=== PATIENT | male | born 1935 | race Caucasian/White ===

== ENCOUNTER 2017-02-25 12:12 | Emergency (ER) | payer MEDICARE, OTHER ==
[2017-02-25] MEDS ORDERED: Sodium Chloride 0.9% 10 ML Syringe FLUSH PRN (12:22)
[2017-02-25] MEDS ORDERED: Aspirin 81 MG Tab.Chew PO ONE (12:22)
[2017-02-25] MEDS ORDERED: Sodium Chloride 0.9% 1,000 ML IV ONE (12:22)
--- NOTE | 2017-02-25 12:27 | EDM.PDOC ---
ED HPI GENERAL MEDICAL PROBLEM - General Chief Complaint: Cardiovascular Problem Stated Complaint: CHEST PAIN Time Seen by Provider: 02/25/17 12:20 Source of Information: Reports: Patient, Family History Limitations: Reports: No Limitations - History of Present Illness INITIAL COMMENTS - FREE TEXT/NARRATIVE: Patient comes in with complaints of chest pain/pressure that started at the dentist 1 hour ago with no relief after 3 SL nitroglycerin. He does endorse a history of NH with angioplasty but no stent history. He denies stroke, copd, cancer, diabetes. Endorses medical history of HTN, hypercholesterolemia. States his chest pain starts on the left with radiation to the right side and he does state it feels like pressure. Some radiation to the back. Rates pain a 6/10. It does not increase with breathing or movement. He is here with his . Onset: Today, Sudden Onset Date: 02/25/17 Onset Time: 11:00 Duration: Intermittent Location: Reports: Chest Quality: Reports: Ache, Pressure Severity: Moderate Improves with: Reports: None Worsens with: Reports: None Associated Symptoms: Reports: No Other Symptoms - Related Data Allergies Allergy/AdvReac Type Severity Reaction Status Date / Time No Known Drug Allergies Allergy Cannot Verified 02/25/17 12:29 Remember metal Allergy Irritabilit Uncoded 11/19/13 08:54 y Home Meds: Home Meds Aspirin [Halfprin] 81 mg PO BEDTIME 11/19/13 [History] ClonazePAM [KlonoPIN] 0.25 mg PO BEDTIME 11/19/13 [History] Cyanocobalamin (Vitamin B12) [Vitamin B12] 1,000 mcg IM .MONTHLY 11/19/13 [ History] Lisinopril [Prinivil] 5 mg PO DAILY 11/19/13 [History] Metoprolol Tartrate 25 mg PO BID 11/19/13 [History] Multivitamin [Multi-Vitamin Daily] 1 each PO PCDIN 11/19/13 [History] Pantoprazole [Pantoprazole Sodium] 20 mg PO WDIN 11/19/13 [History] Simvastatin [Zocor] 10 mg PO BEDTIME 11/19/13 [History] Tamsulosin [Flomax] 0.4 mg PO BEDTIME 11/19/13 [History] amLODIPine [Norvasc] 5 mg PO DAILY 11/19/13 [History] busPIRone [Buspar] 5 mg PO DAILY 11/19/13 [History] Meclizine [Antivert] 12.5 mg PO TID PRN #30 tablet 11/20/13 [Rx] Levothyroxine 50 mcg PO DAILY 02/25/17 [History] Omeprazole Magnesium [Prilosec Otc] 20 mg PO DAILY 02/25/17 [History] Oxybutynin Chloride [Ditropan Xl] 5 mg PO DAILY 02/25/17 [History] Triamcinolone Acetonide [Triamcinolone Acetonide 0.5%] 15 gm TOP BID 02/25/17 [ History] Past Medical History - Past Health History Medical/Surgical History: Denies Medical/Surgical History Social & Family History - Tobacco Use Smoking Status *Q: Never Smoker Years of Tobacco use: 50 Used Tobacco, but Quit: Yes Month Tobacco Last Used: 10/2000 Second Hand Smoke Exposure: No - Alcohol Use Days Per Week of Alcohol Use: 0 - Recreational Drug Use Recreational Drug Use: No ED ROS GENERAL - Review of Systems Review Of Systems: See Below Constitutional: Reports: No Symptoms HEENT: Reports: No Symptoms Respiratory: Reports: No Symptoms Cardiovascular: Reports: Chest Pain (chest pressure) Endocrine: Reports: No Symptoms GI/Abdominal: Reports: No Symptoms : Reports: No Symptoms Musculoskeletal: Reports: No Symptoms Skin: Reports: No Symptoms Neurological: Reports: No Symptoms Psychiatric: Reports: No Symptoms Hematologic/Lymphatic: Reports: No Symptoms Immunologic: Reports: No Symptoms ED EXAM, GENERAL - Physical Exam Exam: See Below Exam Limited By: No Limitations General Appearance: Alert, WD/WN, No Apparent Distress Eye Exam: Bilateral Eye: EOMI, PERRL Head: Atraumatic, Normocephalic Neck: Normal Inspection, Supple, Non-Tender Respiratory/Chest: No Respiratory Distress, Lungs Clear, No Accessory Muscle Use , Decreased Breath Sounds Cardiovascular: Normal Peripheral Pulses, Regular Rate, Rhythm Peripheral Pulses: 2+: Posterior Tibial (L), Posterior Tibial (R), Dorsalis Pedis (L), Dorsalis Pedis (R) GI/Abdominal: Normal Bowel Sounds, Soft, Non-Tender Extremities: Normal Inspection, Normal Range of Motion, Non-Tender, Pedal Edema (2+) Neurological: Alert, Oriented, CN II-XII Intact, Normal Cognition Psychiatric: Normal Affect, Normal Mood Skin Exam: Warm, Dry, Intact, Normal Color Lymphatic: No Adenopathy EKG INTERPRETATION EKG Date: 02/25/17 Time: 12:18 Rhythm: NSR Rate (beats/min): 65 [place]: normal P-wave: present QRS: normal ST-T: depressed QT: normal Comparison: no change Course - Vital Signs Last Recorded V/S: Last Vital Signs Temp 36.7 C 02/25/17 12:12 Pulse 66 02/25/17 13:23 Resp 16 02/25/17 13:23 BP 106/67 02/25/17 13:23 Pulse Ox 98 02/25/17 13:23 - Orders/Labs/Meds Orders: Active Orders 24 hr Category Date Time Status EKG Documentation Completion [RC] ROUTINE Care 02/25/17 12:22 Active Chest 1V Frontal [CR] Stat Exams 02/25/17 12:22 Taken Chest PE [Ang Chest] [CT] Stat Exams 02/25/17 13:17 Taken Sodium Chloride 0.9% [Saline Flush] Med 02/25/17 12:22 Active 10 ml FLUSH ASDIRECTED PRN Saline Lock Insert [OM.PC] Routine Oth 02/25/17 12:22 Ordered Medication Orders Sodium Chloride (Saline Flush) 10 ml FLUSH ASDIRECTED PRN PRN Reason: Keep Vein Open Labs: Laboratory Tests 02/25/17 02/25/17 02/25/17 Range/Units 12:46 12:46 12:46 WBC 5.6 (4.0-10.0) x10^3/uL RBC 4.27 L (4.5-6.0) x10^6/uL Hgb 13.4 L (14.0-18.0) g/dL Hct 39.3 L (40.0-52.0) % MCV 92.0 (78.0-93.0) fL MCH 31.4 (26.0-32.0) pg MCHC 34.1 (32.0-36.0) g/dL RDW Coeff of Phyllis 12.7 (10.0-15.0) % Plt Count 150 (130-400) x10^3/uL Neut % (Auto) 64.4 (50.0-80.0) % Lymph % (Auto) 26.6 (25.0-50.0) % Marion % (Auto) 6.3 (2.0-11.0) % Eos % (Auto) 2.2 (0.0-4.0) % Baso % (Auto) 0.5 (0.2-1.2) % PT 11.2 (10.0-12.8) SEC INR 1.0 L (2.0-3.5) D-Dimer, Quantitative 2.46 H (<=0.58) mg/LFEU Sodium 140 (136-145) mmol/L Potassium 4.2 (3.5-5.1) mmol/L Chloride 105 (98-107) mmol/L Carbon Dioxide 28 (21-32) mmol/L BUN 18 (7-18) mg/dL Creatinine 1.0 (0.70-1.30) mg/dL Est Cr Clr Drug Dosing TNP Estimated GFR (MDRD) > 60 Glucose 100 (74-106) mg/dL Calcium 8.7 (8.5-10.1) mg/dL Corrected Calcium 9.02 (8.5-10.1) mg/dL Total Bilirubin 0.4 (0.2-1.0) mg/dL AST 24 (15-37) U/L ALT 29 (16-63) U/L Alkaline Phosphatase 78 (46-116) U/L Creatine Kinase 105 (39-308) U/L Creatine Kinase Index 2.9 (0.0-4.0) % CK-MB (CK-2) 3.0 (0.0-3.6) ng/mL POC Troponin I (0.00-0.08) ng/mL B-Natriuretic Peptide 727 H (<=450) pg/mL Total Protein 6.7 (6.4-8.2) g/dL Albumin 3.6 (3.4-5.0) g/dL Globulin 3.1 Albumin/Globulin Ratio 1.16 TSH, Ultra Sensitive 2.676 (0.358-3.74) uIU/mL 02/25/17 Range/Units 12:59 WBC (4.0-10.0) x10^3/uL RBC (4.5-6.0) x10^6/uL Hgb (14.0-18.0) g/dL Hct (40.0-52.0) % MCV (78.0-93.0) fL MCH (26.0-32.0) pg MCHC (32.0-36.0) g/dL RDW Coeff of Phyllis (10.0-15.0) % Plt Count (130-400) x10^3/uL Neut % (Auto) (50.0-80.0) % Lymph % (Auto) (25.0-50.0) % Marion % (Auto) (2.0-11.0) % Eos % (Auto) (0.0-4.0) % Baso % (Auto) (0.2-1.2) % PT (10.0-12.8) SEC INR (2.0-3.5) D-Dimer, Quantitative (<=0.58) mg/LFEU Sodium (136-145) mmol/L Potassium (3.5-5.1) mmol/L Chloride (98-107) mmol/L Carbon Dioxide (21-32) mmol/L BUN (7-18) mg/dL Creatinine (0.70-1.30) mg/dL Est Cr Clr Drug Dosing Estimated GFR (MDRD) Glucose (74-106) mg/dL Calcium (8.5-10.1) mg/dL Corrected Calcium (8.5-10.1) mg/dL Total Bilirubin (0.2-1.0) mg/dL AST (15-37) U/L ALT (16-63) U/L Alkaline Phosphatase (46-116) U/L Creatine Kinase (39-308) U/L Creatine Kinase Index (0.0-4.0) % CK-MB (CK-2) (0.0-3.6) ng/mL POC Troponin I 0.01 (0.00-0.08) ng/mL B-Natriuretic Peptide (<=450) pg/mL Total Protein (6.4-8.2) g/dL Albumin (3.4-5.0) g/dL Globulin Albumin/Globulin Ratio TSH, Ultra Sensitive (0.358-3.74) uIU/mL Meds: Medications Generic Name Dose Route Start Last Admin Trade Name Freq PRN Reason Stop Dose Admin Sodium Chloride 10 ml 02/25/17 12:22 Saline Flush FLUSH ASDIRECTED PRN Keep Vein Open Discontinued Medications Generic Name Dose Route Start Last Admin Trade Name Freq PRN Reason Stop Dose Admin Aspirin 324 mg 02/25/17 12:22 02/25/17 12:15 Aspirin PO 02/25/17 12:23 324 mg ONETIME ONE Administration Sodium Chloride 1,000 mls @ 999 mls/hr 02/25/17 12:22 02/25/17 12:49 Normal Saline IV 02/25/17 13:22 999 mls/hr .BOLUS ONE Administration Sodium Chloride 100 mls @ 3 mls/sec 02/25/17 13:23 02/25/17 13:58 Normal Saline IV 02/25/17 13:24 5 mls/sec ONETIME ONE Administration Iopamidol 100 ml 02/25/17 13:23 02/25/17 13:57 Isovue-300 (61%) IVPUSH 02/25/17 13:24 100 ml ONETIME ONE Administration - Re-Assessments/Exams Free Text/Narrative Re-Assessment/Exam: 02/25/17 13:55 chest x-ray with hyperinflation and chronic COPD - no acute process on x-ray 02/25/17 15:19 Chest CTA negative for PE, single right upper lobe nodule, suggest repeat CT in 6-12 months, infrarenal 4.38 cm AAA Departure - Departure Time of Disposition: 15:26 Disposition: Home, Self-Care 01 Condition: good Clinical Impression: Anxiety disorder Instructions: Nonspecific Chest Pain, [id number], Panic Attacks, [id number] Additional Instructions: Follow up with your primary provider as symptoms warrant. Your diagnostics today were negative for any acute cardiac causes or pulmonary embolism. You need a follow up chest CT in 6-12 months to track any growth of the nodule seen in your upper right lobe You also have a infrarenal 4.38 cm abdominal aortic aneurism that should be monitored for any growth. Please call us with any questions or concerns. - Problem List & Annotations (1) Anxiety disorder SNOMED Code(s): 319171054 Code(s): F41.9 - ANXIETY DISORDER, UNSPECIFIED Status: Acute Priority: Low Current Visit: Yes - Problem List Review Problem List Initiated/Reviewed/Updated: Yes - My Orders Last 24 Hours: My Active Orders 02/25/17 12:22 EKG Documentation Completion [RC] ROUTINE Chest 1V Frontal [CR] Stat Sodium Chloride 0.9% [Saline Flush] 10 ml FLUSH ASDIRECTED PRN Saline Lock Insert [OM.PC] Routine 02/25/17 13:17 Chest PE [Ang Chest] [CT] Stat - Assessment/Plan Last 24 Hours: My Active Orders 02/25/17 12:22 EKG Documentation Completion [RC] ROUTINE Chest 1V Frontal [CR] Stat Sodium Chloride 0.9% [Saline Flush] 10 ml FLUSH ASDIRECTED PRN Saline Lock Insert [OM.PC] Routine 02/25/17 13:17 Chest PE [Ang Chest] [CT] Stat Assessment:: anxiety Plan: Follow up with your primary provider as symptoms warrant. Your diagnostics today were negative for any acute cardiac causes or pulmonary embolism. You need a follow up chest CT in 6-12 months to track any growth of the nodule seen in your upper right lobe You also have a infrarenal 4.38 cm abdominal aortic aneurism that should be monitored for any growth. Please call us with any questions or concerns.
[2017-02-25 13:21] LABS: CHLORIDE,CL 105 mmol/L (98-107); SODIUM,NA 140 mmol/L (136-145)
[2017-02-25] MEDS ORDERED: Sodium Chloride 0.9% 100 ML IV ONE (13:23)
[2017-02-25] MEDS ORDERED: Iopamidol 612 MG/ML 100 ML Bottle IVPUSH ONE (13:23)
[2017-02-25 13:32] VITALS: BP 106/67
== END 2017-02-25 15:30 | disposition home or self-care (01) ==
LOC: VM.ED 12:12
DX: F41.9 Anxiety disorder, unspecified (principal); Z79.82 Long term (current) use of aspirin; Z91.09 Other allergy status, other than to drugs and biological substances; Z79.899 Other long term (current) drug therapy
CPT/HCPCS: 71010; 71275; 80053; 82550; 82553; 83880; 84443; 84484; 85025; 85379; 85610; 93005; 96360; 99284; 99285; A9270; J7030; J7050; Q9967

== ENCOUNTER 2018-11-02 13:43 | Emergency (ER) | payer MEDICARE, OTHER ==
[2018-11-02 14:08] VITALS: BP 167/91
--- NOTE | 2018-11-02 14:18 | EDM.PDOC ---
ED HPI GENERAL MEDICAL PROBLEM - General Chief Complaint: Back Pain or Injury Stated Complaint: BACK PAIN Time Seen by Provider: 11/02/18 13:44 Source of Information: Reports: Patient, Family, RN, RN Notes Reviewed History Limitations: Reports: No Limitations - History of Present Illness INITIAL COMMENTS - FREE TEXT/NARRATIVE: Patient presents to the ED at [facility] for the evaluation of neck pain, right lower rib pain, and shoulder pain. Patient states he fell into a chair 2 days ago. He was using Aspercreme which seem to help until today when the pain was no longer controllable. Patient states it hurts to take in a deep breath. No over cardiac chest pain. Patient states the worse of his pain is along the right lateral lower ribs. He has some right sided neck pain but is unsure if the pain is related to the fall. He has right shoulder pain but states this is chronic. He denies any LOC. No head injury or trauma. patient denies any back pain. No bowel or bladder in continence. Patient states his right lateral chest wall pain is sharp, stabbing, and spasm like. Onset Date: 10/31/18 Right Back Pain Score (Numeric/FACES): 8 - Related Data Allergies Allergy/AdvReac Type Severity Reaction Status Date / Time metal Allergy Irritabilit Uncoded 11/02/18 14:11 y Home Meds: Home Meds Aspirin [Halfprin] 81 mg PO BEDTIME 11/19/13 [History] ClonazePAM [KlonoPIN] 0.25 mg PO BEDTIME 11/19/13 [History] Cyanocobalamin (Vitamin B12) [Vitamin B12] 1,000 mcg PO DAILY 11/19/13 [History] Lisinopril [Prinivil] 5 mg PO DAILY 11/19/13 [History] Metoprolol Tartrate 25 mg PO BID 11/19/13 [History] Simvastatin [Zocor] 10 mg PO BEDTIME 11/19/13 [History] Tamsulosin [Flomax] 0.4 mg PO BEDTIME 11/19/13 [History] busPIRone [Buspar] 5 mg PO BID 11/19/13 [History] Levothyroxine 50 mcg PO DAILY 02/25/17 [History] Omeprazole Magnesium [Prilosec Otc] 20 mg PO DAILY 02/25/17 [History] Oxybutynin Chloride [Ditropan Xl] 5 mg PO DAILY 02/25/17 [History] Triamcinolone Acetonide [Triamcinolone Acetonide 0.5%] 15 gm TOP BID 02/25/17 [ History] Cholecalciferol (Vitamin D3) [Vitamin D3] 2,000 unit PO DAILY 11/02/18 [History] Naproxen Sodium [Aleve] 220 mg PO BID PRN 11/02/18 [History] hydroCHLOROthiazide [Hydrochlorothiazide] 12.5 mg PO DAILY 11/02/18 [History] predniSONE [Prednisone] 5 mg PO ASDIRECTED 11/02/18 [History] traMADol [Ultram] 50 mg PO QID PRN 11/02/18 [History] Past Medical History - Past Health History Medical/Surgical History: Denies Medical/Surgical History Cardiovascular History: Reports: Heart Failure, Hypertension, [place] Gastrointestinal History: Reports: GERD Social & Family History - Tobacco Use Smoking Status *Q: Unknown Ever Smoked ED ROS GENERAL - Review of Systems Review Of Systems: See Below Constitutional: Denies: Fever, Chills Respiratory: Reports: Pleuritic Chest Pain (right lateral rib pain). Denies: Shortness of Breath, Cough Cardiovascular: Reports: Palpitations. Denies: Chest Pain GI/Abdominal: Denies: Abdominal Pain, Nausea, Vomiting Musculoskeletal: Reports: Neck Pain, Shoulder Pain Skin: Reports: No Symptoms Neurological: Reports: No Symptoms ED EXAM, UPPER BACK/NECK PAIN - Physical Exam Exam: See Below Exam Limited By: No Limitations General Appearance: Alert, No Apparent Distress Eye Exam: Bilateral Eye: EOMI, Normal Inspection, PERRL Ears Exam: Normal External Exam, Normal Canal, Normal TMs Nose Exam: Normal Inspection Throat/Mouth Exam: Normal Inspection, Normal Oropharynx, No Airway Compromise Head Exam: Atraumatic, Normocephalic Neck Exam: Stiff Neck, Tender Lateral Nexus Criteria: No: Posterior, Midline Cervical Tenderness, Altered Level of Consciousness, Focal Neurological Deficit, Painful Distraction Injuries Cardiovascular/Respiratory: Regular Rate, Rhythm, Normal Peripheral Pulses, Other (Right lateral lower chest wall tenderness to palpation; no obvious bone deformity; no evidence of trauma; skin intact). No: No Respiratory Distress GI/Abdominal: Normal Bowel Sounds, Soft, Non-Tender Back Exam: Normal Inspection, Full Range of Motion Extremities: Normal Inspection Neurologic: Alert, Oriented x 3 Skin Exam: Normal Color, Warm/Dry Course - Vital Signs Last Recorded V/S: Last Vital Signs Temp 37.3 C 11/02/18 14:00 Pulse 63 11/02/18 14:00 Resp 18 11/02/18 14:00 BP 167/91 H 11/02/18 14:00 Pulse Ox 99 11/02/18 14:00 - Orders/Labs/Meds Meds: Medications Discontinued Medications Generic Name Dose Route Start Last Admin Trade Name Coni PRN Reason Stop Dose Admin Morphine Sulfate 2 mg 11/02/18 14:50 11/02/18 14:57 Morphine IM 11/02/18 14:51 2 mg ONETIME ONE Administration Orphenadrine Citrate 60 mg 11/02/18 14:50 11/02/18 14:57 Norflex IM 11/02/18 14:51 60 mg Q12H ONE Administration Departure - Departure Time of Disposition: 16:38 Disposition: Home, Self-Care 01 Condition: Good Clinical Impression: Muscle spasm Rib fractures Qualifiers: Encounter type: initial encounter Rib fracture type: multiple ribs Fracture type: closed Laterality: right Qualified Code(s): S22.41XA - Multiple fractures of ribs, right side, initial encounter for closed fracture Fall Qualifiers: Encounter type: initial encounter Qualified Code(s): W19.XXXA - Unspecified fall, initial encounter - Discharge Information *PRESCRIPTION DRUG MONITORING PROGRAM REVIEWED*: Not Applicable *COPY OF PRESCRIPTION DRUG MONITORING REPORT IN PATIENT ALLIE: Not Applicable Instructions: Rib Fracture, Muscle Cramps and Spasms Referrals: Mirtha Madera MD [Primary Care Provider] - Forms: ED Department Discharge Additional Instructions: 1. Stay well hydrated and rest 2. Use pain medication (Tramadol) consistently until seen by Dr. Madera in clinic 3. Use muscle relaxer as prescribed 4. Cough and deep breath several times any hour 5. Use a pillow to splint the right ribs when coughing or sneezing 6. Recommend a follow up appointment with Dr. Madera this week in clinic 7. Call us with any questions or concerns - Problem List Review Problem List Initiated/Reviewed/Updated: Yes - Assessment/Plan Assessment:: Acute rib fractures Fall Muscle spasms Plan: CT scan and xray findings were discussed with the patient. I will recommend that the patient take his tramadol more consistently at home. I will also start the patient on a short course of Flexeril. We discussed cough and deep breathing exercises to prevent pneumonia. Also discussed using a pillow to splint the right ribs, especially when needing to cough or sneeze. I would like the patient to see his PCP in the clinic for a follow-up this week
[2018-11-02] MEDS ORDERED: Morphine 2 MG/ML Syringe IM ONE (14:50)
--- NOTE | 2018-11-02 16:32 | CT ---
[id number] CT/CT Chest WO IV EXAM: CT Chest WO IV CLINICAL DATA: RIGHT RIB PAIN, FALL, CHEST PAIN. COMPARISON: CT from September 04, 2017. FINDINGS: LUNGS: Trace right pleural effusion. No pneumothorax or pulmonary contusion. No pneumonia or edema. Findings are superimposed on changes of chronic obstructive pulmonary disease with scattered pleural/parenchymal scarring. HEART AND GREAT VESSELS: Coronary artery and thoracic aorta atherosclerosis. Heart is enlarged, most notably in the left ventricle and atrium. No pericardial effusion. MEDIASTINUM AND LYMPHATICS: No mediastinal or hilar lymphadenopathy. UPPER ABDOMINAL ORGANS: Small sliding-type hiatus hernia. Gallbladder has been resected. Now fusiform aneurysm of the infrarenal abdominal aorta, measuring up to 38 mm in diameter. This portion of the aorta was not included on the prior examination. BONES: Acute nondisplaced fractures of the posterior 7th and 8th ribs. 7th rib fracture is slightly displaced. Chronic mild to moderate L1 compression deformity, unchanged from August 2017. No evidence of an acute vertebral fracture. IMPRESSION: Acute fractures of the posterior right 7th and 8th ribs. 7th rib fracture is slightly displaced. Despite this there is no pneumothorax. No other acute findings in the chest. Kyle Franco MD 11/02/18 [id number] Thank you for allowing us to participate in the care of your patient.
--- NOTE | 2018-11-02 16:32 | CR ---
[id number] RAD/RAD Cervical Spine 2-3V Exam: RAD Cervical Spine 2-3V Indication:NECK PAIN, FALL. Comparison: No prior imaging for comparison. Discussion: Straightening of the normal cervical lordosis secondary to advanced spondylosis most prominent at C4-5 and C5-6. Mild to moderate changes of spondylosis elsewhere in the cervical spine. No fracture or compression deformity. Prevertebral soft tissues are normal thickness. Bone mineralization is diffusely decreased. Impression: No acute findings in the cervical spine. Kyle Franco MD 11/02/18 [id number] Thank you for allowing us to participate in the care of your patient.
[2018-11-02] MEDS ORDERED: Take Home: Cyclobenzaprine 10 MG Tab, 4 Tab Pack PO ONE (16:44)
== END 2018-11-02 17:00 | disposition home or self-care (01) ==
LOC: VM.ED 13:43
DX: S22.41XA Multiple fractures of ribs, right side, initial encounter for closed fracture (principal); M62.830 Muscle spasm of back; I11.0 Hypertensive heart disease with heart failure; I50.9 Heart failure, unspecified; W07.XXXA Fall from chair, initial encounter; Z91.048 Other nonmedicinal substance allergy status; Z79.82 Long term (current) use of aspirin; Z79.899 Other long term (current) drug therapy
CPT/HCPCS: 71250; 72040; 96372; 99284; A9270-GY; J2270; J2360

== ENCOUNTER 2018-11-03 13:54 | Inpatient (IN) | payer MEDICARE, OTHER ==
[2018-11-03] MEDS ORDERED: Acetaminophen 325 MG Tab PO PRN (14:00)
[2018-11-03] MEDS ORDERED: Morphine 2 MG/ML Syringe IVPUSH PRN (14:00)
[2018-11-03] MEDS ORDERED: traMADol 50 MG Tab PO PRN (14:30)
[2018-11-03] MEDS ORDERED: Cyclobenzaprine 10 MG Tab PO PRN (14:30)
[2018-11-03 14:54] LABS: CHLORIDE,CL 98 mmol/L (98-107); SODIUM,NA 133 mmol/L (136-145)
[2018-11-03 14:55] LABS: ANION GAP 11.7 mmol/L (10-20)
[2018-11-03] MEDS ORDERED: Sodium Chloride 0.9% 500 ML IV ONE (14:55)
[2018-11-03] MEDS: Sodium Chloride 0.9% 1,000 ML IV SCH ×2 (15:10→15:59)
[2018-11-03] MEDS ORDERED: Sodium Chloride 0.9% 1,000 ML IV ONE (15:11)
[2018-11-03] MEDS: Morphine 2 MG/ML Syringe IVPUSH SCH ×3 (15:11→22:08)
[2018-11-03] MEDS: Aspirin 81 MG Tab.EC PO SCH (19:39)
[2018-11-03] MEDS: Tamsulosin 0.4 MG Cap.ER PO SCH (19:39)
[2018-11-03] MEDS: Docusate Sodium 100 MG Cap PO SCH (19:40)
[2018-11-03] MEDS: Metoprolol Tartrate 25 MG Tab PO SCH (19:40)
[2018-11-03] MEDS: busPIRone 5 MG Tab PO SCH (19:40)
[2018-11-03] MEDS: Omeprazole 20 MG Cap.CR PO SCH (19:40)
[2018-11-03] MEDS: Simvastatin 10 MG Tab PO SCH (19:40)
[2018-11-03] MEDS: ClonazePAM 0.5 MG Tab PO SCH (19:43)
[2018-11-03] MEDS: Triamcinolone Acetonide 0.1% Crm 15 GM Tube TOP SCH (20:54)
[2018-11-04] MEDS: Sodium Chloride 0.9% 1,000 ML IV SCH ×3 (01:05→21:22)
[2018-11-04] MEDS: Morphine 2 MG/ML Syringe IVPUSH SCH ×6 (02:38→22:23)
[2018-11-04 07:09] LABS: CHLORIDE,CL 104 mmol/L (98-107); SODIUM,NA 137 mmol/L (136-145)
[2018-11-04 07:10] LABS: ANION GAP 8.9 mmol/L (10-20)
[2018-11-04] MEDS: Cholecalciferol (Vitamin D3) 1,000 Unit Tab PO SCH (08:07)
[2018-11-04] MEDS: busPIRone 5 MG Tab PO SCH ×2 (08:07→20:08)
[2018-11-04] MEDS: predniSONE 5 MG Tab PO SCH (08:07)
[2018-11-04] MEDS: Levothyroxine 50 MCG Tab PO SCH (08:08)
[2018-11-04] MEDS: Oxybutynin 5 MG Tab.ER PO SCH (08:08)
[2018-11-04] MEDS: Cyanocobalamin (Vitamin B12) 1,000 MCG Tab PO SCH (08:08)
[2018-11-04] MEDS: Docusate Sodium 100 MG Cap PO SCH ×2 (08:08→20:08)
[2018-11-04] MEDS: Hydrochlorothiazide 12.5 MG Cap PO SCH (08:08)
[2018-11-04] MEDS: Metoprolol Tartrate 25 MG Tab PO SCH ×2 (08:09→20:08)
--- NOTE | 2018-11-04 09:11 | HP ---
CHIEF COMPLAINT: Severe chest pain, intractable. HISTORY OF PRESENT ILLNESS: The patient is an 83-year-old male who was seen yesterday in the emergency room after having fallen on 10/31/2018, into a chair. He had sustained 7th and 8th right rib fractures as well as strained his neck. While in the emergency room, he had a CT scan done. He was given 2 mg of morphine as well as Norflex injection. He was sent home on tramadol and Flexeril. He lives in assisted living. Since being at home, he has been having uncontrolled pain and he needs more care than what can be provided in assisted living. The patient is brought in by family friend, Ebonie Branham RN, and she states he is just not managing well. To note, patient has not eaten well. He appears very despondent, lethargic. To note, when he had been in the clinic recently on 10/28/2018, he had just been found to be positive for rheumatoid arthritis and had been placed on tapering dose of prednisone, which had been helping him quite significantly. Also, he had been having problems with hypotension and he had his amlodipine recently stopped on 10/14/2018, and his BuSpar had been increased to 10 mg twice a day and he had been resumed on hydrochlorothiazide and to wear support stockings. Then on 10/28/2018, his hydrochlorothiazide had been reduced to half a pill a day, and he was started to taper on prednisone 15 mg a day for a week and then 10 mg a day for a week and then 5 mg a day for a week, to stay until he is seen and he was to continue on the same doses of tramadol and BuSpar and wear support stockings. The patient also is under quite a bit of stress in that his lives at the senior living and affordability of that is bothersome to patient. MEDICATIONS: He is currently on: 1. Aspirin 81 mg 1 pill daily. 2. BuSpar 10 mg he takes two 5 mg tablets twice a day. 3. Clonazepam 0.5 mg a half a tablet at bedtime. 4. Levothyroxine 50 mcg 1 pill daily. 5. Lisinopril 5 mg 1 pill daily. 6. Metoprolol 25 mg 1 pill twice a day. 7. Naprosyn 220 mg 1 pill twice a day as needed for pain. 8. Omeprazole 20 mg 1 pill at bedtime. 9. Oxybutynin 5 mg 1 pill at bedtime. 10.Simvastatin 10 mg 1 pill at bedtime. 11.Flomax 0.4 mg 1 pill at bedtime. 12.Triamcinolone cream twice a day as needed. 13.Vitamin B12, 1000 mcg p.o. daily. 14.Vitamin D 2000 units p.o. daily. 15.Aleve. 16.He has hydrochlorothiazide 25 mg a half a pill daily. 17.As stated, prednisone 15 mg daily which was started on 10/28, which will go until 11/04. Then, he should cut down to 10 mg daily for 1 week and then 5 mg daily. 18.Tramadol 50 mg 1 pill 4 times a day as needed for pain. 19.Flexeril 10 mg q.8 hours p.r.n. muscle spasms. ALLERGIES: To metal. PAST MEDICAL HISTORY: 1. The patient has had rheumatoid arthritis being positive on 10/14/2018, not under the care of Rheumatology. 2. He has had hypercholesterolemia. 3. Mild cognitive disorder. On 02/23/2015, mini-mental status was 28/30. 4. He had lung nodules which were noted on 09/04/2017 as stable, he needed 1 year followup, which has not been done yet. 5. He has had hypothyroidism. 6. Hyperglycemia. 7. Hypertension. 8. Coronary artery disease on 02/11/2002. 9. He had a stent placed to distal LAD stenosis length 2.5 mm vessel as well as bifurcation lesion at the left circumflex due to anatomy, had cutting balloon angioplasty rather than stenting of the bifurcation with good success. Had an PCI as well as angioplasty of LAD stenosis, PTCA. Cardiolite on 04/27/2002, showed mild LVH, decreased ejection fraction of 45%, fixed perfusion defects in apex. He has had chronic diastolic heart failure. 10.Echo on 12/28/2002 showed ejection fraction of 50%, 09/25/2006 ejection fraction by angiogram was 45%. had declined echo in 2013. 11.He has had chronic anxiety disorder, on clonazepam and BuSpar. 12.He has a known abdominal aortic aneurysm on 02/25/2017, it was 4.[address] On 03/14/2018, it was 4 cm by ultrasound. He was supposed to have another ultrasound in 6 months, which has also not been done. 13.The patient has had vertigo. 14.He has had vertebral artery aneurysms known for many years, seen on CT of his head, asymptomatic, declined further workup. 15.He has had restless legs syndrome. 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 17.Lumbar paraspinal muscle spasms. 18.Hiatal hernia. 19.He had an upper GI on 08/25/2018, at [facility]. 20.He has had peripheral edema. 21.Dyspepsia. 22.EGD on 03/23/2005 showed duodenitis. 23.He has had compression fracture of his 1st vertebra on 12/24/2017. 24.Cervical disk disease at C3-C5. He has had epidural injections. 25.He has had arthritis of both hands. 26.Acute shoulder bursitis. 27.Chronic back pain. 28.He has had peripheral neuropathy. 29.He is hypothyroid and vitamin B12 deficient. 30.He has had atopic dermatitis. 31.He has had hearing disorder, both ears. 32.He has had benign nodular prostatic hypertrophy. 33.Vitamin B12 deficiency. PAST SURGICAL HISTORY: He has had percutaneous transluminal coronary stent and angioplasty on 02/11/2002, cholecystectomy, hernia repair on the right. FAMILY MEDICAL HISTORY: Mother had brain hemorrhage, heart attack, and MS. Father from a stroke. One brother has had COPD. Another brother has had a stroke, knee cancer, prostate cancer. Another brother has had stroke, heart disease, diabetes, depression. Another brother has had prostate cancer, dementia. Another brother has had heart disease, prostate cancer, and MS. Another brother has had dementia. SOCIAL HISTORY: He is . He is a retired garcia. He has never smoked. He has also been a teacher. He has had a previous who had one son murdered while in the [employer]. One son at 52 of cancer. One son and one daughter are living. 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 [facility] but [facility]. REVIEW OF SYSTEMS: Much more weak, difficult to move around. No coughing. No chest pain. No shortness of breath. No nausea. Does not have swelling of his legs. Has had much less swelling of his arms. Does have pain in his neck as well as pain in his right chest. His bowels, he is not certain when they have worked. OBJECTIVE: Vital Signs: Objectively, his weight was not taken today, it was 160 pounds last week, which is 72.9 kg. Blood pressure today is 86/58, pulse 52, saturations are 96%. General: Patient is sitting listless in the chair leaning off toward the right. He is very slow to answer. Skin: Turgor is poor. Mucous membranes are dry. Heart: Regular rate. Lungs: Clear to auscultation. He is tender to palpation in his right chest wall area. Abdomen: Soft, slightly distended. Lower Extremities: He is wearing support stockings. He does have trace edema. Neuro: weak profound, listing off to the side Psych: Very anxious, mildly forgetful. IMPRESSION: 1. Intractable rib pain secondary to right rib fracture from fall on 10/31/2018. 2. Hypotension, multifactorial. 3. Rheumatoid arthritis, currently steroid-dependent. 4. Hypertension. 5. Coronary artery disease. 6. Mild cognitive dysfunction. 7. Chronic anxiety disorder. 8. Dehydration, mild. PLAN: The patient will be admitted to acute care. We will place him on scheduled parenteral pain medications. We will give him IV fluid bolus to see if that helps with hydration. We will have Physical Therapy work with the patient and hope would be to get the patient to return back to assisted living. The patient does desire to be code level 1 status, and to note, we will not place him on Lovenox because of his frequent falls due to risk with that.Will work with lung function to prevent pneumoia. GM11/03/2018 14:19:45 MODL: 11/03/2018 22:03:01 /[id number]
--- NOTE | 2018-11-04 09:22 | CR ---
[id number] RAD/RAD Chest PA or AP 1V EXAM: RAD Chest PA or AP 1V INDICATION: COUGH, RIB FRACTURE. COMPARISON: February 25, 2017. DISCUSSION: Cardiomediastinal silhouette is normal in size and contour. Again identified are minimally displaced posterior right 7th and 8th rib fractures. Right basilar subsegmental atelectasis. No pneumothorax. No pleural effusion. IMPRESSION: Minimally displaced posterior right 7th and 8th rib fractures with right basilar subsegmental atelectasis. No pneumothorax. Mino Caba DO 11/04/18 0920 Thank you for allowing us to participate in the care of your patient.
[2018-11-04] MEDS: cefTRIAXone 1 GM Vial IVPUSH SCH (10:57)
[2018-11-04] MEDS: Azithromycin 250 MG Tab PO SCH (10:57)
[2018-11-04] MEDS: traMADol 50 MG Tab PO SCH ×4 (10:58→21:10)
[2018-11-04] MEDS: Enoxaparin 30 MG/0.3 ML Syringe SUBCUT SCH ×2 (11:17→20:08)
[2018-11-04] MEDS: LORazepam 0.5 MG Tab PO PRN (11:20)
--- NOTE | 2018-11-04 14:01 | PN ---
Progress Note for VANDANA ELLIS Date: 11/04/2018 Room #: VM.215 SUBJECTIVE: The patient is having an extreme amount of chest wall pain with moving around. He is very anxious about doing any activities and is worried. He did have a little difficulty swallowing his oatmeal this morning. He also was coughing prior to having difficulty swallowing his oatmeal. To note, we did hold his one lisinopril medication on admission as he was having low blood pressure in the clinic, however, did improve as he was recumbent in the hospital. OBJECTIVE: Vital Signs: His weight is 70.3 pounds today, which is up 1.2 kg from yesterday. Pulse is 57, temperature is 36.5, blood pressure is 158/79, respiratory rate 20, and sats are 95% on room air. General: The patient appears in distress. He is quite worried. He repeats questions frequently. He seems a little bit vague about memory issues. Heart: Regular rate. Lungs: Some question of congestion noted on the right side. He is tender on the right rib cage. Abdomen: Soft. Extremities: Lower extremities, no edema. Neurologic: He appears quite anxious. LABORATORY DATA: His lab work today shows his white blood cell count is improved to 9.9 and hemoglobin has dropped to 12.3. Sodium is 137, potassium 3.9, and creatinine is 1.1. GFR is greater than 60. Glucose is 191. IMPRESSION: 1. Intractable pain. 2. Right rib fractures, acute. 3. Acute chest wall pain. 4. Anxiety disorder. 5. Hypertension. 6. Rheumatoid arthritis. PLAN: The patient is on scheduled morphine right now, which we will leave. We will place him on scheduled tramadol. We will check a chest x-ray today. He will also have a Speech evaluation, and we will do a swallowing evaluation on the patient. His dose of prednisone is actually being tapered today now to 10 mg a day for a week and then in a week it should be reduced to 5 mg a day. The patient may need antibiotics to be started. We will continue IV fluids right now until we can assess how well he is swallowing. Being that he is here with assistance, we will add Lovenox for DVT prophylaxis for the patient as he should be less of a fall risk here in the hospital. GM11/04/2018 08:28:09 MODL: 11/04/2018 13:54:14 /[id number]
[2018-11-04] MEDS: Aspirin 81 MG Tab.EC PO SCH (20:08)
[2018-11-04] MEDS: Omeprazole 20 MG Cap.CR PO SCH (20:08)
[2018-11-04] MEDS: Tamsulosin 0.4 MG Cap.ER PO SCH (20:08)
[2018-11-04] MEDS: Simvastatin 10 MG Tab PO SCH (20:09)
[2018-11-04] MEDS: ClonazePAM 0.5 MG Tab PO SCH (20:09)
[2018-11-04] MEDS: Triamcinolone Acetonide 0.1% Crm 15 GM Tube TOP SCH ×2 (20:11→20:15)
[2018-11-05] MEDS: Morphine 2 MG/ML Syringe IVPUSH SCH ×2 (02:54→05:43)
[2018-11-05] MEDS: LORazepam 0.5 MG Tab PO PRN ×2 (04:48→20:37)
[2018-11-05] MEDS: busPIRone 5 MG Tab PO SCH ×2 (07:58→19:45)
[2018-11-05] MEDS: cefTRIAXone 1 GM Vial IVPUSH SCH (07:58)
[2018-11-05] MEDS: Oxybutynin 5 MG Tab.ER PO SCH (07:58)
[2018-11-05] MEDS: Hydrochlorothiazide 12.5 MG Cap PO SCH (07:59)
[2018-11-05] MEDS: Cholecalciferol (Vitamin D3) 1,000 Unit Tab PO SCH (07:59)
[2018-11-05] MEDS: Cyanocobalamin (Vitamin B12) 1,000 MCG Tab PO SCH (07:59)
[2018-11-05] MEDS: Azithromycin 250 MG Tab PO SCH (07:59)
[2018-11-05] MEDS: Docusate Sodium 100 MG Cap PO SCH ×2 (07:59→19:45)
[2018-11-05] MEDS: predniSONE 5 MG Tab PO SCH (07:59)
[2018-11-05] MEDS: Metoprolol Tartrate 25 MG Tab PO SCH ×2 (07:59→19:40)
[2018-11-05] MEDS: traMADol 50 MG Tab PO SCH ×4 (07:59→19:43)
[2018-11-05] MEDS: Levothyroxine 50 MCG Tab PO SCH (07:59)
[2018-11-05] MEDS: Enoxaparin 30 MG/0.3 ML Syringe SUBCUT SCH ×2 (08:00→19:46)
[2018-11-05] MEDS: Triamcinolone Acetonide 0.1% Crm 15 GM Tube TOP SCH ×3 (08:37→19:46)
[2018-11-05] MEDS ORDERED: Sodium Chloride 0.9% 10 ML Syringe FLUSH PRN (08:52)
[2018-11-05] MEDS ORDERED: Morphine 2 MG/ML Syringe IVPUSH PRN (08:54)
[2018-11-05] MEDS ORDERED: Acetaminophen/HYDROcodone 325-5 MG Tab PO PRN (08:55)
[2018-11-05] MEDS: Lisinopril 5 MG Tab PO SCH (09:03)
--- NOTE | 2018-11-05 09:26 | PN ---
Progress Note for VANDANA ELLIS Date: 11/05/2018 Room #: VM.215 SUBJECTIVE: The patient is feeling a little bit better. He is still quite anxious. He was starting to loosen a little bit last night, so his morphine was held. He was also offered some p.r.n. Ativan. He is not coughing as much today, appears stronger this morning. He just needs to have some confidence. He has been eating well as well as voiding quite well. OBJECTIVE: Vital Signs: His weight is 71.3 kilos, which is up 1 kilo from yesterday. His temperature is 36.8, pulse is 71, blood pressure is up to 162/77, respiratory rate is 18, sats are 94. General: He is looking stronger. His voice is much more clear. He is alert. He knows who I am. Heart: Regular rate and rhythm. Lungs: Reveal some inspiratory crackle on right base. Abdomen: Soft. Extremities: Lower extremities no edema. Neuro: He is anxious but slightly less. LABORATORY DATA: His lab work done today shows his hemoglobin is stable at 12.3. Chest x-ray yesterday was read as just having atelectasis and not pneumonia, however, I was concerned for pneumonia. To note, a sputum sample has not been obtained yet on the patient. IMPRESSION: 1. Intractable pain, which is improving. 2. Multiple right rib fractures. 3. Pneumonitis versus atelectasis on the right. 4. Chronic anxiety disorder. 5. Mild cognitive dysfunction. PLAN: We will stop the patient's IV fluids today, just place him on saline lock. We will continue the Rocephin for 1 more day. He is on oral Zithromax. We will repeat a chest x-ray tomorrow. We will stop the scheduled morphine and we will have hydrocodone offered p.r.n. as well as he was placed on scheduled tramadol. He does have p.r.n. Ativan. He does have his clonazepam at bedtime. He will continue to receive therapies and hopefully anticipate either transition back to assisted living hopefully within the next few days once we can get a handle on his pain medications. GM11/05/2018 09:00:56 MODL: 11/05/2018 09:20:53 /[id number]
[2018-11-05] MEDS: Omeprazole 20 MG Cap.CR PO SCH (19:40)
[2018-11-05] MEDS: Simvastatin 10 MG Tab PO SCH (19:43)
[2018-11-05] MEDS: ClonazePAM 0.5 MG Tab PO SCH (19:43)
[2018-11-05] MEDS: Aspirin 81 MG Tab.EC PO SCH (19:44)
[2018-11-05] MEDS: Tamsulosin 0.4 MG Cap.ER PO SCH (19:45)
[2018-11-06] MEDS: Levothyroxine 50 MCG Tab PO SCH (06:14)
--- NOTE | 2018-11-06 08:51 | CR ---
[id number] RAD/RAD Chest PA And Lateral EXAM: RAD Chest PA And Lateral INDICATION: RIGHT PNEUMONIA/ATELECTASIS. COMPARISON: November 04, 2018. DISCUSSION: Cardiomediastinal silhouette is stable in size and contour. Multiple new posterior right-sided rib fractures. At least ribs 6 and 7 are fractured on the right. No definite pneumothorax. There is new small effusion on the right which given the history likely represents a hemothorax. Pulmonary hyperinflation. IMPRESSION: At least 2 new rib fractures on the right with small right effusion likely representing hemothorax. Mino Caba DO 11/06/18 0848 Thank you for allowing us to participate in the care of your patient.
[2018-11-06] MEDS: cefTRIAXone 1 GM Vial IVPUSH SCH (08:57)
[2018-11-06] MEDS: Oxybutynin 5 MG Tab.ER PO SCH (09:00)
[2018-11-06] MEDS: Hydrochlorothiazide 12.5 MG Cap PO SCH (09:00)
[2018-11-06] MEDS: Azithromycin 250 MG Tab PO SCH (09:00)
[2018-11-06] MEDS: predniSONE 5 MG Tab PO SCH (09:01)
[2018-11-06] MEDS: Cyanocobalamin (Vitamin B12) 1,000 MCG Tab PO SCH (09:01)
[2018-11-06] MEDS: busPIRone 5 MG Tab PO SCH ×2 (09:01→19:39)
[2018-11-06] MEDS: Docusate Sodium 100 MG Cap PO SCH ×2 (09:02→19:39)
[2018-11-06] MEDS: Cholecalciferol (Vitamin D3) 1,000 Unit Tab PO SCH (09:02)
[2018-11-06] MEDS: Lisinopril 5 MG Tab PO SCH (09:03)
[2018-11-06] MEDS: Metoprolol Tartrate 25 MG Tab PO SCH ×2 (09:03→19:38)
[2018-11-06] MEDS: traMADol 50 MG Tab PO SCH ×4 (09:04→19:38)
--- NOTE | 2018-11-06 09:04 | PN ---
Progress Note for VANDANA ELLIS Date: 11/06/2018 Room #: VM.215 SUBJECTIVE: Objectively, the patient is feeling a little bit better. He is moving around more. He has taken some p.r.n. pain pills as well as anxiety medication. He still does have a little bit of a cough. He does require much in assistance and encouragement. OBJECTIVE: Vital Signs: Objectively, his weight is 72.1, which is up 1 kg from yesterday. Temperature is 36.7, pulse is 53, blood pressure has improved and it was down to 117/63 and then now up to 153/58, respirations 18 and saturations 93%. General: Objectively, he is feeling more calm. He is alert. He is still weaker with transfers. Lungs: Reveal some inspiratory crackles on the right. Heart: Regular rate and rhythm. Abdomen: Soft. Psych: His mood is a little bit more calmer. IMAGING STUDIES: X-ray is pending. IMPRESSION: 1. Right rib fractures. 2. Atelectasis versus pneumonitis of right lung. 3. Anxiety disorder. PLAN: We will review x-rays today. We will see how the patient progresses with therapy. I do anticipate he will most likely need to be placed on swing bed tomorrow for further rehabilitation and assessment of p.r.n. medicines. Needed to note, a sputum culture has not been obtained on the patient. GM11/06/2018 08:35:37 MODL: 11/06/2018 08:54:10 /[id number]
[2018-11-06] MEDS: Enoxaparin 30 MG/0.3 ML Syringe SUBCUT SCH ×2 (09:05→19:37)
[2018-11-06] MEDS: Triamcinolone Acetonide 0.1% Crm 15 GM Tube TOP SCH ×2 (09:05→19:41)
[2018-11-06] MEDS: ClonazePAM 0.5 MG Tab PO SCH (19:37)
[2018-11-06] MEDS: Omeprazole 20 MG Cap.CR PO SCH (19:37)
[2018-11-06] MEDS: Aspirin 81 MG Tab.EC PO SCH (19:38)
[2018-11-06] MEDS: Tamsulosin 0.4 MG Cap.ER PO SCH (19:39)
[2018-11-06] MEDS: Simvastatin 10 MG Tab PO SCH (19:39)
[2018-11-06] MEDS: LORazepam 0.5 MG Tab PO PRN (22:10)
[2018-11-07] MEDS: Levothyroxine 50 MCG Tab PO SCH (06:21)
[2018-11-07] MEDS: busPIRone 5 MG Tab PO SCH (08:00)
[2018-11-07] MEDS: cefTRIAXone 1 GM Vial IVPUSH SCH (08:00)
[2018-11-07] MEDS: Enoxaparin 30 MG/0.3 ML Syringe SUBCUT SCH (08:00)
[2018-11-07] MEDS: Oxybutynin 5 MG Tab.ER PO SCH (08:01)
[2018-11-07] MEDS: Metoprolol Tartrate 25 MG Tab PO SCH (08:01)
[2018-11-07] MEDS: predniSONE 5 MG Tab PO SCH (08:01)
[2018-11-07] MEDS: traMADol 50 MG Tab PO SCH (08:01)
[2018-11-07] MEDS: Azithromycin 250 MG Tab PO SCH (08:01)
[2018-11-07] MEDS: Cyanocobalamin (Vitamin B12) 1,000 MCG Tab PO SCH (08:02)
[2018-11-07] MEDS: Triamcinolone Acetonide 0.1% Crm 15 GM Tube TOP SCH (08:03)
[2018-11-07] MEDS: Cholecalciferol (Vitamin D3) 1,000 Unit Tab PO SCH (08:03)
[2018-11-07] MEDS: Lisinopril 5 MG Tab PO SCH (08:03)
[2018-11-07] MEDS: Docusate Sodium 100 MG Cap PO SCH (08:03)
[2018-11-07] MEDS: Hydrochlorothiazide 12.5 MG Cap PO SCH (08:03)
[2018-11-07 09:17] VITALS: BP 138/72
--- NOTE | 2018-11-07 09:32 | PN ---
Progress Note for VANDANA ELLIS Date: 11/07/2018 Room #: VM.215 SUBJECTIVE: The patient is getting stronger, but still requires assist with transfers. He is not feeling quite as anxious. He has not been wearing his rib belt yet. Behavioral Health Assistant have been working there either choices would be for the patient to go on swing bed and stay on swing bed until return to [place] versus go to [facility] for rehabilitation. [facility] services have not been checked into about availability today, so therefore we will have the patient go to swing bed. OBJECTIVE: Vital Signs: Objectively, his weight is 70.8 which is down 1.6 kg from yesterday. His blood pressure is 157/87, pulse is 53, saturations are 94% on room air, and respiratory rate is 18. Heart: Objectively his heart regular rate and rhythm. Lungs: Have diminished breath sounds on the right base. Abdomen: Soft. Neuro: He does have pain with movement still. He does get somewhat off on tangents with distractions. IMAGING STUDIES: Yesterday, chest x-ray was obtained which showed some mild hemothorax on the right and/or atelectasis, but no evidence of pneumonia. LABORATORY DATA: Lab was done on the 11/05/2018, which showed his hemoglobin was 12.3, has not been checked. Urinalysis was checked on the 11/05/2018 to make certain that he was not having bladder infection and was negative. IMPRESSION: 1. Multiple right rib fractures. 2. Atelectasis on the right. 3. Anxiety disorder. PLAN: We will place the patient on swing bed today. We will stop his Lovenox as he has been up walking adequately. We can stop his antibiotics as he does not require any, and if by chance he ends up having changes, to go to [facility], we will make appropriate arrangements. GM11/07/2018 08:47:53 MODL: 11/07/2018 09:07:04 /[id number]
--- NOTE | 2018-11-07 15:04 | DISCH ---
DATE OF TRANSFER: 11/07/2018. HISTORY OF PRESENT ILLNESS: The patient is an 83-year-old male. The patient had fallen on 10/31/2018 on a chair. He had an ER visit, was given a pain shot of morphine as well as Norflex and sent back to assisted living as he has had tramadol available to him and Flexeril. However, when he came to be seen in the clinic on 11/04/2018, he was not doing well. He had not been moving. He was not able to be helped by assisted living as they did not have services to provide him with transfers and bathing, and so due to his intractable pain, he was felt to be needed on acute care. DISCHARGE DIAGNOSES: 1. Intractable pain secondary to multiple rib fractures with fall on 10/31/2018, with;. 2. Right lung atelectasis, rule out pneumonia. 3. Dehydration, mild, due to pain. 4. Hypertension. 5. Chronic anxiety disorder. 6. Rheumatoid arthritis, recent flare. 7. Coronary artery disease. 8. Mild cognitive dysfunction. SUMMARY OF HOSPITAL COURSE: The patient was placed on scheduled dose of IV morphine. He was given IV hydration. His tramadol was placed on a scheduled dose as well. To note, he was having quite a bit of anxiety, so he had p.r.n. alprazolam added to his chart. As noted, his blood pressure was slightly low at admission. At the clinic, it was 86/68, however, it did climb nicely to 120s. His lisinopril had been held for a few days and had been resumed. He was placed on Lovenox for deep vein thrombosis prophylaxis. He was seen by Physical Therapy to get stronger. It was noted that he had a difficult time swallowing 1 day, but that may have been due to inattention to swallowing and so speech swallow was ordered on the patient and he was felt to be doing fine. The patient was taken off scheduled morphine as he was felt to possibly be having some mild hallucinations from this and did not require any further IV morphine. The scheduled tramadol helped. He was placed in a rib belt, which also did help with transfers. Because of still needing therapies for transfers, it was felt that he would benefit by physical therapy. Chest x-rays were followed up, which did show questionable pneumonitis, but then on recheck, it just showed some more likely hemothorax due to rib fractures as there was some atelectasis on the right. Labs were checked on 11/05/2018, and his hemoglobin was 12.3 from 13.2 on admission on 11/04/2018. His creatinine had gone from 1.4 on admission down to 1.0. Sodium had gone from 133 to 137, potassium was 4.7 then went down to 3.9 after hydration. Urinalysis was checked also to make certain that there was no bladder infection, it was negative. MEDICATIONS: At the time of transfer will be tramadol 50 mg 1 pill 4 times a day, lorazepam 0.5 mg q.6 h. p.r.n. Prednisone will be 10 mg daily until 11/11/2018, then he will be switched to 5 mg daily. Levothyroxine 50 mcg 1 pill daily, hydrocodone, Tylenol 5/325 one pill every 6 hours as needed, lisinopril 5 mg daily, oxybutynin 5 mg 1 pill daily, hydrochlorothiazide 12.5 mg daily, vitamin B12 1000 mcg daily, vitamin D 2000 units daily, triamcinolone cream 0.1% b.i.d. p.r.n., Flomax 0.4 mg at bedtime, simvastatin 10 mg at bedtime, omeprazole 20 mg at bedtime, metoprolol 25 mg 1 p.o. b.i.d., docusate 100 mg 1 pill twice a day (this was a new medicine he was placed on to prevent constipation from the narcotic use), clonazepam 0.25 mg at bedtime, BuSpar 10 mg 1 p.o. b.i.d., aspirin 81 mg 1 pill daily, Naprosyn 220 mg twice a day as needed, Flexeril 5 mg q.8 h. p.r.n., Tylenol 650 q.4 h. p.r.n., BenGay p.r.n. DISCHARGE INSTRUCTIONS: The patient will have a rib belt to use for transfers. Diet is regular. Anticipate discharge either home, back to [place] versus if the patient needs to the [facility] for therapies to be closer to his . His code level status at the time of discharge will be full code. GM11/07/2018 09:52:01 MODL: 11/07/2018 14:21:11 /[id number]
[2018-11-11] MEDS ORDERED: predniSONE 5 MG Tab PO SCH (08:00)
== END 2018-11-07 09:19 | DRG 184 ==
LOC: VM.MS 13:56
PROVIDERS: ADMIT Family Medicine; ATTEND Family Medicine
DX: S22.41XA Multiple fractures of ribs, right side, initial encounter for closed fracture (principal); J98.11 Atelectasis; W07.XXXA Fall from chair, initial encounter; M06.9 Rheumatoid arthritis, unspecified; E78.00 Pure hypercholesterolemia, unspecified; F09 Unspecified mental disorder due to known physiological condition; E03.9 Hypothyroidism, unspecified; I10 Essential (primary) hypertension; I25.10 Atherosclerotic heart disease of native coronary artery without angina pectoris; F41.9 Anxiety disorder, unspecified; G25.81 Restless legs syndrome; G89.29 Other chronic pain; M54.5 Low back pain; G62.9 Polyneuropathy, unspecified; E53.8 Deficiency of other specified B group vitamins; I95.9 Hypotension, unspecified; E86.0 Dehydration; Y93.89 Activity, other specified; Y92.89 Other specified places as the place of occurrence of the external cause; Z79.82 Long term (current) use of aspirin; Z98.890 Other specified postprocedural states; Z90.49 Acquired absence of other specified parts of digestive tract
CPT/HCPCS: 36415; 71045; 71046; 80048; 80053; 81003; 85025; 85027; 92526-GN; 92610-GN; 93005; 97110-GO; 97116-GP; 97162-GP; 97165-GO; A9270-GY; J0696; J1650; J2270; J7030; J7040

== ENCOUNTER 2018-11-07 08:58 | Inpatient (IN) | payer MEDICARE, OTHER ==
[2018-11-07] MEDS ORDERED: Cyclobenzaprine 10 MG Tab PO PRN (09:57)
[2018-11-07] MEDS ORDERED: Menthol/Methyl Salicylate 85 GM Tube TOP PRN (09:57)
[2018-11-07] MEDS: traMADol 50 MG Tab PO SCH ×3 (12:01→20:31)
[2018-11-07] MEDS: busPIRone 5 MG Tab PO SCH (20:25)
[2018-11-07] MEDS: Omeprazole 20 MG Cap.CR PO SCH (20:25)
[2018-11-07] MEDS: Metoprolol Tartrate 25 MG Tab PO SCH (20:25)
[2018-11-07] MEDS: Simvastatin 10 MG Tab PO SCH (20:25)
[2018-11-07] MEDS: Aspirin 81 MG Tab.EC PO SCH (20:30)
[2018-11-07] MEDS: LORazepam 0.5 MG Tab PO PRN (20:31)
[2018-11-07] MEDS: ClonazePAM 0.5 MG Tab PO SCH (20:32)
[2018-11-07] MEDS: Triamcinolone Acetonide 0.1% Crm 15 GM Tube TOP SCH (20:33)
[2018-11-07] MEDS: Tamsulosin 0.4 MG Cap.ER PO SCH (20:35)
[2018-11-08] MEDS: Levothyroxine 50 MCG Tab PO SCH (07:10)
[2018-11-08] MEDS: Oxybutynin 5 MG Tab.ER PO SCH (07:27)
[2018-11-08] MEDS: traMADol 50 MG Tab PO SCH ×4 (07:27→20:37)
[2018-11-08] MEDS: Metoprolol Tartrate 25 MG Tab PO SCH ×2 (07:27→20:38)
[2018-11-08] MEDS: Cholecalciferol (Vitamin D3) 1,000 Unit Tab PO SCH (07:27)
[2018-11-08] MEDS: busPIRone 5 MG Tab PO SCH ×2 (07:27→20:39)
[2018-11-08] MEDS: Cyanocobalamin (Vitamin B12) 1,000 MCG Tab PO SCH (07:27)
[2018-11-08] MEDS: Triamcinolone Acetonide 0.1% Crm 15 GM Tube TOP SCH ×2 (07:28→20:40)
[2018-11-08] MEDS: predniSONE 5 MG Tab PO SCH (07:28)
[2018-11-08] MEDS: Lisinopril 5 MG Tab PO SCH (07:28)
[2018-11-08] MEDS: Hydrochlorothiazide 12.5 MG Cap PO SCH (07:28)
[2018-11-08] MEDS: ClonazePAM 0.5 MG Tab PO SCH (20:37)
[2018-11-08] MEDS: Omeprazole 20 MG Cap.CR PO SCH (20:38)
[2018-11-08] MEDS: LORazepam 0.5 MG Tab PO PRN (20:39)
[2018-11-08] MEDS: Simvastatin 10 MG Tab PO SCH (20:39)
[2018-11-08] MEDS: Aspirin 81 MG Tab.EC PO SCH (20:39)
[2018-11-08] MEDS: Tamsulosin 0.4 MG Cap.ER PO SCH (20:39)
[2018-11-09] MEDS: Oxybutynin 5 MG Tab.ER PO SCH (07:41)
[2018-11-09] MEDS: traMADol 50 MG Tab PO SCH ×4 (07:41→22:39)
[2018-11-09] MEDS: Cholecalciferol (Vitamin D3) 1,000 Unit Tab PO SCH (07:41)
[2018-11-09] MEDS: busPIRone 5 MG Tab PO SCH ×2 (07:41→22:40)
[2018-11-09] MEDS: Metoprolol Tartrate 25 MG Tab PO SCH ×2 (07:42→22:39)
[2018-11-09] MEDS: Hydrochlorothiazide 12.5 MG Cap PO SCH (07:42)
[2018-11-09] MEDS: Cyanocobalamin (Vitamin B12) 1,000 MCG Tab PO SCH (07:42)
[2018-11-09] MEDS: Levothyroxine 50 MCG Tab PO SCH (07:42)
[2018-11-09] MEDS: predniSONE 5 MG Tab PO SCH (07:42)
[2018-11-09] MEDS: Lisinopril 5 MG Tab PO SCH (07:42)
[2018-11-09] MEDS: Triamcinolone Acetonide 0.1% Crm 15 GM Tube TOP SCH ×2 (07:45→22:37)
[2018-11-09] MEDS: LORazepam 0.5 MG Tab PO PRN (22:38)
[2018-11-09] MEDS: ClonazePAM 0.5 MG Tab PO SCH (22:38)
[2018-11-09] MEDS: Aspirin 81 MG Tab.EC PO SCH (22:39)
[2018-11-09] MEDS: Simvastatin 10 MG Tab PO SCH (22:40)
[2018-11-09] MEDS: Omeprazole 20 MG Cap.CR PO SCH (22:40)
[2018-11-09] MEDS: Tamsulosin 0.4 MG Cap.ER PO SCH (22:40)
[2018-11-10] MEDS: busPIRone 5 MG Tab PO SCH ×2 (09:51→20:45)
[2018-11-10] MEDS: Oxybutynin 5 MG Tab.ER PO SCH (09:52)
[2018-11-10] MEDS: Lisinopril 5 MG Tab PO SCH (09:52)
[2018-11-10] MEDS: traMADol 50 MG Tab PO SCH ×4 (09:52→20:44)
[2018-11-10] MEDS: Cholecalciferol (Vitamin D3) 1,000 Unit Tab PO SCH (09:52)
[2018-11-10] MEDS: Hydrochlorothiazide 12.5 MG Cap PO SCH (09:53)
[2018-11-10] MEDS: Cyanocobalamin (Vitamin B12) 1,000 MCG Tab PO SCH (09:54)
[2018-11-10] MEDS: Metoprolol Tartrate 25 MG Tab PO SCH ×2 (09:54→20:44)
[2018-11-10] MEDS: predniSONE 5 MG Tab PO SCH (09:54)
[2018-11-10] MEDS: Triamcinolone Acetonide 0.1% Crm 15 GM Tube TOP SCH ×2 (09:55→20:43)
[2018-11-10] MEDS: Levothyroxine 50 MCG Tab PO SCH (09:56)
[2018-11-10] MEDS: Omeprazole 20 MG Cap.CR PO SCH (20:44)
[2018-11-10] MEDS: Simvastatin 10 MG Tab PO SCH (20:45)
[2018-11-10] MEDS: LORazepam 0.5 MG Tab PO PRN (20:45)
[2018-11-10] MEDS: ClonazePAM 0.5 MG Tab PO SCH (20:46)
[2018-11-10] MEDS: Tamsulosin 0.4 MG Cap.ER PO SCH (20:46)
[2018-11-10] MEDS: Aspirin 81 MG Tab.EC PO SCH (20:46)
[2018-11-11] MEDS: Levothyroxine 50 MCG Tab PO SCH (06:00)
[2018-11-11] MEDS: busPIRone 5 MG Tab PO SCH ×2 (08:14→20:26)
[2018-11-11] MEDS: Hydrochlorothiazide 12.5 MG Cap PO SCH (08:15)
[2018-11-11] MEDS: Metoprolol Tartrate 25 MG Tab PO SCH ×2 (08:15→20:25)
[2018-11-11] MEDS: Oxybutynin 5 MG Tab.ER PO SCH (08:16)
[2018-11-11] MEDS: predniSONE 5 MG Tab PO SCH (08:16)
[2018-11-11] MEDS: traMADol 50 MG Tab PO SCH ×4 (08:17→20:24)
[2018-11-11] MEDS: Lisinopril 5 MG Tab PO SCH (08:17)
[2018-11-11] MEDS: Cyanocobalamin (Vitamin B12) 1,000 MCG Tab PO SCH (08:20)
[2018-11-11] MEDS: Cholecalciferol (Vitamin D3) 1,000 Unit Tab PO SCH (08:20)
[2018-11-11] MEDS: Triamcinolone Acetonide 0.1% Crm 15 GM Tube TOP SCH ×2 (09:47→20:30)
[2018-11-11] MEDS: ClonazePAM 0.5 MG Tab PO SCH (20:23)
[2018-11-11] MEDS: Simvastatin 10 MG Tab PO SCH (20:25)
[2018-11-11] MEDS: Aspirin 81 MG Tab.EC PO SCH (20:25)
[2018-11-11] MEDS: Tamsulosin 0.4 MG Cap.ER PO SCH (20:26)
[2018-11-11] MEDS: Omeprazole 20 MG Cap.CR PO SCH (20:26)
[2018-11-11] MEDS: LORazepam 0.5 MG Tab PO PRN (20:27)
[2018-11-12] MEDS: Levothyroxine 50 MCG Tab PO SCH (06:25)
[2018-11-12] MEDS: Hydrochlorothiazide 12.5 MG Cap PO SCH (08:46)
[2018-11-12] MEDS: Cholecalciferol (Vitamin D3) 1,000 Unit Tab PO SCH (08:46)
[2018-11-12] MEDS: Lisinopril 5 MG Tab PO SCH (08:46)
[2018-11-12] MEDS: Oxybutynin 5 MG Tab.ER PO SCH (08:46)
[2018-11-12] MEDS: predniSONE 5 MG Tab PO SCH (08:46)
[2018-11-12] MEDS: Metoprolol Tartrate 25 MG Tab PO SCH ×2 (08:47→20:15)
[2018-11-12] MEDS: Cyanocobalamin (Vitamin B12) 1,000 MCG Tab PO SCH (08:47)
[2018-11-12] MEDS: traMADol 50 MG Tab PO SCH ×4 (08:47→20:15)
[2018-11-12] MEDS: Triamcinolone Acetonide 0.1% Crm 15 GM Tube TOP SCH ×2 (08:48→20:16)
[2018-11-12] MEDS: busPIRone 5 MG Tab PO SCH ×2 (09:52→20:15)
[2018-11-12] MEDS: Omeprazole 20 MG Cap.CR PO SCH (20:15)
[2018-11-12] MEDS: Simvastatin 10 MG Tab PO SCH (20:15)
[2018-11-12] MEDS: Aspirin 81 MG Tab.EC PO SCH (20:16)
[2018-11-12] MEDS: Tamsulosin 0.4 MG Cap.ER PO SCH (20:16)
[2018-11-12] MEDS: ClonazePAM 0.5 MG Tab PO SCH (20:16)
[2018-11-12] MEDS: LORazepam 0.5 MG Tab PO PRN (20:17)
[2018-11-13] MEDS: Levothyroxine 50 MCG Tab PO SCH (06:08)
[2018-11-13] MEDS: busPIRone 5 MG Tab PO SCH ×2 (08:13→19:47)
[2018-11-13] MEDS: Metoprolol Tartrate 25 MG Tab PO SCH ×2 (08:13→19:46)
[2018-11-13] MEDS: traMADol 50 MG Tab PO SCH ×4 (08:13→19:47)
[2018-11-13] MEDS: predniSONE 5 MG Tab PO SCH (08:13)
[2018-11-13] MEDS: Cholecalciferol (Vitamin D3) 1,000 Unit Tab PO SCH (08:13)
[2018-11-13] MEDS: Hydrochlorothiazide 12.5 MG Cap PO SCH (08:14)
[2018-11-13] MEDS: Oxybutynin 5 MG Tab.ER PO SCH (08:14)
[2018-11-13] MEDS: Lisinopril 5 MG Tab PO SCH (08:14)
[2018-11-13] MEDS: Cyanocobalamin (Vitamin B12) 1,000 MCG Tab PO SCH (08:14)
[2018-11-13] MEDS: Triamcinolone Acetonide 0.1% Crm 15 GM Tube TOP SCH ×2 (08:15→19:47)
[2018-11-13] MEDS: Simvastatin 10 MG Tab PO SCH (19:47)
[2018-11-13] MEDS: Omeprazole 20 MG Cap.CR PO SCH (19:47)
[2018-11-13] MEDS: ClonazePAM 0.5 MG Tab PO SCH (19:47)
[2018-11-13] MEDS: Tamsulosin 0.4 MG Cap.ER PO SCH (19:47)
[2018-11-13] MEDS: Aspirin 81 MG Tab.EC PO SCH (19:48)
[2018-11-14] MEDS: Levothyroxine 50 MCG Tab PO SCH (06:18)
[2018-11-14] MEDS: predniSONE 5 MG Tab PO SCH (09:49)
[2018-11-14] MEDS: busPIRone 5 MG Tab PO SCH ×2 (09:50→20:36)
[2018-11-14] MEDS: Cholecalciferol (Vitamin D3) 1,000 Unit Tab PO SCH (09:50)
[2018-11-14] MEDS: Lisinopril 5 MG Tab PO SCH (09:50)
[2018-11-14] MEDS: Cyanocobalamin (Vitamin B12) 1,000 MCG Tab PO SCH (09:50)
[2018-11-14] MEDS: Hydrochlorothiazide 12.5 MG Cap PO SCH (09:50)
[2018-11-14] MEDS: traMADol 50 MG Tab PO SCH ×4 (09:51→20:37)
[2018-11-14] MEDS: Oxybutynin 5 MG Tab.ER PO SCH (09:51)
[2018-11-14] MEDS: Metoprolol Tartrate 25 MG Tab PO SCH ×2 (09:52→20:38)
[2018-11-14] MEDS: Triamcinolone Acetonide 0.1% Crm 15 GM Tube TOP SCH ×2 (09:52→20:38)
[2018-11-14] MEDS ORDERED: Docusate Sodium 100 MG Cap PO PRN (13:54)
[2018-11-14] MEDS: LORazepam 0.5 MG Tab PO PRN (20:35)
[2018-11-14] MEDS: Omeprazole 20 MG Cap.CR PO SCH (20:35)
[2018-11-14] MEDS: ClonazePAM 0.5 MG Tab PO SCH (20:36)
[2018-11-14] MEDS: Simvastatin 10 MG Tab PO SCH (20:36)
[2018-11-14] MEDS: Tamsulosin 0.4 MG Cap.ER PO SCH (20:36)
[2018-11-14] MEDS: Aspirin 81 MG Tab.EC PO SCH (20:37)
[2018-11-15] MEDS: Levothyroxine 50 MCG Tab PO SCH (07:04)
[2018-11-15] MEDS: Cyanocobalamin (Vitamin B12) 1,000 MCG Tab PO SCH (08:20)
[2018-11-15] MEDS: Docusate Sodium 100 MG Cap PO SCH (08:20)
[2018-11-15] MEDS: Oxybutynin 5 MG Tab.ER PO SCH (08:21)
[2018-11-15] MEDS: Lisinopril 5 MG Tab PO SCH (08:21)
[2018-11-15] MEDS: traMADol 50 MG Tab PO SCH ×4 (08:21→20:27)
[2018-11-15] MEDS: Metoprolol Tartrate 25 MG Tab PO SCH ×2 (08:22→20:27)
[2018-11-15] MEDS: predniSONE 5 MG Tab PO SCH (08:23)
[2018-11-15] MEDS: Hydrochlorothiazide 12.5 MG Cap PO SCH (08:23)
[2018-11-15] MEDS: busPIRone 5 MG Tab PO SCH ×2 (08:23→20:26)
[2018-11-15] MEDS: Cholecalciferol (Vitamin D3) 1,000 Unit Tab PO SCH (08:23)
[2018-11-15] MEDS: Triamcinolone Acetonide 0.1% Crm 15 GM Tube TOP SCH ×2 (08:23→20:28)
[2018-11-15] MEDS: ClonazePAM 0.5 MG Tab PO SCH (20:26)
[2018-11-15] MEDS: Omeprazole 20 MG Cap.CR PO SCH (20:26)
[2018-11-15] MEDS: Tamsulosin 0.4 MG Cap.ER PO SCH (20:27)
[2018-11-15] MEDS: Simvastatin 10 MG Tab PO SCH (20:27)
[2018-11-15] MEDS: Aspirin 81 MG Tab.EC PO SCH (20:27)
[2018-11-15] MEDS: LORazepam 0.5 MG Tab PO PRN (20:28)
[2018-11-16] MEDS: Levothyroxine 50 MCG Tab PO SCH (07:29)
[2018-11-16] MEDS: Docusate Sodium 100 MG Cap PO SCH (07:30)
[2018-11-16] MEDS: Lisinopril 5 MG Tab PO SCH (07:30)
[2018-11-16] MEDS: Hydrochlorothiazide 12.5 MG Cap PO SCH (07:30)
[2018-11-16] MEDS: Metoprolol Tartrate 25 MG Tab PO SCH ×2 (07:30→20:00)
[2018-11-16] MEDS: busPIRone 5 MG Tab PO SCH ×2 (07:30→19:59)
[2018-11-16] MEDS: traMADol 50 MG Tab PO SCH ×4 (07:31→20:00)
[2018-11-16] MEDS: Cholecalciferol (Vitamin D3) 1,000 Unit Tab PO SCH (07:31)
[2018-11-16] MEDS: predniSONE 5 MG Tab PO SCH (07:31)
[2018-11-16] MEDS: Triamcinolone Acetonide 0.1% Crm 15 GM Tube TOP SCH ×2 (07:32→19:58)
[2018-11-16] MEDS: Oxybutynin 5 MG Tab.ER PO SCH (07:32)
[2018-11-16] MEDS: Cyanocobalamin (Vitamin B12) 1,000 MCG Tab PO SCH (07:32)
[2018-11-16] MEDS: ClonazePAM 0.5 MG Tab PO SCH (19:58)
[2018-11-16] MEDS: Omeprazole 20 MG Cap.CR PO SCH (19:59)
[2018-11-16] MEDS: Simvastatin 10 MG Tab PO SCH (19:59)
[2018-11-16] MEDS: Tamsulosin 0.4 MG Cap.ER PO SCH (19:59)
[2018-11-16] MEDS: Aspirin 81 MG Tab.EC PO SCH (19:59)
[2018-11-16] MEDS: LORazepam 0.5 MG Tab PO PRN (19:59)
[2018-11-17] MEDS: Levothyroxine 50 MCG Tab PO SCH (06:38)
--- NOTE | 2018-11-17 09:13 | PN ---
Progress Note for VANDANA ELLIS Date: 11/17/2018 Room #: VM.215 SUBJECTIVE: The patient is quite confused. He does not understand why he still needs to be here. He said he is not very comfortable here. He has been quite agitated. To note, the patient had been placed on acute care on 11/03/2018, after having sustained a fall, which resulted in rib fractures on 10/31/2018. The patient had also been having a rheumatoid flare that was found in early October and he has been on tapering dose of prednisone. Since then, the patient has had problems with anxiety disorder as well and has been getting a little better with that. The patient's mobility has improved greatly. He is still working with occupational therapy. His pain is getting much better. On acute care on 11/05/2018, his hemoglobin had been 12.3. His last electrolytes were checked on 11/04, which were normal with creatinine of 1.0. A urine test had been checked on 11/05, which was normal. OBJECTIVE: Vital Signs: His temperature is 36.8, pulse 62, blood pressure is 133/64. Heart: Regular rate. Lungs: Have somewhat diminished breath sounds on bases bilaterally. Abdomen: Soft. Neurologic: He is alert, cognizant to know where I am; however, he does not quite understand impacts of rib fractures and need for improved mobility. IMPRESSION: 1. Multiple rib fractures on the right. 2. Atelectasis of right lung. 3. Chronic anxiety disorder. 4. Mild cognitive dysfunction. 5. Hypertension. 6. Rheumatoid arthritis. PLAN: We will recheck a chest x-ray today on the patient. We will recheck his lab work tomorrow. Also tomorrow, we will start to be able to also reduce his prednisone and anticipate probable discharge home probable tomorrow. We will have discharge rounding people work with the patient. GM11/17/2018 08:34:30 MODL: 11/17/2018 09:06:03 /[id number]
--- NOTE | 2018-11-17 09:13 | CR ---
[id number] RAD/RAD Chest PA And Lateral EXAM: RAD Chest PA And Lateral CLINICAL DATA: RIB FRACTURES. ATELECTASIS. COMPARISON: CORRELATION IS MADE WITH THE EXAM OF NOVEMBER 06, 2018. FINDINGS: Pleural reaction and atelectasis at the right lung base are decreased. There is no pneumothorax. There is minimal residual pleural reaction in the right costophrenic sulcus. IMPRESSION: IMPROVING FINDINGS AT RIGHT LUNG BASE. Timothy Fong MD 11/17/18 0912 Thank you for allowing us to participate in the care of your patient.
[2018-11-17] MEDS: traMADol 50 MG Tab PO SCH ×4 (09:47→21:29)
[2018-11-17] MEDS: Lisinopril 5 MG Tab PO SCH (09:48)
[2018-11-17] MEDS: Hydrochlorothiazide 12.5 MG Cap PO SCH (09:48)
[2018-11-17] MEDS: Oxybutynin 5 MG Tab.ER PO SCH (09:48)
[2018-11-17] MEDS: Cholecalciferol (Vitamin D3) 1,000 Unit Tab PO SCH (09:48)
[2018-11-17] MEDS: Docusate Sodium 100 MG Cap PO SCH (09:48)
[2018-11-17] MEDS: busPIRone 5 MG Tab PO SCH ×2 (09:48→20:55)
[2018-11-17] MEDS: Metoprolol Tartrate 25 MG Tab PO SCH ×2 (09:48→20:55)
[2018-11-17] MEDS: Cyanocobalamin (Vitamin B12) 1,000 MCG Tab PO SCH (09:48)
[2018-11-17] MEDS: Triamcinolone Acetonide 0.1% Crm 15 GM Tube TOP SCH ×2 (09:49→21:32)
[2018-11-17] MEDS: predniSONE 5 MG Tab PO SCH (09:49)
[2018-11-17] MEDS: Tamsulosin 0.4 MG Cap.ER PO SCH (20:55)
[2018-11-17] MEDS: Aspirin 81 MG Tab.EC PO SCH (20:55)
[2018-11-17] MEDS: Omeprazole 20 MG Cap.CR PO SCH (20:55)
[2018-11-17] MEDS: Simvastatin 10 MG Tab PO SCH (20:55)
[2018-11-17] MEDS: ClonazePAM 0.5 MG Tab PO SCH (20:55)
[2018-11-18] MEDS: Levothyroxine 50 MCG Tab PO SCH (06:32)
[2018-11-18] MEDS: Metoprolol Tartrate 25 MG Tab PO SCH ×2 (09:23→19:31)
[2018-11-18] MEDS: busPIRone 5 MG Tab PO SCH ×2 (09:24→19:30)
[2018-11-18] MEDS: Cholecalciferol (Vitamin D3) 1,000 Unit Tab PO SCH (09:24)
[2018-11-18] MEDS: Docusate Sodium 100 MG Cap PO SCH (09:24)
[2018-11-18] MEDS: Oxybutynin 5 MG Tab.ER PO SCH (09:24)
[2018-11-18] MEDS: Hydrochlorothiazide 12.5 MG Cap PO SCH (09:25)
[2018-11-18] MEDS: Cyanocobalamin (Vitamin B12) 1,000 MCG Tab PO SCH (09:25)
[2018-11-18] MEDS: predniSONE 5 MG Tab PO SCH (09:25)
[2018-11-18] MEDS: traMADol 50 MG Tab PO SCH (09:25)
[2018-11-18] MEDS: Lisinopril 5 MG Tab PO SCH (09:25)
[2018-11-18] MEDS: Triamcinolone Acetonide 0.1% Crm 15 GM Tube TOP SCH ×2 (09:26→19:35)
[2018-11-18] MEDS ORDERED: traMADol 50 MG Tab PO PRN (09:33)
--- NOTE | 2018-11-18 10:02 | PN ---
Progress Note for VANDANA ELLIS Date: 11/18/2018 Room #: VM.215 SUBJECTIVE: He is feeling much better, moving around better. He is working with Occupational Therapy and plans are for discharge home tomorrow. His pain has been quite well controlled. He comments his bowels have been regular. He has used some p.r.n. Ativan, last used on the , but at times, the patient does get worked up if he can't get redirected, and yesterday he was noted to be somewhat irritable. OBJECTIVE: Vital Signs: Temperature is 36.1, pulse 59, blood pressure is 135/71, sats are 95% on room air, respiratory rate 20. General: He is alert, calm. Heart: Regular rate. Lungs: Clear to auscultation. Abdomen: Soft. LABORATORY DATA: Lab work yesterday showed his white blood cell count 8.4, hemoglobin 13.4, sodium 136, potassium 4.0, creatinine 1.3, GFR 53, glucose 133. IMPRESSION: 1. Multiple right rib fractures. 2. Anxiety disorder. 3. Rheumatoid arthritis. PLAN: We will change the patient's tramadol to p.r.n. I will place the patient on scheduled b.i.d. clonazepam, so that way it omits having to be on Ativan p.r.n. We will also taper down his prednisone to 2.5 mg daily and patient will be set up for discharge home tomorrow. [id number] evaluation was held with the patient today for need for home health. The patient needs a walker to get around for cares. He is not able to walk beyond 50 feet without a walker. He becomes short of breath. The patient would require rides to get to therapies as he does live in assisted living right now and the patient will be monitored by myself for progress with physical therapy and home health nursing, and do anticipate to see patient in the clinic in 2 weeks' time after discharge. GM11/18/2018 09:39:51 MODL: 11/18/2018 09:54:06 /[id number]
[2018-11-18] MEDS: ClonazePAM 0.5 MG Tab PO SCH ×2 (11:46→19:32)
[2018-11-18] MEDS: Aspirin 81 MG Tab.EC PO SCH (19:30)
[2018-11-18] MEDS: Omeprazole 20 MG Cap.CR PO SCH (19:30)
[2018-11-18] MEDS: Simvastatin 10 MG Tab PO SCH (19:30)
[2018-11-18] MEDS: Tamsulosin 0.4 MG Cap.ER PO SCH (19:31)
[2018-11-19] MEDS: Levothyroxine 50 MCG Tab PO SCH (06:01)
[2018-11-19 06:05] VITALS: BP 158/85
[2018-11-19] MEDS ORDERED: predniSONE 5 MG Tab PO SCH (08:00)
[2018-11-19] MEDS: Cholecalciferol (Vitamin D3) 1,000 Unit Tab PO SCH (08:12)
[2018-11-19] MEDS: busPIRone 5 MG Tab PO SCH (08:12)
[2018-11-19] MEDS: Lisinopril 5 MG Tab PO SCH (08:12)
[2018-11-19] MEDS: Hydrochlorothiazide 12.5 MG Cap PO SCH (08:12)
[2018-11-19] MEDS: Oxybutynin 5 MG Tab.ER PO SCH (08:13)
[2018-11-19] MEDS: Metoprolol Tartrate 25 MG Tab PO SCH (08:13)
[2018-11-19] MEDS: ClonazePAM 0.5 MG Tab PO SCH (08:13)
[2018-11-19] MEDS: Docusate Sodium 100 MG Cap PO SCH (08:13)
[2018-11-19] MEDS: Cyanocobalamin (Vitamin B12) 1,000 MCG Tab PO SCH (08:13)
[2018-11-19] MEDS: Triamcinolone Acetonide 0.1% Crm 15 GM Tube TOP SCH (08:14)
--- NOTE | 2018-11-20 06:32 | DISCH ---
PRIMARY DIAGNOSES: 1. Multiple right rib fractures. 2. Atelectasis related to rib fractures. 3. Chronic anxiety disorder. 4. Hypertension. 5. Dehydration. 6. Rheumatoid arthritis. 7. Coronary artery disease. 8. Cognitive dysfunction. SUMMARY OF ADMIT HISTORY AND PHYSICAL: The patient is an 83-year-old male who had fallen on 10/31/2018 and had sustained rib fractures. He was managed at home until not being able to manage at home. He was on acute care from 11/03/2018 to 11/07/2018. While he was in acute care his pain was controlled with scheduled tramadol, also he had some p.r.n. hydrocodone. It was noted that he did get more agitated due to his dementia and did require some p.r.n. Ativan. While on swing bed, his clonazepam was actually increased because of agitation. His tramadol was switched to p.r.n., which he seemed to manage okay. In terms of rib pain, he received physical therapy and occupational therapy. Lab work that had been done on 11/17/2018 showed his hemoglobin 13.4, white blood cell count 8.4, platelets 227. Sodium 136, potassium 4.0, creatinine 1.3, GFR 53, glucose 133. He had had a urine test done to make certain he did not have a bladder infection. The patient will need Home Health to see him as he relies on others for rides, he uses a walker for ambulation, he cannot walk longer than 50 feet without becoming winded due to his rib pain. I will be managing his recovery while on home health. He will need home PT as well as possibly home OT. The patient should return to see me in 2 weeks' time. DISCHARGE MEDICATIONS: 1. Clonazepam 0.25 mg 1 pill twice a day. 2. Aspirin 81 mg 1 pill daily. 3. Metoprolol 25 mg 1 p.o. b.i.d. 4. Lisinopril 5 mg 1 pill daily. 5. Flomax 0.4 mg at bedtime. 6. Zocor 10 mg 1 pill at bedtime. 7. BuSpar 10 mg 1 p.o. b.i.d. 8. Triamcinolone 0.5% cream b.i.d. p.r.n. 9. Oxybutynin XL 5 mg 1 pill daily. 10.Omeprazole 20 mg 1 pill at bedtime. 11.Levothyroxine 50 mcg 1 pill daily. 12.Hydrochlorothiazide 12.5 mg daily. 13.Tramadol 50 mg 1 pill 4 times a day as needed for rib pain. 14.Naprosyn 220 mg 1 pill twice a day as needed. 15.Vitamin D 2000 units daily. 16.Prednisone has been just reduced to 2.5 mg daily. 17.Flexeril 5 mg q.8 hours p.r.n. 18.BenGay p.r.n. 19.Vitamin B12 1000 mcg daily. 20.Docusate 100 mg 1 pill daily (this was a new change). DISCHARGE INSTRUCTION: The patient can wear a rib belt as needed for comfort. His code level status is full code at the time of discharge. The patient may eventually need more care such as residential cares. GM11/19/2018 08:19:04 MODL: 11/20/2018 06:26:31 /[id number]
== END 2018-11-19 13:45 | disposition home health service (06) | DRG 949 ==
LOC: VM.MS 09:20
PROVIDERS: ADMIT Family Medicine; ATTEND Family Medicine
DX: S27.1XXD Traumatic hemothorax, subsequent encounter (principal); J98.11 Atelectasis; M06.9 Rheumatoid arthritis, unspecified; F41.9 Anxiety disorder, unspecified; I10 Essential (primary) hypertension; E86.0 Dehydration; S22.41XD Multiple fractures of ribs, right side, subsequent encounter for fracture with routine healing; F03.90 Unspecified dementia, unspecified severity, without behavioral disturbance, psychotic disturbance, mood disturbance, and anxiety
CPT/HCPCS: 36415; 71046; 80048; 85025; 97110-GO; 97110-GP; 97116-GP; 97530-GP; 97535-GO; A9270-GY

== ENCOUNTER 2019-01-27 09:59 | Inpatient (IN) | payer MEDICARE, OTHER ==
[2019-01-27] MEDS ORDERED: LORazepam 2 MG/ML SDV IVPUSH ONE (10:15)
[2019-01-27 10:42] LABS: CHLORIDE,CL 103 mmol/L (98-107); SODIUM,NA 140 mmol/L (136-145)
[2019-01-27 10:43] LABS: ANION GAP 14.1 mmol/L (10-20)
[2019-01-27] MEDS ORDERED: cefTRIAXone 2 GM Vial IVPUSH ONE (10:55)
[2019-01-27] MEDS: Sodium Chloride 0.9% 10 ML Syringe FLUSH PRN ×2 (11:20→15:31)
--- NOTE | 2019-01-27 11:26 | CR ---
[id number] RAD/RAD Chest PA or AP 1V EXAM: SINGLE VIEW CHEST. INDICATION: HYPOXIA COMPARISON: CORRELATION IS MADE WITH THE EXAM OF NOVEMBER 17, 2018. FINDINGS: The lungs are clear but hyperaerated. The cardiomediastinal contour is prominent but stable. IMPRESSION: AIRWAY DISEASE. Timothy Fong MD 01/27/19 1125 Thank you for allowing us to participate in the care of your patient.
[2019-01-27] MEDS ORDERED: Iopamidol 612 MG/ML 100 ML Bottle IVPUSH ONE (11:51)
--- NOTE | 2019-01-27 12:40 | CT ---
[id number] CT/CT Head WO IV EXAM: CT Head WO IV CLINICAL DATA: CHANGE IN MENTAL STATUS COMPARISON: CORRELATION IS MADE WITH THE EXAM OF NOVEMBER 19, 2013. FINDINGS: There is no mass or mass effect. There is no hemorrhage or hydrocephalus. There are no extra-axial fluid collections. There are no sites of abnormal attenuation. IMPRESSION: NO PLAIN CT EVIDENCE OF ACUTE INTRACRANIAL PROCESS. Timothy Fong MD 01/27/19 5518 Thank you for allowing us to participate in the care of your patient.
--- NOTE | 2019-01-27 12:40 | EDM.PDOC ---
ED HPI GENERAL MEDICAL PROBLEM - General Chief Complaint: Syncope Stated Complaint: CONFUSION, [place], PALE Time Seen by Provider: 01/27/19 10:08 Source of Information: Reports: EMS, [facility] Records History Limitations: Reports: No Limitations - History of Present Illness INITIAL COMMENTS - FREE TEXT/NARRATIVE: Patient brought here via EMS with complaints of a syncopal episode while on the commode. Patient was found unresponsive and EMS activated. No falls. No recent trauma. Was hypotensive on EMS arrival with SBP of 90's. Recheck in the 110's. Very confused, unable to respond to questions, trying to strike at people starting IV's. Fidgeting. Did have an emesis at the care center. Onset: Today, Sudden Location: Reports: Generalized - Related Data Allergies Allergy/AdvReac Type Severity Reaction Status Date / Time metal Allergy Irritabilit Uncoded 01/27/19 11:45 y Home Meds: Home Meds Lisinopril [Prinivil] 5 mg PO DAILY 11/19/13 [History] Metoprolol Tartrate 25 mg PO BID 11/19/13 [History] Simvastatin [Zocor] 10 mg PO BEDTIME 11/19/13 [History] Tamsulosin [Flomax] 0.4 mg PO BEDTIME 11/19/13 [History] busPIRone [Buspar] 10 mg PO BID 11/19/13 [History] Levothyroxine 50 mcg PO DAILY 02/25/17 [History] Omeprazole Magnesium [Prilosec Otc] 20 mg PO BEDTIME 02/25/17 [History] Oxybutynin Chloride [Ditropan Xl] 5 mg PO DAILY 02/25/17 [History] Triamcinolone Acetonide [Triamcinolone Acetonide 0.5%] 1 applic TOP BID [History] Cholecalciferol (Vitamin D3) [Vitamin D3] 2,000 unit PO DAILY 11/02/18 [History] Naproxen Sodium [Aleve] 220 mg PO BID PRN 11/02/18 [History] hydroCHLOROthiazide [Hydrochlorothiazide] 12.5 mg PO DAILY 11/02/18 [History] traMADol [Ultram] 50 mg PO QID PRN 11/02/18 [History] Cyanocobalamin (Vitamin B-12) [Vitamin B-12] 1,000 mcg PO DAILY 11/03/18 [ History] Menthol [Bengay] 1 applic TOP ASDIRECTED PRN 11/03/18 [History] ClonazePAM [KlonoPIN] 0.25 mg PO BID #60 tablet 11/18/18 [Rx] Cyclobenzaprine [Flexeril] 5 mg PO Q8H PRN #30 tablet 11/18/18 [Rx] Docusate Sodium [Colace] 100 mg PO DAILY PRN 01/27/19 [History] Donepezil HCl [Aricept] 10 mg PO DAILY 01/27/19 [History] Ibuprofen 200 mg PO Q4HR PRN 01/27/19 [History] predniSONE 7.5 mg PO DAILY 01/27/19 [History] Past Medical History - Past Health History Medical/Surgical History: Denies Medical/Surgical History HEENT History: Reports: Hard of Hearing Cardiovascular History: Reports: CAD, Heart Failure, High Cholesterol, Hypertension, PA, Other (See Below) Other Cardiovascular History: 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 vertebral artery aneurysm Respiratory History: Reports: Other (See Below) Other Respiratory History: lung nodule Gastrointestinal History: Reports: GERD, Hiatal Hernia Musculoskeletal History: Reports: Osteoarthritis, RA, Other (See Below) Other Musculoskeletal History: bursitis of left shoulder, arthralgia of both hands, cervical disc disease, osteoarthritis of ankle Neurological History: Reports: Neuropathy, Peripheral, Vertigo, Other (See Below ) Other Neuro History: mild cognitive disorder, restless legs Psychiatric History: Reports: Anxiety, Other (See Below) Other Psychiatric History: mild cognitive disorder Endocrine/Metabolic History: Reports: Hypothyroidism, Other (See Below) Other Endocrine/Metabolic History: hyperglycemia Hematologic History: Reports: B12 Deficiency - Past Surgical History Cardiovascular Surgical History: Reports: Other (See Below) Other Cardiovascular Surgeries/Procedures: coronary balloon angioplasty GI Surgical History: Reports: Cholecystectomy, Hernia Repair/Other Social & Family History - Tobacco Use Smoking Status *Q: Unknown Ever Smoked ED ROS GENERAL - Review of Systems Review Of Systems: Unable To Obtain - Physical Exam Exam: See Below Exam Limited By: Altered Mental Status General Appearance: Alert, WD/WN, Mild Distress Eye Exam: Bilateral Eye: EOMI, Normal Inspection, PERRL Ears: Normal TMs Nose: Normal Inspection, Normal Mucosa, No Blood Throat/Mouth: Normal Inspection, Normal Lips, Normal Teeth, Normal Gums, Normal Oropharynx, Normal Voice, No Airway Compromise Head Exam: Atraumatic, Normocephalic Neck: Normal Inspection, Supple, Non-Tender, Full Range of Motion Respiratory/Chest: No Respiratory Distress, Lungs Clear, Normal Breath Sounds, No Accessory Muscle Use, Chest Non-Tender Cardiovascular: Normal Peripheral Pulses, Regular Rate, Rhythm, No Edema, No Gallop, No JVD, No Murmur, No Rub GI/Abdominal: Normal Bowel Sounds, Soft, Non-Tender, No Organomegaly, No Distention, No Abnormal Bruit, No Mass Neuro Exam (Abbreviated): Alert, Normal Reflexes. No: Oriented Back Exam: Normal Inspection, Full Range of Motion, NT Extremities: Normal Inspection, Normal Range of Motion, Non-Tender, No Pedal Edema, Normal Capillary Refill Psychiatric: Anxious Skin Exam: Warm, Dry, Intact, Normal Color, No Rash Course - Vital Signs Last Recorded V/S: Last Vital Signs Temp 36.1 C 01/27/19 10:00 Pulse 55 L 01/27/19 10:00 Resp 20 01/27/19 10:00 BP 99/58 L 01/27/19 10:00 Pulse Ox 89 L 01/27/19 10:00 - Orders/Labs/Meds Orders: Active Orders 24 hr Category Date Time Status EKG 12 Lead [EKG Documentation Completion] [] STAT Care 01/27/19 12:24 Ordered Oxygen Therapy Adult [Oxygen Therapy, ED] [] Care 01/27/19 12:04 Ordered ASDIRECTED Chest PE [Ang Chest] [CT] Stat Exams 01/27/19 11:47 Ordered Head wo Cont [CT] Stat Exams 01/27/19 10:35 Taken CULTURE BLOOD [BC] Stat Lab 01/27/19 10:25 Received CULTURE BLOOD [BC] Stat Lab 01/27/19 11:12 Received INFLUENZA A+B AG SCREEN [RM] Stat Lab 01/27/19 12:05 Ordered INFLUENZA A+B AG SCREEN [RM] Stat Lab 01/27/19 12:15 Ordered Lactated Ringers [Ringers, Lactated] 1,000 ml Med 01/27/19 12:30 Ordered IV ASDIRECTED Sodium Chloride 0.9% [Saline Flush] Med 01/27/19 10:09 Active 10 ml FLUSH ASDIRECTED PRN Blood Culture x2 Reflex Set [OM.PC] Stat Oth 01/27/19 10:09 Ordered Saline Lock Insert [OM.PC] Routine Oth 01/27/19 10:09 Ordered Medication Orders Lactated Ringer's (Ringers, Lactated) 1,000 mls @ 999 mls/hr IV ASDIRECTED MILAN Sodium Chloride (Saline Flush) 10 ml FLUSH ASDIRECTED PRN PRN Reason: Keep Vein Open Last Admin: 01/27/19 11:20 Dose: 10 ml Labs: Laboratory Tests 01/27/19 01/27/19 01/27/19 Range/Units 10:06 10:06 10:06 WBC 12.9 H (4.0-10.0) x10^3/uL RBC 4.45 L (4.5-6.0) x10^6/uL Hgb 13.7 L (14.0-18.0) g/dL Hct 41.2 (40.0-52.0) % MCV 92.6 (78.0-93.0) fL MCH 30.8 (26.0-32.0) pg MCHC 33.3 (32.0-36.0) g/dL RDW Coeff of Phyllis 13.4 (10.0-15.0) % Plt Count 211 (130-400) x10^3/uL Neut % (Auto) 71.2 (50.0-80.0) % Lymph % (Auto) 22.6 L (25.0-50.0) % Johnson % (Auto) 5.0 (2.0-11.0) % Eos % (Auto) 0.9 (0.0-4.0) % Baso % (Auto) 0.3 (0.2-1.2) % D-Dimer, Quantitative (<=0.58) mg/LFEU POC ABG pH (7.35-7.45) POC ABG pCO2 (35-45) mmHG POC ABG pO2 (80-105) mmHG POC ABG HCO3 (22-26) mmol/L POC ABG Total CO2 (23-27) mmol/L POC ABG O2 Sat (95-98) % POC ABG Base Excess (-2-3) mmol/L POC FiO2 Sodium 140 (136-145) mmol/L Potassium 4.1 (3.5-5.1) mmol/L Chloride 103 (98-107) mmol/L Carbon Dioxide 27 (21-32) mmol/L Anion Gap 14.1 (10-20) mmol/L BUN 25 H (7-18) mg/dL Creatinine 1.4 H (0.70-1.30) mg/dL Est Cr Clr Drug Dosing TNP Estimated GFR (MDRD) 48 Glucose 137 H (74-106) mg/dL Lactic Acid 3.6 H* (0.4-2.0) mmol/L Calcium 8.8 (8.5-10.1) mg/dL Corrected Calcium 9.44 (8.5-10.1) mg/dL Total Bilirubin 0.5 (0.2-1.0) mg/dL AST 16 (15-37) U/L ALT 26 (16-63) U/L Alkaline Phosphatase 67 (46-116) U/L Creatine Kinase 57 (39-308) U/L Troponin I 0.023 (<=0.056) ng/mL C-Reactive Protein 1.5 H (<=0.9) mg/dL NT-Pro-B Natriuret Pep (<=450) pg/mL Total Protein 6.8 (6.4-8.2) g/dL Albumin 3.2 L (3.4-5.0) g/dL Globulin 3.6 Albumin/Globulin Ratio 0.89 Urine Color (YELLOW) Urine Appearance (CLEAR) Urine pH (5.0-8.0) Ur Specific Dragoon Urine Protein (NEGATIVE) mg/dL Urine Glucose (UA) (NEGATIVE) mg/dL Urine Ketones (NEGATIVE) mg/dL Urine Occult Blood (NEGATIVE) Urine Nitrite (NEGATIVE) Urine Bilirubin (NEGATIVE) Urine Urobilinogen (0.2) EU/dL Ur Leukocyte Esterase (NEGATIVE) Urine RBC (NOT SEEN) /HPF Urine WBC (NOT SEEN) /HPF Ur Squamous Epith Cells (NEGATIVE) /HPF Ur Renal Epithelial Cell (NEGATIVE) /HPF Urine Bacteria (NEGATIVE) /HPF Epithelial Casts Hyaline Casts (NEGATIVE) /HPF Urine Mucus (NEGATIVE) /LPF 01/27/19 01/27/19 01/27/19 Range/Units 10:06 10:25 11:00 WBC (4.0-10.0) x10^3/uL RBC (4.5-6.0) x10^6/uL Hgb (14.0-18.0) g/dL Hct (40.0-52.0) % MCV (78.0-93.0) fL MCH (26.0-32.0) pg MCHC (32.0-36.0) g/dL RDW Coeff of Phyllis (10.0-15.0) % Plt Count (130-400) x10^3/uL Neut % (Auto) (50.0-80.0) % Lymph % (Auto) (25.0-50.0) % Johnson % (Auto) (2.0-11.0) % Eos % (Auto) (0.0-4.0) % Baso % (Auto) (0.2-1.2) % D-Dimer, Quantitative 4.08 H (<=0.58) mg/LFEU POC ABG pH (7.35-7.45) POC ABG pCO2 (35-45) mmHG POC ABG pO2 (80-105) mmHG POC ABG HCO3 (22-26) mmol/L POC ABG Total CO2 (23-27) mmol/L POC ABG O2 Sat (95-98) % POC ABG Base Excess (-2-3) mmol/L POC FiO2 Sodium (136-145) mmol/L Potassium (3.5-5.1) mmol/L Chloride (98-107) mmol/L Carbon Dioxide (21-32) mmol/L Anion Gap (10-20) mmol/L BUN (7-18) mg/dL Creatinine (0.70-1.30) mg/dL Est Cr Clr Drug Dosing Estimated GFR (MDRD) Glucose (74-106) mg/dL Lactic Acid (0.4-2.0) mmol/L Calcium (8.5-10.1) mg/dL Corrected Calcium (8.5-10.1) mg/dL Total Bilirubin (0.2-1.0) mg/dL AST (15-37) U/L ALT (16-63) U/L Alkaline Phosphatase (46-116) U/L Creatine Kinase (39-308) U/L Troponin I (<=0.056) ng/mL C-Reactive Protein (<=0.9) mg/dL NT-Pro-B Natriuret Pep 1358 H (<=450) pg/mL Total Protein (6.4-8.2) g/dL Albumin (3.4-5.0) g/dL Globulin Albumin/Globulin Ratio Urine Color Yellow (YELLOW) Urine Appearance Slightly cloudy H (CLEAR) Urine pH 6.0 (5.0-8.0) Ur Specific Dragoon 1.015 Urine Protein 30 H (NEGATIVE) mg/dL Urine Glucose (UA) Negative (NEGATIVE) mg/dL Urine Ketones Negative (NEGATIVE) mg/dL Urine Occult Blood Moderate H (NEGATIVE) Urine Nitrite Negative (NEGATIVE) Urine Bilirubin Negative (NEGATIVE) Urine Urobilinogen 0.2 (0.2) EU/dL Ur Leukocyte Esterase Negative (NEGATIVE) Urine RBC 10-20 H (NOT SEEN) /HPF Urine WBC 0-5 (NOT SEEN) /HPF Ur Squamous Epith Cells Few H (NEGATIVE) /HPF Ur Renal Epithelial Cell Rare H (NEGATIVE) /HPF Urine Bacteria Not seen (NEGATIVE) /HPF Epithelial Casts Rare Hyaline Casts Few H (NEGATIVE) /HPF Urine Mucus Rare H (NEGATIVE) /LPF 01/27/19 Range/Units 11:21 WBC (4.0-10.0) x10^3/uL RBC (4.5-6.0) x10^6/uL Hgb (14.0-18.0) g/dL Hct (40.0-52.0) % MCV (78.0-93.0) fL MCH (26.0-32.0) pg MCHC (32.0-36.0) g/dL RDW Coeff of Phyllis (10.0-15.0) % Plt Count (130-400) x10^3/uL Neut % (Auto) (50.0-80.0) % Lymph % (Auto) (25.0-50.0) % Johnson % (Auto) (2.0-11.0) % Eos % (Auto) (0.0-4.0) % Baso % (Auto) (0.2-1.2) % D-Dimer, Quantitative (<=0.58) mg/LFEU POC ABG pH 7.350 (7.35-7.45) POC ABG pCO2 46 H (35-45) mmHG POC ABG pO2 75 L (80-105) mmHG POC ABG HCO3 25 (22-26) mmol/L POC ABG Total CO2 27 (23-27) mmol/L POC ABG O2 Sat 94 L (95-98) % POC ABG Base Excess 0 (-2-3) mmol/L POC FiO2 0.28 Sodium (136-145) mmol/L Potassium (3.5-5.1) mmol/L Chloride (98-107) mmol/L Carbon Dioxide (21-32) mmol/L Anion Gap (10-20) mmol/L BUN (7-18) mg/dL Creatinine (0.70-1.30) mg/dL Est Cr Clr Drug Dosing Estimated GFR (MDRD) Glucose (74-106) mg/dL Lactic Acid (0.4-2.0) mmol/L Calcium (8.5-10.1) mg/dL Corrected Calcium (8.5-10.1) mg/dL Total Bilirubin (0.2-1.0) mg/dL AST (15-37) U/L ALT (16-63) U/L Alkaline Phosphatase (46-116) U/L Creatine Kinase (39-308) U/L Troponin I (<=0.056) ng/mL C-Reactive Protein (<=0.9) mg/dL NT-Pro-B Natriuret Pep (<=450) pg/mL Total Protein (6.4-8.2) g/dL Albumin (3.4-5.0) g/dL Globulin Albumin/Globulin Ratio Urine Color (YELLOW) Urine Appearance (CLEAR) Urine pH (5.0-8.0) Ur Specific Dragoon Urine Protein (NEGATIVE) mg/dL Urine Glucose (UA) (NEGATIVE) mg/dL Urine Ketones (NEGATIVE) mg/dL Urine Occult Blood (NEGATIVE) Urine Nitrite (NEGATIVE) Urine Bilirubin (NEGATIVE) Urine Urobilinogen (0.2) EU/dL Ur Leukocyte Esterase (NEGATIVE) Urine RBC (NOT SEEN) /HPF Urine WBC (NOT SEEN) /HPF Ur Squamous Epith Cells (NEGATIVE) /HPF Ur Renal Epithelial Cell (NEGATIVE) /HPF Urine Bacteria (NEGATIVE) /HPF Epithelial Casts Hyaline Casts (NEGATIVE) /HPF Urine Mucus (NEGATIVE) /LPF Meds: Medications Generic Name Dose Route Start Last Admin Trade Name Freq PRN Reason Stop Dose Admin Lactated Ringer's 1,000 mls @ 999 mls/hr 01/27/19 12:30 Ringers, Lactated IV ASDIRECTED MILAN Sodium Chloride 10 ml 01/27/19 10:09 01/27/19 11:20 Saline Flush FLUSH 10 ml ASDIRECTED PRN Administration Keep Vein Open Discontinued Medications Generic Name Dose Route Start Last Admin Trade Name Freq PRN Reason Stop Dose Admin Ceftriaxone Sodium 2 gm 01/27/19 10:55 01/27/19 11:20 Rocephin IVPUSH 01/27/19 10:56 2 gm STAT ONE Administration Iopamidol 100 ml 01/27/19 11:51 Isovue-300 (61%) IVPUSH 01/27/19 11:52 ONETIME ONE Lorazepam 1 mg 01/27/19 10:15 01/27/19 10:23 Ativan IVPUSH 01/27/19 10:16 1 mg ONETIME ONE Administration - Radiology Interpretation Free Text/Narrative:: chest x-ray shows hyperinflation but no pneumonia Normal CT of the head CTA chest shows left lower lobe pneumonia, copd, no PE Departure - Departure Time of Disposition: 13:57 Disposition: Admitted As Inpatient 65 Clinical Impression: Influenza B, Left lower lobe pneumonia - Discharge Information *PRESCRIPTION DRUG MONITORING PROGRAM REVIEWED*: Not Applicable *COPY OF PRESCRIPTION DRUG MONITORING REPORT IN PATIENT ALLIE: Not Applicable Referrals: Mirtha Madera MD [Primary Care Provider] - - My Orders Last 24 Hours: My Active Orders 01/27/19 10:09 Sodium Chloride 0.9% [Saline Flush] 10 ml FLUSH ASDIRECTED PRN Blood Culture x2 Reflex Set [OM.PC] Stat Saline Lock Insert [OM.PC] Routine 01/27/19 10:25 CULTURE BLOOD [BC] Stat 01/27/19 10:35 Head wo Cont [CT] Stat 01/27/19 11:12 CULTURE BLOOD [BC] Stat 01/27/19 11:47 Chest PE [Ang Chest] [CT] Stat 01/27/19 12:04 Oxygen Therapy Adult [Oxygen Therapy, ED] [RC] ASDIRECTED 01/27/19 12:05 INFLUENZA A+B AG SCREEN [RM] Stat 01/27/19 12:15 INFLUENZA A+B AG SCREEN [RM] Stat 01/27/19 12:24 EKG 12 Lead [EKG Documentation Completion] [RC] STAT 01/27/19 12:30 Lactated Ringers [Ringers, Lactated] 1,000 ml IV ASDIRECTED - Assessment/Plan Last 24 Hours: My Active Orders 01/27/19 10:09 Sodium Chloride 0.9% [Saline Flush] 10 ml FLUSH ASDIRECTED PRN Blood Culture x2 Reflex Set [OM.PC] Stat Saline Lock Insert [OM.PC] Routine 01/27/19 10:25 CULTURE BLOOD [BC] Stat 01/27/19 10:35 Head wo Cont [CT] Stat 01/27/19 11:12 CULTURE BLOOD [BC] Stat 01/27/19 11:47 Chest PE [Ang Chest] [CT] Stat 01/27/19 12:04 Oxygen Therapy Adult [Oxygen Therapy, ED] [RC] ASDIRECTED 01/27/19 12:05 INFLUENZA A+B AG SCREEN [RM] Stat 01/27/19 12:15 INFLUENZA A+B AG SCREEN [RM] Stat 01/27/19 12:24 EKG 12 Lead [EKG Documentation Completion] [RC] STAT 01/27/19 12:30 Lactated Ringers [Ringers, Lactated] 1,000 ml IV ASDIRECTED
[2019-01-27] MEDS: Lactated Ringers 1,000 ML IV SCH ×2 (12:47→15:32)
--- NOTE | 2019-01-27 13:26 | CT ---
[id number] CT/CTA Chest EXAM: CT ANGIOGRAM CHEST INDICATION: Hypoxia. COMPARISON: February 25, 2017. DISCUSSION: The pulmonary arteries are normal in appearance with no emboli identified. Chronic obstructive pulmonary disease with diffuse bronchial wall thickening consistent with underlying bronchitis and mild paraseptal emphysema in the lung apices. Mild patchy infiltrates in the posterior basal left lower lobe and scattered groundglass opacities in the lingula and left lower lobe are most consistent with pneumonia. Mild subsegmental atelectasis or scarring in the right lung base. The lungs are otherwise clear. No new or suspicious pulmonary nodule is identified. No adenopathy. No pleural or pericardial effusions. Coronary artery calcifications. Normal heart size. Small hiatus hernia. Cholecystectomy. The imaged upper abdomen is otherwise unremarkable. Subacute to chronic healing right sixth and seventh posterior rib fractures. Mild chronic appearing scattered vertebral compression fractures. IMPRESSION: 1. Mild pneumonia involving the lingula and left lower lobe. 2. Negative for pulmonary embolus. 3. Chronic obstructive pulmonary disease with evidence of bronchitis and paraseptal emphysema. Ajay Luna MD 01/27/19 [id number] Thank you for allowing us to participate in the care of your patient.
[2019-01-27] MEDS ORDERED: Azithromycin 500 MG in Sodium Chloride 0.9% 250 ML IV ONE (13:29)
[2019-01-27] MEDS ORDERED: Oseltamivir 75 MG Cap PO ONE (13:31)
[2019-01-27] MEDS ORDERED: Ondansetron 4 MG/2 ML SDV IV PRN (14:41)
[2019-01-27] MEDS ORDERED: Menthol/Methyl Salicylate 85 GM Tube TOP PRN (14:48)
[2019-01-27] MEDS ORDERED: Triamcinolone Acetonide 0.1% Crm 15 GM Tube TOP PRN (14:48)
[2019-01-27] MEDS ORDERED: Ibuprofen 200 MG Tab PO PRN (14:48)
[2019-01-27] MEDS ORDERED: Cyclobenzaprine 10 MG Tab PO PRN (14:48)
[2019-01-27] MEDS ORDERED: Docusate Sodium 100 MG Cap PO PRN (14:48)
--- NOTE | 2019-01-27 15:02 | PCM.HP ---
H&P History of Present Illness - General Date of Service: 01/27/19 Admit Problem/Dx: Admission Diagnosis/Problem Chief complaint syncope History present illness: Patient presented by EMS from the half-way for syncopal episode. He states he is having a large bowel movement when he began to see stars and became unresponsive. Denies any seizure activity. No chest pain. Maybe mild dyspnea. Maybe mild epigastric pain. Doesn't think he's had any fevers recently. Evaluation ER showed elevation of white count and lactic acid. Chest x-ray was unremarkable. D-dimer was elevated, CTA chest was done. Showed very mild left lung infiltrate. Flu B test turned positive. Creatinine was mildly elevated Past medical history: Vertigo, vertebral artery aneurysm, rheumatoid arthritis on chronic prednisone, peripheral neuropathy, mild cognitive disorder on Aricept , chronic intractable pain, hypothyroidism, hiatal hernia, coronary artery disease with angioplasty, congestive heart failure with EF largely preserved, BPH, B-12 deficiency, AAA 4.4 cm by last ultrasound one month ago, anxiety. Social history, nonsmoker, Family history heart attack stroke prostate cancer Review of systems: Denies fever and chills, may be mild dyspnea, denies angina, may be mild epigastric pain, no vomiting or diarrhea. no dysuria. Physical exam: Vital signs currently normal on nasal cannula. Heart regular rate and rhythm and lungs are clear to auscultation abdomen soft nontender extremity is warm well perfused without edema. Assessment and plan: #1. Syncope, sounds vasovagal, EKG is okay. No PE by a CTA. Recent ultrasound imaging of AAA was mostly unchanged. Monitor on telemetry. #2. Mild infiltrate left lower lobe by CT. Start Rocephin plus azithromycin. Rapid flu B positive which is neither sensitive nor specific, we will do empiric Tamiflu. #3. Chronic steroid therapy. We will do Solu-Medrol 40 mg twice a day. #4. Mild KALA, mild lactic acidosis. Start LR 125 mL per hour. Monitor. #5. Mild epigastric pain. Nonspecific. Monitor for now. Check amylase. Not improving consider CT abdomen and pelvis otherwise upper abdomen appeared okay when CT chest was imaged. Admission Diagnosis/Problem Influenza with pneumonia - Related Data Allergies/Adverse Reactions: Allergies Allergy/AdvReac Type Severity Reaction Status Date / Time metal Allergy Irritabilit Uncoded 01/27/19 11:45 y Home Medications: Home Meds Lisinopril [Prinivil] 5 mg PO DAILY 11/19/13 [History] Metoprolol Tartrate 25 mg PO BID 11/19/13 [History] Simvastatin [Zocor] 10 mg PO BEDTIME 11/19/13 [History] Tamsulosin [Flomax] 0.4 mg PO DAILY 11/19/13 [History] busPIRone [Buspar] 15 mg PO BID 11/19/13 [History] Levothyroxine 50 mcg PO DAILY 02/25/17 [History] Omeprazole Magnesium [Prilosec Otc] 20 mg PO DAILY 02/25/17 [History] Oxybutynin Chloride [Ditropan Xl] 5 mg PO DAILY 02/25/17 [History] Triamcinolone Acetonide [Triamcinolone Acetonide 0.5%] 1 applic TOP ASDIRECTED PRN 02/25/17 [History] Cholecalciferol (Vitamin D3) [Vitamin D3] 2,000 unit PO DAILY 11/02/18 [History] Naproxen Sodium [Aleve] 220 mg PO BID PRN 11/02/18 [History] hydroCHLOROthiazide [Hydrochlorothiazide] 12.5 mg PO DAILY 11/02/18 [History] traMADol [Ultram] 50 mg PO QID PRN 11/02/18 [History] Cyanocobalamin (Vitamin B-12) [Vitamin B-12] 1,000 mcg PO DAILY 11/03/18 [ History] Menthol [Bengay] 1 applic TOP ASDIRECTED PRN 11/03/18 [History] ClonazePAM [KlonoPIN] 0.25 mg PO BID #60 tablet 11/18/18 [Rx] Cyclobenzaprine [Flexeril] 5 mg PO Q8H PRN #30 tablet 11/18/18 [Rx] Docusate Sodium [Colace] 100 mg PO DAILY PRN 01/27/19 [History] Donepezil HCl [Aricept] 10 mg PO DAILY 01/27/19 [History] Ibuprofen 200 mg PO Q4HR PRN 01/27/19 [History] predniSONE 7.5 mg PO DAILY 01/27/19 [History] Past Medical History - Past Health History Medical/Surgical History: Denies Medical/Surgical History HEENT History: Reports: Hard of Hearing Cardiovascular History: Reports: CAD, Heart Failure, High Cholesterol, Hypertension, DC, Other (See Below) Other Cardiovascular History: 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 vertebral artery aneurysm Respiratory History: Reports: Other (See Below) Other Respiratory History: lung nodule Gastrointestinal History: Reports: GERD, Hiatal Hernia Musculoskeletal History: Reports: Osteoarthritis, RA, Other (See Below) Other Musculoskeletal History: bursitis of left shoulder, arthralgia of both hands, cervical disc disease, osteoarthritis of ankle Neurological History: Reports: Neuropathy, Peripheral, Vertigo, Other (See Below ) Other Neuro History: mild cognitive disorder, restless legs Psychiatric History: Reports: Anxiety, Other (See Below) Other Psychiatric History: mild cognitive disorder Endocrine/Metabolic History: Reports: Hypothyroidism, Other (See Below) Other Endocrine/Metabolic History: hyperglycemia Hematologic History: Reports: B12 Deficiency - Past Surgical History Cardiovascular Surgical History: Reports: Other (See Below) Other Cardiovascular Surgeries/Procedures: coronary balloon angioplasty GI Surgical History: Reports: Cholecystectomy, Hernia Repair/Other Social & Family History - Family History Family Medical History: Noncontributory - Tobacco Use Smoking Status *Q: Unknown Ever Smoked Second Hand Smoke Exposure: No - Caffeine Use Caffeine Use: Reports: Coffee - Recreational Drug Use Recreational Drug Use: No H&P Review of Systems - Review of Systems: Review Of Systems: See Below Exam - Exam Exam: See Below - Vital Signs Vital Signs: Last Vital Signs Temp 36.1 C 01/27/19 10:00 Pulse 99 01/27/19 14:41 Resp 24 H 01/27/19 14:41 BP 103/59 L 01/27/19 14:41 Pulse Ox 94 L 01/27/19 14:41 Weight: 69.995 kg - Patient Data Lab Results Last 24 hrs: Laboratory Results - last 24 hr 01/27/19 01/27/19 01/27/19 Range/Units 10:06 10:06 10:06 WBC 12.9 H (4.0-10.0) x10^3/uL RBC 4.45 L (4.5-6.0) x10^6/uL Hgb 13.7 L (14.0-18.0) g/dL Hct 41.2 (40.0-52.0) % MCV 92.6 (78.0-93.0) fL MCH 30.8 (26.0-32.0) pg MCHC 33.3 (32.0-36.0) g/dL RDW Coeff of Phyllis 13.4 (10.0-15.0) % Plt Count 211 (130-400) x10^3/uL Neut % (Auto) 71.2 (50.0-80.0) % Lymph % (Auto) 22.6 L (25.0-50.0) % [place] % (Auto) 5.0 (2.0-11.0) % Eos % (Auto) 0.9 (0.0-4.0) % Baso % (Auto) 0.3 (0.2-1.2) % PT (10.0-12.8) SEC INR (2.0-3.5) D-Dimer, Quantitative (<=0.58) mg/LFEU POC ABG pH (7.35-7.45) POC ABG pCO2 (35-45) mmHG POC ABG pO2 (80-105) mmHG POC ABG HCO3 (22-26) mmol/L POC ABG Total CO2 (23-27) mmol/L POC ABG O2 Sat (95-98) % POC ABG Base Excess (-2-3) mmol/L POC FiO2 Sodium 140 (136-145) mmol/L Potassium 4.1 (3.5-5.1) mmol/L Chloride 103 (98-107) mmol/L Carbon Dioxide 27 (21-32) mmol/L Anion Gap 14.1 (10-20) mmol/L BUN 25 H (7-18) mg/dL Creatinine 1.4 H (0.70-1.30) mg/dL Est Cr Clr Drug Dosing TNP Estimated GFR (MDRD) 48 Glucose 137 H (74-106) mg/dL Lactic Acid 3.6 H* (0.4-2.0) mmol/L Calcium 8.8 (8.5-10.1) mg/dL Corrected Calcium 9.44 (8.5-10.1) mg/dL Total Bilirubin 0.5 (0.2-1.0) mg/dL AST 16 (15-37) U/L ALT 26 (16-63) U/L Alkaline Phosphatase 67 (46-116) U/L Creatine Kinase 57 (39-308) U/L Troponin I 0.023 (<=0.056) ng/mL C-Reactive Protein 1.5 H (<=0.9) mg/dL NT-Pro-B Natriuret Pep (<=450) pg/mL Total Protein 6.8 (6.4-8.2) g/dL Albumin 3.2 L (3.4-5.0) g/dL Globulin 3.6 Albumin/Globulin Ratio 0.89 Urine Color (YELLOW) Urine Appearance (CLEAR) Urine pH (5.0-8.0) Ur Specific Lyndon Urine Protein (NEGATIVE) mg/dL Urine Glucose (UA) (NEGATIVE) mg/dL Urine Ketones (NEGATIVE) mg/dL Urine Occult Blood (NEGATIVE) Urine Nitrite (NEGATIVE) Urine Bilirubin (NEGATIVE) Urine Urobilinogen (0.2) EU/dL Ur Leukocyte Esterase (NEGATIVE) Urine RBC (NOT SEEN) /HPF Urine WBC (NOT SEEN) /HPF Ur Squamous Epith Cells (NEGATIVE) /HPF Ur Renal Epithelial Cell (NEGATIVE) /HPF Urine Bacteria (NEGATIVE) /HPF Epithelial Casts Hyaline Casts (NEGATIVE) /HPF Urine Mucus (NEGATIVE) /LPF 01/27/19 01/27/19 01/27/19 Range/Units 10:06 10:25 10:25 WBC (4.0-10.0) x10^3/uL RBC (4.5-6.0) x10^6/uL Hgb (14.0-18.0) g/dL Hct (40.0-52.0) % MCV (78.0-93.0) fL MCH (26.0-32.0) pg MCHC (32.0-36.0) g/dL RDW Coeff of Phyllis (10.0-15.0) % Plt Count (130-400) x10^3/uL Neut % (Auto) (50.0-80.0) % Lymph % (Auto) (25.0-50.0) % [place] % (Auto) (2.0-11.0) % Eos % (Auto) (0.0-4.0) % Baso % (Auto) (0.2-1.2) % PT 10.5 (10.0-12.8) SEC INR 0.9 L (2.0-3.5) D-Dimer, Quantitative 4.08 H (<=0.58) mg/LFEU POC ABG pH (7.35-7.45) POC ABG pCO2 (35-45) mmHG POC ABG pO2 (80-105) mmHG POC ABG HCO3 (22-26) mmol/L POC ABG Total CO2 (23-27) mmol/L POC ABG O2 Sat (95-98) % POC ABG Base Excess (-2-3) mmol/L POC FiO2 Sodium (136-145) mmol/L Potassium (3.5-5.1) mmol/L Chloride (98-107) mmol/L Carbon Dioxide (21-32) mmol/L Anion Gap (10-20) mmol/L BUN (7-18) mg/dL Creatinine (0.70-1.30) mg/dL Est Cr Clr Drug Dosing Estimated GFR (MDRD) Glucose (74-106) mg/dL Lactic Acid (0.4-2.0) mmol/L Calcium (8.5-10.1) mg/dL Corrected Calcium (8.5-10.1) mg/dL Total Bilirubin (0.2-1.0) mg/dL AST (15-37) U/L ALT (16-63) U/L Alkaline Phosphatase (46-116) U/L Creatine Kinase (39-308) U/L Troponin I (<=0.056) ng/mL C-Reactive Protein (<=0.9) mg/dL NT-Pro-B Natriuret Pep 1358 H (<=450) pg/mL Total Protein (6.4-8.2) g/dL Albumin (3.4-5.0) g/dL Globulin Albumin/Globulin Ratio Urine Color (YELLOW) Urine Appearance (CLEAR) Urine pH (5.0-8.0) Ur Specific [place] Urine Protein (NEGATIVE) mg/dL Urine Glucose (UA) (NEGATIVE) mg/dL Urine Ketones (NEGATIVE) mg/dL Urine Occult Blood (NEGATIVE) Urine Nitrite (NEGATIVE) Urine Bilirubin (NEGATIVE) Urine Urobilinogen (0.2) EU/dL Ur Leukocyte Esterase (NEGATIVE) Urine RBC (NOT SEEN) /HPF Urine WBC (NOT SEEN) /HPF Ur Squamous Epith Cells (NEGATIVE) /HPF Ur Renal Epithelial Cell (NEGATIVE) /HPF Urine Bacteria (NEGATIVE) /HPF Epithelial Casts Hyaline Casts (NEGATIVE) /HPF Urine Mucus (NEGATIVE) /LPF 04/23/19 04/23/19 Range/Units 11:00 11:21 WBC (4.0-10.0) x10^3/uL RBC (4.5-6.0) x10^6/uL Hgb (14.0-18.0) g/dL Hct (40.0-52.0) % MCV (78.0-93.0) fL MCH (26.0-32.0) pg MCHC (32.0-36.0) g/dL RDW Coeff of Phyllis (10.0-15.0) % Plt Count (130-400) x10^3/uL Neut % (Auto) (50.0-80.0) % Lymph % (Auto) (25.0-50.0) % [place] % (Auto) (2.0-11.0) % Eos % (Auto) (0.0-4.0) % Baso % (Auto) (0.2-1.2) % PT (10.0-12.8) SEC INR (2.0-3.5) D-Dimer, Quantitative (<=0.58) mg/LFEU POC ABG pH 7.350 (7.35-7.45) POC ABG pCO2 46 H (35-45) mmHG POC ABG pO2 75 L (80-105) mmHG POC ABG HCO3 25 (22-26) mmol/L POC ABG Total CO2 27 (23-27) mmol/L POC ABG O2 Sat 94 L (95-98) % POC ABG Base Excess 0 (-2-3) mmol/L POC FiO2 0.28 Sodium (136-145) mmol/L Potassium (3.5-5.1) mmol/L Chloride (98-107) mmol/L Carbon Dioxide (21-32) mmol/L Anion Gap (10-20) mmol/L BUN (7-18) mg/dL Creatinine (0.70-1.30) mg/dL Est Cr Clr Drug Dosing Estimated GFR (MDRD) Glucose (74-106) mg/dL Lactic Acid (0.4-2.0) mmol/L Calcium (8.5-10.1) mg/dL Corrected Calcium (8.5-10.1) mg/dL Total Bilirubin (0.2-1.0) mg/dL AST (15-37) U/L ALT (16-63) U/L Alkaline Phosphatase (46-116) U/L Creatine Kinase (39-308) U/L Troponin I (<=0.056) ng/mL C-Reactive Protein (<=0.9) mg/dL NT-Pro-B Natriuret Pep (<=450) pg/mL Total Protein (6.4-8.2) g/dL Albumin (3.4-5.0) g/dL Globulin Albumin/Globulin Ratio Urine Color Yellow (YELLOW) Urine Appearance Slightly cloudy H (CLEAR) Urine pH 6.0 (5.0-8.0) Ur Specific Lyndon 1.015 Urine Protein 30 H (NEGATIVE) mg/dL Urine Glucose (UA) Negative (NEGATIVE) mg/dL Urine Ketones Negative (NEGATIVE) mg/dL Urine Occult Blood Moderate H (NEGATIVE) Urine Nitrite Negative (NEGATIVE) Urine Bilirubin Negative (NEGATIVE) Urine Urobilinogen 0.2 (0.2) EU/dL Ur Leukocyte Esterase Negative (NEGATIVE) Urine RBC 10-20 H (NOT SEEN) /HPF Urine WBC 0-5 (NOT SEEN) /HPF Ur Squamous Epith Cells Few H (NEGATIVE) /HPF Ur Renal Epithelial Cell Rare H (NEGATIVE) /HPF Urine Bacteria Not seen (NEGATIVE) /HPF Epithelial Casts Rare Hyaline Casts Few H (NEGATIVE) /HPF Urine Mucus Rare H (NEGATIVE) /LPF Result Diagrams: 01/27/19 10:06 01/27/19 10:06 Sergio Results Last 24 hrs: Microbiology 01/27/19 12:15 Influenza Type A Antigen Screen - Final Nasopharyngeal Swab - Nare, Unspecified NEGATIVE INFLUENZA A VIRUS AG Influenza Type B Antigen Screen - Final Positive Influenza B Ag Problem List Initiated/Reviewed/Updated: Yes Orders Last 24hrs: Active Orders 24 hr Category Date Time Status Patient Status [ADT] Routine ADT 01/27/19 13:35 Active Patient Status [ADT] Routine ADT 01/27/19 14:41 Ordered Ambulate [RC] PER UNIT ROUTINE Care 01/27/19 14:43 Ordered Dietary Supplements [RC] BIDMEALS Care 01/27/19 14:45 Ordered EKG 12 Lead [EKG Documentation Completion] [RC] STAT Care 01/27/19 12:24 Active Oxygen Therapy Adult [Oxygen Therapy, ED] [RC] 08,20 Care 01/27/19 12:04 Active Oxygen Therapy [RC] PRN Care 01/27/19 14:41 Ordered Up With Assistance [RC] ASDIRECTED Care 01/27/19 14:41 Ordered Vital Signs [RC] Q4H Care 01/27/19 14:41 Ordered PT Evaluation and Treatment [CONS] Routine Cons 01/27/19 14:41 Ordered Regular Diet [DIET] Diet 01/27/19 Dinner Ordered AMYLASE [CHEM] Routine Lab 01/27/19 16:00 Ordered CBC WITH AUTO DIFF [HEME] AM Lab 01/28/19 05:11 Ordered COMPREHENSIVE METABOLIC PN,CMP [CHEM] AM Lab 01/28/19 05:11 Ordered CULTURE BLOOD [BC] Stat Lab 01/27/19 10:25 Received CULTURE BLOOD [BC] Stat Lab 01/27/19 11:12 Received CULTURE MRSA SURVEY [RM] Routine Lab 01/27/19 14:15 Ordered LACTIC ACID [CHEM] Routine Lab 01/27/19 16:00 Ordered TROPONIN I [CHEM] AM Lab 01/28/19 05:11 Ordered Acetaminophen [Tylenol] Med 01/27/19 14:41 Ordered 650 mg PO Q4H PRN Azithromycin [Zithromax] Med 01/28/19 08:00 Ordered 250 mg PO DAILY Cholecalciferol (Vitamin D3) [Vitamin D3] Med 01/28/19 08:00 Ordered 2,000 unit PO DAILY ClonazePAM [KlonoPIN] Med 01/27/19 20:00 Ordered 0.25 mg PO BID Cyanocobalamin (Vitamin B12) [Vitamin B12] Med 01/28/19 08:00 Ordered 1,000 mcg PO DAILY Cyclobenzaprine [Flexeril] Med 01/27/19 14:48 Ordered 5 mg PO Q8H PRN Docusate Sodium [Colace] Med 01/27/19 14:48 Ordered 100 mg PO DAILY PRN Donepezil [Aricept] Med 01/28/19 08:00 Ordered 10 mg PO DAILY HYDROmorphone [Dilaudid] Med 01/27/19 14:41 Ordered 0.25 mg IVPUSH Q2H PRN Ibuprofen [Motrin] Med 01/27/19 14:48 Ordered 200 mg PO Q4HR PRN Lactated Ringers [Ringers, Lactated] 1,000 ml Med 01/27/19 12:30 Active IV ASDIRECTED Levothyroxine Med 01/28/19 08:00 Ordered 50 mcg PO DAILY Lisinopril [Prinivil] Med 01/28/19 08:00 Ordered 5 mg PO DAILY Menthol [Bengay] Med 01/27/19 14:48 Ordered 1 applic TOP ASDIRECTED PRN Metoprolol Tartrate [Lopressor] Med 01/27/19 20:00 Ordered 25 mg PO BID Naproxen Sodium [Aleve] Med 01/27/19 14:48 Ordered 220 mg PO BID PRN Omeprazole Magnesium [Prilosec Otc] Med 01/28/19 08:00 Ordered 20 mg PO DAILY Ondansetron [Zofran] Med 01/27/19 14:41 Ordered 4 mg IV Q6H PRN Oseltamivir [Tamiflu] Med 01/27/19 20:00 Ordered 75 mg PO BID Oxybutynin [Oxybutynin ER] Med 01/28/19 08:00 Ordered 5 mg PO DAILY Simvastatin [Zocor] Med 01/27/19 20:00 Ordered 10 mg PO BEDTIME Sodium Chloride 0.9% [Saline Flush] Med 01/27/19 10:09 Active 10 ml FLUSH ASDIRECTED PRN Tamsulosin [Flomax] Med 01/28/19 08:00 Ordered 0.4 mg PO DAILY Triamcinolone Acetonide [Triamcinolone Acetonide 0.5%] Med 01/27/19 14:48 Ordered 1 applic TOP ASDIRECTED PRN busPIRone [Buspar] Med 01/27/19 20:00 Ordered 15 mg PO BID cefTRIAXone [Rocephin] Med 01/28/19 08:00 Ordered 1 gm IVPUSH DAILY hydroCHLOROthiazide Med 01/28/19 08:00 Ordered 12.5 mg PO DAILY methylPREDNISolone Sod Succ [Solu-MEDROL] Med 01/27/19 15:00 Ordered 40 mg IVPUSH Q12H traMADol [Ultram] Med 01/27/19 14:48 Ordered 50 mg PO QID PRN Blood Culture x2 Reflex Set [OM.PC] Stat Oth 01/27/19 10:09 Ordered Saline Lock Insert [OM.PC] Routine Oth 01/27/19 10:09 Ordered Resuscitation Status Routine Resus Stat 01/27/19 14:41 Ordered Medication Orders Acetaminophen (Tylenol) 650 mg PO Q4H PRN PRN Reason: Pain (Mild 1-3)/fever Azithromycin (Zithromax) 250 mg PO DAILY [facility] Buspirone HCl (Buspar) 15 mg PO BID [facility] Ceftriaxone Sodium (Rocephin) 1 gm IVPUSH DAILY [facility] Clonazepam (Klonopin) 0.25 mg PO BID [facility] Cyanocobalamin (Vitamin B12) 1,000 mcg PO DAILY [facility] Cyclobenzaprine HCl (Flexeril) 5 mg PO Q8H PRN PRN Reason: muscle spasms Docusate Sodium (Colace) 100 mg PO DAILY PRN PRN Reason: Hard stools Donepezil HCl (Aricept) 10 mg PO DAILY [facility] Hydrochlorothiazide (Hydrochlorothiazide) 12.5 mg PO DAILY [facility] Hydromorphone HCl (Dilaudid) 0.25 mg IVPUSH Q2H PRN PRN Reason: Pain (severe 7-10) Lactated Ringer's (Ringers, Lactated) 1,000 mls @ 125 mls/hr IV ASDIRECTED [facility] Last Admin: 01/27/19 12:47 Dose: 999 mls/hr Ibuprofen (Motrin) 200 mg PO Q4HR PRN PRN Reason: Pain Levothyroxine Sodium (Levothyroxine) 50 mcg PO DAILY [facility] Lisinopril (Prinivil) 5 mg PO DAILY [facility] Methylprednisolone Sodium Succinate (Solu-Medrol) 40 mg IVPUSH Q12H [facility] Metoprolol Tartrate (Lopressor) 25 mg PO BID [facility] Non-Formulary Medication (Cholecalciferol (Vitamin D3) [Vitamin D3]) 2,000 unit PO DAILY [facility] Non-Formulary Medication (Menthol [Bengay]) 1 applic TOP ASDIRECTED PRN PRN Reason: Pain Non-Formulary Medication (Naproxen Sodium [Aleve]) 220 mg PO BID PRN PRN Reason: Pain Non-Formulary Medication (Omeprazole Magnesium [Prilosec Otc]) 20 mg PO DAILY [facility] Non-Formulary Medication (Triamcinolone Acetonide [Triamcinolone Acetonide 0.5%] ) 1 applic TOP ASDIRECTED PRN PRN Reason: Rash Ondansetron HCl (Zofran) 4 mg IV Q6H PRN PRN Reason: Nausea/Vomiting Oseltamivir Phosphate (Tamiflu) 75 mg PO BID [facility] Oxybutynin Chloride (Oxybutynin Er) 5 mg PO DAILY [facility] Simvastatin (Zocor) 10 mg PO BEDTIME [facility] Sodium Chloride (Saline Flush) 10 ml FLUSH ASDIRECTED PRN PRN Reason: Keep Vein Open Last Admin: 01/27/19 11:20 Dose: 10 ml Tamsulosin HCl (Flomax) 0.4 mg PO DAILY [facility] Tramadol HCl (Ultram) 50 mg PO QID PRN PRN Reason: Pain
[2019-01-27] MEDS ORDERED: QUEtiapine 25 MG Tab PO ONE (15:08)
[2019-01-27] MEDS: methylPREDNISolone Sodium Succinate 40 MG/1 ML SDV IVPUSH SCH ×2 (15:31→19:40)
[2019-01-27] MEDS: HYDROmorphone 1 MG/ML Syringe IVPUSH PRN ×2 (17:21→19:42)
[2019-01-27] MEDS: Acetaminophen 325 MG Tab PO PRN (17:49)
[2019-01-27] MEDS: ClonazePAM 0.5 MG Tab PO SCH (19:42)
[2019-01-27] MEDS: Metoprolol Tartrate 25 MG Tab PO SCH (19:42)
[2019-01-27] MEDS: busPIRone 15 MG Tab PO SCH (19:42)
[2019-01-27] MEDS: QUEtiapine 25 MG Tab PO SCH (19:43)
[2019-01-27] MEDS: Oseltamivir 75 MG Cap PO SCH (19:43)
[2019-01-27] MEDS: Simvastatin 10 MG Tab PO SCH (19:43)
[2019-01-28] MEDS: Lactated Ringers 1,000 ML IV SCH ×3 (00:05→16:00)
[2019-01-28] MEDS: Levothyroxine 50 MCG Tab PO SCH (06:38)
[2019-01-28] MEDS: Omeprazole 20 MG Cap.CR PO SCH (06:38)
[2019-01-28 07:24] LABS: ANION GAP 11.3 mmol/L (10-20); CHLORIDE,CL 103 mmol/L (98-107); SODIUM,NA 138 mmol/L (136-145)
[2019-01-28] MEDS: Metoprolol Tartrate 25 MG Tab PO SCH ×2 (07:51→19:35)
[2019-01-28] MEDS: cefTRIAXone 1 GM Vial IVPUSH SCH (07:51)
[2019-01-28] MEDS: ClonazePAM 0.5 MG Tab PO SCH ×2 (07:51→19:29)
[2019-01-28] MEDS: Oxybutynin 5 MG Tab.ER PO SCH (07:51)
[2019-01-28] MEDS: Cholecalciferol (Vitamin D3) 1,000 Unit Tab PO SCH (07:51)
[2019-01-28] MEDS: Oseltamivir 75 MG Cap PO SCH ×2 (07:51→19:31)
[2019-01-28] MEDS: methylPREDNISolone Sodium Succinate 40 MG/1 ML SDV IVPUSH SCH ×2 (07:51→19:30)
[2019-01-28] MEDS: busPIRone 15 MG Tab PO SCH ×2 (07:52→19:31)
[2019-01-28] MEDS: Hydrochlorothiazide 12.5 MG Cap PO SCH (07:52)
[2019-01-28] MEDS: Cyanocobalamin (Vitamin B12) 1,000 MCG Tab PO SCH (07:52)
[2019-01-28] MEDS: traMADol 50 MG Tab PO PRN (07:52)
[2019-01-28] MEDS: Lisinopril 5 MG Tab PO SCH (07:52)
[2019-01-28] MEDS: Acetaminophen 325 MG Tab PO PRN (07:52)
[2019-01-28] MEDS: Donepezil 10 MG Tab PO SCH (07:52)
[2019-01-28] MEDS: Azithromycin 250 MG Tab PO SCH (07:52)
[2019-01-28] MEDS: Tamsulosin 0.4 MG Cap.ER PO SCH (07:53)
[2019-01-28] MEDS: Sodium Chloride 0.9% 10 ML Syringe FLUSH PRN (07:53)
--- NOTE | 2019-01-28 17:00 | PCM.PN ---
- General Info Date of Service: 01/28/19 Subjective Update: Subjective: Patient has no complaints. Reading seems improved. Tolerating full diet. No abdominal pain. Afebrile. Objective: Vital signs are stable. Alert no distress heart and lungs good station abdomen soft nontender extremity is warm well perfused. Lactic acidosis largely resolved. A/P: Syncopal episode sounds vasovagal. Mild pneumonia, continue antibiotics plus Tamiflu. Recheck labs in a.m., AK I lactic acidosis. We improving. On stress dose steroid. Abdominal pain resolved. Possible discharge in a.m. - Patient Data Vitals - Most Recent: Last Vital Signs Temp 36.6 C 01/28/19 14:00 Pulse 63 01/28/19 14:00 Resp 20 01/28/19 14:00 BP 112/62 01/28/19 14:00 Pulse Ox 94 L 01/28/19 14:41 Weight - Most Recent: 69.995 kg I&O - Last 24 Hours: Intake & Output 01/28/19 01/28/19 01/28/19 06:59 14:59 22:59 Intake Total 1614 840 Output Total 1600 625 Balance 14 215 Lab Results Last 24 Hours: Laboratory Results - last 24 hr 01/28/19 01/28/19 Range/Units 06:34 06:34 WBC 10.7 H (4.0-10.0) x10^3/uL RBC 4.00 L (4.5-6.0) x10^6/uL Hgb 12.2 L D (14.0-18.0) g/dL Hct 36.0 L (40.0-52.0) % MCV 90.0 (78.0-93.0) fL MCH 30.5 (26.0-32.0) pg MCHC 33.9 (32.0-36.0) g/dL RDW Coeff of Phyllis 12.9 (10.0-15.0) % Plt Count 181 (130-400) x10^3/uL Neut % (Auto) 80.2 H (50.0-80.0) % Lymph % (Auto) 13.4 L (25.0-50.0) % [place] % (Auto) 6.1 (2.0-11.0) % Eos % (Auto) 0.0 (0.0-4.0) % Baso % (Auto) 0.3 (0.2-1.2) % Sodium 138 (136-145) mmol/L Potassium 4.3 (3.5-5.1) mmol/L Chloride 103 (98-107) mmol/L Carbon Dioxide 28 (21-32) mmol/L Anion Gap 11.3 (10-20) mmol/L BUN 18 (7-18) mg/dL Creatinine 0.9 (0.70-1.30) mg/dL Est Cr Clr Drug Dosing 60.49 mL/min Estimated GFR (MDRD) > 60 Glucose 113 H (74-106) mg/dL Calcium 8.3 L (8.5-10.1) mg/dL Corrected Calcium 9.50 (8.5-10.1) mg/dL Total Bilirubin 0.6 (0.2-1.0) mg/dL AST 25 (15-37) U/L ALT 24 (16-63) U/L Alkaline Phosphatase 50 (46-116) U/L Troponin I < 0.017 (<=0.056) ng/mL Total Protein 5.6 L (6.4-8.2) g/dL Albumin 2.5 L (3.4-5.0) g/dL Globulin 3.1 Albumin/Globulin Ratio 0.81 Sergio Results Last 24 Hours: Microbiology 01/27/19 11:12 Aerobic Blood Culture - Preliminary Blood - Venous - Lab Draw NO GROWTH AFTER 1 DAY Anaerobic Blood Culture - Preliminary NO GROWTH AFTER 1 DAY 01/27/19 10:25 Aerobic Blood Culture - Preliminary Blood - Venous NO GROWTH AFTER 1 DAY Anaerobic Blood Culture - Preliminary NO GROWTH AFTER 1 DAY 01/27/19 14:15 MRSA Surveillance Culture - Final Nares, Unspecified NO MRSA ISOLATED 01/27/19 12:15 Influenza Type A Antigen Screen - Final Nasopharyngeal Swab - Nare, Unspecified NEGATIVE INFLUENZA A VIRUS AG Influenza Type B Antigen Screen - Final Positive Influenza B Ag Med Orders - Current: Current Medications Acetaminophen (Tylenol) 650 mg PO Q4H PRN PRN Reason: Pain (Mild 1-3)/fever Last Admin: 01/28/19 07:52 Dose: 650 mg Azithromycin (Zithromax) 250 mg PO DAILY [facility] Last Admin: 01/28/19 07:52 Dose: 250 mg Buspirone HCl (Buspar) 15 mg PO BID [facility] Last Admin: 01/28/19 07:52 Dose: 15 mg Ceftriaxone Sodium (Rocephin) 1 gm IVPUSH DAILY [facility] Last Admin: 01/28/19 07:51 Dose: 1 gm Cholecalciferol (Vitamin D3) 2,000 units PO DAILY [facility] Last Admin: 01/28/19 07:51 Dose: 2,000 units Clonazepam (Klonopin) 0.25 mg PO BID [facility] Last Admin: 01/28/19 07:51 Dose: 0.25 mg Cyanocobalamin (Vitamin B12) 1,000 mcg PO DAILY [facility] Last Admin: 01/28/19 07:52 Dose: 1,000 mcg Cyclobenzaprine HCl (Flexeril) 5 mg PO Q8H PRN PRN Reason: muscle spasms Last Admin: 01/27/19 17:21 Dose: 5 mg Docusate Sodium (Colace) 100 mg PO DAILY PRN PRN Reason: Hard stools Donepezil HCl (Aricept) 10 mg PO DAILY [facility] Last Admin: 01/28/19 07:52 Dose: 10 mg Hydrochlorothiazide (Hydrochlorothiazide) 12.5 mg PO DAILY [facility] Last Admin: 01/28/19 07:52 Dose: 12.5 mg Hydromorphone HCl (Dilaudid) 0.25 mg IVPUSH Q2H PRN PRN Reason: Pain (severe 7-10) Last Admin: 01/27/19 19:42 Dose: 0.25 mg Lactated Ringer's (Ringers, Lactated) 1,000 mls @ 125 mls/hr IV ASDIRECTED [facility] Last Admin: 01/28/19 16:00 Dose: 125 mls/hr Ibuprofen (Motrin) 200 mg PO Q4HR PRN PRN Reason: Pain Levothyroxine Sodium (Synthroid) 50 mcg PO DAILY@0700 [facility] Last Admin: 01/28/19 06:38 Dose: 50 mcg Lisinopril (Prinivil) 5 mg PO DAILY [facility] Last Admin: 01/28/19 07:52 Dose: 5 mg Methyl Salicylate (Icy Hot Cream) 1 gm TOP ASDIRECTED PRN PRN Reason: Pain Methylprednisolone Sodium Succinate (Solu-Medrol) 40 mg IVPUSH BID [facility] Last Admin: 01/28/19 07:51 Dose: 40 mg Metoprolol Tartrate (Lopressor) 25 mg PO BID [facility] Last Admin: 01/28/19 07:51 Dose: 25 mg Naproxen (Naproxen Sodium) 220 mg PO BID PRN PRN Reason: Pain Omeprazole (Omeprazole) 20 mg PO DAILY@0700 [facility] Last Admin: 01/28/19 06:38 Dose: 20 mg Ondansetron HCl (Zofran) 4 mg IV Q6H PRN PRN Reason: Nausea/Vomiting Oseltamivir Phosphate (Tamiflu) 75 mg PO BID [facility] Last Admin: 01/28/19 07:51 Dose: 75 mg Oxybutynin Chloride (Oxybutynin Er) 5 mg PO DAILY [facility] Last Admin: 01/28/19 07:51 Dose: 5 mg Quetiapine Fumarate (Seroquel) 25 mg PO BEDTIME [facility] Last Admin: 01/27/19 19:43 Dose: 25 mg Simvastatin (Zocor) 10 mg PO BEDTIME [facility] Last Admin: 01/27/19 19:43 Dose: 10 mg Sodium Chloride (Saline Flush) 10 ml FLUSH ASDIRECTED PRN PRN Reason: Keep Vein Open Last Admin: 01/28/19 07:53 Dose: 10 ml Tamsulosin HCl (Flomax) 0.4 mg PO DAILY [facility] Last Admin: 01/28/19 07:53 Dose: 0.4 mg Tramadol HCl (Ultram) 50 mg PO QID PRN PRN Reason: Pain Last Admin: 01/28/19 07:52 Dose: 50 mg Triamcinolone Acetonide (Triamcinolone Acetonide 0.1% Crm) 0 gm TOP ASDIRECTED PRN PRN Reason: Rash Discontinued Medications Ceftriaxone Sodium (Rocephin) 2 gm IVPUSH STAT ONE Stop: 01/27/19 10:56 Last Admin: 01/27/19 11:20 Dose: 2 gm Azithromycin 500 mg/ Sodium (Chloride) 250 mls @ 250 mls/hr IV STAT ONE Stop: 01/27/19 14:28 Last Admin: 01/27/19 14:00 Dose: 250 mls/hr Iopamidol (Isovue-300 (61%)) 100 ml IVPUSH ONETIME ONE Stop: 01/27/19 11:52 Last Admin: 01/27/19 15:37 Dose: 100 ml Lorazepam (Ativan) 1 mg IVPUSH ONETIME ONE Stop: 01/27/19 10:16 Last Admin: 01/27/19 10:23 Dose: 1 mg Oseltamivir Phosphate (Tamiflu) 75 mg PO ONETIME ONE Stop: 01/27/19 13:32 Last Admin: 01/27/19 13:44 Dose: 75 mg Quetiapine Fumarate (Seroquel) 25 mg PO ONETIME ONE Stop: 01/27/19 15:09 Last Admin: 01/27/19 15:31 Dose: 25 mg - Problem List Review Problem List Initiated/Reviewed/Updated: Yes - My Orders Last 24 Hours: My Active Orders 01/27/19 16:40 Dyer Catheter Insertion [Insert Urinary Catheter] [OM.PC] Q24H 01/27/19 17:00 Urinary Catheter Assessment [RC] 01/27/19 20:00 ClonazePAM [KlonoPIN] 0.25 mg PO BID Metoprolol Tartrate [Lopressor] 25 mg PO BID Oseltamivir [Tamiflu] 75 mg PO BID [facility]tiapine [SEROquel] 25 mg PO BEDTIME Simvastatin [Zocor] 10 mg PO BEDTIME busPIRone [Buspar] 15 mg PO BID 01/27/19 Dinner Regular Diet [DIET] 01/28/19 07:00 Levothyroxine [Synthroid] 50 mcg PO DAILY@0700 Omeprazole 20 mg PO DAILY@0700 01/28/19 08:00 Azithromycin [Zithromax] 250 mg PO DAILY Cholecalciferol (Vitamin D3) [Vitamin D3] 2,000 units PO DAILY Cyanocobalamin (Vitamin B12) [Vitamin B12] 1,000 mcg PO DAILY Donepezil [Aricept] 10 mg PO DAILY Lisinopril [Prinivil] 5 mg PO DAILY Oxybutynin [Oxybutynin ER] 5 mg PO DAILY Tamsulosin [Flomax] 0.4 mg PO DAILY cefTRIAXone [Rocephin] 1 gm IVPUSH DAILY hydroCHLOROthiazide 12.5 mg PO DAILY
[2019-01-28] MEDS: Simvastatin 10 MG Tab PO SCH (19:31)
[2019-01-28] MEDS: QUEtiapine 25 MG Tab PO SCH (19:31)
[2019-01-29] MEDS: Lactated Ringers 1,000 ML IV SCH ×3 (00:05→15:54)
[2019-01-29] MEDS: Levothyroxine 50 MCG Tab PO SCH (06:28)
[2019-01-29] MEDS: Omeprazole 20 MG Cap.CR PO SCH (06:28)
[2019-01-29 07:12] LABS: ANION GAP 10.1 mmol/L (10-20); CHLORIDE,CL 103 mmol/L (98-107); SODIUM,NA 139 mmol/L (136-145)
[2019-01-29] MEDS: cefTRIAXone 1 GM Vial IVPUSH SCH (07:57)
[2019-01-29] MEDS: methylPREDNISolone Sodium Succinate 40 MG/1 ML SDV IVPUSH SCH ×2 (07:58→20:18)
[2019-01-29] MEDS: Hydrochlorothiazide 12.5 MG Cap PO SCH (07:58)
[2019-01-29] MEDS: Tamsulosin 0.4 MG Cap.ER PO SCH (07:58)
[2019-01-29] MEDS: Lisinopril 5 MG Tab PO SCH (07:58)
[2019-01-29] MEDS: Acetaminophen 325 MG Tab PO PRN (07:58)
[2019-01-29] MEDS: Donepezil 10 MG Tab PO SCH (07:58)
[2019-01-29] MEDS: Azithromycin 250 MG Tab PO SCH (07:58)
[2019-01-29] MEDS: busPIRone 15 MG Tab PO SCH ×2 (07:58→20:22)
[2019-01-29] MEDS: Oseltamivir 75 MG Cap PO SCH ×2 (07:58→20:20)
[2019-01-29] MEDS: ClonazePAM 0.5 MG Tab PO SCH ×2 (07:59→20:19)
[2019-01-29] MEDS: Cyanocobalamin (Vitamin B12) 1,000 MCG Tab PO SCH (07:59)
[2019-01-29] MEDS: Cholecalciferol (Vitamin D3) 1,000 Unit Tab PO SCH (07:59)
[2019-01-29] MEDS: Metoprolol Tartrate 25 MG Tab PO SCH ×2 (07:59→20:22)
[2019-01-29] MEDS: traMADol 50 MG Tab PO PRN (07:59)
[2019-01-29] MEDS: Oxybutynin 5 MG Tab.ER PO SCH (07:59)
--- NOTE | 2019-01-29 15:47 | PCM.PN ---
- General Info Date of Service: 01/29/19 Admission Dx/Problem (Free Text): Subjective: Continues to improve. No complaints. Still coughing some. No dyspnea. No abdominal pain. No fever. Tolerating full diet. Objective: Vital signs are stable, he still on 1 L of oxygen. Heart and lungs are clear. Abdomen soft nontender ext warm well perfused. White count is almost down to normal, lactate and creatinine are normal. Assessment plan: Pneumonitis improving. Continue antibiotics plus Tamiflu. Wean oxygen. Probable DC in the morning if we can get him off of this. Syncopal episode otherwise seems vasovagal. No other red flags. No recurrence here. - Patient Data Vitals - Most Recent: Last Vital Signs Temp 37.0 C 01/29/19 14:00 Pulse 61 01/29/19 14:00 Resp 18 01/29/19 06:00 BP 149/70 H 01/29/19 14:00 Pulse Ox 97 01/29/19 14:00 Weight - Most Recent: 69.995 kg I&O - Last 24 Hours: Intake & Output 01/29/19 01/29/19 01/29/19 06:59 14:59 22:59 Intake Total 1748 720 Output Total 1700 Balance 48 720 Lab Results Last 24 Hours: Laboratory Results - last 24 hr 01/29/19 01/29/19 01/29/19 Range/Units 06:49 06:49 06:49 WBC 10.1 H (4.0-10.0) x10^3/uL RBC 3.96 L (4.5-6.0) x10^6/uL Hgb 12.2 L (14.0-18.0) g/dL Hct 36.4 L (40.0-52.0) % MCV 91.9 (78.0-93.0) fL MCH 30.8 (26.0-32.0) pg MCHC 33.5 (32.0-36.0) g/dL RDW Coeff of Phyllis 13.4 (10.0-15.0) % Plt Count 170 (130-400) x10^3/uL Neut % (Auto) 83.7 H (50.0-80.0) % Lymph % (Auto) 11.0 L (25.0-50.0) % [place] % (Auto) 5.0 (2.0-11.0) % Eos % (Auto) 0.0 (0.0-4.0) % Baso % (Auto) 0.3 (0.2-1.2) % Sodium 139 (136-145) mmol/L Potassium 4.1 (3.5-5.1) mmol/L Chloride 103 (98-107) mmol/L Carbon Dioxide 30 (21-32) mmol/L Anion Gap 10.1 (10-20) mmol/L BUN 20 H (7-18) mg/dL Creatinine 1.0 (0.70-1.30) mg/dL Est Cr Clr Drug Dosing 54.44 mL/min Estimated GFR (MDRD) > 60 Glucose 127 H (74-106) mg/dL Lactic Acid 1.5 (0.4-2.0) mmol/L Calcium 8.4 L (8.5-10.1) mg/dL Sergio Results Last 24 Hours: Microbiology 01/27/19 11:12 Aerobic Blood Culture - Preliminary Blood - Venous - Lab Draw NO GROWTH AFTER 2 DAYS Anaerobic Blood Culture - Preliminary NO GROWTH AFTER 2 DAYS 01/27/19 10:25 Aerobic Blood Culture - Preliminary Blood - Venous NO GROWTH AFTER 2 DAYS Anaerobic Blood Culture - Preliminary NO GROWTH AFTER 2 DAYS Med Orders - Current: Current Medications Acetaminophen (Tylenol) 650 mg PO Q4H PRN PRN Reason: Pain (Mild 1-3)/fever Last Admin: 01/29/19 07:58 Dose: 650 mg Azithromycin (Zithromax) 250 mg PO DAILY [facility] Last Admin: 01/29/19 07:58 Dose: 250 mg Buspirone HCl (Buspar) 15 mg PO BID [facility] Last Admin: 01/29/19 07:58 Dose: 15 mg Ceftriaxone Sodium (Rocephin) 1 gm IVPUSH DAILY [facility] Last Admin: 01/29/19 07:57 Dose: 1 gm Cholecalciferol (Vitamin D3) 2,000 units PO DAILY [facility] Last Admin: 01/29/19 07:59 Dose: 2,000 units Clonazepam (Klonopin) 0.25 mg PO BID [facility] Last Admin: 01/29/19 07:59 Dose: 0.25 mg Cyanocobalamin (Vitamin B12) 1,000 mcg PO DAILY [facility] Last Admin: 01/29/19 07:59 Dose: 1,000 mcg Cyclobenzaprine HCl (Flexeril) 5 mg PO Q8H PRN PRN Reason: muscle spasms Last Admin: 01/27/19 17:21 Dose: 5 mg Docusate Sodium (Colace) 100 mg PO DAILY PRN PRN Reason: Hard stools Donepezil HCl (Aricept) 10 mg PO DAILY [facility] Last Admin: 01/29/19 07:58 Dose: 10 mg Hydrochlorothiazide (Hydrochlorothiazide) 12.5 mg PO DAILY [facility] Last Admin: 01/29/19 07:58 Dose: 12.5 mg Hydromorphone HCl (Dilaudid) 0.25 mg IVPUSH Q2H PRN PRN Reason: Pain (severe 7-10) Last Admin: 01/27/19 19:42 Dose: 0.25 mg Lactated Ringer's (Ringers, Lactated) 1,000 mls @ 125 mls/hr IV ASDIRECTED [facility] Last Admin: 01/29/19 07:57 Dose: 125 mls/hr Ibuprofen (Motrin) 200 mg PO Q4HR PRN PRN Reason: Pain Levothyroxine Sodium (Synthroid) 50 mcg PO DAILY@0700 [facility] Last Admin: 01/29/19 06:28 Dose: 50 mcg Lisinopril (Prinivil) 5 mg PO DAILY [facility] Last Admin: 01/29/19 07:58 Dose: 5 mg Methyl Salicylate (Icy Hot Cream) 1 gm TOP ASDIRECTED PRN PRN Reason: Pain Methylprednisolone Sodium Succinate (Solu-Medrol) 40 mg IVPUSH BID [facility] Last Admin: 01/29/19 07:58 Dose: 40 mg Metoprolol Tartrate (Lopressor) 25 mg PO BID [facility] Last Admin: 01/29/19 07:59 Dose: 25 mg Naproxen (Naproxen Sodium) 220 mg PO BID PRN PRN Reason: Pain Omeprazole (Omeprazole) 20 mg PO DAILY@0700 [facility] Last Admin: 01/29/19 06:28 Dose: 20 mg Ondansetron HCl (Zofran) 4 mg IV Q6H PRN PRN Reason: Nausea/Vomiting Oseltamivir Phosphate (Tamiflu) 75 mg PO BID [facility] Last Admin: 01/29/19 07:58 Dose: 75 mg Oxybutynin Chloride (Oxybutynin Er) 5 mg PO DAILY [facility] Last Admin: 01/29/19 07:59 Dose: 5 mg Quetiapine Fumarate (Seroquel) 25 mg PO BEDTIME [facility] Last Admin: 01/28/19 19:31 Dose: 25 mg Simvastatin (Zocor) 10 mg PO BEDTIME [facility] Last Admin: 01/28/19 19:31 Dose: 10 mg Sodium Chloride (Saline Flush) 10 ml FLUSH ASDIRECTED PRN PRN Reason: Keep Vein Open Last Admin: 01/28/19 07:53 Dose: 10 ml Tamsulosin HCl (Flomax) 0.4 mg PO DAILY [facility] Last Admin: 01/29/19 07:58 Dose: 0.4 mg Tramadol HCl (Ultram) 50 mg PO QID PRN PRN Reason: Pain Last Admin: 01/29/19 07:59 Dose: 50 mg Triamcinolone Acetonide (Triamcinolone Acetonide 0.1% Crm) 0 gm TOP ASDIRECTED PRN PRN Reason: Rash Discontinued Medications Ceftriaxone Sodium (Rocephin) 2 gm IVPUSH STAT ONE Stop: 01/27/19 10:56 Last Admin: 01/27/19 11:20 Dose: 2 gm Azithromycin 500 mg/ Sodium (Chloride) 250 mls @ 250 mls/hr IV STAT ONE Stop: 01/27/19 14:28 Last Admin: 01/27/19 14:00 Dose: 250 mls/hr Iopamidol (Isovue-300 (61%)) 100 ml IVPUSH ONETIME ONE Stop: 01/27/19 11:52 Last Admin: 01/27/19 15:37 Dose: 100 ml Lorazepam (Ativan) 1 mg IVPUSH ONETIME ONE Stop: 01/27/19 10:16 Last Admin: 01/27/19 10:23 Dose: 1 mg Oseltamivir Phosphate (Tamiflu) 75 mg PO ONETIME ONE Stop: 01/27/19 13:32 Last Admin: 01/27/19 13:44 Dose: 75 mg Quetiapine Fumarate (Seroquel) 25 mg PO ONETIME ONE Stop: 01/27/19 15:09 Last Admin: 01/27/19 15:31 Dose: 25 mg - Problem List Review Problem List Initiated/Reviewed/Updated: Yes
[2019-01-29] MEDS: Sodium Chloride 0.9% 10 ML Syringe FLUSH PRN (20:19)
[2019-01-29] MEDS: Simvastatin 10 MG Tab PO SCH (20:20)
[2019-01-29] MEDS: QUEtiapine 25 MG Tab PO SCH (20:20)
[2019-01-30] MEDS: traMADol 50 MG Tab PO PRN ×2 (00:11→07:59)
[2019-01-30] MEDS: Acetaminophen 325 MG Tab PO PRN ×2 (02:12→07:59)
[2019-01-30] MEDS: Omeprazole 20 MG Cap.CR PO SCH (06:14)
[2019-01-30] MEDS: Levothyroxine 50 MCG Tab PO SCH (06:14)
[2019-01-30] MEDS: Azithromycin 250 MG Tab PO SCH (07:58)
[2019-01-30] MEDS: busPIRone 15 MG Tab PO SCH (07:58)
[2019-01-30] MEDS: cefTRIAXone 1 GM Vial IVPUSH SCH (07:58)
[2019-01-30] MEDS: methylPREDNISolone Sodium Succinate 40 MG/1 ML SDV IVPUSH SCH (07:58)
[2019-01-30] MEDS: Metoprolol Tartrate 25 MG Tab PO SCH (07:59)
[2019-01-30] MEDS: ClonazePAM 0.5 MG Tab PO SCH (07:59)
[2019-01-30] MEDS: Cholecalciferol (Vitamin D3) 1,000 Unit Tab PO SCH (07:59)
[2019-01-30] MEDS: Donepezil 10 MG Tab PO SCH (07:59)
[2019-01-30] MEDS: Hydrochlorothiazide 12.5 MG Cap PO SCH (07:59)
[2019-01-30] MEDS: Oxybutynin 5 MG Tab.ER PO SCH (08:00)
[2019-01-30] MEDS: Cyanocobalamin (Vitamin B12) 1,000 MCG Tab PO SCH (08:00)
[2019-01-30] MEDS: Lisinopril 5 MG Tab PO SCH (08:00)
[2019-01-30] MEDS: Oseltamivir 75 MG Cap PO SCH (08:00)
[2019-01-30] MEDS: Tamsulosin 0.4 MG Cap.ER PO SCH (08:00)
[2019-01-30] MEDS: Sodium Chloride 0.9% 10 ML Syringe FLUSH PRN (08:00)
[2019-01-30 09:42] VITALS: BP 136/70
--- NOTE | 2019-01-30 09:57 | PCM.DCSUM1 ---
Discharge Summary - Hospital Course Diagnosis: Stroke: No Modified [place] Scale: Mod.Disablility Requiring Some Help,Able to Walk Without Assistance Modified [place] Scale Score: 3 - Discharge Data Discharge Date: 01/30/19 Discharge Disposition: DC/Tfer to SNF 03 Condition: Good - Patient Summary/Data Consults: Consultations 01/27/19 14:41 PT Evaluation and Treatment [CONS] Routine - Discharge Plan *PRESCRIPTION DRUG MONITORING PROGRAM REVIEWED*: Not Applicable *COPY OF PRESCRIPTION DRUG MONITORING REPORT IN PATIENT ALLIE: Not Applicable Home Medications: Home Meds Lisinopril [Prinivil] 5 mg PO DAILY 11/19/13 [History] Metoprolol Tartrate 25 mg PO BID 11/19/13 [History] Simvastatin [Zocor] 10 mg PO BEDTIME 11/19/13 [History] Tamsulosin [Flomax] 0.4 mg PO DAILY 11/19/13 [History] Omeprazole Magnesium [Prilosec Otc] 20 mg PO DAILY 02/25/17 [History] Oxybutynin Chloride [Ditropan Xl] 5 mg PO DAILY 02/25/17 [History] Triamcinolone Acetonide [Triamcinolone Acetonide 0.5%] 1 applic TOP ASDIRECTED PRN 02/25/17 [History] Cholecalciferol (Vitamin D3) [Vitamin D3] 2,000 unit PO DAILY 11/02/18 [History] Naproxen Sodium [Aleve] 220 mg PO BID PRN 11/02/18 [History] hydroCHLOROthiazide [Hydrochlorothiazide] 12.5 mg PO DAILY 11/02/18 [History] traMADol [Ultram] 50 mg PO QID PRN 11/02/18 [History] Cyanocobalamin (Vitamin B-12) [Vitamin B-12] 1,000 mcg PO DAILY 11/03/18 [ History] Menthol [Bengay] 1 applic TOP ASDIRECTED PRN 11/03/18 [History] ClonazePAM [KlonoPIN] 0.25 mg PO BID #60 tablet 11/18/18 [Rx] Cyclobenzaprine [Flexeril] 5 mg PO Q8H PRN #30 tablet 11/18/18 [Rx] Docusate Sodium [Colace] 100 mg PO DAILY PRN 01/27/19 [History] Donepezil HCl [Aricept] 10 mg PO DAILY 01/27/19 [History] Ibuprofen 200 mg PO Q4HR PRN 01/27/19 [History] predniSONE 7.5 mg PO DAILY 01/27/19 [History] Levothyroxine Sodium [Levoxyl] 50 mcg PO DAILY 01/28/19 [History] busPIRone [Buspar] 15 mg PO BID 01/28/19 [History] Acetaminophen [Tylenol] 650 mg PO Q4H PRN tablet 01/30/19 [Rx] Levothyroxine [Synthroid] 50 mcg PO DAILY@0700 tablet 01/30/19 [Rx] busPIRone [Buspar] 15 mg PO BID tablet 01/30/19 [Rx] Patient Handouts: Influenza, Adult, [id number], Azithromycin tablets, Community-Acquired Pneumonia, Adult, [id number] Forms: ED Department Discharge Referrals: Mirtha Madera MD [Primary Care Provider] - - Discharge Summary/Plan Comment DC Time >30 min.: No Discharge Summary/Plan Comment: Patient was admitted three days ago after syncopal spell. Lactate and white count were mildly elevated. No pneumonitis by x-ray but did have mild left lower lobe findings by CT. Workup otherwise negative for acute sources. EKG was okay. Influenza B was positive he was started on Tamiflu plus empiric Rocephin plus azithromycin. He was given some stress dose Solu-Medrol. He remained afebrile. Nasal cannula oxygen was weaned. Basically completely asymptomatic at day of discharge, no pain no dyspnea. His biggest concern currently is he does not like [facility] the [facility], basically went because his is there he would prefer to have a shared room which they did not have for him currently. He will resume his previous home meds. I don't see a need to continue anti-infectives currently for what looks like more of a viral illness. He can watch for any recurrence of syncopal spells there but sounds more vasal vagal, he had a large bowel movement prior. - Patient Data Vitals - Most Recent: Last Vital Signs Temp 36.2 C 01/30/19 09:41 Pulse 47 L 01/30/19 09:41 Resp 20 01/30/19 06:00 BP 136/70 01/30/19 09:41 Pulse Ox 91 L 01/30/19 09:41 Weight - Most Recent: 69.995 kg I&O - Last 24 hours: Intake & Output 01/29/19 01/30/19 01/30/19 22:59 06:59 14:59 Intake Total 1514 240 Output Total 1400 900 Balance 114 -660 BROWN Results - Last 24 hrs: Microbiology 01/27/19 11:12 Aerobic Blood Culture - Preliminary Blood - Venous - Lab Draw NO GROWTH AFTER 2 DAYS Anaerobic Blood Culture - Preliminary NO GROWTH AFTER 2 DAYS 01/27/19 10:25 Aerobic Blood Culture - Preliminary Blood - Venous NO GROWTH AFTER 2 DAYS Anaerobic Blood Culture - Preliminary NO GROWTH AFTER 2 DAYS Med Orders - Current: Current Medications Acetaminophen (Tylenol) 650 mg PO Q4H PRN PRN Reason: Pain (Mild 1-3)/fever Last Admin: 01/30/19 07:59 Dose: 650 mg Azithromycin (Zithromax) 250 mg PO DAILY [facility] Last Admin: 01/30/19 07:58 Dose: 250 mg Buspirone HCl (Buspar) 15 mg PO BID [facility] Last Admin: 01/30/19 07:58 Dose: 15 mg Ceftriaxone Sodium (Rocephin) 1 gm IVPUSH DAILY [facility] Last Admin: 01/30/19 07:58 Dose: 1 gm Cholecalciferol (Vitamin D3) 2,000 units PO DAILY [facility] Last Admin: 01/30/19 07:59 Dose: 2,000 units Clonazepam (Klonopin) 0.25 mg PO BID [facility] Last Admin: 01/30/19 07:59 Dose: 0.25 mg Cyanocobalamin (Vitamin B12) 1,000 mcg PO DAILY [facility] Last Admin: 01/30/19 08:00 Dose: 1,000 mcg Cyclobenzaprine HCl (Flexeril) 5 mg PO Q8H PRN PRN Reason: muscle spasms Last Admin: 01/27/19 17:21 Dose: 5 mg Docusate Sodium (Colace) 100 mg PO DAILY PRN PRN Reason: Hard stools Donepezil HCl (Aricept) 10 mg PO DAILY [facility] Last Admin: 01/30/19 07:59 Dose: 10 mg Hydrochlorothiazide (Hydrochlorothiazide) 12.5 mg PO DAILY [facility] Last Admin: 01/30/19 07:59 Dose: 12.5 mg Hydromorphone HCl (Dilaudid) 0.25 mg IVPUSH Q2H PRN PRN Reason: Pain (severe 7-10) Last Admin: 01/27/19 19:42 Dose: 0.25 mg Ibuprofen (Motrin) 200 mg PO Q4HR PRN PRN Reason: Pain Levothyroxine Sodium (Synthroid) 50 mcg PO DAILY@0700 [facility] Last Admin: 01/30/19 06:14 Dose: 50 mcg Lisinopril (Prinivil) 5 mg PO DAILY [facility] Last Admin: 01/30/19 08:00 Dose: 5 mg Methyl Salicylate (Icy Hot Cream) 1 gm TOP ASDIRECTED PRN PRN Reason: Pain Methylprednisolone Sodium Succinate (Solu-Medrol) 40 mg IVPUSH BID [facility] Last Admin: 01/30/19 07:58 Dose: 40 mg Metoprolol Tartrate (Lopressor) 25 mg PO BID [facility] Last Admin: 01/30/19 07:59 Dose: 25 mg Naproxen (Naproxen Sodium) 220 mg PO BID PRN PRN Reason: Pain Omeprazole (Omeprazole) 20 mg PO DAILY@0700 [facility] Last Admin: 01/30/19 06:14 Dose: 20 mg Ondansetron HCl (Zofran) 4 mg IV Q6H PRN PRN Reason: Nausea/Vomiting Oseltamivir Phosphate (Tamiflu) 75 mg PO BID [facility] Last Admin: 01/30/19 08:00 Dose: 75 mg Oxybutynin Chloride (Oxybutynin Er) 5 mg PO DAILY [facility] Last Admin: 01/30/19 08:00 Dose: 5 mg Quetiapine Fumarate (Seroquel) 25 mg PO BEDTIME [facility] Last Admin: 01/29/19 20:20 Dose: 25 mg Simvastatin (Zocor) 10 mg PO BEDTIME [facility] Last Admin: 01/29/19 20:20 Dose: 10 mg Sodium Chloride (Saline Flush) 10 ml FLUSH ASDIRECTED PRN PRN Reason: Keep Vein Open Last Admin: 01/30/19 08:00 Dose: 10 ml Tamsulosin HCl (Flomax) 0.4 mg PO DAILY [facility] Last Admin: 01/30/19 08:00 Dose: 0.4 mg Tramadol HCl (Ultram) 50 mg PO QID PRN PRN Reason: Pain Last Admin: 01/30/19 07:59 Dose: 50 mg Triamcinolone Acetonide (Triamcinolone Acetonide 0.1% Crm) 0 gm TOP ASDIRECTED PRN PRN Reason: Rash Discontinued Medications Ceftriaxone Sodium (Rocephin) 2 gm IVPUSH STAT ONE Stop: 01/27/19 10:56 Last Admin: 01/27/19 11:20 Dose: 2 gm Lactated Ringer's (Ringers, Lactated) 1,000 mls @ 125 mls/hr IV ASDIRECTED [facility] Last Admin: 01/29/19 15:54 Dose: 125 mls/hr Azithromycin 500 mg/ Sodium (Chloride) 250 mls @ 250 mls/hr IV STAT ONE Stop: 01/27/19 14:28 Last Admin: 01/27/19 14:00 Dose: 250 mls/hr Iopamidol (Isovue-300 (61%)) 100 ml IVPUSH ONETIME ONE Stop: 01/27/19 11:52 Last Admin: 01/27/19 15:37 Dose: 100 ml Lorazepam (Ativan) 1 mg IVPUSH ONETIME ONE Stop: 01/27/19 10:16 Last Admin: 01/27/19 10:23 Dose: 1 mg Oseltamivir Phosphate (Tamiflu) 75 mg PO ONETIME ONE Stop: 01/27/19 13:32 Last Admin: 01/27/19 13:44 Dose: 75 mg Quetiapine Fumarate (Seroquel) 25 mg PO ONETIME ONE Stop: 01/27/19 15:09 Last Admin: 01/27/19 15:31 Dose: 25 mg
== END 2019-01-30 10:10 | DRG 194 ==
LOC: VM.ED 09:59 → VM.MS 13:35
PROVIDERS: ADMIT Family Medicine; ATTEND Family Medicine
DX: J10.00 Influenza due to other identified influenza virus with unspecified type of pneumonia (principal); N17.9 Acute kidney failure, unspecified; F41.9 Anxiety disorder, unspecified; G62.9 Polyneuropathy, unspecified; E03.9 Hypothyroidism, unspecified; I25.10 Atherosclerotic heart disease of native coronary artery without angina pectoris; M06.9 Rheumatoid arthritis, unspecified; I50.9 Heart failure, unspecified; H91.90 Unspecified hearing loss, unspecified ear; E78.00 Pure hypercholesterolemia, unspecified; I11.0 Hypertensive heart disease with heart failure; K21.9 Gastro-esophageal reflux disease without esophagitis; E53.8 Deficiency of other specified B group vitamins; G25.81 Restless legs syndrome; Z79.899 Other long term (current) drug therapy; I25.2 Old myocardial infarction; Z79.52 Long term (current) use of systemic steroids; Z95.5 Presence of coronary angioplasty implant and graft
CPT/HCPCS: 36415; 36600; 51702; 70450; 71045; 71275; 80048; 80053; 81001; 82150; 82550; 82803; 83605; 83880; 84484; 85025; 85379; 85610; 86140; 87040; 87804; 87804-59; 93005; 96361; 96374; 96375; 97162-GP; 99284-GF; 99285-25; A9270-GY; J0456; J0696; J1170; J2060; J2920; J7050; J7120; Q9967

== ENCOUNTER 2019-04-25 11:22 | Inpatient (IN) | payer MEDICARE, OTHER ==
[2019-04-25] MEDS ORDERED: Sodium Chloride 0.9% 1,000 ML IV ONE (11:35)
[2019-04-25] MEDS ORDERED: cefTRIAXone 1 GM Vial IVPUSH ONE (11:35)
[2019-04-25] MEDS ORDERED: Albuterol/Ipratropium 3.0-0.5 MG/3 ML Neb Soln NEB ONE (11:40)
--- NOTE | 2019-04-25 12:05 | CR ---
[id number] RAD/RAD Chest PA or AP 1V EXAM: FRONTAL CHEST INDICATION: Shortness of breath. COMPARISON: January 27, 2019. DISCUSSION: The heart is at upper limits of normal for size with borderline central vascular congestion. Hyperaeration consistent with chronic obstructive pulmonary disease. Mild tortuosity of the thoracic aorta. IMPRESSION: 1. Mild cardiomegaly with borderline central vascular congestion. 2. Chronic obstructive pulmonary disease. Ajay Luna MD 04/25/19 [id number] Thank you for allowing us to participate in the care of your patient.
--- NOTE | 2019-04-25 12:08 | EDM.PDOC ---
ED HPI GENERAL MEDICAL PROBLEM - General Chief Complaint: Respiratory Problem Stated Complaint: SOB Time Seen by Provider: 04/25/19 11:25 Source of Information: Reports: Patient, EMS, EMS Notes Reviewed, RN History Limitations: Reports: No Limitations - History of Present Illness INITIAL COMMENTS - FREE TEXT/NARRATIVE: Patient comes into the emergency department via EMS with complaints of shortness of breath. Patient states he was in the shower room this morning with staff at the halfway when he became short of breath and was unable to catch his breath. He recently had pneumonia but thought it had resolved with the medication that was given. He started coughing about 2-3 days ago with brown production. He denies any fever, nausea, or fatigue. He states he's had normal diet and normal activity. Patient denies any chest pain, peripheral edema , nausea vomiting, or dizziness lightheadedness. Patient states that shortness of breath a sudden onset and was in the shower. But he has noticed over the course of last 2-3 days he is more short of breath with activity. Onset: Sudden, Gradual Location: Reports: Chest Quality: Reports: Other Severity: Mild Improves with: Reports: None Worsens with: Reports: None Associated Symptoms: Reports: Cough, cough w sputum, Loss of Appetite, Shortness of Breath, Weakness - Related Data Allergies Allergy/AdvReac Type Severity Reaction Status Date / Time metal Allergy Irritabilit Uncoded 04/25/19 16:40 y Home Meds: Home Meds Lisinopril [Prinivil] 5 mg PO DAILY 11/19/13 [History] Metoprolol Tartrate 25 mg PO BID 11/19/13 [History] Simvastatin [Zocor] 10 mg PO BEDTIME 11/19/13 [History] Tamsulosin [Flomax] 0.4 mg PO DAILY 11/19/13 [History] Omeprazole Magnesium [Prilosec Otc] 20 mg PO DAILY 02/25/17 [History] Oxybutynin Chloride [Ditropan Xl] 5 mg PO DAILY 02/25/17 [History] Triamcinolone Acetonide [Triamcinolone Acetonide 0.5%] 1 applic TOP ASDIRECTED PRN 02/25/17 [History] Cholecalciferol (Vitamin D3) [Vitamin D3] 2,000 unit PO DAILY 11/02/18 [History] Naproxen Sodium [Aleve] 220 mg PO BID PRN 11/02/18 [History] hydroCHLOROthiazide [Hydrochlorothiazide] 12.5 mg PO DAILY 11/02/18 [History] traMADol [Ultram] 50 mg PO QID PRN 11/02/18 [History] Cyanocobalamin (Vitamin B-12) [Vitamin B-12] 1,000 mcg PO DAILY 11/03/18 [ History] Menthol [Bengay] 1 applic TOP ASDIRECTED PRN 11/03/18 [History] ClonazePAM [KlonoPIN] 0.25 mg PO BID #60 tablet 11/18/18 [Rx] Cyclobenzaprine [Flexeril] 5 mg PO Q8H PRN #30 tablet 11/18/18 [Rx] Docusate Sodium [Colace] 100 mg PO DAILY PRN 01/27/19 [History] Donepezil HCl [Aricept] 10 mg PO DAILY 01/27/19 [History] Ibuprofen 200 mg PO Q4HR PRN 01/27/19 [History] predniSONE 7.5 mg PO DAILY 01/27/19 [History] Levothyroxine Sodium [Levoxyl] 50 mcg PO DAILY 01/28/19 [History] busPIRone [Buspar] 15 mg PO BID 01/28/19 [History] Acetaminophen [Tylenol] 650 mg PO Q4H PRN tablet 01/30/19 [Rx] Levothyroxine [Synthroid] 50 mcg PO DAILY@0700 tablet 01/30/19 [Rx] busPIRone [Buspar] 15 mg PO BID tablet 01/30/19 [Rx] Past Medical History - Past Health History Medical/Surgical History: Denies Medical/Surgical History HEENT History: Reports: Hard of Hearing Cardiovascular History: Reports: CAD, Heart Failure, High Cholesterol, Hypertension, LA, Other (See Below) Other Cardiovascular History: 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 vertebral artery aneurysm Respiratory History: Reports: Other (See Below) Other Respiratory History: lung nodule Gastrointestinal History: Reports: GERD, Hiatal Hernia Musculoskeletal History: Reports: Osteoarthritis, RA, Other (See Below) Other Musculoskeletal History: bursitis of left shoulder, arthralgia of both hands, cervical disc disease, osteoarthritis of ankle Neurological History: Reports: Neuropathy, Peripheral, Vertigo, Other (See Below ) Other Neuro History: mild cognitive disorder, restless legs Psychiatric History: Reports: Anxiety, Other (See Below) Other Psychiatric History: mild cognitive disorder Endocrine/Metabolic History: Reports: Hypothyroidism, Other (See Below) Other Endocrine/Metabolic History: hyperglycemia Hematologic History: Reports: B12 Deficiency - Past Surgical History Cardiovascular Surgical History: Reports: Other (See Below) Other Cardiovascular Surgeries/Procedures: coronary balloon angioplasty GI Surgical History: Reports: Cholecystectomy, Hernia Repair/Other Social & Family History - Family History Family Medical History: Noncontributory - Caffeine Use Caffeine Use: Reports: Coffee ED ROS GENERAL - Review of Systems Review Of Systems: ROS reveals no pertinent complaints other than HPI. Constitutional: Reports: Fatigue, Decreased Appetite Respiratory: Reports: Shortness of Breath, Cough, Sputum Cardiovascular: Reports: No Symptoms Endocrine: Reports: No Symptoms Musculoskeletal: Reports: No Symptoms Skin: Reports: No Symptoms Neurological: Reports: No Symptoms Psychiatric: Reports: No Symptoms Hematologic/Lymphatic: Reports: No Symptoms ED EXAM, GENERAL - Physical Exam Exam: See Below Exam Limited By: No Limitations General Appearance: Alert, WD/WN, Moderate Distress Respiratory/Chest: Respiratory Distress, Decreased Breath Sounds, Crackles Cardiovascular: Normal Peripheral Pulses GI/Abdominal: Normal Bowel Sounds, Soft, Non-Tender Back Exam: Normal Inspection, Full Range of Motion Extremities: Normal Inspection, Normal Range of Motion, Non-Tender Neurological: Alert, Oriented Psychiatric: Normal Affect, Normal Mood Skin Exam: Warm, Dry, Intact, Normal Color Course - Vital Signs Last Recorded V/S: Last Vital Signs Temp 36.6 C 04/25/19 16:58 Pulse 72 04/25/19 16:58 Resp 18 04/25/19 16:58 BP 138/62 04/25/19 16:58 Pulse Ox 96 04/25/19 16:58 - Orders/Labs/Meds Orders: Active Orders 24 hr Category Date Time Status EKG Documentation Completion [RC] STAT Care 04/25/19 11:35 Active RT Aerosol Therapy [RC] ASDIRECTED Care 04/25/19 11:40 Active CULTURE BLOOD [BC] Stat Lab 04/25/19 11:40 Received CULTURE BLOOD [BC] Stat Lab 04/25/19 12:04 Received Sodium Chloride 0.9% [Saline Flush] Med 04/25/19 11:35 Active 10 ml FLUSH ASDIRECTED PRN Blood Culture x2 Reflex Set [OM.PC] Stat Oth 04/25/19 11:35 Ordered Peripheral IV Insertion Adult [OM.PC] Stat Ot 04/25/19 11:35 Ordered Medication Orders Acetaminophen (Tylenol Arthritis Pain) 650 mg PO Q8H PRN PRN Reason: Pain Aspirin (Aspirin) 81 mg PO [facility] Last Admin: 04/25/19 19:20 Dose: Not Given Buspirone HCl (Buspar) 15 mg PO BID [facility] Clonazepam (Klonopin) 0.25 mg PO BID [facility] Cyanocobalamin (Vitamin B12) 1,000 mcg PO DAILY [facility] Donepezil HCl (Aricept) 10 mg PO BEDTIME [facility] Furosemide (Lasix) 20 mg IVPUSH TID [facility] Levothyroxine Sodium (Synthroid) 50 mcg PO ACBREAKFAST [facility] Lisinopril (Prinivil) 5 mg PO DAILY [facility] Metoprolol Tartrate (Lopressor) 25 mg PO BID [facility] Omeprazole (Omeprazole) 20 mg PO DAILY [facility] Oxybutynin Chloride (Oxybutynin) 5 mg PO DAILY [facility] Oxybutynin Chloride (Oxybutynin Er) 5 mg PO DAILY [facility] Prednisone (Prednisone) 5 mg PO [facility]FAST [facility] Prednisone (Prednisone) 7.5 mg PO DAILY [facility] Simvastatin (Zocor) 10 mg PO BEDTIME [facility] Sodium Chloride (Saline Flush) 10 ml FLUSH ASDIRECTED PRN PRN Reason: Keep Vein Open Tamsulosin HCl (Flomax) 0.4 mg PO DAILY [facility] Labs: Laboratory Tests 04/25/19 04/25/19 04/25/19 Range/Units 11:40 11:40 11:40 WBC 9.9 (4.0-10.0) x10^3/uL RBC 4.20 L (4.5-6.0) x10^6/uL Hgb 13.0 L (14.0-18.0) g/dL Hct 38.6 L (40.0-52.0) % MCV 91.9 (78.0-93.0) fL MCH 31.0 (26.0-32.0) pg MCHC 33.7 (32.0-36.0) g/dL RDW Coeff of Phyllis 12.4 (10.0-15.0) % Plt Count 207 (130-400) x10^3/uL Neut % (Auto) 83.5 H (50.0-80.0) % Lymph % (Auto) 10.6 L (25.0-50.0) % [place] % (Auto) 5.2 (2.0-11.0) % Eos % (Auto) 0.4 (0.0-4.0) % Baso % (Auto) 0.3 (0.2-1.2) % Sodium 141 (136-145) mmol/L Potassium 4.1 (3.5-5.1) mmol/L Chloride 103 (98-107) mmol/L Carbon Dioxide 29 (21-32) mmol/L Anion Gap 13.1 (10-20) mmol/L BUN 22 H (7-18) mg/dL Creatinine 1.2 (0.70-1.30) mg/dL Est Cr Clr Drug Dosing TNP Estimated GFR (MDRD) 58 Glucose 102 (74-106) mg/dL Lactic Acid 1.4 (0.4-2.0) mmol/L Calcium 8.6 (8.5-10.1) mg/dL Corrected Calcium 9.32 (8.5-10.1) mg/dL Total Bilirubin 0.7 (0.2-1.0) mg/dL AST 14 L (15-37) U/L ALT 18 (16-63) U/L Alkaline Phosphatase 66 (46-116) U/L Troponin I < 0.017 (<=0.056) ng/mL NT-Pro-B Natriuret Pep 1308 H (<=450) pg/mL Total Protein 6.7 (6.4-8.2) g/dL Albumin 3.1 L (3.4-5.0) g/dL Globulin 3.6 Albumin/Globulin Ratio 0.86 Urine Color (YELLOW) Urine Appearance (CLEAR) Urine pH (5.0-8.0) Ur Specific [place] Urine Protein (NEGATIVE) mg/dL Urine Glucose (UA) (NEGATIVE) mg/dL Urine Ketones (NEGATIVE) mg/dL Urine Occult Blood (NEGATIVE) Urine Nitrite (NEGATIVE) Urine Bilirubin (NEGATIVE) Urine Urobilinogen (0.2) EU/dL Ur Leukocyte Esterase (NEGATIVE) Urine RBC (NOT SEEN) /HPF Urine WBC (NOT SEEN) /HPF Ur Squamous Epith Cells (NEGATIVE) /HPF Urine Bacteria (NEGATIVE) /HPF Urine Mucus (NEGATIVE) /LPF 04/25/19 Range/Units 12:45 WBC (4.0-10.0) x10^3/uL RBC (4.5-6.0) x10^6/uL Hgb (14.0-18.0) g/dL Hct (40.0-52.0) % MCV (78.0-93.0) fL MCH (26.0-32.0) pg MCHC (32.0-36.0) g/dL RDW Coeff of Phyllis (10.0-15.0) % Plt Count (130-400) x10^3/uL Neut % (Auto) (50.0-80.0) % Lymph % (Auto) (25.0-50.0) % [place] % (Auto) (2.0-11.0) % Eos % (Auto) (0.0-4.0) % Baso % (Auto) (0.2-1.2) % Sodium (136-145) mmol/L Potassium (3.5-5.1) mmol/L Chloride (98-107) mmol/L Carbon Dioxide (21-32) mmol/L Anion Gap (10-20) mmol/L BUN (7-18) mg/dL Creatinine (0.70-1.30) mg/dL Est Cr Clr Drug Dosing Estimated GFR (MDRD) Glucose (74-106) mg/dL Lactic Acid (0.4-2.0) mmol/L Calcium (8.5-10.1) mg/dL Corrected Calcium (8.5-10.1) mg/dL Total Bilirubin (0.2-1.0) mg/dL AST (15-37) U/L ALT (16-63) U/L Alkaline Phosphatase (46-116) U/L Troponin I (<=0.056) ng/mL NT-Pro-B Natriuret Pep (<=450) pg/mL Total Protein (6.4-8.2) g/dL Albumin (3.4-5.0) g/dL Globulin Albumin/Globulin Ratio Urine Color Yellow (YELLOW) Urine Appearance Clear (CLEAR) Urine pH 7.0 (5.0-8.0) Ur Specific [place] 1.015 Urine Protein Negative (NEGATIVE) mg/dL Urine Glucose (UA) Negative (NEGATIVE) mg/dL Urine Ketones Negative (NEGATIVE) mg/dL Urine Occult Blood Trace-intact H (NEGATIVE) Urine Nitrite Negative (NEGATIVE) Urine Bilirubin Negative (NEGATIVE) Urine Urobilinogen 0.2 (0.2) EU/dL Ur Leukocyte Esterase Negative (NEGATIVE) Urine RBC 0-5 (NOT SEEN) /HPF Urine WBC Not seen (NOT SEEN) /HPF Ur Squamous Epith Cells Not seen (NEGATIVE) /HPF Urine Bacteria Not seen (NEGATIVE) /HPF Urine Mucus Not seen (NEGATIVE) /LPF Meds: Medications Generic Name Dose Route Start Last Admin Trade Name Freq PRN Reason Stop Dose Admin Acetaminophen 650 mg 04/25/19 15:14 Tylenol Arthritis Pain PO Q8H PRN Pain Aspirin 81 mg 04/25/19 15:45 04/25/19 19:20 Aspirin PO Not Given [facility] Buspirone HCl 15 mg 04/25/19 20:00 Buspar PO BID [facility] Clonazepam 0.25 mg 04/25/19 20:00 Klonopin PO BID [facility] Cyanocobalamin 1,000 mcg 04/26/19 08:00 Vitamin B12 PO DAILY [facility] Donepezil HCl 10 mg 04/25/19 20:00 Aricept PO BEDTIME [facility] Furosemide 20 mg 04/25/19 20:00 Lasix IVPUSH TID [facility] Levothyroxine Sodium 50 mcg 04/26/19 07:00 Synthroid PO ACBREAKFAST [facility] Lisinopril 5 mg 04/26/19 08:00 Prinivil PO DAILY [facility] Metoprolol Tartrate 25 mg 04/25/19 20:00 Lopressor PO BID [facility] Omeprazole 20 mg 04/26/19 08:00 Omeprazole PO DAILY [facility] Oxybutynin Chloride 5 mg 04/26/19 08:00 Oxybutynin PO DAILY [facility] Oxybutynin Chloride 5 mg 04/26/19 08:00 Oxybutynin Er PO DAILY [facility] Prednisone 5 mg 04/26/19 08:00 Prednisone PO [facility]AKFAST [facility] Prednisone 7.5 mg 04/26/19 08:00 Prednisone PO DAILY [facility] Simvastatin 10 mg 04/25/19 20:00 Zocor PO BEDTIME [facility] Sodium Chloride 10 ml 04/25/19 11:35 Saline Flush FLUSH ASDIRECTED PRN Keep Vein Open Tamsulosin HCl 0.4 mg 04/26/19 08:00 Flomax PO DAILY [facility] Discontinued Medications Generic Name Dose Route Start Last Admin Trade Name Coni PRN Reason Stop Dose Admin Acetaminophen 650 mg 04/25/19 15:28 Tylenol PO Q4H PRN Pain (Mild 1-3)/fever Albuterol/Ipratropium 3 ml 04/25/19 11:40 04/25/19 11:51 Duoneb 3.0-0.5 Mg/3 Ml NEB 04/25/19 11:41 3 ml ONETIME ONE Administration Buspirone HCl 15 mg 04/25/19 20:00 Buspar PO BID [facility] Buspirone HCl 15 mg 04/25/19 20:00 Buspar PO BID [facility] Ceftriaxone Sodium 1 gm 04/25/19 11:35 04/25/19 12:06 Rocephin IVPUSH 04/25/19 11:36 1 gm ONETIME ONE Administration Clonazepam 0.5 mg 04/25/19 20:00 Klonopin PO BEDTIME [facility] Cyanocobalamin 1,000 mcg 04/26/19 08:00 Vitamin B12 PO DAILY [facility] Donepezil HCl 10 mg 04/26/19 08:00 Aricept PO DAILY [facility] Furosemide 40 mg 04/25/19 13:06 04/25/19 13:16 Lasix IV 04/25/19 13:07 40 mg ONETIME ONE Administration Sodium Chloride 1,000 mls @ 1,000 mls/hr 04/25/19 11:35 04/25/19 11:51 Normal Saline IV 04/25/19 12:34 1,000 mls/hr ONETIME ONE Administration Levothyroxine Sodium 50 mcg 04/26/19 07:00 Synthroid PO DAILY@0700 [facility] Levothyroxine Sodium 50 mcg 04/26/19 08:00 Synthroid PO DAILY [facility] Lisinopril 5 mg 04/26/19 08:00 Prinivil PO DAILY [facility] Metoprolol Tartrate 25 mg 04/25/19 20:00 Lopressor PO BID [facility] Non-Formulary Medication 20 mg 04/26/19 08:00 Omeprazole Magnesium [Prilosec Otc] PO DAILY [facility] Simvastatin 10 mg 04/25/19 20:00 Zocor PO BEDTIME [facility] Tamsulosin HCl 0.4 mg 04/25/19 15:30 Flomax PO DAILY [facility] Departure - Departure Time of Disposition: 12:30 Disposition: Admitted As Inpatient 65 Clinical Impression: Respiratory distress, Congenital heart disease in adult, SOB (shortness of breath) - Discharge Information *PRESCRIPTION DRUG MONITORING PROGRAM REVIEWED*: Not Applicable *COPY OF PRESCRIPTION DRUG MONITORING REPORT IN PATIENT ALLIE: Not Applicable - Problem List Review Problem List Initiated/Reviewed/Updated: Yes - My Orders Last 24 Hours: My Active Orders 04/25/19 11:35 EKG Documentation Completion [RC] STAT Sodium Chloride 0.9% [Saline Flush] 10 ml FLUSH ASDIRECTED PRN Blood Culture x2 Reflex Set [OM.PC] Stat Peripheral IV Insertion Adult [OM.PC] Stat 04/25/19 11:40 RT Aerosol Therapy [RC] ASDIRECTED CULTURE BLOOD [BC] Stat 04/25/19 12:04 CULTURE BLOOD [BC] Stat - Assessment/Plan Last 24 Hours: My Active Orders 04/25/19 11:35 EKG Documentation Completion [RC] STAT Sodium Chloride 0.9% [Saline Flush] 10 ml FLUSH ASDIRECTED PRN Blood Culture x2 Reflex Set [OM.PC] Stat Peripheral IV Insertion Adult [OM.PC] Stat 04/25/19 11:40 RT Aerosol Therapy [RC] ASDIRECTED CULTURE BLOOD [BC] Stat 04/25/19 12:04 CULTURE BLOOD [BC] Stat Assessment:: 1. Shortness of breath 2. Respiratory distress 3. CHF exacerbation Plan: 1. Labs completed in ER. Results reviewed with the patient 2. EKG ordered 3. Sepsis protocol followed 4. Chest X-ray completed. Results reviewed with the patient 5. Rocephin IV given in ER 6. Duoneb given in ER. 7. Lasix given in ER. 8. UA completed. 9. Patient will be admitted under acute care for Dr. Buchanan. 10. Patient and family updated regarding plan 11. All questions and concerns addressed prior to discharge.
[2019-04-25 12:43] LABS: CHLORIDE,CL 103 mmol/L (98-107); SODIUM,NA 141 mmol/L (136-145)
[2019-04-25 12:44] LABS: ANION GAP 13.1 mmol/L (10-20)
[2019-04-25] MEDS ORDERED: Furosemide 40 MG/4 ML VIAL IV ONE (13:06)
[2019-04-25] MEDS ORDERED: Acetaminophen 325 MG Tab PO PRN (15:28)
[2019-04-25] MEDS ORDERED: Tamsulosin 0.4 MG Cap.ER PO SCH (15:30)
[2019-04-25] MEDS: Aspirin 81 MG Tab.Chew PO SCH (19:20)
[2019-04-25] MEDS ORDERED: Metoprolol Tartrate 25 MG Tab PO SCH (20:00)
[2019-04-25] MEDS ORDERED: ClonazePAM 0.5 MG Tab PO SCH (20:00)
[2019-04-25] MEDS ORDERED: busPIRone 15 MG Tab PO SCH ×2 (20:00)
[2019-04-25] MEDS ORDERED: Simvastatin 10 MG Tab PO SCH (20:00)
[2019-04-25] MEDS: Simvastatin 10 MG Tab PO SCH (22:47)
[2019-04-25] MEDS: Donepezil 10 MG Tab PO SCH (22:47)
[2019-04-25] MEDS: Furosemide 20 MG/2 ML VIAL IVPUSH SCH (22:47)
[2019-04-25] MEDS: busPIRone 15 MG Tab PO SCH (22:48)
[2019-04-25] MEDS: ClonazePAM 0.5 MG Tab PO SCH (22:48)
[2019-04-25] MEDS: Oxybutynin 5 MG Tab.ER PO SCH (22:48)
[2019-04-25] MEDS: Metoprolol Tartrate 25 MG Tab PO SCH (22:51)
[2019-04-25] MEDS: Sodium Chloride 0.9% 10 ML Syringe FLUSH PRN (22:52)
[2019-04-25] MEDS: Acetaminophen 650 MG Tab.ER PO PRN (22:57)
[2019-04-26] MEDS: Levothyroxine 50 MCG Tab PO SCH (06:41)
[2019-04-26] MEDS ORDERED: Levothyroxine 50 MCG Tab PO SCH ×2 (07:00→08:00)
--- NOTE | 2019-04-26 07:33 | PCM.HP ---
H&P History of Present Illness - General Date of Service: 04/25/19 Admit Problem/Dx: Admission Diagnosis/Problem Admission Diagnosis/Problem CHF, Congestive heart failure Chief complaint: Shortness of breath Patient is an 82-year-old resident of the [facility] has mild memory deficit. He states that he became acutely short of breath this morning while in his back and this was accompanied by dizziness. The night before he had had several hours of chest pain which went away with Tylenol. This was accompanied by diaphoresis and tachycardia. Patient says he's had this on and off for years. According to the ER note patient complained of cough in the transfer sheet fascitis and indicated temperature of 99, blood pressure 106/70, pulse 73 O2 sat 88-92%. He was short of breath with ambulation and coughing with crackles in the lower lobes. Patient denied any cough, fever or chills to me Past medical history according to the transfer forms includes abdominal aortic aneurysm atherosclerotic heart disease Alzheimer's disease hypertension general anxiety disorder muscle weakness hypercholesterolemia rheumatoid polyneuropathy B12 deficiency chronic diastolic heart failure functional dyspepsia hypothyroidism osteoarthritis restless leg syndrome vertigo Family history: Noncontributory Social history: [facility] with his . He has 4 stepchildren to whom are in their to in the area Habits: Does not drink or smoke Allergies to medications none. Is because of acid Medication list according to the most recent transfer from the prison include acetaminophen 650 every 6 when necessary pain Aricept 10 mg daily BenGay cream when necessary BuSpar 15 twice a day Clonazepam 0.25 daily Colace 100 when necessary for Cyclobenzaprine 5 mg every 8 when necessary back spasm Flomax 0.4 mg every day hydrochlorothiazide 12.5 daily w ibuprofen 200 mg every 4 when necessary mild pain L-thyroxine 50 g once a day melatonin 3 mg daily at bedtime metoprolol 25 twice a day Naprosyn 220 twice a day when necessary omeprazole 20 mg daily oxybutynin 5 mg daily Prednisone 5 mg daily Prinivil 5 mg daily Tramadol 50 mg qid when necessary pain Triamcinolone 0.5% when necessary rash Tums 750 twice a day when necessary gas Vitamin B12 1000 daily Vitamin D3 2000 units daily Zocor 10 mg daily Back Pain Score (Numeric/FACES): 0 - Related Data Allergies/Adverse Reactions: Allergies Allergy/AdvReac Type Severity Reaction Status Date / Time metal Allergy Irritabilit Uncoded 04/25/19 16:40 y Home Medications: Home Meds Lisinopril [Prinivil] 5 mg PO DAILY 11/19/13 [History] Metoprolol Tartrate 25 mg PO BID 11/19/13 [History] Simvastatin [Zocor] 10 mg PO BEDTIME 11/19/13 [History] Omeprazole Magnesium [Prilosec Otc] 20 mg PO DAILY 02/25/17 [History] Oxybutynin Chloride [Ditropan Xl] 5 mg PO DAILY 02/25/17 [History] Triamcinolone Acetonide [Triamcinolone Acetonide 0.5%] 1 applic TOP BID PRN [History] Cholecalciferol (Vitamin D3) [Vitamin D3] 2,000 unit PO DAILY 11/02/18 [History] Naproxen Sodium [Aleve] 220 mg PO BID PRN 11/02/18 [History] hydroCHLOROthiazide [Hydrochlorothiazide] 12.5 mg PO DAILY 11/02/18 [History] traMADol [Ultram] 50 mg PO QID PRN 11/02/18 [History] Cyanocobalamin (Vitamin B-12) [Vitamin B-12] 1,000 mcg PO DAILY 11/03/18 [ History] Menthol [Bengay] 1 applic TOP ASDIRECTED PRN 11/03/18 [History] ClonazePAM [KlonoPIN] 0.25 mg PO BID #60 tablet 11/18/18 [Rx] Cyclobenzaprine [Flexeril] 5 mg PO Q8H PRN #30 tablet 11/18/18 [Rx] Docusate Sodium [Colace] 100 mg PO DAILY PRN 01/27/19 [History] Donepezil HCl [Aricept] 10 mg PO DAILY 01/27/19 [History] Ibuprofen 200 mg PO Q4HR PRN 01/27/19 [History] predniSONE 5 mg PO DAILY 01/27/19 [History] Acetaminophen [Tylenol] 650 mg PO Q4H PRN tablet 01/30/19 [Rx] Levothyroxine [Synthroid] 50 mcg PO DAILY@0700 tablet 01/30/19 [Rx] busPIRone [Buspar] 15 mg PO BID tablet 01/30/19 [Rx] Calcium Carbonate [Tums Extra Strength] 750 mg PO BID PRN 04/25/19 [History] Melatonin 3 mg PO BEDTIME 04/25/19 [History] Tamsulosin HCl [Flomax] 0.4 mg PO DAILY 04/25/19 [History] Past Medical History - Past Health History Medical/Surgical History: Denies Medical/Surgical History HEENT History: Reports: Hard of Hearing Cardiovascular History: Reports: CAD, Heart Failure, High Cholesterol, Hypertension, IA, Other (See Below) Other Cardiovascular History: 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 vertebral artery aneurysm Respiratory History: Reports: Other (See Below) Other Respiratory History: lung nodule Gastrointestinal History: Reports: GERD, Hiatal Hernia Musculoskeletal History: Reports: Osteoarthritis, RA, Other (See Below) Other Musculoskeletal History: bursitis of left shoulder, arthralgia of both hands, cervical disc disease, osteoarthritis of ankle Neurological History: Reports: Neuropathy, Peripheral, Vertigo, Other (See Below ) Other Neuro History: mild cognitive disorder, restless legs Psychiatric History: Reports: Anxiety, Other (See Below) Other Psychiatric History: mild cognitive disorder Endocrine/Metabolic History: Reports: Hypothyroidism, Other (See Below) Other Endocrine/Metabolic History: hyperglycemia Hematologic History: Reports: B12 Deficiency - Past Surgical History Cardiovascular Surgical History: Reports: Other (See Below) Other Cardiovascular Surgeries/Procedures: coronary balloon angioplasty GI Surgical History: Reports: Cholecystectomy, Hernia Repair/Other Social & Family History - Family History Family Medical History: Noncontributory - Tobacco Use Smoking Status *Q: Unknown Ever Smoked Used Tobacco, but Quit: Yes Month/Year Tobacco Last Used: 1998 - Caffeine Use Caffeine Use: Reports: Coffee - Recreational Drug Use Recreational Drug Use: No H&P Review of Systems - Review of Systems: Review Of Systems: ROS reveals no pertinent complaints other than HPI. General: Reports: No Symptoms Exam - Exam Exam: See Below - Vital Signs Vital Signs: Last Vital Signs Temp 97.5 F 04/26/19 05:58 Pulse 58 L 04/26/19 05:58 Resp 18 04/26/19 05:58 BP 142/74 H 04/26/19 05:58 Pulse Ox 93 L 04/26/19 05:58 Weight: 159 lb 9.6 oz - Exam General: Alert HEENT: Conjunctiva Clear Neck: Supple Lungs: Rales, Rhonchi (rales at bases,scateered wheezing) Cardiovascular: Regular Rate, Normal S1, Normal S2 GI/Abdominal Exam: Normal Bowel Sounds, Soft, Non-Tender Back Exam: Normal Inspection Extremities: Normal Inspection Skin: Warm, Dry Neurological: Cranial Nerves Intact, Strength Equal Bilateral, Normal Gait, Normal Speech Neuro Extensive - Mental Status: Alert, Normal Mood/Affect, Normal Cognition Psychiatric: Alert, Normal Affect, Normal Mood - Patient Data Lab Results Last 24 hrs: Laboratory Results - last 24 hr 04/25/19 04/25/19 04/25/19 Range/Units 11:40 11:40 11:40 WBC 9.9 (4.0-10.0) x10^3/uL RBC 4.20 L (4.5-6.0) x10^6/uL Hgb 13.0 L (14.0-18.0) g/dL Hct 38.6 L (40.0-52.0) % MCV 91.9 (78.0-93.0) fL MCH 31.0 (26.0-32.0) pg MCHC 33.7 (32.0-36.0) g/dL RDW Coeff of Phyllis 12.4 (10.0-15.0) % Plt Count 207 (130-400) x10^3/uL Neut % (Auto) 83.5 H (50.0-80.0) % Lymph % (Auto) 10.6 L (25.0-50.0) % Pi[place] % (Auto) 5.2 (2.0-11.0) % Eos % (Auto) 0.4 (0.0-4.0) % Baso % (Auto) 0.3 (0.2-1.2) % Sodium 141 (136-145) mmol/L Potassium 4.1 (3.5-5.1) mmol/L Chloride 103 (98-107) mmol/L Carbon Dioxide 29 (21-32) mmol/L Anion Gap 13.1 (10-20) mmol/L BUN 22 H (7-18) mg/dL Creatinine 1.2 (0.70-1.30) mg/dL Est Cr Clr Drug Dosing TNP Estimated GFR (MDRD) 58 Glucose 102 (74-106) mg/dL Lactic Acid 1.4 (0.4-2.0) mmol/L Calcium 8.6 (8.5-10.1) mg/dL Corrected Calcium 9.32 (8.5-10.1) mg/dL Total Bilirubin 0.7 (0.2-1.0) mg/dL AST 14 L (15-37) U/L ALT 18 (16-63) U/L Alkaline Phosphatase 66 (46-116) U/L Troponin I < 0.017 (<=0.056) ng/mL NT-Pro-B Natriuret Pep 1308 H (<=450) pg/mL Total Protein 6.7 (6.4-8.2) g/dL Albumin 3.1 L (3.4-5.0) g/dL Globulin 3.6 Albumin/Globulin Ratio 0.86 Urine Color (YELLOW) Urine Appearance (CLEAR) Urine pH (5.0-8.0) Ur Specific D Hanis Urine Protein (NEGATIVE) mg/dL Urine Glucose (UA) (NEGATIVE) mg/dL Urine Ketones (NEGATIVE) mg/dL Urine Occult Blood (NEGATIVE) Urine Nitrite (NEGATIVE) Urine Bilirubin (NEGATIVE) Urine Urobilinogen (0.2) EU/dL Ur Leukocyte Esterase (NEGATIVE) Urine RBC (NOT SEEN) /HPF Urine WBC (NOT SEEN) /HPF Ur Squamous Epith Cells (NEGATIVE) /HPF Urine Bacteria (NEGATIVE) /HPF Urine Mucus (NEGATIVE) /LPF 04/25/19 Range/Units 12:45 WBC (4.0-10.0) x10^3/uL RBC (4.5-6.0) x10^6/uL Hgb (14.0-18.0) g/dL Hct (40.0-52.0) % MCV (78.0-93.0) fL MCH (26.0-32.0) pg MCHC (32.0-36.0) g/dL RDW Coeff of Phyllis (10.0-15.0) % Plt Count (130-400) x10^3/uL Neut % (Auto) (50.0-80.0) % Lymph % (Auto) (25.0-50.0) % Piute % (Auto) (2.0-11.0) % Eos % (Auto) (0.0-4.0) % Baso % (Auto) (0.2-1.2) % Sodium (136-145) mmol/L Potassium (3.5-5.1) mmol/L Chloride (98-107) mmol/L Carbon Dioxide (21-32) mmol/L Anion Gap (10-20) mmol/L BUN (7-18) mg/dL Creatinine (0.70-1.30) mg/dL Est Cr Clr Drug Dosing Estimated GFR (MDRD) Glucose (74-106) mg/dL Lactic Acid (0.4-2.0) mmol/L Calcium (8.5-10.1) mg/dL Corrected Calcium (8.5-10.1) mg/dL Total Bilirubin (0.2-1.0) mg/dL AST (15-37) U/L ALT (16-63) U/L Alkaline Phosphatase (46-116) U/L Troponin I (<=0.056) ng/mL NT-Pro-B Natriuret Pep (<=450) pg/mL Total Protein (6.4-8.2) g/dL Albumin (3.4-5.0) g/dL Globulin Albumin/Globulin Ratio Urine Color Yellow (YELLOW) Urine Appearance Clear (CLEAR) Urine pH 7.0 (5.0-8.0) Ur Specific D Hanis 1.015 Urine Protein Negative (NEGATIVE) mg/dL Urine Glucose (UA) Negative (NEGATIVE) mg/dL Urine Ketones Negative (NEGATIVE) mg/dL Urine Occult Blood Trace-intact H (NEGATIVE) Urine Nitrite Negative (NEGATIVE) Urine Bilirubin Negative (NEGATIVE) Urine Urobilinogen 0.2 (0.2) EU/dL Ur Leukocyte Esterase Negative (NEGATIVE) Urine RBC 0-5 (NOT SEEN) /HPF Urine WBC Not seen (NOT SEEN) /HPF Ur Squamous Epith Cells Not seen (NEGATIVE) /HPF Urine Bacteria Not seen (NEGATIVE) /HPF Urine Mucus Not seen (NEGATIVE) /LPF Result Diagrams: 04/25/19 11:40 04/25/19 11:40 EKG INTERPRETATION Rhythm: NSR [place]: Normal P-Wave: Present EKG Interpretation Comments: q in v1v2, possible ant wall IA of unknown age Problem List Initiated/Reviewed/Updated: Yes Orders Last 24hrs: Active Orders 24 hr Category Date Time Status Admission Status [Patient Status] [ADT] Routine ADT 04/25/19 13:14 Active Patient Status [ADT] Routine ADT 04/25/19 15:05 Active Communication Order [RC] 08,20 Care 04/25/19 15:35 Active Oxygen Therapy [RC] .PRN Care 04/25/19 15:05 Active RT Aerosol Therapy [RC] ASDIRECTED Care 04/25/19 11:40 Active Telemetry Monitoring [Cardiac Monitoring] [RC] 02,06,10 Care 04/25/19 15:27 Active ,14,18,22 VTE/DVT Education [RC] .PRN Care 04/25/19 15:05 Active Vital Signs [RC] 02,06,10,14,18,22 Care 04/25/19 15:05 Active Heart Healthy Diet [DIET] Diet 04/26/19 Breakfast Active BASIC METABOLIC PANEL,BMP [CHEM] Routine Lab 04/26/19 07:15 Ordered CULTURE BLOOD [BC] Stat Lab 04/25/19 11:40 Received CULTURE BLOOD [BC] Stat Lab 04/25/19 12:04 Received CULTURE MRSA SURVEY [RM] Routine Lab 04/25/19 15:45 Ordered Acetaminophen [Tylenol Arthritis Pain] Med 04/25/19 15:14 Active 650 mg PO Q8H PRN Aspirin Med 04/25/19 15:45 Active 81 mg PO WITHBREAKFAST ClonazePAM [KlonoPIN] Med 04/25/19 20:00 Active 0.25 mg PO BID Cyanocobalamin (Vitamin B12) [Vitamin B12] Med 04/26/19 08:00 Active 1,000 mcg PO DAILY Donepezil [Aricept] Med 04/25/19 20:00 Active 10 mg PO BEDTIME Furosemide [Lasix] Med 04/25/19 20:00 Active 20 mg IVPUSH TID Levothyroxine [Synthroid] Med 04/26/19 07:00 Active 50 mcg PO ACBREAKFAST Lisinopril [Prinivil] Med 04/26/19 08:00 Active 5 mg PO DAILY Metoprolol Tartrate [Lopressor] Med 04/25/19 20:00 Active 25 mg PO BID Omeprazole Med 04/26/19 08:00 Active 20 mg PO DAILY Oxybutynin [Oxybutynin ER] Med 04/25/19 22:00 Active 5 mg PO BEDTIME Simvastatin [Zocor] Med 04/25/19 20:00 Active 10 mg PO BEDTIME Sodium Chloride 0.9% [Saline Flush] Med 04/25/19 11:35 Active 10 ml FLUSH ASDIRECTED PRN Tamsulosin [Flomax] Med 04/26/19 08:00 Active 0.4 mg PO DAILY busPIRone [Buspar] Med 04/25/19 20:00 Active 15 mg PO BID predniSONE Med 04/26/19 08:00 Active 5 mg PO WITHBREAKFAST Blood Culture x2 Reflex Set [OM.PC] Stat Ot 04/25/19 11:35 Ordered Peripheral IV Insertion Adult [OM.PC] Stat Ot 04/25/19 11:35 Ordered Resuscitation Status Routine Resus Stat 04/25/19 15:04 Ordered Medication Orders Acetaminophen (Tylenol Arthritis Pain) 650 mg PO Q8H PRN PRN Reason: Pain Last Admin: 04/25/19 22:57 Dose: 650 mg Aspirin (Aspirin) 81 mg PO WITHBREAKFAST [facility] Last Admin: 04/25/19 19:20 Dose: Not Given Buspirone HCl (Buspar) 15 mg PO BID [facility] Last Admin: 04/25/19 22:48 Dose: 15 mg Clonazepam (Klonopin) 0.25 mg PO BID [facility] Last Admin: 04/25/19 22:48 Dose: 0.25 mg Cyanocobalamin (Vitamin B12) 1,000 mcg PO DAILY [facility] Donepezil HCl (Aricept) 10 mg PO BEDTIME [facility] Last Admin: 04/25/19 22:47 Dose: 10 mg Furosemide (Lasix) 20 mg IVPUSH TID [facility] Last Admin: 04/25/19 22:47 Dose: 20 mg Levothyroxine Sodium (Synthroid) 50 mcg PO ACBREAKFAST [facility] Last Admin: 04/26/19 06:41 Dose: 50 mcg Lisinopril (Prinivil) 5 mg PO DAILY [facility] Metoprolol Tartrate (Lopressor) 25 mg PO BID [facility] Last Admin: 04/25/19 22:51 Dose: 25 mg Omeprazole (Omeprazole) 20 mg PO DAILY [facility] Oxybutynin Chloride (Oxybutynin Er) 5 mg PO BEDTIME [facility] Last Admin: 04/25/19 22:48 Dose: 5 mg Prednisone (Prednisone) 5 mg PO WITHBREAKFAST [place] Simvastatin (Zocor) 10 mg PO BEDTIME [facility] Last Admin: 04/25/19 22:47 Dose: 10 mg Sodium Chloride (Saline Flush) 10 ml FLUSH ASDIRECTED PRN PRN Reason: Keep Vein Open Last Admin: 04/25/19 22:52 Dose: 10 ml Tamsulosin HCl (Flomax) 0.4 mg PO DAILY [facility] Assessment/Plan Comment:: Impression 1. Shortness of breath: Sounds like this was acute and are not getting any history of cough fever or chills from the patient but his memory is not the best that it appears. He has a normal white count and his chest x-ray which was read as showing mild cardiomegaly with borderline central vascular congestion is not suggestive of an infection. More perhaps of acute heart failure. With a history of chest pain and tachycardia will repeat the troponin this evening and put him on telemetry. This is to assess for possible arrhythmia that might cause acute heart failure. Will hold off antibiotics unless he develops fever or productive cough, patient will receive IV Lasix. When he is stable benefit from an echocardiogram and a CT scan to check for coronary disease. Add baby aspirin 2. Dyspepsia: Hold off on NSAIDs 3. Multiple medications for back spasm etc. we'll hold off those for now case this is causing some of his memory problems
[2019-04-26] MEDS: Acetaminophen 650 MG Tab.ER PO PRN (07:40)
[2019-04-26] MEDS ORDERED: Cyanocobalamin (Vitamin B12) 1,000 MCG Tab PO SCH (08:00)
[2019-04-26] MEDS ORDERED: Donepezil 10 MG Tab PO SCH (08:00)
[2019-04-26] MEDS ORDERED: Lisinopril 5 MG Tab PO SCH ×2 (08:00)
[2019-04-26] MEDS ORDERED: Oxybutynin 5 MG Tab PO SCH (08:00)
[2019-04-26] MEDS ORDERED: Non-Formulary Medication 1 Each (Omeprazole Magnesium [Prilosec Otc] 20 MG) PO SCH (08:00)
[2019-04-26] MEDS ORDERED: predniSONE 5 MG Tab PO SCH (08:00)
[2019-04-26] MEDS: Furosemide 20 MG/2 ML VIAL IVPUSH SCH ×3 (08:07→20:21)
[2019-04-26] MEDS: Omeprazole 20 MG Cap.CR PO SCH (08:08)
[2019-04-26] MEDS: predniSONE 5 MG Tab PO SCH (08:08)
[2019-04-26] MEDS: ClonazePAM 0.5 MG Tab PO SCH ×2 (08:08→20:22)
[2019-04-26] MEDS: Aspirin 81 MG Tab.Chew PO SCH (08:08)
[2019-04-26] MEDS: Tamsulosin 0.4 MG Cap.ER PO SCH (08:08)
[2019-04-26] MEDS: Metoprolol Tartrate 25 MG Tab PO SCH ×2 (08:09→20:21)
[2019-04-26] MEDS: busPIRone 15 MG Tab PO SCH ×2 (08:10→20:21)
[2019-04-26] MEDS: Cyanocobalamin (Vitamin B12) 1,000 MCG Tab PO SCH (08:10)
[2019-04-26] MEDS: Sodium Chloride 0.9% 10 ML Syringe FLUSH PRN ×2 (08:19→20:21)
[2019-04-26 08:36] LABS: ANION GAP 14.8 mmol/L (10-20)
--- NOTE | 2019-04-26 10:11 | PCM.PN ---
- General Info Date of Service: 04/26/19 Admission Dx/Problem (Free Text): Patient states that his breathing is pretty good today. he is having some coughing which is nonproductive. He denies any chest pain or fast heartbeat - Patient Data Vitals - Most Recent: Last Vital Signs Temp 97.5 F 04/26/19 05:58 Pulse 70 04/26/19 08:09 Resp 18 04/26/19 05:58 BP 151/57 H 04/26/19 08:10 Pulse Ox 93 L 04/26/19 05:58 Weight - Most Recent: 159 lb 9.6 oz I&O - Last 24 Hours: Intake & Output 04/25/19 04/26/19 04/26/19 22:59 06:59 14:59 Intake Total 200 400 Output Total 700 600 Balance -700 -400 400 Lab Results Last 24 Hours: Laboratory Results - last 24 hr 04/25/19 04/25/19 04/25/19 Range/Units 11:40 11:40 11:40 WBC 9.9 (4.0-10.0) x10^3/uL RBC 4.20 L (4.5-6.0) x10^6/uL Hgb 13.0 L (14.0-18.0) g/dL Hct 38.6 L (40.0-52.0) % MCV 91.9 (78.0-93.0) fL MCH 31.0 (26.0-32.0) pg MCHC 33.7 (32.0-36.0) g/dL RDW Coeff of Phyllis 12.4 (10.0-15.0) % Plt Count 207 (130-400) x10^3/uL Neut % (Auto) 83.5 H (50.0-80.0) % Lymph % (Auto) 10.6 L (25.0-50.0) % Nash % (Auto) 5.2 (2.0-11.0) % Eos % (Auto) 0.4 (0.0-4.0) % Baso % (Auto) 0.3 (0.2-1.2) % Sodium 141 (136-145) mmol/L Potassium 4.1 (3.5-5.1) mmol/L Chloride 103 (98-107) mmol/L Carbon Dioxide 29 (21-32) mmol/L Anion Gap 13.1 (10-20) mmol/L BUN 22 H (7-18) mg/dL Creatinine 1.2 (0.70-1.30) mg/dL Est Cr Clr Drug Dosing TNP Estimated GFR (MDRD) 58 Glucose 102 (74-106) mg/dL Lactic Acid 1.4 (0.4-2.0) mmol/L Calcium 8.6 (8.5-10.1) mg/dL Corrected Calcium 9.32 (8.5-10.1) mg/dL Total Bilirubin 0.7 (0.2-1.0) mg/dL AST 14 L (15-37) U/L ALT 18 (16-63) U/L Alkaline Phosphatase 66 (46-116) U/L Troponin I < 0.017 (<=0.056) ng/mL NT-Pro-B Natriuret Pep 1308 H (<=450) pg/mL Total Protein 6.7 (6.4-8.2) g/dL Albumin 3.1 L (3.4-5.0) g/dL Globulin 3.6 Albumin/Globulin Ratio 0.86 Urine Color (YELLOW) Urine Appearance (CLEAR) Urine pH (5.0-8.0) Ur Specific [place] Urine Protein (NEGATIVE) mg/dL Urine Glucose (UA) (NEGATIVE) mg/dL Urine Ketones (NEGATIVE) mg/dL Urine Occult Blood (NEGATIVE) Urine Nitrite (NEGATIVE) Urine Bilirubin (NEGATIVE) Urine Urobilinogen (0.2) EU/dL Ur Leukocyte Esterase (NEGATIVE) Urine RBC (NOT SEEN) /HPF Urine WBC (NOT SEEN) /HPF Ur Squamous Epith Cells (NEGATIVE) /HPF Urine Bacteria (NEGATIVE) /HPF Urine Mucus (NEGATIVE) /LPF 04/25/19 04/26/19 04/26/19 Range/Units 12:45 08:00 08:00 WBC (4.0-10.0) x10^3/uL RBC (4.5-6.0) x10^6/uL Hgb (14.0-18.0) g/dL Hct (40.0-52.0) % MCV (78.0-93.0) fL MCH (26.0-32.0) pg MCHC (32.0-36.0) g/dL RDW Coeff of Phyllis (10.0-15.0) % Plt Count (130-400) x10^3/uL Neut % (Auto) (50.0-80.0) % Lymph % (Auto) (25.0-50.0) % Nash % (Auto) (2.0-11.0) % Eos % (Auto) (0.0-4.0) % Baso % (Auto) (0.2-1.2) % Sodium 141 (136-145) mmol/L Potassium 3.8 (3.5-5.1) mmol/L Chloride 101 (98-107) mmol/L Carbon Dioxide 29 (21-32) mmol/L Anion Gap 14.8 (10-20) mmol/L BUN 19 H (7-18) mg/dL Creatinine 1.2 (0.70-1.30) mg/dL Est Cr Clr Drug Dosing 34.37 Estimated GFR (MDRD) 58 Glucose 110 H (74-106) mg/dL Lactic Acid (0.4-2.0) mmol/L Calcium 9.0 (8.5-10.1) mg/dL Corrected Calcium (8.5-10.1) mg/dL Total Bilirubin (0.2-1.0) mg/dL AST (15-37) U/L ALT (16-63) U/L Alkaline Phosphatase (46-116) U/L Troponin I < 0.017 (<=0.056) ng/mL NT-Pro-B Natriuret Pep (<=450) pg/mL Total Protein (6.4-8.2) g/dL Albumin (3.4-5.0) g/dL Globulin Albumin/Globulin Ratio Urine Color Yellow (YELLOW) Urine Appearance Clear (CLEAR) Urine pH 7.0 (5.0-8.0) Ur Specific [place] 1.015 Urine Protein Negative (NEGATIVE) mg/dL Urine Glucose (UA) Negative (NEGATIVE) mg/dL Urine Ketones Negative (NEGATIVE) mg/dL Urine Occult Blood Trace-intact H (NEGATIVE) Urine Nitrite Negative (NEGATIVE) Urine Bilirubin Negative (NEGATIVE) Urine Urobilinogen 0.2 (0.2) EU/dL Ur Leukocyte Esterase Negative (NEGATIVE) Urine RBC 0-5 (NOT SEEN) /HPF Urine WBC Not seen (NOT SEEN) /HPF Ur Squamous Epith Cells Not seen (NEGATIVE) /HPF Urine Bacteria Not seen (NEGATIVE) /HPF Urine Mucus Not seen (NEGATIVE) /LPF Sergio Results Last 24 Hours: Microbiology 04/25/19 15:45 MRSA Surveillance Culture - Final Nasal, Unspecified NO MRSA ISOLATED Med Orders - Current: Current Medications Acetaminophen (Tylenol Arthritis Pain) 650 mg PO Q8H PRN PRN Reason: Pain Last Admin: 04/26/19 07:40 Dose: 650 mg Aspirin (Aspirin) 81 mg PO WITHBREAKFAST [facility] Last Admin: 04/26/19 08:08 Dose: 81 mg Buspirone HCl (Buspar) 15 mg PO BID [facility] Last Admin: 04/26/19 08:10 Dose: 15 mg Clonazepam (Klonopin) 0.25 mg PO BID [facility] Last Admin: 04/26/19 08:08 Dose: 0.25 mg Cyanocobalamin (Vitamin B12) 1,000 mcg PO DAILY [facility] Last Admin: 04/26/19 08:10 Dose: 1,000 mcg Donepezil HCl (Aricept) 10 mg PO BEDTIME [facility] Last Admin: 04/25/19 22:47 Dose: 10 mg Furosemide (Lasix) 20 mg IVPUSH TID [facility] Last Admin: 04/26/19 08:07 Dose: 20 mg Levothyroxine Sodium (Synthroid) 50 mcg PO ACBREAKFAST [facility] Last Admin: 04/26/19 06:41 Dose: 50 mcg Lisinopril (Prinivil) 10 mg PO DAILY [facility] Metoprolol Tartrate (Lopressor) 25 mg PO BID [facility] Last Admin: 04/26/19 08:09 Dose: 25 mg Omeprazole (Omeprazole) 20 mg PO DAILY [facility] Last Admin: 04/26/19 08:08 Dose: 20 mg Oxybutynin Chloride (Oxybutynin Er) 5 mg PO BEDTIME [facility] Last Admin: 04/25/19 22:48 Dose: 5 mg Prednisone (Prednisone) 5 mg PO WITHBREAKFAST [facility] Last Admin: 04/26/19 08:08 Dose: 5 mg Simvastatin (Zocor) 10 mg PO BEDTIME [facility] Last Admin: 04/25/19 22:47 Dose: 10 mg Sodium Chloride (Saline Flush) 10 ml FLUSH ASDIRECTED PRN PRN Reason: Keep Vein Open Last Admin: 04/26/19 08:19 Dose: 10 ml Tamsulosin HCl (Flomax) 0.4 mg PO DAILY [facility] Last Admin: 04/26/19 08:08 Dose: 0.4 mg Discontinued Medications Acetaminophen (Tylenol) 650 mg PO Q4H PRN PRN Reason: Pain (Mild 1-3)/fever Albuterol/Ipratropium (Duoneb 3.0-0.5 Mg/3 Ml) 3 ml NEB ONETIME ONE Stop: 04/25/19 11:41 Last Admin: 04/25/19 11:51 Dose: 3 ml Buspirone HCl (Buspar) 15 mg PO BID [place] Buspirone HCl (Buspar) 15 mg PO BID [facility] Ceftriaxone Sodium (Rocephin) 1 gm IVPUSH ONETIME ONE Stop: 04/25/19 11:36 Last Admin: 04/25/19 12:06 Dose: 1 gm Clonazepam (Klonopin) 0.5 mg PO BEDTIME [facility] Cyanocobalamin (Vitamin B12) 1,000 mcg PO DAILY [facility] Donepezil HCl (Aricept) 10 mg PO DAILY [facility] Furosemide (Lasix) 40 mg IV ONETIME ONE Stop: 04/25/19 13:07 Last Admin: 04/25/19 13:16 Dose: 40 mg Sodium Chloride (Normal Saline) 1,000 mls @ 1,000 mls/hr IV ONETIME ONE Stop: 04/25/19 12:34 Last Admin: 04/25/19 11:51 Dose: 1,000 mls/hr Levothyroxine Sodium (Synthroid) 50 mcg PO DAILY@0700 [facility] Levothyroxine Sodium (Synthroid) 50 mcg PO DAILY [facility] Lisinopril (Prinivil) 5 mg PO DAILY [facility] Lisinopril (Prinivil) 5 mg PO DAILY [facility] Last Admin: 04/26/19 08:10 Dose: 5 mg Metoprolol Tartrate (Lopressor) 25 mg PO BID [facility] Non-Formulary Medication (Omeprazole Magnesium [Prilosec Otc]) 20 mg PO DAILY [facility] Simvastatin (Zocor) 10 mg PO BEDTIME [facility] Tamsulosin HCl (Flomax) 0.4 mg PO DAILY [facility] Last Admin: 04/25/19 23:52 Dose: Not Given - Exam General: Alert Lungs: Rales (At bases, no wheezing) Cardiovascular: Regular Rate (Cardiac telemetry shows some periods of mild bradycardia, occasional PVC but otherwise no significant arrhythmias) Extremities: Normal Inspection, No Pedal Edema - Problem List Review Problem List Initiated/Reviewed/Updated: Yes - My Orders Last 24 Hours: My Active Orders 04/25/19 15:04 Resuscitation Status Routine 04/25/19 15:05 Patient Status [ADT] Routine Oxygen Therapy [RC] .PRN VTE/DVT Education [RC] .PRN Vital Signs [RC] ,,,,,04/25/19 15:14 Acetaminophen [Tylenol Arthritis Pain] 650 mg PO Q8H PRN 04/25/19 15:27 Telemetry Monitoring [Cardiac Monitoring] [RC] 02,,,,,04/25/19 15:35 Communication Order [RC] 04/25/19 15:45 Aspirin 81 mg PO WITHBREAKFAST 04/25/19 20:00 ClonazePAM [KlonoPIN] 0.25 mg PO BID Donepezil [Aricept] 10 mg PO BEDTIME Furosemide [Lasix] 20 mg IVPUSH TID Metoprolol Tartrate [Lopressor] 25 mg PO BID Simvastatin [Zocor] 10 mg PO BEDTIME busPIRone [Buspar] 15 mg PO BID 04/25/19 22:00 Oxybutynin [Oxybutynin ER] 5 mg PO BEDTIME 04/26/19 07:00 Levothyroxine [Synthroid] 50 mcg PO ACBREAKFAST 04/26/19 08:00 Cyanocobalamin (Vitamin B12) [Vitamin B12] 1,000 mcg PO DAILY Omeprazole 20 mg PO DAILY Tamsulosin [Flomax] 0.4 mg PO DAILY predniSONE 5 mg PO WITHBREAKFAST 04/27/19 07:00 VITAMIN B12 [REF] Routine 04/27/19 08:00 Lisinopril [Prinivil] 10 mg PO DAILY 04/27/19 10:02 BASIC METABOLIC PANEL,BMP [CHEM] Routine TSH ULTRASENSITIVE [CHEM] Routine - Plan Plan:: Shortness of breath: This is improved but he still has rales in his lungs. He has negative troponin again this morning his BNP is stable blood pressures mildly elevated. BMP is stable Plan: Continue the IV Lasix for another 24 hours to complete his diuresis, increase lisinopril to 10 mg daily Arrangements can be made for further cardiac evaluation in the morning *
[2019-04-26] MEDS: Oxybutynin 5 MG Tab.ER PO SCH (20:21)
[2019-04-26] MEDS: Donepezil 10 MG Tab PO SCH (20:21)
[2019-04-26] MEDS: Simvastatin 10 MG Tab PO SCH (20:21)
[2019-04-26] MEDS: Melatonin 3 MG Tab PO SCH (22:51)
[2019-04-27] MEDS: Acetaminophen 650 MG Tab.ER PO PRN ×3 (00:20→23:33)
[2019-04-27] MEDS: Levothyroxine 50 MCG Tab PO SCH (06:47)
[2019-04-27 07:20] LABS: ANION GAP 12.4 mmol/L (10-20)
[2019-04-27] MEDS: Lisinopril 10 MG Tab PO SCH (08:23)
[2019-04-27] MEDS: Furosemide 20 MG/2 ML VIAL IVPUSH SCH (08:23)
[2019-04-27] MEDS: Omeprazole 20 MG Cap.CR PO SCH (08:24)
[2019-04-27] MEDS: ClonazePAM 0.5 MG Tab PO SCH ×2 (08:24→20:06)
[2019-04-27] MEDS: Aspirin 81 MG Tab.Chew PO SCH (08:25)
[2019-04-27] MEDS: predniSONE 5 MG Tab PO SCH (08:26)
[2019-04-27] MEDS: Cyanocobalamin (Vitamin B12) 1,000 MCG Tab PO SCH (08:26)
[2019-04-27] MEDS: Metoprolol Tartrate 25 MG Tab PO SCH (08:26)
[2019-04-27] MEDS: Tamsulosin 0.4 MG Cap.ER PO SCH (08:27)
[2019-04-27] MEDS: busPIRone 15 MG Tab PO SCH ×2 (08:27→20:08)
[2019-04-27] MEDS: Isosorbide Mononitrate 30 MG Tab.ER PO SCH (08:49)
--- NOTE | 2019-04-27 09:46 | CR ---
[id number] RAD/RAD Chest PA And Lateral EXAM: FRONTAL AND LATERAL CHEST INDICATION: Cough. COMPARISON: April 25, 2018. DISCUSSION: Hyperinflation is consistent with chronic obstructive pulmonary disease. No acute infiltrates are identified. Normal heart size. Chronic right posterior rib fractures. IMPRESSION: 1. Chronic obstructive pulmonary disease. No acute findings. Ajay Luna MD 04/27/19 0945 Thank you for allowing us to participate in the care of your patient.
[2019-04-27] MEDS: Magnesium Chloride 64 MG Tab.ER PO SCH (10:30)
[2019-04-27] MEDS: Enoxaparin 40 MG/0.4 ML Syringe SUBCUT SCH (10:30)
[2019-04-27] MEDS: Potassium Chloride 10 MEQ Tab.ER PO SCH ×2 (10:30→17:09)
--- NOTE | 2019-04-27 10:59 | PN ---
Progress Note for VANDANA ELLIS Date: 04/27/2019 Room #: VM.214 SUBJECTIVE: Hospital day #3 on an 83-year-old admitted with shortness of breath. The patient tells me he thinks he fell. Initially, he was reporting some back pain, but he is denying any back pain currently. He tells me he has had chest discomfort off and on for many years, like a tightness, but he denies any now. He has also been short of breath and having quite a cough. He has a remote history of smoking, but no charted history of COPD. He did have influenza and an admit for pneumonia back in January. Otherwise, he is feeling better since he has been admitted. He has been diuresed with IV Lasix. He was not even on Lasix at the [facility]. He also has been increased on his lisinopril. His metoprolol has stayed the same at 25 b.i.d., but he has had heart rates down to 48. He has lost about 5 pounds since he has been here. Overall, he is feeling better. His legs are less puffy. He has not had any fever or chills. He did get one dose of Rocephin in the ER, but antibiotics were not continued. OBJECTIVE: Vital Signs: Today's weight is 71.4 kg, pulse 56, temperature 97.3, blood pressure 135/85, respiratory rate 18, O2 of 94% on room air. General: He is in no acute distress. His heart is regular rate and rhythm. S1 and S2 without murmur Lungs: Sounds were decreased in both bases, but no crackles, wheezes, or rales. Abdomen: Nondistended and nontender. Extremities: Warm and dry. No edema. Mental Status: He is alert. He is orientated x3. He is aware he is at the hospital. He recognizes me as his 's doctor. LABORATORY DATA: Otherwise, lab work reviewed. White count normal at 7.1, hemoglobin 13.2, platelets 218. Sodium 143, potassium 3.4, chloride 105, bicarb 29, BUN 25, creatinine 1.2, glucose 107, calcium 8.8, magnesium 1.8. Troponin was negative yesterday and on admission, TSH is 1.753. ASSESSMENT: 1. Acute on chronic diastolic heart failure exacerbation. The patient does have a remote history. His ejection fraction back in 2002 was 50% by echo. He had an admit in 2013 for congestive heart failure, but they refused an echo after that. He also had an ejection fraction of 45% by angiogram in 2005. We will switch the patient over to oral Lasix 20 mg twice daily today and repeat his chest x-ray. Could consider doing an outpatient echo. The patient does not seem all that interested in any aggressive cardiac workup at this point, however, he is a code 1. I can update also his daughter. 2. Known coronary artery disease with stable angina. At this point, I am going to initiate the patient on some Imdur. He does have a history of stenting back in 2001. We will continue to focus on medical management. He is already on a statin. I do not feel stress testing emergently indicated. 3. Bradycardia. We will decrease his metoprolol to 12.5 BID In fact, I will place him on just Toprol-XL 25 daily from tomorrow. Could also consider Coreg for better medical optimization, especially if he were found to have a decreased ejection fraction. 4. Hypokalemia. I will replace orally. Recheck tomorrow. 5. Hypothyroidism, treated. TSH ok. 6. Mild cognitive disorder. He is at the [facility]. He is answering questions appropriately. 7. Rheumatoid arthritis. He is on prednisone 5 mg daily. 8. Cough. Could be some element of congestive heart failure. I have repeated his chest x-ray today, which did not show any pneumonia. He very well could have some underlying chronic bronchitis or emphysema, especially given the appearance of flattening of the diaphragms on the x-ray. I will start him on some p.r.n. nebulizers. He has a remote hx of smoking. 9. Mild anemia probably due to chronic disease with his RA his hgb are stable no sign of GI bleeding 10. Anxiety PLAN: At this point, the patient will continue acute cares. He did get his dose of IV Lasix this morning. We will make adjustments to his medications as stated above. I will start him on Lovenox for DVT prophylaxis. Anticipate that he will return home to the [facility] tomorrow. I have also adjusted his Klonopin to reflect what he is taking at the [facility] to just once daily, which he does take for anxiety, and he is followed by Psychiatry there. GARY: 04/27/2019 09:38:38 MODL: 04/27/2019 10:55:59 /[id number] MTDD
[2019-04-27] MEDS: Albuterol/Ipratropium 3.0-0.5 MG/3 ML Neb Soln NEB PRN ×2 (11:11→23:33)
[2019-04-27] MEDS: Furosemide 20 MG Tab PO SCH ×2 (11:19→17:09)
[2019-04-27] MEDS ORDERED: Metoprolol Tartrate 25 MG Tab PO SCH (20:00)
[2019-04-27] MEDS: Sodium Chloride 0.9% 10 ML Syringe FLUSH PRN (20:04)
[2019-04-27] MEDS: Simvastatin 10 MG Tab PO SCH (20:08)
[2019-04-27] MEDS: Melatonin 3 MG Tab PO SCH (20:08)
[2019-04-27] MEDS: Donepezil 10 MG Tab PO SCH (20:08)
[2019-04-27] MEDS: Oxybutynin 5 MG Tab.ER PO SCH (20:10)
[2019-04-28] MEDS: Levothyroxine 50 MCG Tab PO SCH (06:38)
[2019-04-28 07:18] LABS: ANION GAP 10.9 mmol/L (10-20)
[2019-04-28] MEDS: Acetaminophen 650 MG Tab.ER PO PRN (07:30)
[2019-04-28] MEDS: ClonazePAM 0.5 MG Tab PO SCH (07:33)
[2019-04-28] MEDS: Lisinopril 10 MG Tab PO SCH (07:34)
[2019-04-28] MEDS: Magnesium Chloride 64 MG Tab.ER PO SCH (07:34)
[2019-04-28] MEDS: Cyanocobalamin (Vitamin B12) 1,000 MCG Tab PO SCH (07:36)
[2019-04-28] MEDS: predniSONE 5 MG Tab PO SCH (07:37)
[2019-04-28] MEDS: Potassium Chloride 10 MEQ Tab.ER PO SCH (07:38)
[2019-04-28] MEDS: Furosemide 20 MG Tab PO SCH (07:38)
[2019-04-28] MEDS: Isosorbide Mononitrate 30 MG Tab.ER PO SCH (07:38)
[2019-04-28] MEDS: busPIRone 15 MG Tab PO SCH (07:39)
[2019-04-28] MEDS: Aspirin 81 MG Tab.Chew PO SCH (07:39)
[2019-04-28] MEDS: Omeprazole 20 MG Cap.CR PO SCH (07:39)
[2019-04-28] MEDS: Tamsulosin 0.4 MG Cap.ER PO SCH (07:39)
[2019-04-28] MEDS ORDERED: Metoprolol Succinate 25 MG Tab.ER PO SCH (08:00)
[2019-04-28] MEDS ORDERED: ClonazePAM 0.5 MG Tab PO SCH (08:00)
[2019-04-28] MEDS: Enoxaparin 40 MG/0.4 ML Syringe SUBCUT SCH (09:50)
[2019-04-28 10:15] VITALS: BP 90/45; PULSE 77
--- NOTE | 2019-04-28 14:19 | DISCH ---
PRIMARY DISCHARGE DIAGNOSES: 1. Acute on chronic diastolic heart failure exacerbation. EF 45 % in 2005 2. Chest discomfort pleuritic moving from right to left with mildly elevated sedimentation rate. 3. Probably chronic bronchitis with cough due to history of smoking. 4. Acute renal insufficiency, likely due to increasing lisinopril and diuresis. 5. Known coronary artery disease with stable angina, improved with Imdur. 6. Bradycardia, but tachycardia with reduced metoprolol. 7. Hypokalemia. 8. Hypothyroidism. 9. Mild cognitive disorder. 10.Chronic anxiety. 11.Mild anemia. The patient's hemoglobin was 13.2 on discharge, which was stable. 12.Underlying rheumatoid arthritis, on chronic prednisone 5 mg daily. REASON FOR ADMISSION: On the date of admission, this 83-year-old male was admitted with shortness of breath. He was diuresed with IV Lasix 20 mg 3 times a day. He was previously only on hydrochlorothiazide. His weight actually went down 5 pounds, but then did come back up from 71.4 kg to 73.4 today despite the fact he got his dose of IV Lasix yesterday AM and was placed on orals. He required no tramadol for pain while he was here. He did not receive any NSAIDs, but did get Tylenol for pain. His creatinine which was 1.2 when he came in did go up to 1.6 today. He had an increase from 5-10 mg of lisinopril. Blood pressures were all excellent. He was initiated on Imdur yesterday, is tolerating that without any headaches. Otherwise, the patient was not requiring any oxygen. He was coughing quite a bit and was placed on nebulizers and did feel that this helped. He had no wheezing on exam, but did have some chest pain yesterday on the right side, today on the left worse with deep breaths. Chest x-ray was repeated which did not show any pneumonia. His white count was never elevated. There was some initial concern for pneumonia, so he did receive 1 g of Rocephin in the ER, but no further antibiotics were ordered. Troponins were negative x2. ProBNP was mildly elevated at 1300. His B12 and thyroid were tested while he was here and were negative. His urine was negative for infection. His bladder scan was negative. His ESR rate was up to 31 on discharge; therefore, he was increased to 10 mg of prednisone for 5 days before resuming his normal dose of 5 mg daily. He was placed also on magnesium and potassium supplements, and they should continue at [facility] until he has a recheck of a BMP and a mag in 1 week. His echo was ordered for followup on discharge as well as a followup with Dr. Madera on [facility] rounds. He will be on oxygen 2 L at night. Again, the prednisone 10 mg daily for 5 days for cough and lungs, and then back to 5 mg daily. Imdur 30 mg daily for his heart. His Lopressor will be stopped and he will be on Toprol-XL 25 mg daily. Hydrochlorothiazide stopped. He will be on Lasix 20 mg daily, potassium 10 mEq daily, magnesium 64 daily, aspirin 81 mg daily unless he develops stomach irritation. He may use a heating pad and Tylenol for the rib pain otherwise. Dr. Madera can decide about doing PFTs down the road and adding other inhalers if needed. I did not d/c tramadol on d/c as he will be off all NSAIDs PHYSICAL EXAMINATION: Vital Signs: Discharge vitals included temperature 97.2, pulse 77, blood pressure 90/45, respiratory rate 16, and O2 of 90% on room air. The patient also denied any stomach pain at the time of discharge, felt it was in his lower ribs. Heart: Regular rate and rhythm. S1, S2 without murmur. Lungs: Lung sounds were clear to auscultation bilaterally without crackles or wheezes. Abdomen: Nondistended, soft, nontender. Musculoskeletal: He did have some tenderness to palpation over the left lower ribs. No rash was appreciated. Extremities: Warm and dry. No edema. Mental Status: He is alert and orientated x3. LABORATORY DATA: Lab work on discharge again, hemoglobin 13.2. Of note, his BUN was up to 34 and creatinine up to 1.6. I was able to reach his daughter and updated her on the plan she was agreeable to medical management so we will hold off on any cardiac stress testing for now. Greater than 30 minutes spent on the discharge process. MKA: 04/28/2019 11:31:43 MODL: 04/28/2019 14:06:36 /[id number] AARON
[2019-04-29] MEDS ORDERED: Lisinopril 5 MG Tab PO SCH (08:00)
== END 2019-04-28 10:20 | DRG 293 ==
LOC: VM.ED 11:22 → VM.MS 13:14
PROVIDERS: ADMIT Internal Medicine; ATTEND Family Medicine
DX: I11.0 Hypertensive heart disease with heart failure (principal); I50.33 Acute on chronic diastolic (congestive) heart failure; G30.9 Alzheimer's disease, unspecified; I25.118 Atherosclerotic heart disease of native coronary artery with other forms of angina pectoris; I25.10 Atherosclerotic heart disease of native coronary artery without angina pectoris; N28.9 Disorder of kidney and ureter, unspecified; M19.91 Primary osteoarthritis, unspecified site; Z98.61 Coronary angioplasty status; F41.1 Generalized anxiety disorder; E78.00 Pure hypercholesterolemia, unspecified; I50.9 Heart failure, unspecified; I25.2 Old myocardial infarction; H91.90 Unspecified hearing loss, unspecified ear; I71.4 Abdominal aortic aneurysm, without rupture; I72.6 Aneurysm of vertebral artery; E87.6 Hypokalemia; R91.1 Solitary pulmonary nodule; D64.9 Anemia, unspecified; J42 Unspecified chronic bronchitis; R00.1 Bradycardia, unspecified; K21.9 Gastro-esophageal reflux disease without esophagitis; K44.9 Diaphragmatic hernia without obstruction or gangrene; Z95.5 Presence of coronary angioplasty implant and graft; Z90.49 Acquired absence of other specified parts of digestive tract; M06.9 Rheumatoid arthritis, unspecified; M19.90 Unspecified osteoarthritis, unspecified site; G62.9 Polyneuropathy, unspecified; E03.9 Hypothyroidism, unspecified; F41.9 Anxiety disorder, unspecified; G25.81 Restless legs syndrome; E53.8 Deficiency of other specified B group vitamins; F09 Unspecified mental disorder due to known physiological condition; Z87.01 Personal history of pneumonia (recurrent); Z79.890 Hormone replacement therapy; Z79.52 Long term (current) use of systemic steroids; Z79.899 Other long term (current) drug therapy; Z91.048 Other nonmedicinal substance allergy status
CPT/HCPCS: 36415; 71045; 80053; 81001; 83605; 83880; 84484; 85025; 87040 ×2; 93005; 94640; 96365; 96375; 99284; 99285; J0696; J7030; 51798; 71046; 80048; 82607; 83735; 84443; 85652; 94760; A9270-GY; J1650; J1940; J7620-GY

== ENCOUNTER 2019-06-18 13:35 | Emergency (ER) | payer MEDICARE, OTHER ==
[2019-06-18] MEDS ORDERED: Sodium Chloride 0.9% 10 ML Syringe FLUSH PRN (13:52)
[2019-06-18 14:19] VITALS: BP 111/78; PULSE 65
--- NOTE | 2019-06-18 14:27 | EDM.PDOC ---
ED HPI GENERAL MEDICAL PROBLEM - General Chief Complaint: Chest Pain Stated Complaint: CHEST PAIN FEVER Time Seen by Provider: 06/18/19 13:44 Source of Information: Reports: Patient - History of Present Illness INITIAL COMMENTS - FREE TEXT/NARRATIVE: PT presents c/o on and off reproducible chest pain that started around 1200 today but lasted for 20-30 minutes. PT is pain free at this time. Pain is reproducible at this time. Onset: Today Location: Reports: Chest Quality: Reports: Ache Severity: Mild Improves with: Reports: None Worsens with: Reports: None Associated Symptoms: Reports: No Other Symptoms - Related Data Allergies Allergy/AdvReac Type Severity Reaction Status Date / Time metal Allergy Irritabilit Uncoded 06/18/19 14:08 y Home Meds: Home Meds Lisinopril [Prinivil] 5 mg PO DAILY 11/19/13 [History] Metoprolol Tartrate 25 mg PO BID 11/19/13 [History] Simvastatin [Zocor] 10 mg PO BEDTIME 11/19/13 [History] Omeprazole Magnesium [Prilosec Otc] 20 mg PO DAILY 02/25/17 [History] Oxybutynin Chloride [Ditropan Xl] 5 mg PO DAILY 02/25/17 [History] Triamcinolone Acetonide [Triamcinolone Acetonide 0.5%] 1 applic TOP BID PRN [History] Cholecalciferol (Vitamin D3) [Vitamin D3] 2,000 unit PO DAILY 11/02/18 [History] traMADol [Ultram] 50 mg PO QID PRN 11/02/18 [History] Cyanocobalamin (Vitamin B-12) [Vitamin B-12] 1,000 mcg PO DAILY 11/03/18 [ History] Menthol [Bengay] 1 applic TOP ASDIRECTED PRN 11/03/18 [History] Cyclobenzaprine [Flexeril] 5 mg PO Q8H PRN #30 tablet 11/18/18 [Rx] Docusate Sodium [Colace] 100 mg PO DAILY PRN 01/27/19 [History] Donepezil HCl [Aricept] 10 mg PO DAILY 01/27/19 [History] predniSONE 5 mg PO DAILY 01/27/19 [History] Acetaminophen [Tylenol] 650 mg PO Q4H PRN tablet 01/30/19 [Rx] Levothyroxine [Synthroid] 50 mcg PO DAILY@0700 tablet 01/30/19 [Rx] busPIRone [Buspar] 15 mg PO BID tablet 01/30/19 [Rx] Calcium Carbonate [Tums Extra Strength] 750 mg PO BID PRN 04/25/19 [History] Melatonin 3 mg PO BEDTIME 04/25/19 [History] Tamsulosin HCl [Flomax] 0.4 mg PO DAILY 04/25/19 [History] clonazePAM [Clonazepam] 0.25 mg PO DAILY 04/27/19 [History] Albuterol/Ipratropium [DuoNeb 3.0-0.5 MG/3 ML] 3 ml NEB TID PRN #60 neb [Rx] Aspirin 81 mg PO WITHBREAKFAST #30 tab.chew 04/28/19 [Rx] Furosemide [Lasix] 20 mg PO DAILY #30 tablet 04/28/19 [Rx] Isosorbide Mononitrate [Imdur] 30 mg PO DAILY #30 tab.er 04/28/19 [Rx] Magnesium Chloride [Mag-64] 64 mg PO DAILY #30 tab.er 04/28/19 [Rx] Metoprolol Succinate [Toprol XL] 25 mg PO DAILY #30 tab.er 04/28/19 [Rx] Potassium Chloride [Klor-Con 10] 10 meq PO DAILY #30 tab.er 04/28/19 [Rx] predniSONE 10 mg PO WITHBREAKFAST #10 tablet 04/28/19 [Rx] Past Medical History - Past Health History Medical/Surgical History: Denies Medical/Surgical History HEENT History: Reports: Hard of Hearing Cardiovascular History: Reports: CAD, Heart Failure, High Cholesterol, Hypertension, [place], Other (See Below) Other Cardiovascular History: 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 vertebral artery aneurysm Respiratory History: Reports: Other (See Below) Other Respiratory History: lung nodule Gastrointestinal History: Reports: GERD, Hiatal Hernia Musculoskeletal History: Reports: Osteoarthritis, RA, Other (See Below) Other Musculoskeletal History: bursitis of left shoulder, arthralgia of both hands, cervical disc disease, osteoarthritis of ankle Neurological History: Reports: Neuropathy, Peripheral, Vertigo, Other (See Below ) Other Neuro History: mild cognitive disorder, restless legs Psychiatric History: Reports: Anxiety, Other (See Below) Other Psychiatric History: mild cognitive disorder Endocrine/Metabolic History: Reports: Hypothyroidism, Other (See Below) Other Endocrine/Metabolic History: hyperglycemia Hematologic History: Reports: B12 Deficiency - Past Surgical History Cardiovascular Surgical History: Reports: Other (See Below) Other Cardiovascular Surgeries/Procedures: coronary balloon angioplasty GI Surgical History: Reports: Cholecystectomy, Hernia Repair/Other Social & Family History - Family History Family Medical History: Noncontributory - Caffeine Use Caffeine Use: Reports: Coffee ED ROS GENERAL - Review of Systems Review Of Systems: See Below Constitutional: Reports: No Symptoms HEENT: Reports: No Symptoms Respiratory: Reports: No Symptoms Cardiovascular: Reports: Chest Pain Endocrine: Reports: No Symptoms GI/Abdominal: Reports: No Symptoms : Reports: No Symptoms Musculoskeletal: Reports: No Symptoms Skin: Reports: No Symptoms ED EXAM, GENERAL - Physical Exam Exam: See Below General Appearance: Alert, WD/WN, No Apparent Distress Eye Exam: Bilateral Eye: PERRL Ears: Normal External Exam Nose: Normal Inspection, Normal Mucosa Throat/Mouth: Normal Inspection Head: Atraumatic, Normocephalic Neck: Normal Inspection Respiratory/Chest: No Respiratory Distress, Lungs Clear, Normal Breath Sounds, No Accessory Muscle Use, Chest Non-Tender Cardiovascular: Normal Peripheral Pulses, Regular Rate, Rhythm, No Edema, No Gallop, No JVD, No Murmur, No Rub, Other (chest wall pain ) GI/Abdominal: Normal Bowel Sounds, Soft, Non-Tender, No Distention, No Abnormal Bruit Back Exam: Normal Inspection, Full Range of Motion Extremities: Normal Inspection, Normal Range of Motion Neurological: Alert, Oriented Psychiatric: Normal Affect, Normal Mood Skin Exam: Warm, Dry, Intact Course - Vital Signs Last Recorded V/S: Last Vital Signs Temp 37.2 C 06/18/19 13:35 Pulse 65 06/18/19 13:35 Resp 20 06/18/19 13:35 BP 111/78 06/18/19 13:35 Pulse Ox 98 06/18/19 13:35 - Orders/Labs/Meds Orders: Active Orders 24 hr Category Date Time Status EKG 12 Lead [EKG Documentation Completion] [RC] STAT Care 06/18/19 13:52 Active Sodium Chloride 0.9% [Saline Flush] Med 06/18/19 13:52 Active 10 ml FLUSH ASDIRECTED PRN Peripheral IV Insertion Adult [OM.PC] Routine Oth 06/18/19 13:52 Ordered Medication Orders Sodium Chloride (Saline Flush) 10 ml FLUSH ASDIRECTED PRN PRN Reason: Keep Vein Open Labs: Laboratory Tests 06/18/19 06/18/19 06/18/19 Range/Units 13:58 13:58 13:58 WBC 7.7 (4.0-10.0) x10^3/uL RBC 4.30 L (4.5-6.0) x10^6/uL Hgb 13.1 L (14.0-18.0) g/dL Hct 39.1 L (40.0-52.0) % MCV 90.9 (78.0-93.0) fL MCH 30.5 (26.0-32.0) pg MCHC 33.5 (32.0-36.0) g/dL RDW Coeff of Phyllis 12.8 (10.0-15.0) % Plt Count 192 (130-400) x10^3/uL Neut % (Auto) 83.1 H (50.0-80.0) % Lymph % (Auto) 12.1 L (25.0-50.0) % [place] % (Auto) 3.8 (2.0-11.0) % Eos % (Auto) 0.5 (0.0-4.0) % Baso % (Auto) 0.5 (0.2-1.2) % PT 10.6 (10.0-12.8) SEC INR 0.9 L (2.0-3.5) Sodium 138 (136-145) mmol/L Potassium 4.6 (3.5-5.1) mmol/L Chloride 103 (98-107) mmol/L Carbon Dioxide 28 (21-32) mmol/L Anion Gap 11.6 (10-20) mmol/L BUN 19 H (7-18) mg/dL Creatinine 1.2 (0.70-1.30) mg/dL Est Cr Clr Drug Dosing 47.43 mL/min Estimated GFR (MDRD) 58 Glucose 123 H (74-106) mg/dL Calcium 8.5 (8.5-10.1) mg/dL Corrected Calcium 9.22 (8.5-10.1) mg/dL Total Bilirubin 0.3 (0.2-1.0) mg/dL AST 18 (15-37) U/L ALT 29 (16-63) U/L Alkaline Phosphatase 78 (46-116) U/L Troponin I < 0.017 (<=0.056) ng/mL Total Protein 6.6 (6.4-8.2) g/dL Albumin 3.1 L (3.4-5.0) g/dL Globulin 3.5 Albumin/Globulin Ratio 0.89 Urine Color (YELLOW) Urine Appearance (CLEAR) Urine pH (5.0-8.0) Ur Specific [place] Urine Protein (NEGATIVE) mg/dL Urine Glucose (UA) (NEGATIVE) mg/dL Urine Ketones (NEGATIVE) mg/dL Urine Occult Blood (NEGATIVE) Urine Nitrite (NEGATIVE) Urine Bilirubin (NEGATIVE) Urine Urobilinogen (0.2) EU/dL Ur Leukocyte Esterase (NEGATIVE) 06/18/19 06/18/19 Range/Units 14:24 17:24 WBC (4.0-10.0) x10^3/uL RBC (4.5-6.0) x10^6/uL Hgb (14.0-18.0) g/dL Hct (40.0-52.0) % MCV (78.0-93.0) fL MCH (26.0-32.0) pg MCHC (32.0-36.0) g/dL RDW Coeff of Phyllis (10.0-15.0) % Plt Count (130-400) x10^3/uL Neut % (Auto) (50.0-80.0) % Lymph % (Auto) (25.0-50.0) % [place] % (Auto) (2.0-11.0) % Eos % (Auto) (0.0-4.0) % Baso % (Auto) (0.2-1.2) % PT (10.0-12.8) SEC INR (2.0-3.5) Sodium (136-145) mmol/L Potassium (3.5-5.1) mmol/L Chloride (98-107) mmol/L Carbon Dioxide (21-32) mmol/L Anion Gap (10-20) mmol/L BUN (7-18) mg/dL Creatinine (0.70-1.30) mg/dL Est Cr Clr Drug Dosing mL/min Estimated GFR (MDRD) Glucose (74-106) mg/dL Calcium (8.5-10.1) mg/dL Corrected Calcium (8.5-10.1) mg/dL Total Bilirubin (0.2-1.0) mg/dL AST (15-37) U/L ALT (16-63) U/L Alkaline Phosphatase (46-116) U/L Troponin I < 0.017 (<=0.056) ng/mL Total Protein (6.4-8.2) g/dL Albumin (3.4-5.0) g/dL Globulin Albumin/Globulin Ratio Urine Color Yellow (YELLOW) Urine Appearance Clear (CLEAR) Urine pH 5.5 (5.0-8.0) Ur Specific [place] 1.010 Urine Protein Negative (NEGATIVE) mg/dL Urine Glucose (UA) Negative (NEGATIVE) mg/dL Urine Ketones Negative (NEGATIVE) mg/dL Urine Occult Blood Negative (NEGATIVE) Urine Nitrite Negative (NEGATIVE) Urine Bilirubin Negative (NEGATIVE) Urine Urobilinogen 0.2 (0.2) EU/dL Ur Leukocyte Esterase Negative (NEGATIVE) Meds: Medications Generic Name Dose Route Start Last Admin Trade Name Freq PRN Reason Stop Dose Admin Sodium Chloride 10 ml 06/18/19 13:52 Saline Flush FLUSH ASDIRECTED PRN Keep Vein Open Departure - Departure Time of Disposition: 18:11 Disposition: Home, Self-Care 01 Clinical Impression: Non-cardiac chest pain Instructions: Chest Wall Pain, [id number] Referrals: Mirtha Madera MD [Primary Care Provider] - Forms: ED Department Discharge - My Orders Last 24 Hours: My Active Orders 06/18/19 13:52 EKG 12 Lead [EKG Documentation Completion] [RC] STAT Sodium Chloride 0.9% [Saline Flush] 10 ml FLUSH ASDIRECTED PRN Peripheral IV Insertion Adult [OM.PC] Routine - Assessment/Plan Last 24 Hours: My Active Orders 06/18/19 13:52 EKG 12 Lead [EKG Documentation Completion] [RC] STAT Sodium Chloride 0.9% [Saline Flush] 10 ml FLUSH ASDIRECTED PRN Peripheral IV Insertion Adult [OM.PC] Routine
[2019-06-18 14:32] LABS: ANION GAP 11.6 mmol/L (10-20); CHLORIDE,CL 103 mmol/L (98-107); SODIUM,NA 138 mmol/L (136-145)
--- NOTE | 2019-06-18 14:55 | CR ---
[id number] RAD/RAD Chest PA And Lateral EXAM: RAD Chest PA And Lateral INDICATION: CHEST PAIN. COMPARISON: April 27, 2019. DISCUSSION: Cardiomediastinal silhouette is unchanged in size and contour. COPD. No infiltrate, effusion, pneumothorax, or edema. IMPRESSION: No acute findings in the chest or significant change from the prior examination. Kyle Franco MD 06/18/19 [id number] Thank you for allowing us to participate in the care of your patient.
== END 2019-06-18 18:25 | disposition home or self-care (01) ==
LOC: VM.ED 13:35
DX: R07.89 Other chest pain (principal); I25.2 Old myocardial infarction; I11.0 Hypertensive heart disease with heart failure; I50.9 Heart failure, unspecified; E78.00 Pure hypercholesterolemia, unspecified; K21.9 Gastro-esophageal reflux disease without esophagitis; F41.9 Anxiety disorder, unspecified; E03.9 Hypothyroidism, unspecified; Z91.048 Other nonmedicinal substance allergy status; Z79.899 Other long term (current) drug therapy; Z79.82 Long term (current) use of aspirin
CPT/HCPCS: 36415; 71046; 80053; 81003; 84484; 85025; 85610; 93005; 99285-25

== ENCOUNTER 2019-08-28 08:40 | Emergency (ER) | payer MEDICARE, OTHER ==
[2019-08-28] MEDS ORDERED: Sodium Chloride 0.9% 10 ML Syringe FLUSH PRN (08:56)
--- NOTE | 2019-08-28 09:18 | EDM.PDOC ---
ED HPI GENERAL MEDICAL PROBLEM - General Chief Complaint: Chest Pain Stated Complaint: chest pain Time Seen by Provider: 08/28/19 09:00 Source of Information: Reports: Patient, EMS History Limitations: Reports: No Limitations - History of Present Illness INITIAL COMMENTS - FREE TEXT/NARRATIVE: Patient comes into the emergency department by ambulance with complaints of chest discomfort. Patient states that he got up around 2 AM this morning with chest discomfort. He states it is reproducible and located on the lower left aspect of his chest. He also states that it does hurt to take a deep breath and palpate over that region. Patient denies any shortness of breath at rest or chest discomfort at rest. He states that he does workout every day at least for 40-45 minutes. He states yesterday's routine was legs, arms, and chest. After the workout he was able to continue with his activities of daily living. He has been slowly increasing his weight exercises but has not done a significant amount. Patient denies any injuries or falls recently. Denies any coughs, fever , GI upset, or urinary discomfort. Onset: Sudden Severity: Mild Improves with: Reports: Rest Worsens with: Reports: Movement Associated Symptoms: Reports: No Other Symptoms Left Lower Chest Pain Score (Numeric/FACES): 5 - Related Data Allergies Allergy/AdvReac Type Severity Reaction Status Date / Time metal Allergy Irritabilit Uncoded 06/18/19 14:08 y Home Meds: Home Meds Lisinopril [Prinivil] 5 mg PO DAILY 11/19/13 [History] Metoprolol Tartrate 25 mg PO BID 11/19/13 [History] Simvastatin [Zocor] 10 mg PO BEDTIME 11/19/13 [History] Omeprazole Magnesium [Prilosec Otc] 20 mg PO DAILY 02/25/17 [History] Oxybutynin Chloride [Ditropan Xl] 5 mg PO DAILY 02/25/17 [History] Triamcinolone Acetonide [Triamcinolone Acetonide 0.5%] 1 applic TOP BID PRN [History] Cholecalciferol (Vitamin D3) [Vitamin D3] 2,000 unit PO DAILY 11/02/18 [History] traMADol [Ultram] 50 mg PO QID PRN 11/02/18 [History] Cyanocobalamin (Vitamin B-12) [Vitamin B-12] 1,000 mcg PO DAILY 11/03/18 [ History] Menthol [Bengay] 1 applic TOP ASDIRECTED PRN 11/03/18 [History] Cyclobenzaprine [Flexeril] 5 mg PO Q8H PRN #30 tablet 11/18/18 [Rx] Docusate Sodium [Colace] 100 mg PO DAILY PRN 01/27/19 [History] Donepezil HCl [Aricept] 10 mg PO DAILY 01/27/19 [History] predniSONE 5 mg PO DAILY 01/27/19 [History] Acetaminophen [Tylenol] 650 mg PO Q4H PRN tablet 01/30/19 [Rx] Levothyroxine [Synthroid] 50 mcg PO DAILY@0700 tablet 01/30/19 [Rx] busPIRone [Buspar] 15 mg PO BID tablet 01/30/19 [Rx] Calcium Carbonate [Tums Extra Strength] 750 mg PO BID PRN 04/25/19 [History] Melatonin 3 mg PO BEDTIME 04/25/19 [History] Tamsulosin HCl [Flomax] 0.4 mg PO DAILY 04/25/19 [History] clonazePAM [Clonazepam] 0.25 mg PO DAILY 04/27/19 [History] Albuterol/Ipratropium [DuoNeb 3.0-0.5 MG/3 ML] 3 ml NEB TID PRN #60 neb [Rx] Aspirin 81 mg PO WITHBREAKFAST #30 tab.chew 04/28/19 [Rx] Furosemide [Lasix] 20 mg PO DAILY #30 tablet 04/28/19 [Rx] Isosorbide Mononitrate [Imdur] 30 mg PO DAILY #30 tab.er 04/28/19 [Rx] Magnesium Chloride [Mag-64] 64 mg PO DAILY #30 tab.er 04/28/19 [Rx] Metoprolol Succinate [Toprol XL] 25 mg PO DAILY #30 tab.er 04/28/19 [Rx] Potassium Chloride [Klor-Con 10] 10 meq PO DAILY #30 tab.er 04/28/19 [Rx] predniSONE 10 mg PO WITHBREAKFAST #10 tablet 04/28/19 [Rx] Furosemide [Lasix] 20 mg PO DAILY #2 tab 08/28/19 [Rx] Past Medical History - Past Health History Medical/Surgical History: Denies Medical/Surgical History HEENT History: Reports: Hard of Hearing Cardiovascular History: Reports: CAD, Heart Failure, High Cholesterol, Hypertension, [place], Other (See Below) Other Cardiovascular History: 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 vertebral artery aneurysm Respiratory History: Reports: Other (See Below) Other Respiratory History: lung nodule Gastrointestinal History: Reports: GERD, Hiatal Hernia Musculoskeletal History: Reports: Osteoarthritis, RA, Other (See Below) Other Musculoskeletal History: bursitis of left shoulder, arthralgia of both hands, cervical disc disease, osteoarthritis of ankle Neurological History: Reports: Neuropathy, Peripheral, Vertigo, Other (See Below ) Other Neuro History: mild cognitive disorder, restless legs Psychiatric History: Reports: Anxiety, Other (See Below) Other Psychiatric History: mild cognitive disorder Endocrine/Metabolic History: Reports: Hypothyroidism, Other (See Below) Other Endocrine/Metabolic History: hyperglycemia Hematologic History: Reports: B12 Deficiency - Past Surgical History Cardiovascular Surgical History: Reports: Other (See Below) Other Cardiovascular Surgeries/Procedures: coronary balloon angioplasty GI Surgical History: Reports: Cholecystectomy, Hernia Repair/Other Social & Family History - Family History Family Medical History: Noncontributory - Caffeine Use Caffeine Use: Reports: Coffee ED ROS GENERAL - Review of Systems Review Of Systems: Comprehensive ROS is negative, except as noted in HPI. Constitutional: Reports: No Symptoms HEENT: Reports: No Symptoms Respiratory: Reports: No Symptoms GI/Abdominal: Reports: No Symptoms : Reports: No Symptoms Musculoskeletal: Reports: No Symptoms ED EXAM, GENERAL - Physical Exam Exam: See Below Exam Limited By: No Limitations General Appearance: Alert, WD/WN, No Apparent Distress Eye Exam: Bilateral Eye: EOMI, PERRL Head: Atraumatic, Normocephalic Neck: Normal Inspection, Supple, Non-Tender Respiratory/Chest: No Respiratory Distress, Lungs Clear, Normal Breath Sounds, No Accessory Muscle Use Cardiovascular: Normal Peripheral Pulses, Regular Rate, Rhythm, No Edema, Other (Muscle tenderness upon palpation left lower thoracic region. ) Back Exam: Normal Inspection, Full Range of Motion Extremities: Normal Inspection, Normal Range of Motion, Non-Tender, No Pedal Edema, Normal Capillary Refill Neurological: Alert, Oriented, Normal Cognition Psychiatric: Normal Affect, Normal Mood Skin Exam: Warm, Dry, Intact, Normal Color Course - Vital Signs Last Recorded V/S: Last Vital Signs Temp 37.1 C 11/22/19 08:40 Pulse 65 08/28/19 09:30 Resp 32 H 08/28/19 09:30 BP 183/88 H 08/28/19 09:30 Pulse Ox 94 L 08/28/19 08:40 - Orders/Labs/Meds Orders: Active Orders 24 hr Category Date Time Status EKG Documentation Completion [RC] STAT Care 08/28/19 08:57 Active Sodium Chloride 0.9% [Saline Flush] Med 08/28/19 08:56 Active 10 ml FLUSH ASDIRECTED PRN Peripheral IV Insertion Adult [OM.PC] Routine Oth 08/28/19 08:57 Ordered Medication Orders Sodium Chloride (Saline Flush) 10 ml FLUSH ASDIRECTED PRN PRN Reason: Keep Vein Open Labs: Laboratory Tests 08/28/19 08/28/19 08/28/19 Range/Units 09:13 09:13 09:13 WBC (4.0-10.0) x10^3/uL RBC (4.5-6.0) x10^6/uL Hgb (14.0-18.0) g/dL Hct (40.0-52.0) % MCV (78.0-93.0) fL MCH (26.0-32.0) pg MCHC (32.0-36.0) g/dL RDW Coeff of Phyllis (10.0-15.0) % Plt Count (130-400) x10^3/uL Neut % (Auto) (50.0-80.0) % Lymph % (Auto) (25.0-50.0) % [place] % (Auto) (2.0-11.0) % Eos % (Auto) (0.0-4.0) % Baso % (Auto) (0.2-1.2) % PT 10.7 (10.0-12.8) SEC INR 0.9 L (2.0-3.5) D-Dimer, Quantitative 4.16 H (<=0.58) mg/LFEU Sodium 143 (136-145) mmol/L Potassium 4.3 (3.5-5.1) mmol/L Chloride 106 (98-107) mmol/L Carbon Dioxide 28 (21-32) mmol/L Anion Gap 13.3 (10-20) mmol/L BUN 20 H (7-18) mg/dL Creatinine 1.1 (0.70-1.30) mg/dL Est Cr Clr Drug Dosing TNP Estimated GFR (MDRD) > 60 Glucose 89 (74-106) mg/dL Calcium 8.8 (8.5-10.1) mg/dL Corrected Calcium 9.44 (8.5-10.1) mg/dL Magnesium 2.1 (1.8-2.4) mg/dL Total Bilirubin 0.5 (0.2-1.0) mg/dL AST 16 (15-37) U/L ALT 18 (16-63) U/L Alkaline Phosphatase 73 (46-116) U/L POC Troponin I (0.00-0.08) ng/mL C-Reactive Protein 0.9 (<=0.9) mg/dL NT-Pro-B Natriuret Pep 1053 H (<=450) pg/mL Total Protein 7.0 (6.4-8.2) g/dL Albumin 3.2 L (3.4-5.0) g/dL Globulin 3.8 Albumin/Globulin Ratio 0.84 TSH, Ultra Sensitive 1.747 (0.358-3.74) uIU/mL 08/28/19 08/28/19 Range/Units 09:17 09:21 WBC 6.5 (4.0-10.0) x10^3/uL RBC 4.40 L (4.5-6.0) x10^6/uL Hgb 13.0 L (14.0-18.0) g/dL Hct 39.0 L (40.0-52.0) % MCV 88.6 (78.0-93.0) fL MCH 29.5 (26.0-32.0) pg MCHC 33.3 (32.0-36.0) g/dL RDW Coeff of Phyllis 13.1 (10.0-15.0) % Plt Count 189 (130-400) x10^3/uL Neut % (Auto) 59.6 (50.0-80.0) % Lymph % (Auto) 26.6 (25.0-50.0) % [place] % (Auto) 9.7 (2.0-11.0) % Eos % (Auto) 3.5 (0.0-4.0) % Baso % (Auto) 0.6 (0.2-1.2) % PT (10.0-12.8) SEC INR (2.0-3.5) D-Dimer, Quantitative (<=0.58) mg/LFEU Sodium (136-145) mmol/L Potassium (3.5-5.1) mmol/L Chloride (98-107) mmol/L Carbon Dioxide (21-32) mmol/L Anion Gap (10-20) mmol/L BUN (7-18) mg/dL Creatinine (0.70-1.30) mg/dL Est Cr Clr Drug Dosing Estimated GFR (MDRD) Glucose (74-106) mg/dL Calcium (8.5-10.1) mg/dL Corrected Calcium (8.5-10.1) mg/dL Magnesium (1.8-2.4) mg/dL Total Bilirubin (0.2-1.0) mg/dL AST (15-37) U/L ALT (16-63) U/L Alkaline Phosphatase (46-116) U/L POC Troponin I 0.00 (0.00-0.08) ng/mL C-Reactive Protein (<=0.9) mg/dL NT-Pro-B Natriuret Pep (<=450) pg/mL Total Protein (6.4-8.2) g/dL Albumin (3.4-5.0) g/dL Globulin Albumin/Globulin Ratio TSH, Ultra Sensitive (0.358-3.74) uIU/mL Meds: Medications Generic Name Dose Route Start Last Admin Trade Name Freq PRN Reason Stop Dose Admin Sodium Chloride 10 ml 08/28/19 08:56 Saline Flush FLUSH ASDIRECTED PRN Keep Vein Open Discontinued Medications Generic Name Dose Route Start Last Admin Trade Name Freq PRN Reason Stop Dose Admin Furosemide 20 mg 08/28/19 11:20 Lasix IV 08/28/19 11:21 ONETIME ONE Iopamidol 100 ml 08/28/19 10:43 08/28/19 10:57 Isovue-300 (61%) IVPUSH 08/28/19 10:44 100 ml ONETIME ONE Administration - Radiology Interpretation CT Results Date: 08/28/19 (No large or central embolus is identified, mild COPD , evidence of mild distal esophagitis, incomplete abdominal aortic aneurysm noted) - Re-Assessments/Exams Free Text/Narrative Re-Assessment/Exam: Patient does have a clinical diagnosis of abdominal aortic aneurysm that has been followed up with his PCP. It is without rupture. We will send images to primary PCP continued ongoing monitoring 08/28/19 11:45 Departure - Departure Time of Disposition: 11:50 Disposition: DC/Tfer to SNF 03 Condition: Fair Clinical Impression: Acute chest wall pain Congestive heart failure Qualifiers: Heart failure type: unspecified Heart failure chronicity: acute on chronic Qualified Code(s): I50.9 - Heart failure, unspecified - Discharge Information *PRESCRIPTION DRUG MONITORING PROGRAM REVIEWED*: Not Applicable *COPY OF PRESCRIPTION DRUG MONITORING REPORT IN PATIENT ALLIE: Not Applicable Instructions: Heart Failure Exacerbation, Chest Wall Pain, Furosemide tablets Referrals: Mirtha Madera MD [Primary Care Provider] - Forms: ED Department Discharge Additional Instructions: 1. He was given IV Lasix in the emergency department. He will also be given a 2 day supply of Lasix for the long-term to help with the increased fluid 2. Activity and diet as tolerated 3. Follow up in the clinic on Saturday for reevaluation and ongoing monitoring 4. Call with any questions or concerns - Assessment/Plan Assessment:: 1. Chest wall pain 2. Exacerbation of congestive heart failure Plan: 1. EKG completed in the emergency department. Results reviewed with the patient 2. Labs completed in ER. Results reviewed with the patient 3. Chest x-ray completed in the emergency department. Results reviewed with patient 4. CTA completed in the ER due to positive D.dimer, chest wall pain, and elevated BNP. Results reviewed with the patient. (-) findings. CTA did show AAA Which the patients has been diagnosed with and is being monitored 5. Well's criteria- 1.5 resulting in low risk of possibility of PE. 6. Did talk to the patient's primary care provider who states that the patient does have issues with fluid retention and can have episodes of intermittent shortness of breath at rest. Patients Primary care provider feels that the patient would be appropriate to go back to the long-term with a 2 day prescription of oral lasix and a follow-up appointment in the clinic on Saturday 7. Lasix 20mg given in ER 8. Patient has remained stable in ER. Has had increase in urine output since receiving lasix dose. Denies any pain or concerns. States he still has discomfort when taking a deep breath or with palpation. 9. PCP updated 10. All questions and concerns addressed prior to patient's discharge
[2019-08-28 09:50] LABS: ANION GAP 13.3 mmol/L (10-20); CHLORIDE,CL 106 mmol/L (98-107); SODIUM,NA 143 mmol/L (136-145)
--- NOTE | 2019-08-28 09:52 | CR ---
[id number] RAD/RAD Chest PA or AP 1V EXAM: FRONTAL CHEST INDICATION: CHEST PAIN. COMPARISON: June 18, 2019. DISCUSSION: Motion artifact mildly limits this assessment. The heart is mildly enlarged with borderline central vascular congestion. IMPRESSION: 1. Mild cardiomegaly with borderline central vascular congestion. Ajay Luna MD 08/28/19 [id number] Thank you for allowing us to participate in the care of your patient.
[2019-08-28 10:29] VITALS: BP 183/88; PULSE 65
[2019-08-28] MEDS ORDERED: Iopamidol 612 MG/ML 100 ML Bottle IVPUSH ONE (10:43)
[2019-08-28] MEDS ORDERED: Furosemide 20 MG/2 ML VIAL IV ONE (11:20)
--- NOTE | 2019-08-28 11:43 | CT ---
[id number] CT/CTA Chest EXAM: CT ANGIOGRAM CHEST INDICATION: POSITIVE D DIMER. COMPARISON: January 27, 2019. DISCUSSION: No pulmonary embolus is identified, but the degree of contrast opacification of the pulmonary arteries limits assessment. Patient name chronic obstructive pulmonary disease with mild bilateral apical predominant emphysema and diffuse bronchitis. No acute infiltrates. No pleural or pericardial effusion. Atherosclerotic plaque is seen scattered throughout the aorta and its major branches including the coronary arteries. Partially imaged abdominal aortic aneurysm measuring at least clearly 42 mm in diameter. Consider dedicated pelvic imaging. A delicate a mild thick-walled appearance of the distal esophagus suggests underlying esophagitis. Chronic right rib fractures and mild L1 compression. Cholecystectomy. Small hepatic cyst. IMPRESSION: 1. No large or central embolus is identified, but contrast timing limits sensitivity. 2. Mild chronic obstructive pulmonary disease. 3. Evidence of mild distal esophagitis. 4. Incompletely imaged abdominal aortic aneurysm. Consider dedicated aortic imaging. Ajay Luna MD 08/28/19 1141 Thank you for allowing us to participate in the care of your patient.
== END 2019-08-28 12:15 ==
LOC: VM.ED 08:40
DX: R07.89 Other chest pain (principal); I11.0 Hypertensive heart disease with heart failure; I50.9 Heart failure, unspecified; E78.00 Pure hypercholesterolemia, unspecified; I25.2 Old myocardial infarction; K21.9 Gastro-esophageal reflux disease without esophagitis; F41.9 Anxiety disorder, unspecified; E03.9 Hypothyroidism, unspecified; Z91.048 Other nonmedicinal substance allergy status; Z79.899 Other long term (current) drug therapy; Z79.82 Long term (current) use of aspirin
CPT/HCPCS: 36415; 71045; 71275; 80053; 83735; 83880; 84443; 84484; 85025; 85379; 85610; 86140; 93005; 96374; 99284-GF; 99285-25; J1940; Q9967

== ENCOUNTER 2019-08-29 10:38 | Inpatient (IN) | payer MEDICARE, OTHER ==
[2019-08-29] MEDS ORDERED: Sodium Chloride 0.9% 10 ML Syringe FLUSH PRN (10:53)
[2019-08-29] MEDS ORDERED: cefTRIAXone 1 GM Vial IVPUSH ONE (11:31)
[2019-08-29 11:45] LABS: CHLORIDE,CL 106 mmol/L (98-107); SODIUM,NA 143 mmol/L (136-145)
[2019-08-29 11:47] LABS: ANION GAP 16.1 mmol/L (10-20)
--- NOTE | 2019-08-29 12:39 | CR ---
[id number] RAD/RAD Chest PA or AP 1V EXAM: RAD Chest PA or AP 1V INDICATION: ASPIRATION CONCERNS/COUGH. COMPARISON: Yesterday. DISCUSSION: Cardiomediastinal silhouette is normal in size and contour. No infiltrate, effusion, pneumothorax, or edema. IMPRESSION: No acute findings. Kyle Franco MD 08/29/19 0605 Thank you for allowing us to participate in the care of your patient.
--- NOTE | 2019-08-29 12:40 | EDM.PDOC ---
ED HPI GENERAL MEDICAL PROBLEM - General Chief Complaint: General Stated Complaint: LOOSE STOOL,UNRESPONSIVE,MD EMESIS Time Seen by Provider: 08/29/19 10:38 Source of Information: Reports: Patient History Limitations: Reports: No Limitations - History of Present Illness INITIAL COMMENTS - FREE TEXT/NARRATIVE: Patient comes in the emergency department by EMS with complaint of a syncopal episode resulting in excessive vomiting and aspiration potentially. Patient is a patient at the [facility] and was using the bathroom this morning EMS report that staff state that he was trying to have a bowel movement and became unresponsive as he began to wake he started vomiting for a short period of time. They contacted the detention corrosion technician provider who requested that he be sent to the emergency trauma for further evaluation. EMS state that he is more awake on arrival to the ER. On his oxygenation was low and they ended up putting him on non-rebreather and transported him to the hospital. On arrival patient continues to remain on a nonrebreather and is coughing excessively. He denies any chest pain, nausea, headache, blurred vision or peripheral edema. Onset: Sudden - Related Data Allergies Allergy/AdvReac Type Severity Reaction Status Date / Time metal Allergy Irritabilit Uncoded 06/18/19 14:08 y Home Meds: Home Meds Lisinopril [Prinivil] 2.5 mg PO DAILY 11/19/13 [History] Omeprazole Magnesium [Prilosec Otc] 20 mg PO DAILY 02/25/17 [History] Oxybutynin Chloride [Ditropan Xl] 5 mg PO DAILY 02/25/17 [History] Triamcinolone Acetonide [Triamcinolone Acetonide 0.5%] 1 applic TOP BID PRN [History] Cholecalciferol (Vitamin D3) [Vitamin D3] 2,000 unit PO DAILY 11/02/18 [History] Cyanocobalamin (Vitamin B-12) [Vitamin B-12] 1,000 mcg PO DAILY 11/03/18 [ History] Docusate Sodium [Colace] 100 mg PO DAILY PRN 01/27/19 [History] Donepezil HCl [Aricept] 10 mg PO DAILY 01/27/19 [History] predniSONE 5 mg PO DAILY 01/27/19 [History] Acetaminophen [Tylenol] 650 mg PO Q4H PRN tablet 01/30/19 [Rx] Levothyroxine [Synthroid] 50 mcg PO DAILY@0700 tablet 01/30/19 [Rx] busPIRone [Buspar] 15 mg PO BID tablet 01/30/19 [Rx] Melatonin 3 mg PO BEDTIME 04/25/19 [History] Tamsulosin HCl [Flomax] 0.4 mg PO DAILY 04/25/19 [History] clonazePAM [Clonazepam] 0.25 mg PO DAILY 04/27/19 [History] Albuterol/Ipratropium [DuoNeb 3.0-0.5 MG/3 ML] 3 ml NEB TID PRN #60 neb [Rx] Aspirin 81 mg PO WITHBREAKFAST #30 tab.chew 04/28/19 [Rx] Isosorbide Mononitrate [Imdur] 30 mg PO DAILY #30 tab.er 04/28/19 [Rx] Magnesium Chloride [Mag-64] 64 mg PO DAILY #30 tab.er 04/28/19 [Rx] Metoprolol Succinate [Toprol XL] 25 mg PO DAILY #30 tab.er 04/28/19 [Rx] Potassium Chloride [Klor-Con 10] 10 meq PO DAILY #30 tab.er 04/28/19 [Rx] Furosemide [Lasix] 20 mg PO DAILY #2 tab 08/28/19 [Rx] Cholecalciferol (Vitamin D3) [Vitamin D3] 1,000 tab PO DAILY 08/29/19 [History] Hydroxychloroquine Sulfate [Plaquenil] 100 mg PO DAILY 08/29/19 [History] Past Medical History - Past Health History Medical/Surgical History: Denies Medical/Surgical History HEENT History: Reports: Hard of Hearing Cardiovascular History: Reports: CAD, Heart Failure, High Cholesterol, Hypertension, RI, Other (See Below) Other Cardiovascular History: 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 vertebral artery aneurysm Respiratory History: Reports: Other (See Below) Other Respiratory History: lung nodule Gastrointestinal History: Reports: GERD, Hiatal Hernia Musculoskeletal History: Reports: Osteoarthritis, RA, Other (See Below) Other Musculoskeletal History: bursitis of left shoulder, arthralgia of both hands, cervical disc disease, osteoarthritis of ankle Neurological History: Reports: Neuropathy, Peripheral, Vertigo, Other (See Below ) Other Neuro History: mild cognitive disorder, restless legs Psychiatric History: Reports: Anxiety, Other (See Below) Other Psychiatric History: mild cognitive disorder Endocrine/Metabolic History: Reports: Hypothyroidism, Other (See Below) Other Endocrine/Metabolic History: hyperglycemia Hematologic History: Reports: B12 Deficiency - Past Surgical History Cardiovascular Surgical History: Reports: Other (See Below) Other Cardiovascular Surgeries/Procedures: coronary balloon angioplasty GI Surgical History: Reports: Cholecystectomy, Hernia Repair/Other Social & Family History - Family History Family Medical History: Noncontributory - Caffeine Use Caffeine Use: Reports: Coffee ED ROS GENERAL - Review of Systems Review Of Systems: See Below Constitutional: Reports: No Symptoms HEENT: Reports: No Symptoms Respiratory: Reports: Shortness of Breath, Cough, Sputum Endocrine: Reports: No Symptoms GI/Abdominal: Reports: No Symptoms : Reports: No Symptoms Musculoskeletal: Reports: No Symptoms Skin: Reports: No Symptoms Neurological: Reports: Confusion (dementia history ) Psychiatric: Reports: No Symptoms Hematologic/Lymphatic: Reports: No Symptoms Immunologic: Reports: No Symptoms ED EXAM, GENERAL - Physical Exam Exam: See Below Exam Limited By: No Limitations General Appearance: Moderate Distress Head: Atraumatic, Normocephalic Neck: Normal Inspection, Supple, Non-Tender, Full Range of Motion Respiratory/Chest: Decreased Breath Sounds, Crackles, Accessory Muscle Use, Other (coughing profusely at times- trying to clear his throat ) Cardiovascular: Normal Peripheral Pulses, Tachycardia GI/Abdominal: Normal Bowel Sounds, Soft, Non-Tender, No Organomegaly, No Distention, No Abnormal Bruit, No Mass Back Exam: Normal Inspection, Full Range of Motion, NT Extremities: Normal Inspection, Normal Range of Motion, Non-Tender, Normal Capillary Refill, No Pedal Edema Neurological: Alert, Memory Loss Recent Events Psychiatric: Normal Affect, Normal Mood Skin Exam: Warm, Dry, Intact, Normal Color Course - Vital Signs Last Recorded V/S: Last Vital Signs Temp 36.9 C 08/29/19 13:23 Pulse 78 08/29/19 13:46 Resp 28 H 08/29/19 13:46 BP 130/73 08/29/19 13:23 Pulse Ox 98 08/29/19 13:46 - Orders/Labs/Meds Orders: Active Orders 24 hr Category Date Time Status Oxygen Therapy [RC] ASDIRECTED Care 08/29/19 13:06 Active Head wo Cont [CT] Stat Exams 08/29/19 12:26 Taken Sodium Chloride 0.9% [Saline Flush] Med 08/29/19 10:53 Active 10 ml FLUSH ASDIRECTED PRN Peripheral IV Insertion Adult [OM.PC] Stat Oth 08/29/19 10:53 Ordered Medication Orders Sodium Chloride (Saline Flush) 10 ml FLUSH ASDIRECTED PRN PRN Reason: Keep Vein Open Labs: Laboratory Tests 08/29/19 08/29/19 Range/Units 11:03 11:03 WBC 9.5 (4.0-10.0) x10^3/uL RBC 4.54 (4.5-6.0) x10^6/uL Hgb 13.4 L (14.0-18.0) g/dL Hct 41.0 (40.0-52.0) % MCV 90.3 (78.0-93.0) fL MCH 29.5 (26.0-32.0) pg MCHC 32.7 (32.0-36.0) g/dL RDW Coeff of Phyllis 13.5 (10.0-15.0) % Plt Count 182 (130-400) x10^3/uL Neut % (Auto) 74.1 (50.0-80.0) % Lymph % (Auto) 20.0 L (25.0-50.0) % Hooker % (Auto) 4.4 (2.0-11.0) % Eos % (Auto) 1.1 (0.0-4.0) % Baso % (Auto) 0.4 (0.2-1.2) % Sodium 143 (136-145) mmol/L Potassium 4.1 (3.5-5.1) mmol/L Chloride 106 (98-107) mmol/L Carbon Dioxide 25 (21-32) mmol/L Anion Gap 16.1 (10-20) mmol/L BUN 21 H (7-18) mg/dL Creatinine 1.2 (0.70-1.30) mg/dL Est Cr Clr Drug Dosing TNP Estimated GFR (MDRD) 58 Glucose 152 H (74-106) mg/dL Calcium 8.2 L (8.5-10.1) mg/dL Corrected Calcium 9.00 (8.5-10.1) mg/dL Total Bilirubin 0.5 (0.2-1.0) mg/dL AST 18 (15-37) U/L ALT 17 (16-63) U/L Alkaline Phosphatase 68 (46-116) U/L Troponin I < 0.017 (<=0.056) ng/mL NT-Pro-B Natriuret Pep 1675 H (<=450) pg/mL Total Protein 6.7 (6.4-8.2) g/dL Albumin 3.0 L (3.4-5.0) g/dL Globulin 3.7 Albumin/Globulin Ratio 0.81 Meds: Medications Generic Name Dose Route Start Last Admin Trade Name Freq PRN Reason Stop Dose Admin Sodium Chloride 10 ml 08/29/19 10:53 Saline Flush FLUSH ASDIRECTED PRN Keep Vein Open Discontinued Medications Generic Name Dose Route Start Last Admin Trade Name Freq PRN Reason Stop Dose Admin Ceftriaxone Sodium 1 gm 08/29/19 11:31 08/29/19 11:56 Rocephin IVPUSH 08/29/19 11:32 1 gm ONETIME ONE Administration Ondansetron HCl 4 mg 08/29/19 13:06 08/29/19 13:50 Zofran IVPUSH 08/29/19 13:07 Not Given ONETIME ONE Departure - Departure Time of Disposition: 13:30 Disposition: Admitted As Inpatient 65 Condition: Fair Clinical Impression: SOB (shortness of breath), Hypoxia Aspiration into airway Qualifiers: Encounter type: initial encounter Qualified Code(s): T17.908A - Unspecified foreign body in respiratory tract, part unspecified causing other injury, initial encounter Respiratory failure Qualifiers: Chronicity: acute Respiratory failure complication: hypoxia and hypercapnia Qualified Code(s): J96.01 - Acute respiratory failure with hypoxia; J96.02 - Acute respiratory failure with hypercapnia Syncopal episodes Qualifiers: Syncope type: vasovagal syncope Qualified Code(s): R55 - Syncope and collapse - Discharge Information *PRESCRIPTION DRUG MONITORING PROGRAM REVIEWED*: Not Applicable *COPY OF PRESCRIPTION DRUG MONITORING REPORT IN PATIENT ALLIE: Not Applicable Referrals: Mirtha Madera MD [Primary Care Provider] - Forms: ED Department Discharge - Problem List & Annotations (1) Congestive heart failure SNOMED Code(s): 78762496 Code(s): I50.9 - HEART FAILURE, UNSPECIFIED Status: Acute Current Visit: No Qualifiers: Heart failure type: unspecified Heart failure chronicity: acute on chronic Qualified Code(s): I50.9 - Heart failure, unspecified - My Orders Last 24 Hours: My Active Orders 08/29/19 10:53 Sodium Chloride 0.9% [Saline Flush] 10 ml FLUSH ASDIRECTED PRN Peripheral IV Insertion Adult [OM.PC] Stat 08/29/19 12:26 Head wo Cont [CT] Stat 08/29/19 13:06 Oxygen Therapy [RC] ASDIRECTED - Assessment/Plan Last 24 Hours: My Active Orders 08/29/19 10:53 Sodium Chloride 0.9% [Saline Flush] 10 ml FLUSH ASDIRECTED PRN Peripheral IV Insertion Adult [OM.PC] Stat 08/29/19 12:26 Head wo Cont [CT] Stat 08/29/19 13:06 Oxygen Therapy [RC] ASDIRECTED Assessment:: 1. Respiratory distress/failure 2. Syncopal episode 3. Vasovagal response 4. Aspiration 5. Hypoxia Plan: 1. Labs completed in the ER. Results reviewed with patient and family 2. EKG completed by EMS 3. Chest x-ray completed in the ER 4. Oxygen therapy provided to keep oxygen saturations greater than 92% 5. After talking with the on-call detention provider in discussing with family events leading up to the incident are inconsistent. The patient is also repeating himself which is not a normal finding. A CT scan of the head without contrast was ordered. The patient was over in the CT scanner he ended up vomiting. CT results were delayed and not received until 6. Zofran IV ordered in the emergency department for nausea and vomiting 7. Contact was made with the on-call hospitalist DR. Yeager who agrees to admit the patient as acute care admission 8. Patient will be admitted to medical floor. Patient family updated 9. All questions and concerns addressed prior to patient's admission
[2019-08-29] MEDS ORDERED: Ondansetron 4 MG/2 ML SDV IVPUSH ONE (13:06)
--- NOTE | 2019-08-29 14:18 | CT ---
[id number] CT/CT Head WO IV EXAM: CT Head WO IV CLINICAL DATA: FALL. COMPARISON STUDY: January 2019. FINDINGS: No intracranial hemorrhage, extra-axial fluid collection, mass, or acute ischemia. Moderate changes of chronic small vessel disease. Paranasal sinuses and mastoid air cells are clear. IMPRESSION: No acute intracranial findings. Kyle Franco MD 08/29/19 0456 Thank you for allowing us to participate in the care of your patient.
--- NOTE | 2019-08-29 15:23 | PCM.HP.2 ---
H&P History of Present Illness - General Date of Service: 08/29/19 Admit Problem/Dx: Admission Diagnosis/Problem Admission Diagnosis/Problem Respiratory distress Source of Information: Patient, EMS, Family, Detention Records, Provider History Limitations: Reports: Altered Mental Status (patient has dementia) - History of Present Illness Initial Comments - Free Text/Narative: Mr. Spain is an 84 yo male who presented to the ER for evaluation due to an [facility]. The patient does not recall the events and there are conflicting reports received from the [facility]. I was called by staff at 9:30 this morning that they had found the patient unresponsive and "garcia." They were requesting the ok for transfer to the ER, which was given. Per additional report given to EMS and to ER staff, the patient was being assisted to the restroom by an aid when he suddenly had a syncopal event. He has a history of having syncopal events with bowel movements so this is not unusual. He was helped to the floor. After he became unconscious , he vomited and subsequently inhaled his emesis. Thus, even when he awoke, he was hypoxic and short of breath. Upon initial ER presentation, he was requiring non-breather to maintain oxygenation but he has since been weaned to nasal cannula. He is not on oxygen at baseline. The patient is not able to give any additional history to what is noted above. He does currently complain of chest pressure, rating this at 5/10. Nursing staff note that this is common for him. He has also been coughing and has been short of breath. It is unclear whether this preceded the aspiration event or not. He has not recently had any fever, chills, or URI symptoms. Up until today , he has been eating and drinking fine as well as acting like his normal self. He has intermittent diarrhea at baseline, which has continued. He has mild abdominal pain at baseline, which is also present. Notably, he was seen in the ER yesterday for evaluation of chest pain. His work- up was unremarkable apart from a presumed CHF exacerbation. His lasix dose was increased and he was discharged back to the [facility] as he was not requiring any supplemental oxygen at that time. - Related Data Allergies/Adverse Reactions: Allergies Allergy/AdvReac Type Severity Reaction Status Date / Time metal Allergy Irritabilit Uncoded 06/18/19 14:08 y Home Medications: Home Meds Lisinopril [Prinivil] 2.5 mg PO DAILY 11/19/13 [History] Omeprazole Magnesium [Prilosec Otc] 20 mg PO DAILY 02/25/17 [History] Triamcinolone Acetonide [Triamcinolone Acetonide 0.5%] 1 applic TOP BID PRN [History] Cholecalciferol (Vitamin D3) [Vitamin D3] 2,000 unit PO DAILY 11/02/18 [History] Cyanocobalamin (Vitamin B-12) [Vitamin B-12] 1,000 mcg PO DAILY 11/03/18 [ History] Docusate Sodium [Colace] 100 mg PO DAILY PRN 01/27/19 [History] Donepezil HCl [Aricept] 10 mg PO DAILY 01/27/19 [History] predniSONE 5 mg PO DAILY 01/27/19 [History] Acetaminophen [Tylenol] 650 mg PO Q4H PRN tablet 01/30/19 [Rx] Melatonin 3 mg PO BEDTIME 04/25/19 [History] Tamsulosin HCl [Flomax] 0.4 mg PO DAILY 04/25/19 [History] clonazePAM [Clonazepam] 0.25 mg PO DAILY 04/27/19 [History] Albuterol/Ipratropium [DuoNeb 3.0-0.5 MG/3 ML] 3 ml NEB TID PRN #60 neb [Rx] Isosorbide Mononitrate [Imdur] 30 mg PO DAILY #30 tab.er 04/28/19 [Rx] Magnesium Chloride [Mag-64] 64 mg PO DAILY #30 tab.er 04/28/19 [Rx] Metoprolol Succinate [Toprol XL] 25 mg PO DAILY #30 tab.er 04/28/19 [Rx] Potassium Chloride [Klor-Con 10] 10 meq PO DAILY #30 tab.er 04/28/19 [Rx] Furosemide [Lasix] 20 mg PO DAILY #2 tab 08/28/19 [Rx] Aspirin 81 mg PO DAILY 08/29/19 [History] Calcium Carbonate [Tums Extra Strength] 750 mg PO BID PRN 08/29/19 [History] Docusate Sodium 100 mg PO DAILY 08/29/19 [History] Furosemide [Lasix] 20 mg PO DAILY 08/29/19 [History] Hydroxychloroquine Sulfate [Plaquenil] 200 mg PO DAILY 08/29/19 [History] Levothyroxine [Synthroid] 50 mcg PO ACBREAKFAST 08/29/19 [History] Methyl Salicylate/Menthol [Bengay Greaseless Cream] 1 applic TP Q4HR PRN [History] Oxybutynin 5 mg PO DAILY 08/29/19 [History] Simvastatin 10 mg PO DAILY 08/29/19 [History] busPIRone [Buspar] 10 mg PO BID 08/29/19 [History] guaiFENesin/Dextromethorphan [Guaifenesin-Dm 100-10 mg/5 ml] 10 ml PO Q4HR PRN 08/29/19 [History] Past Medical History HEENT History: Reports: Hard of Hearing Cardiovascular History: Reports: CAD, Heart Failure, High Cholesterol, Hypertension, SD, Other (See Below) Other Cardiovascular History: 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 vertebral artery aneurysm Respiratory History: Reports: Other (See Below) Other Respiratory History: lung nodule Gastrointestinal History: Reports: GERD, Hiatal Hernia Genitourinary History: Reports: None Musculoskeletal History: Reports: Osteoarthritis, RA, Other (See Below) Other Musculoskeletal History: bursitis of left shoulder, arthralgia of both hands, cervical disc disease, osteoarthritis of ankle Neurological History: Reports: Neuropathy, Peripheral, Vertigo, Other (See Below ) Other Neuro History: restless legs. cognitive impairment Psychiatric History: Reports: Anxiety Endocrine/Metabolic History: Reports: Hypothyroidism, Other (See Below) Other Endocrine/Metabolic History: hyperglycemia Hematologic History: Reports: B12 Deficiency - Past Surgical History Cardiovascular Surgical History: Reports: Other (See Below) Other Cardiovascular Surgeries/Procedures: coronary balloon angioplasty GI Surgical History: Reports: Cholecystectomy, Hernia Repair/Other Social & Family History - Family History Family Medical History: Unobtainable - Tobacco Use Smoking Status *Q: Former Smoker Years of Tobacco use: 20 Used Tobacco, but Quit: Yes Month/Year Tobacco Last Used: 1959 Second Hand Smoke Exposure: No - Caffeine Use Caffeine Use: Reports: Coffee - Alcohol Use Alcohol Use History: No Alcohol Use in Last Twelve Months: No - Recreational Drug Use Recreational Drug Use: No - Living Situation & Occupation Living situation: Reports: , Extended Care Facility Occupation: Retired H&P Review of Systems - Review of Systems: Review Of Systems: Unable To Obtain Reason Not Obtained: cognitive impairment at baseline-patient not a reliable historian Exam - Exam Exam: See Below - Vital Signs Vital Signs: Last Vital Signs Temp 36.6 C 08/29/19 14:57 Pulse 88 08/29/19 14:57 Resp 17 08/29/19 14:57 BP 138/67 08/29/19 14:57 Pulse Ox 88 L 08/29/19 14:57 Weight: 73.936 kg - Exam General: Alert, Cooperative HEENT: Conjunctiva Clear, Mucosa Moist & [place], Posterior Pharynx Clear, Pupils Equal, Pupils Reactive Neck: Supple, Trachea Midline. No: Lymphadenopathy, Thyromegaly Lungs: Clear to Auscultation, Normal Respiratory Effort Cardiovascular: Regular Rate, Regular Rhythm, Normal S1, Normal S2 GI/Abdominal Exam: Normal Bowel Sounds, Soft, Non-Tender, No Organomegaly, No Distention, No Mass Extremities: Non-Tender, No Pedal Edema, Normal Capillary Refill Peripheral Pulses: 2+: Radial (L), Radial (R) Skin: Warm, Dry, Intact Neurological: Cranial Nerves Intact, Strength Equal Bilateral, Normal Speech, Sensation Intact - Patient Data Lab Results Last 24 hrs: Laboratory Results - last 24 hr 08/29/19 08/29/19 Range/Units 11:03 11:03 WBC 9.5 (4.0-10.0) x10^3/uL RBC 4.54 (4.5-6.0) x10^6/uL Hgb 13.4 L (14.0-18.0) g/dL Hct 41.0 (40.0-52.0) % MCV 90.3 (78.0-93.0) fL MCH 29.5 (26.0-32.0) pg MCHC 32.7 (32.0-36.0) g/dL RDW Coeff of Phyllis 13.5 (10.0-15.0) % Plt Count 182 (130-400) x10^3/uL Neut % (Auto) 74.1 (50.0-80.0) % Lymph % (Auto) 20.0 L (25.0-50.0) % [place] % (Auto) 4.4 (2.0-11.0) % Eos % (Auto) 1.1 (0.0-4.0) % Baso % (Auto) 0.4 (0.2-1.2) % Sodium 143 (136-145) mmol/L Potassium 4.1 (3.5-5.1) mmol/L Chloride 106 (98-107) mmol/L Carbon Dioxide 25 (21-32) mmol/L Anion Gap 16.1 (10-20) mmol/L BUN 21 H (7-18) mg/dL Creatinine 1.2 (0.70-1.30) mg/dL Est Cr Clr Drug Dosing TNP Estimated GFR (MDRD) 58 Glucose 152 H (74-106) mg/dL Calcium 8.2 L (8.5-10.1) mg/dL Corrected Calcium 9.00 (8.5-10.1) mg/dL Total Bilirubin 0.5 (0.2-1.0) mg/dL AST 18 (15-37) U/L ALT 17 (16-63) U/L Alkaline Phosphatase 68 (46-116) U/L Troponin I < 0.017 (<=0.056) ng/mL NT-Pro-B Natriuret Pep 1675 H (<=450) pg/mL Total Protein 6.7 (6.4-8.2) g/dL Albumin 3.0 L (3.4-5.0) g/dL Globulin 3.7 Albumin/Globulin Ratio 0.81 Result Diagrams: 08/29/19 11:03 08/29/19 11:03 - Problem List (1) Respiratory failure SNOMED Code(s): 659599459 ICD Code: J96.90 - RESPIRATORY FAILURE, UNSP, UNSP W HYPOXIA OR HYPERCAPNIA Status: Acute Current Visit: Yes Qualifiers: Chronicity: acute Respiratory failure complication: hypoxia Qualified Code(s): J96.01 - Acute respiratory failure with hypoxia (2) Aspiration into airway SNOMED Code(s): 422004594 ICD Code: T17.908A - UNSP FB IN RESP TRACT, PART UNSP CAUSING OTH INJURY, INIT Status: Acute Current Visit: Yes Qualifiers: Encounter type: initial encounter Qualified Code(s): T17.908A - Unspecified foreign body in respiratory tract, part unspecified causing other injury, initial encounter (3) Syncopal episodes SNOMED Code(s): 903620972 ICD Code: R55 - SYNCOPE AND COLLAPSE Status: Chronic Current Visit: Yes Qualifiers: Syncope type: vasovagal syncope Qualified Code(s): R55 - Syncope and collapse (4) Congestive heart failure SNOMED Code(s): 97401506 ICD Code: I50.9 - HEART FAILURE, UNSPECIFIED Status: Acute Current Visit : No Qualifiers: Heart failure type: diastolic Heart failure chronicity: acute on chronic Qualified Code(s): I50.33 - Acute on chronic diastolic (congestive) heart failure (5) Coronary arteriosclerosis, CAD SNOMED Code(s): 55014548 ICD Code: I25.10 - ATHSCL HEART DISEASE OF [place] CORONARY ARTERY W/O ANG PCTRS Status: Chronic Priority: High Current Visit: No (6) Non-cardiac chest pain SNOMED Code(s): 132852450 ICD Code: R07.89 - OTHER CHEST PAIN Status: Acute Current Visit: No (7) Hyperlipidemia SNOMED Code(s): 04157083 ICD Code: E78.5 - HYPERLIPIDEMIA, UNSPECIFIED Status: Chronic Current Visit: Yes Qualifiers: Hyperlipidemia type: unspecified Qualified Code(s): E78.5 - Hyperlipidemia , unspecified (8) B12 deficiency SNOMED Code(s): 559855822 ICD Code: E53.8 - DEFICIENCY OF OTHER SPECIFIED B GROUP VITAMINS Status: Chronic Current Visit: Yes (9) Mild cognitive disorder SNOMED Code(s): 874810983 ICD Code: F09 - UNSP MENTAL DISORDER DUE TO KNOWN PHYSIOLOGICAL CONDITION Status: Chronic Current Visit: Yes (10) BPH (benign prostatic hyperplasia) SNOMED Code(s): 646133981 ICD Code: N40.0 - BENIGN PROSTATIC HYPERPLASIA WITHOUT LOWER URINRY TRACT SYMP Status: Chronic Current Visit: Yes Qualifiers: Lower urinary tract symptom presence: symptoms present Lower urinary tract symptom detail: unspecified Qualified Code(s): N40.1 - Benign prostatic hyperplasia with lower urinary tract symptoms (11) Anxiety disorder SNOMED Code(s): 569971375 ICD Code: F41.9 - ANXIETY DISORDER, UNSPECIFIED Status: Chronic Priority : Low Current Visit: No (12) HTN, Benign essential hypertension SNOMED Code(s): 0421414 ICD Code: I10 - ESSENTIAL (PRIMARY) HYPERTENSION Status: Chronic Priority : Medium Current Visit: No (13) Hypothyroidism SNOMED Code(s): 37311313 ICD Code: E03.9 - HYPOTHYROIDISM, UNSPECIFIED Status: Chronic Priority: Medium Current Visit: No (14) Restless legs SNOMED Code(s): 62171080 ICD Code: G25.81 - RESTLESS LEGS SYNDROME Status: Chronic Priority: Low Current Visit: No (15) Rheumatoid arthritis SNOMED Code(s): 38739411 ICD Code: M06.9 - RHEUMATOID ARTHRITIS, UNSPECIFIED Status: Chronic Current Visit: No Problem Details: Just diagnosed 10/15/18 Problem List Initiated/Reviewed/Updated: Yes Orders Last 24hrs: Active Orders 24 hr Category Date Time Status Admission Status [Patient Status] [ADT] Routine ADT 08/29/19 14:21 Active Notify Provider Vital Signs [RC] ASDIRECTED Care 08/29/19 15:22 Ordered Oxygen Therapy [RC] 08,20 Care 08/29/19 13:06 Active Oxygen Therapy [RC] PRN Care 08/29/19 15:22 Ordered Up With Assistance [RC] ASDIRECTED Care 08/29/19 15:21 Ordered VTE/DVT Education [RC] PER UNIT ROUTINE Care 08/29/19 15:22 Ordered Vital Signs [RC] Q4H Care 08/29/19 15:22 Ordered Regular Diet [DIET] Diet 08/29/19 Dinner Ordered CULTURE MRSA SURVEY [RM] Routine Lab 08/29/19 14:40 Ordered TROPONIN I [CHEM] Stat Lab 08/29/19 15:21 Ordered Enoxaparin [Lovenox] Med 08/30/19 08:00 Ordered 40 mg SUBCUT DAILY Sodium Chloride 0.9% [Saline Flush] Med 08/29/19 10:53 Active 10 ml FLUSH ASDIRECTED PRN Peripheral IV Insertion Adult [OM.PC] Stat Oth 08/29/19 10:53 Ordered Resuscitation Status Routine Resus Stat 08/29/19 15:21 Ordered Medication Orders Sodium Chloride (Saline Flush) 10 ml FLUSH ASDIRECTED PRN PRN Reason: Keep Vein Open Assessment/Plan Comment:: 84 yo male admitted with hypoxic respiratory failure secondary to an aspiration event following a syncopal episode. #1 Acute hypoxic respiratory failure, secondary to #2 #2 Aspiration pneumonitis - Acute aspiration occurred reportedly in witness of the SNF staff. - No indication for antibiotics given this would not be infectious at this point and CXR is normal. Will monitor WBC and CRP daily; if increasing, will consider indication for antibiotics. - Supportive cares to include respiratory support PRN. Will wean oxygen as able. #3 Syncope - Recurrent h/o the same and felt to be vasovagal as recurrently related to bowel movements. - Ruling out ACS as below. - Will have him on telemetry for 24-48 hours to monitor for any arrhythmia. #4 CHF - BNP is up today from yesterday but he has no leg swelling. - Will continue lasix BID for now. - Recheck labs in the am. #5 CAD #6 Non-cardiac chest pain - Current chest pain more likely to be from the pneumonitis and/or anxiety rather than ACS. No pneumonia seen on CXR. - EKG done upon arrival to the floor without acute findings. - Troponin repeated and also still negative. - Will monitor for now. - Continue home medications. #7 Hyperlipidemia #8 B12 deficiency #9 Mild cognitive impairment #10 BPH #11 Anxiety #12 HTN #13 Hypothyroidism #14 RLS #15 RA - Continue home medications apart from his vitamins. Patient will be admitted to acute care as it is anticipated he will stay >2 nights with the above problems. See details under problems above. Will recheck labs in the am. Code status is full - discussed with the patient on admission. Friends at bedside note his daughter is POA but mainly defers to patient for decision making. Lovenox for VTE prophylaxis.
[2019-08-29] MEDS ORDERED: Albuterol/Ipratropium 3.0-0.5 MG/3 ML Neb Soln NEB PRN (15:24)
[2019-08-29] MEDS ORDERED: Acetaminophen 325 MG Tab PO PRN (15:24)
[2019-08-29] MEDS ORDERED: Docusate Sodium 100 MG Cap PO PRN (15:24)
[2019-08-29] MEDS ORDERED: Calcium Carbonate 750 MG Tab.Chew PO PRN (15:24)
[2019-08-29] MEDS ORDERED: Lidocaine 4% 1 each Patch TOP PRN (15:24)
[2019-08-29] MEDS: Furosemide 20 MG Tab PO SCH (17:47)
[2019-08-29] MEDS: Melatonin 3 MG Tab PO SCH (19:39)
[2019-08-29] MEDS: busPIRone 15 MG Tab PO SCH (19:40)
[2019-08-30] MEDS: Levothyroxine 50 MCG Tab PO SCH (06:31)
[2019-08-30] MEDS: Magnesium Chloride 64 MG Tab.ER PO SCH (07:55)
[2019-08-30] MEDS: ClonazePAM 0.5 MG Tab PO SCH (07:55)
[2019-08-30] MEDS: Enoxaparin 40 MG/0.4 ML Syringe SUBCUT SCH (07:55)
[2019-08-30] MEDS ORDERED: Oxybutynin 5 MG Tab.ER PO SCH (08:00)
[2019-08-30] MEDS: Simvastatin 10 MG Tab PO SCH (08:03)
[2019-08-30] MEDS: Isosorbide Mononitrate 30 MG Tab.ER PO SCH (08:04)
[2019-08-30] MEDS: Omeprazole 20 MG Cap.CR PO SCH (08:04)
[2019-08-30] MEDS: Lisinopril 5 MG Tab PO SCH (08:04)
[2019-08-30] MEDS: Docusate Sodium 100 MG Cap PO SCH (08:04)
[2019-08-30] MEDS: Aspirin 81 MG Tab.Chew PO SCH (08:05)
[2019-08-30] MEDS: Potassium Chloride 10 MEQ Tab.ER PO SCH (08:05)
[2019-08-30] MEDS: busPIRone 15 MG Tab PO SCH ×2 (08:05→19:48)
[2019-08-30] MEDS: predniSONE 5 MG Tab PO SCH (08:06)
[2019-08-30] MEDS: Donepezil 10 MG Tab PO SCH (08:06)
[2019-08-30] MEDS: Furosemide 20 MG Tab PO SCH ×2 (08:06→15:32)
[2019-08-30] MEDS: Oxybutynin 5 MG Tab PO SCH (08:06)
[2019-08-30] MEDS: Metoprolol Succinate 25 MG Tab.ER PO SCH (08:07)
[2019-08-30] MEDS: Hydroxychloroquine 200 MG Tab PO SCH (08:07)
[2019-08-30] MEDS: Tamsulosin 0.4 MG Cap.ER PO SCH (08:08)
[2019-08-30 08:12] LABS: CHLORIDE,CL 107 mmol/L (98-107); SODIUM,NA 144 mmol/L (136-145)
[2019-08-30 08:14] LABS: ANION GAP 13.9 mmol/L (10-20)
--- NOTE | 2019-08-30 08:28 | PCM.PN ---
- General Info Date of Service: 08/30/19 Subjective Update: 84 yo male hospital day #2 admitted with respiratory failure secondary to aspiration pneumonitis. He states he feels the same today as yesterday. He has chest pain but only if he presses on his chest. He is still having shortness of breath and cough that he feels are about the same as yesterday. No fever or chills. Very anxious overnight. - Review of Systems General: Reports: No Symptoms HEENT: Reports: No Symptoms Pulmonary: Reports: Shortness of Breath, Cough Cardiovascular: Reports: Chest Pain Gastrointestinal: Reports: No Symptoms Genitourinary: Reports: No Symptoms Musculoskeletal: Reports: No Symptoms - Patient Data Vitals - Most Recent: Last Vital Signs Temp 36.4 C 08/30/19 03:20 Pulse 71 08/30/19 08:07 Resp 18 08/30/19 03:20 BP 146/74 H 08/30/19 08:07 Pulse Ox 90 L 08/30/19 03:20 Weight - Most Recent: 73.936 kg I&O - Last 24 Hours: Intake & Output 08/29/19 08/30/19 08/30/19 22:59 06:59 14:59 Output Total 400 600 Balance -400 -600 Lab Results Last 24 Hours: Laboratory Results - last 24 hr 08/29/19 08/29/19 08/29/19 Range/Units 11:03 11:03 15:35 WBC 9.5 (4.0-10.0) x10^3/uL RBC 4.54 (4.5-6.0) x10^6/uL Hgb 13.4 L (14.0-18.0) g/dL Hct 41.0 (40.0-52.0) % MCV 90.3 (78.0-93.0) fL MCH 29.5 (26.0-32.0) pg MCHC 32.7 (32.0-36.0) g/dL RDW Coeff of Phyllis 13.5 (10.0-15.0) % Plt Count 182 (130-400) x10^3/uL Neut % (Auto) 74.1 (50.0-80.0) % Lymph % (Auto) 20.0 L (25.0-50.0) % [place] % (Auto) 4.4 (2.0-11.0) % Eos % (Auto) 1.1 (0.0-4.0) % Baso % (Auto) 0.4 (0.2-1.2) % Sodium 143 (136-145) mmol/L Potassium 4.1 (3.5-5.1) mmol/L Chloride 106 (98-107) mmol/L Carbon Dioxide 25 (21-32) mmol/L Anion Gap 16.1 (10-20) mmol/L BUN 21 H (7-18) mg/dL Creatinine 1.2 (0.70-1.30) mg/dL Est Cr Clr Drug Dosing TNP Estimated GFR (MDRD) 58 Glucose 152 H (74-106) mg/dL Calcium 8.2 L (8.5-10.1) mg/dL Corrected Calcium 9.00 (8.5-10.1) mg/dL Total Bilirubin 0.5 (0.2-1.0) mg/dL AST 18 (15-37) U/L ALT 17 (16-63) U/L Alkaline Phosphatase 68 (46-116) U/L Troponin I < 0.017 < 0.017 (<=0.056) ng/mL C-Reactive Protein (<=0.9) mg/dL NT-Pro-B Natriuret Pep 1675 H (<=450) pg/mL Total Protein 6.7 (6.4-8.2) g/dL Albumin 3.0 L (3.4-5.0) g/dL Globulin 3.7 Albumin/Globulin Ratio 0.81 08/30/19 08/30/19 Range/Units 07:20 07:20 WBC 8.5 (4.0-10.0) x10^3/uL RBC 4.21 L (4.5-6.0) x10^6/uL Hgb 12.6 L (14.0-18.0) g/dL Hct 37.9 L (40.0-52.0) % MCV 90.0 (78.0-93.0) fL MCH 29.9 (26.0-32.0) pg MCHC 33.2 (32.0-36.0) g/dL RDW Coeff of Phyllis 13.6 (10.0-15.0) % Plt Count 161 (130-400) x10^3/uL Neut % (Auto) 79.0 (50.0-80.0) % Lymph % (Auto) 13.1 L (25.0-50.0) % [place] % (Auto) 6.9 (2.0-11.0) % Eos % (Auto) 0.6 (0.0-4.0) % Baso % (Auto) 0.4 (0.2-1.2) % Sodium 144 (136-145) mmol/L Potassium 3.9 (3.5-5.1) mmol/L Chloride 107 (98-107) mmol/L Carbon Dioxide 27 (21-32) mmol/L Anion Gap 13.9 (10-20) mmol/L BUN 20 H (7-18) mg/dL Creatinine 1.0 (0.70-1.30) mg/dL Est Cr Clr Drug Dosing 56.48 Estimated GFR (MDRD) > 60 Glucose 103 (74-106) mg/dL Calcium 8.2 L (8.5-10.1) mg/dL Corrected Calcium (8.5-10.1) mg/dL Total Bilirubin (0.2-1.0) mg/dL AST (15-37) U/L ALT (16-63) U/L Alkaline Phosphatase (46-116) U/L Troponin I (<=0.056) ng/mL C-Reactive Protein 11.6 H (<=0.9) mg/dL NT-Pro-B Natriuret Pep (<=450) pg/mL Total Protein (6.4-8.2) g/dL Albumin (3.4-5.0) g/dL Globulin Albumin/Globulin Ratio Med Orders - Current: Current Medications Acetaminophen (Tylenol) 650 mg PO Q4H PRN PRN Reason: Pain (Mild 1-3)/fever Albuterol/Ipratropium (Duoneb 3.0-0.5 Mg/3 Ml) 3 ml NEB TID PRN PRN Reason: Cough Aspirin (Aspirin) 81 mg PO DAILY [facility] Last Admin: 08/30/19 08:05 Dose: 81 mg Buspirone HCl (Buspar) 10 mg PO BID [facility] Last Admin: 08/30/19 08:05 Dose: 10 mg Calcium Carbonate/Glycine (Tums Extra Strength) 750 mg PO BID PRN PRN Reason: GI distress Clonazepam (Klonopin) 0.25 mg PO DAILY [facility] Last Admin: 08/30/19 07:55 Dose: 0.25 mg Docusate Sodium (Colace) 100 mg PO DAILY PRN PRN Reason: Constipation Docusate Sodium (Colace) 100 mg PO DAILY [facility] Last Admin: 08/30/19 08:04 Dose: 100 mg Donepezil HCl (Aricept) 10 mg PO DAILY [facility] Last Admin: 08/30/19 08:06 Dose: 10 mg Enoxaparin Sodium (Lovenox) 40 mg SUBCUT DAILY [facility] Last Admin: 08/30/19 07:55 Dose: 40 mg Furosemide (Lasix) 20 mg PO BIDDIURETIC [facility] Last Admin: 08/30/19 08:06 Dose: 20 mg Hydroxychloroquine Sulfate (Plaquenil) 200 mg PO DAILY [facility] Last Admin: 08/30/19 08:07 Dose: 200 mg Isosorbide Mononitrate (Imdur) 30 mg PO DAILY [facility] Last Admin: 08/30/19 08:04 Dose: 30 mg Levothyroxine Sodium (Synthroid) 50 mcg PO ACBREAKFAST [facility] Last Admin: 08/30/19 06:31 Dose: 50 mcg Lidocaine (Aspercreme 4%) 1 each TOP Q12H PRN PRN Reason: Pain Lisinopril (Prinivil) 2.5 mg PO DAILY [facility] Last Admin: 08/30/19 08:04 Dose: 2.5 mg Magnesium Chloride (Mag-64) 64 mg PO DAILY [facility] Last Admin: 08/30/19 07:55 Dose: 64 mg Melatonin (Melatonin) 3 mg PO BEDTIME [facility] Last Admin: 08/29/19 19:39 Dose: 3 mg Metoprolol Succinate (Toprol Xl) 25 mg PO DAILY [facility] Last Admin: 08/30/19 08:07 Dose: 25 mg Omeprazole (Omeprazole) 20 mg PO DAILY [facility] Last Admin: 08/30/19 08:04 Dose: 20 mg Oxybutynin Chloride (Oxybutynin) 5 mg PO DAILY [facility] Last Admin: 08/30/19 08:06 Dose: 5 mg Potassium Chloride (Klor-Con 10) 10 meq PO DAILY [facility] Last Admin: 08/30/19 08:05 Dose: 10 meq Prednisone (Prednisone) 5 mg PO DAILY [facility] Last Admin: 08/30/19 08:06 Dose: 5 mg Simvastatin (Zocor) 10 mg PO DAILY [facility] Last Admin: 08/30/19 08:03 Dose: 10 mg Sodium Chloride (Saline Flush) 10 ml FLUSH ASDIRECTED PRN PRN Reason: Keep Vein Open Tamsulosin HCl (Flomax) 0.4 mg PO DAILY [facility] Last Admin: 08/30/19 08:08 Dose: 0.4 mg Discontinued Medications Ceftriaxone Sodium (Rocephin) 1 gm IVPUSH ONETIME ONE Stop: 08/29/19 11:32 Last Admin: 08/29/19 11:56 Dose: 1 gm Ondansetron HCl (Zofran) 4 mg IVPUSH ONETIME ONE Stop: 08/29/19 13:07 Last Admin: 08/29/19 13:50 Dose: Not Given - Exam General: Alert, Cooperative, No Acute Distress HEENT: Pupils Equal, Pupils Reactive, Mucous Membr. Moist/[place] Neck: Supple, Trachea Midline, No Thyromegaly. No: Lymphadenopathy Lungs: Clear to Auscultation, Normal Respiratory Effort Cardiovascular: Regular Rate, Regular Rhythm, No Murmurs GI/Abdominal Exam: Normal Bowel Sounds, Soft, Non-Tender, No Organomegaly, No Distention, No Mass Extremities: Non-Tender, No Pedal Edema, Normal Capillary Refill Peripheral Pulses: 2+: Radial (L), Radial (R) Skin: Warm, Dry, Intact - Problem List & Annotations (1) Respiratory failure SNOMED Code(s): 004984754 Code(s): J96.90 - RESPIRATORY FAILURE, UNSP, UNSP W HYPOXIA OR HYPERCAPNIA Status: Acute Current Visit: Yes Qualifiers: Chronicity: acute Respiratory failure complication: hypoxia Qualified Code(s): J96.01 - Acute respiratory failure with hypoxia (2) Aspiration into airway SNOMED Code(s): 035430564 Code(s): T17.908A - UNSP FB IN RESP TRACT, PART UNSP CAUSING OTH INJURY, INIT Status: Acute Current Visit: Yes Qualifiers: Encounter type: initial encounter Qualified Code(s): T17.908A - Unspecified foreign body in respiratory tract, part unspecified causing other injury, initial encounter (3) Syncopal episodes SNOMED Code(s): 198214332 Code(s): R55 - SYNCOPE AND COLLAPSE Status: Chronic Current Visit: Yes Qualifiers: Syncope type: vasovagal syncope Qualified Code(s): R55 - Syncope and collapse (4) Congestive heart failure SNOMED Code(s): 60470335 Code(s): I50.9 - HEART FAILURE, UNSPECIFIED Status: Acute Current Visit: No Qualifiers: Heart failure type: diastolic Heart failure chronicity: acute on chronic Qualified Code(s): I50.33 - Acute on chronic diastolic (congestive) heart failure (5) Coronary arteriosclerosis, CAD SNOMED Code(s): 45331146 Code(s): I25.10 - ATHSCL HEART DISEASE OF [place] CORONARY ARTERY W/O ANG PCTRS Status: Chronic Priority: High Current Visit: No (6) Non-cardiac chest pain SNOMED Code(s): 013313844 Code(s): R07.89 - OTHER CHEST PAIN Status: Acute Current Visit: No (7) Hyperlipidemia SNOMED Code(s): 48078954 Code(s): E78.5 - HYPERLIPIDEMIA, UNSPECIFIED Status: Chronic Current Visit: Yes Qualifiers: Hyperlipidemia type: unspecified Qualified Code(s): E78.5 - Hyperlipidemia , unspecified (8) B12 deficiency SNOMED Code(s): 715115546 Code(s): E53.8 - DEFICIENCY OF OTHER SPECIFIED B GROUP VITAMINS Status: Chronic Current Visit: Yes (9) Mild cognitive disorder SNOMED Code(s): 350669679 Code(s): F09 - UNSP MENTAL DISORDER DUE TO KNOWN PHYSIOLOGICAL CONDITION Status: Chronic Current Visit: Yes (10) BPH (benign prostatic hyperplasia) SNOMED Code(s): 682931932 Code(s): N40.0 - BENIGN PROSTATIC HYPERPLASIA WITHOUT LOWER URINRY TRACT SYMP Status: Chronic Current Visit: Yes Qualifiers: Lower urinary tract symptom presence: symptoms present Lower urinary tract symptom detail: unspecified Qualified Code(s): N40.1 - Benign prostatic hyperplasia with lower urinary tract symptoms (11) Anxiety disorder SNOMED Code(s): 093874849 Code(s): F41.9 - ANXIETY DISORDER, UNSPECIFIED Status: Chronic Priority: Low Current Visit: No (12) HTN, Benign essential hypertension SNOMED Code(s): 8643748 Code(s): I10 - ESSENTIAL (PRIMARY) HYPERTENSION Status: Chronic Priority : Medium Current Visit: No (13) Hypothyroidism SNOMED Code(s): 51570966 Code(s): E03.9 - HYPOTHYROIDISM, UNSPECIFIED Status: Chronic Priority: Medium Current Visit: No (14) Restless legs SNOMED Code(s): 55616590 Code(s): G25.81 - RESTLESS LEGS SYNDROME Status: Chronic Priority: Low Current Visit: No (15) Rheumatoid arthritis SNOMED Code(s): 68043286 Code(s): M06.9 - RHEUMATOID ARTHRITIS, UNSPECIFIED Status: Chronic Current Visit: No Annotation/Comment:: Just diagnosed 10/15/18 - Problem List Review Problem List Initiated/Reviewed/Updated: Yes - My Orders Last 24 Hours: My Active Orders 08/29/19 14:40 CULTURE MRSA SURVEY [RM] Routine 08/29/19 15:21 Up With Assistance [RC] 08,20 Resuscitation Status Routine 08/29/19 15:22 Notify Provider Vital Signs [RC] 06,10,14,18,22,02 Oxygen Therapy [RC] PRN Vital Signs [RC] 06,10,14,18,22,02 08/29/19 15:24 Acetaminophen [Tylenol] 650 mg PO Q4H PRN Albuterol/Ipratropium [DuoNeb 3.0-0.5 MG/3 ML] 3 ml NEB TID PRN Calcium Carbonate [Tums Extra Strength] 750 mg PO BID PRN Docusate Sodium [Colace] 100 mg PO DAILY PRN Lidocaine 4% [Aspercreme 4%] 1 each TOP Q12H PRN 08/29/19 16:00 Furosemide [Lasix] 20 mg PO BIDDIURETIC 08/29/19 18:13 Telemetry Monitoring [Cardiac Monitoring] [RC] 02,06,10,14,18,22 08/29/19 20:00 Melatonin 3 mg PO BEDTIME busPIRone [Buspar] 10 mg PO BID 08/29/19 Dinner Regular Diet [DIET] 08/30/19 07:00 Levothyroxine [Synthroid] 50 mcg PO ACBREAKFAST 08/30/19 08:00 Aspirin 81 mg PO DAILY ClonazePAM [KlonoPIN] 0.25 mg PO DAILY Docusate Sodium [Colace] 100 mg PO DAILY Donepezil [Aricept] 10 mg PO DAILY Enoxaparin [Lovenox] 40 mg SUBCUT DAILY Hydroxychloroquine [Plaquenil] 200 mg PO DAILY Isosorbide Mononitrate [Imdur] 30 mg PO DAILY Lisinopril [Prinivil] 2.5 mg PO DAILY Magnesium Chloride [Mag-64] 64 mg PO DAILY Metoprolol Succinate [Toprol XL] 25 mg PO DAILY Omeprazole 20 mg PO DAILY Oxybutynin 5 mg PO DAILY Potassium Chloride [Klor-Con 10] 10 meq PO DAILY Simvastatin [Zocor] 10 mg PO DAILY Tamsulosin [Flomax] 0.4 mg PO DAILY predniSONE 5 mg PO DAILY - Assessment Assessment:: 84 yo male admitted with respiratory failure secondary to aspiration pneumonitis. Labs are stable. He feels about the same today as yesterday but has had no respiratory decompensation. - Plan Plan:: #1 Acute hypoxic respiratory failure, secondary to #2 #2 Aspiration pneumonitis - WBC remains normal and CRP is only mildly elevated. - Therefore, will continue to hold off on antibiotics at this time. - Will wean oxygen as able today. #3 Syncope - Recurrent h/o the same and felt to be vasovagal as recurrently related to bowel movements. - No other cause suspected based on history and evaluation to this point. - Will continue telemetry until tomorrow. #4 CHF - BNP not rechecked today. No clinical evidence of significant heart failure. - Will continue lasix BID for now. - Recheck labs including BNP in the am. - Then further decisions can be made regarding his lasix. #5 CAD #6 Non-cardiac chest pain - ACS ruled out on admission. - Chest pain now only with palpation, which is consistent with his known chronic chest wall pain. - Will monitor for now. - Continue home medications. #7 Hyperlipidemia #8 B12 deficiency #9 Mild cognitive impairment #10 BPH #11 Anxiety #12 HTN #13 Hypothyroidism #14 RLS #15 RA - Continue home medications apart from his vitamins. Patient will remain on acute care today - anticipate d/c back to the care center early this week. See details under problems above. Will recheck labs in the am. Code status is full - discussed with the patient on admission. Lovenox for VTE prophylaxis.
[2019-08-30] MEDS: Melatonin 3 MG Tab PO SCH (19:48)
[2019-08-31] MEDS: Levothyroxine 50 MCG Tab PO SCH (06:24)
[2019-08-31 07:37] LABS: CHLORIDE,CL 106 mmol/L (98-107); SODIUM,NA 143 mmol/L (136-145)
[2019-08-31] MEDS: Donepezil 10 MG Tab PO SCH (08:05)
[2019-08-31] MEDS: Magnesium Chloride 64 MG Tab.ER PO SCH (08:05)
[2019-08-31] MEDS: Potassium Chloride 10 MEQ Tab.ER PO SCH (08:05)
[2019-08-31] MEDS: Hydroxychloroquine 200 MG Tab PO SCH (08:05)
[2019-08-31] MEDS: Isosorbide Mononitrate 30 MG Tab.ER PO SCH (08:05)
[2019-08-31] MEDS: ClonazePAM 0.5 MG Tab PO SCH (08:06)
[2019-08-31] MEDS: Furosemide 20 MG Tab PO SCH ×2 (08:06→15:13)
[2019-08-31] MEDS: Simvastatin 10 MG Tab PO SCH (08:06)
[2019-08-31] MEDS: Lisinopril 5 MG Tab PO SCH (08:06)
[2019-08-31] MEDS: Docusate Sodium 100 MG Cap PO SCH (08:06)
[2019-08-31] MEDS: Oxybutynin 5 MG Tab PO SCH (08:06)
[2019-08-31] MEDS: Omeprazole 20 MG Cap.CR PO SCH (08:06)
[2019-08-31] MEDS: predniSONE 5 MG Tab PO SCH (08:06)
[2019-08-31] MEDS: Tamsulosin 0.4 MG Cap.ER PO SCH (08:06)
[2019-08-31] MEDS: Metoprolol Succinate 25 MG Tab.ER PO SCH (08:06)
[2019-08-31] MEDS: busPIRone 15 MG Tab PO SCH (08:07)
[2019-08-31] MEDS: Aspirin 81 MG Tab.Chew PO SCH (08:07)
[2019-08-31] MEDS: Enoxaparin 40 MG/0.4 ML Syringe SUBCUT SCH (08:07)
--- NOTE | 2019-08-31 09:19 | PN ---
Progress Note for VANDANA ELLIS Date: 08/31/2019 Room #: VM.218 SUBJECTIVE: The patient is in his third hospital day after being admitted for exacerbation of CHF with aspiration pneumonia. The patient had a vasovagal episode while on the toilet and then ended up vomiting and aspirating. He has been having a little bit of a cough since then but no fever. The patient's proBNP had been elevated at 1675 on admit. White blood cell count had been 9.5, troponin had been normal at less than 0.017. The patient did receive a 1 time dose of Rocephin as well as some Zofran. The patient still is appearing somewhat short of breath this morning with some upper respiratory rattling noted. The patient has had a lot of chest wall discomfort, but he does have a known CHF as well as coronary artery disease. OBJECTIVE: Vital Signs: Weight has not been done since admission. His temperature is 37.2, pulse is 76, blood pressure is 166/98, respiratory rate 20, and saturations are 93% on 3 L. Heart: Regular rate and rhythm. Lungs: Reveal inspiratory crackles at bases. Abdomen: Soft. Skin: Diaphoretic. Extremities: No edema. Psychiatric: He does appear slightly anxious. LABORATORY DATA: Shows white blood cell count of 7.1, hemoglobin 12.5, 76 segs, and 12 bands. Sodium 143, potassium 4.0, creatinine 1.0, and GFR is greater than 60. CRP has gone up to 16 from 11.6 yesterday. His proBNP has gone up to 2058 from 1675. IMPRESSION: 1. Syncopal spell due to vasovagal reaction. 2. Aspiration pneumonia. 3. Congestive heart failure with slight exacerbation. 4. Chronic anxiety disorder. 5. Coronary artery disease. PLAN: We will work on respiratory functions for patient today, to work on incentive spirometry. We will recheck a chest x-ray. We will check his weights and have Physical Therapy work with patient. Hopefully, he will be able to be discharged back to [facility] tomorrow. However, due to his frequent ER visits, I want to make certain that he is stable before we send him back. To note, the patient had recently been increased on his oral diuretics from an ER visit, and we will continue him on that same diuretic dosage. GM08/31/2019 08:36:02 MODL: 08/31/2019 09:10:20 /[id number]
[2019-08-31] MEDS ORDERED: Isosorbide Mononitrate 30 MG Tab.ER PO ONE (09:27)
[2019-08-31] MEDS: Albuterol/Ipratropium 3.0-0.5 MG/3 ML Neb Soln NEB SCH ×4 (09:45→19:51)
--- NOTE | 2019-08-31 10:06 | CR ---
[id number] RAD/RAD Chest PA And Lateral EXAM: RAD Chest PA And Lateral INDICATION: ASPIRATION PNEUMONIA. COMPARISON: August 29, 2019. DISCUSSION: Cardiomegaly and central vascular congestion. Advanced changes of COPD. No evidence of pneumonia, effusion, edema, or pneumothorax. IMPRESSION: Negative for pneumonia or sequela of aspiration. Chronic findings are described above. Kyle Franco MD 08/31/19 1005 Thank you for allowing us to participate in the care of your patient.
[2019-08-31] MEDS: Amoxicillin/Clavulanate K 875-125 MG Tab PO SCH ×2 (10:55→19:50)
[2019-08-31] MEDS: Melatonin 3 MG Tab PO SCH (19:51)
[2019-08-31] MEDS: busPIRone 5 MG Tab PO SCH (19:51)
[2019-09-01] MEDS: Levothyroxine 50 MCG Tab PO SCH (06:29)
[2019-09-01] MEDS: Albuterol/Ipratropium 3.0-0.5 MG/3 ML Neb Soln NEB SCH (06:29)
[2019-09-01 07:32] LABS: ANION GAP 11.9 mmol/L (10-20); CHLORIDE,CL 106 mmol/L (98-107); SODIUM,NA 141 mmol/L (136-145)
[2019-09-01] MEDS ORDERED: Lisinopril 2.5 MG Tab PO SCH (08:00)
[2019-09-01] MEDS ORDERED: Isosorbide Mononitrate 60 MG Tab.ER PO SCH (08:00)
[2019-09-01] MEDS: Potassium Chloride 10 MEQ Tab.ER PO SCH (09:12)
[2019-09-01] MEDS: Donepezil 10 MG Tab PO SCH (09:12)
[2019-09-01] MEDS: Hydroxychloroquine 200 MG Tab PO SCH (09:12)
[2019-09-01] MEDS: Omeprazole 20 MG Cap.CR PO SCH (09:12)
[2019-09-01] MEDS: Metoprolol Succinate 25 MG Tab.ER PO SCH (09:12)
[2019-09-01] MEDS: Furosemide 20 MG Tab PO SCH (09:12)
[2019-09-01] MEDS: ClonazePAM 0.5 MG Tab PO SCH (09:13)
[2019-09-01] MEDS: Tamsulosin 0.4 MG Cap.ER PO SCH (09:13)
[2019-09-01] MEDS: predniSONE 5 MG Tab PO SCH (09:13)
[2019-09-01] MEDS: Amoxicillin/Clavulanate K 875-125 MG Tab PO SCH (09:13)
[2019-09-01] MEDS: Aspirin 81 MG Tab.Chew PO SCH (09:13)
[2019-09-01] MEDS: Oxybutynin 5 MG Tab PO SCH (09:13)
[2019-09-01] MEDS: busPIRone 5 MG Tab PO SCH (09:13)
[2019-09-01] MEDS: Simvastatin 10 MG Tab PO SCH (09:14)
[2019-09-01] MEDS: Magnesium Chloride 64 MG Tab.ER PO SCH (09:14)
[2019-09-01] MEDS: Enoxaparin 40 MG/0.4 ML Syringe SUBCUT SCH (09:14)
[2019-09-01] MEDS: Docusate Sodium 100 MG Cap PO SCH (09:14)
--- NOTE | 2019-09-01 09:30 | PN ---
Progress Note for VANDANA ELLIS Date: 09/01/2019 Room #: VM.218 SUBJECTIVE: The patient is feeling much better. He is eager for discharge home. His cough is greatly improved. We did start him on Augmentin because of concerns with aspiration pneumonia noted by chest x-ray even though chest x-ray was felt to say it was just chronic lung findings. OBJECTIVE: Vital Signs: Objectively, his weight has gone up to 74 kg, up half a kilogram from yesterday. Temperature is 36.7, pulse 75. Blood pressure is 161/86, however, it was 126/60 during the night. Respiratory rate 16, saturations are 93%. General: He is more alert, calm. Skin: [place], warm, and dry. Heart: Regular rate. Lungs: Rare crackles on bases. LABORATORY DATA: His labs this morning shows his white blood cell count is stable at 7.1, hemoglobin 11.8. His sodium is 141, potassium 3.9, creatinine 1.0. GFR greater than 60, glucose 114. His LFTs are normal. CRP is 17.7, which has gone up slightly. ProBNP is improved to 921 from 1999 yesterday. Albumin is 2.5. IMPRESSION: 1. Syncopal spell due to vasovagal reaction. 2. Aspiration pneumonia. 3. Congestive heart failure. 4. Coronary artery disease. 5. Chronic anxiety disease. 6. Cognitive dysfunction. PLAN: We will transfer the patient [facility] to the [facility]. The patient was placed on a higher dose of Imdur, which we will continue him on. Also, continue him on a higher dose of Lasix at 20 mg b.i.d., and the patient is on Augmentin, which he will complete of another 6 days worth of medications. To note, the patient's code level status is full code. GM09/01/2019 08:45:22 MODL: 09/01/2019 09:21:36 /[id number]
[2019-09-01 09:42] VITALS: BP 112/61; PULSE 77
--- NOTE | 2019-09-01 17:13 | DISCH ---
PRIMARY DIAGNOSES: 1. Syncopal episode. 2. Vasovagal reaction. 3. Aspiration pneumonia. 4. Exacerbation of congestive heart failure. 5. Coronary artery disease. 6. Chronic diastolic congestive heart failure. 7. Chronic anxiety disorder. 8. Mild cognitive dysfunction. 9. Steroid-dependent rheumatoid arthritis. 10.Hypercholesterolemia. 11.Vitamin B12 deficiency. 12.Mild cognitive disorder. 13.Benign prostatic hyperplasia. 14.Hypothyroidism. 15.Restless legs. SUMMARY OF ADMIT HISTORY AND PHYSICAL: The patient is an 84-year-old male who has been struggling with some CHF issues, been into the emergency room and his dose of Lasix had just been increased the day before. The patient when he was up to the toilet in the bathroom became unresponsive and then did arouse, but then had emesis and did aspirate witnessed at that time. Since then, he was brought over to the emergency room. He was noted to have some right chest wall pain which was chronic for him. The patient though was noted to have more difficulty with breathing, and so he had been given oxygen which did help. LABORATORY DATA: His lab on admission showed his white blood cell count 9.5, hemoglobin 13.4, platelets 182 with 74 segs, 20 lymphocytes. Sodium 143, potassium 4.1, creatinine 1.2, GFR 58, glucose 152. LFTs are normal. Troponin less than 0.017. ProBNP 1675. His chest x-ray taken on admission showed no acute infiltrates. SUMMARY OF HOSPITAL COURSE: The patient was admitted on Acute Care. He was given supportive oxygen. He had serial troponins monitored to make sure he was not having acute [place]. The patient's dose of Lasix was continued at a higher dose. It was noted by the morning of 08/31/2019, he had a fair amount of crackles at bases. Concern for aspiration pneumonia was present as the patient seemed to be working a little bit harder, so he was started on Augmentin. He had been given 1 dose of Rocephin in the emergency room. The patient was placed on a higher dose of Imdur to help with chest wall pain as well as possible coronary artery disease. He received physical therapy. Laboratory data showed that his white blood cell count stayed normal throughout hospitalization. His hemoglobin did drop down to 11.8 which may have been due to Lovenox. Platelets were 151, had 73 segs, 16 lymphocytes. His sodium had stayed at 141, potassium stayed at 3.9 creatinine was 1.0, GFR was 50, glucose had improved to 114. To note, his liver function tests stayed normal. Alkaline phosphatase 62. His troponin stayed normal. CRP was noted to be elevated at 11.6 on 08/30/2019, went up to 16 at 08/31/2019 which was also another reason for use of antibiotics. By 09/01/2019, his CRP was 17.7. ProBNP had gone up to 2058 by 08/31/2019, but by 09/01/2019, it was down to 921. The patient was seen by Physical Therapy, felt to be in need of some strengthening. MEDICATIONS: His medications at the time of discharge will be lisinopril 2.5 mg daily, triamcinolone cream 0.5% applied b.i.d. p.r.n., Prilosec 20 mg 1 pill daily, vitamin D 2000 units daily, vitamin B12 1000 units daily, Aricept 10 mg daily, Colace 100 mg daily p.r.n., prednisone 5 mg daily, Tylenol 325 two pills q.4 hours p.r.n., melatonin 3 mg at bedtime, Flomax 0.4 mg 1 pill daily, clonazepam 0.25 mg daily, DuoNeb t.i.d. p.r.n., magnesium 64 mEq 1 pill daily, metoprolol-XL 25 mg 1 pill daily, potassium chloride 10 mEq 1 pill daily, furosemide 20 mg 1 p.o. b.i.d., Plaquenil 200 mg 1 pill daily, simvastatin 10 mg at bedtime, guaifenesin DM 10 mL q.4 hours p.r.n., docusate 100 mg 1 pill daily, [place]-James q.4 hours p.r.n., calcium 750 b.i.d. p.r.n., oxybutynin 5 mg daily, levothyroxine 50 mcg 1 pill daily, BuSpar 10 mg 1 p.o. b.i.d., aspirin 81 mg b.i.d., Augmentin 875 one pill twice a day for 6 more days, isosorbide will be 60 mg daily. PLAN: The patient most likely should have repeat blood work done in a weeks' time of CBC for aspiration pneumonia, comprehensive metabolic profile for CHF, proBNP for CHF, magnesium level for hypomagnesemia, and a CRP for aspiration pneumonia. To note, the patient's code level status is full code. However, I do anticipate his heart failure to continue to worsen as well as his coronary artery disease as he ages. GM09/01/2019 08:57:08 MODL: 09/01/2019 17:03:03 /[id number]
== END 2019-09-01 10:20 | DRG 177 ==
LOC: VM.ED 10:38 → VM.MS 14:21
PROVIDERS: ADMIT Family Medicine; ATTEND Family Medicine
DX: J69.0 Pneumonitis due to inhalation of food and vomit (principal); J96.02 Acute respiratory failure with hypercapnia; I50.33 Acute on chronic diastolic (congestive) heart failure; I50.9 Heart failure, unspecified; T17.918A Gastric contents in respiratory tract, part unspecified causing other injury, initial encounter; X58.XXXA Exposure to other specified factors, initial encounter; R55 Syncope and collapse; J96.01 Acute respiratory failure with hypoxia; I25.10 Atherosclerotic heart disease of native coronary artery without angina pectoris; I71.4 Abdominal aortic aneurysm, without rupture; F41.9 Anxiety disorder, unspecified; F09 Unspecified mental disorder due to known physiological condition; M06.9 Rheumatoid arthritis, unspecified; M15.9 Polyosteoarthritis, unspecified; G62.9 Polyneuropathy, unspecified; E78.00 Pure hypercholesterolemia, unspecified; E53.8 Deficiency of other specified B group vitamins; E03.9 Hypothyroidism, unspecified; H54.7 Unspecified visual loss; G25.81 Restless legs syndrome; N40.0 Benign prostatic hyperplasia without lower urinary tract symptoms; Z91.048 Other nonmedicinal substance allergy status; T17.908A Unspecified foreign body in respiratory tract, part unspecified causing other injury, initial encounter; I11.0 Hypertensive heart disease with heart failure; K21.9 Gastro-esophageal reflux disease without esophagitis; M19.90 Unspecified osteoarthritis, unspecified site; Z79.890 Hormone replacement therapy; M75.52 Bursitis of left shoulder; G31.84 Mild cognitive impairment of uncertain or unknown etiology; E83.42 Hypomagnesemia; Z79.899 Other long term (current) drug therapy; Z79.82 Long term (current) use of aspirin; I25.2 Old myocardial infarction; Z91.09 Other allergy status, other than to drugs and biological substances; Z79.52 Long term (current) use of systemic steroids; Z90.49 Acquired absence of other specified parts of digestive tract; Z98.890 Other specified postprocedural states; Z87.891 Personal history of nicotine dependence; Z99.81 Dependence on supplemental oxygen
CPT/HCPCS: 36415; 70450; 71045; 71046; 80048; 80053; 83880; 84484; 85025; 86140; 94640; 94760; 96374; 99284-GF; 99285-25; A9270-GY; J0696; J1650; J7620-GY

== ENCOUNTER 2019-11-10 13:13 | Emergency (ER) | payer MEDICARE, OTHER ==
[2019-11-10] MEDS ORDERED: Sodium Chloride 0.9% 10 ML Syringe FLUSH PRN (13:31)
--- NOTE | 2019-11-10 13:58 | EDM.PDOC ---
ED HPI GENERAL MEDICAL PROBLEM - General Chief Complaint: Fever Stated Complaint: FEVER Time Seen by Provider: 11/10/19 13:30 Source of Information: Reports: Patient, EMS, [facility] Records History Limitations: Reports: No Limitations - History of Present Illness INITIAL COMMENTS - FREE TEXT/NARRATIVE: Patient states today about 10 AM he had a large bowel movement and then about 30 minutes later he had an episode of diarrhea then about 12:00 he states while eating dinner he vomited all over the table and himself. He went back to his room and then EMS was called for him to be transported here to the ER Patient states he has no other complaints at this time states he feels fine. Onset: Sudden Duration: Hour(s): Quality: Reports: Other (No pain anywhere) - Related Data Allergies Allergy/AdvReac Type Severity Reaction Status Date / Time metal Allergy Irritabilit Uncoded 11/10/19 14:10 y Home Meds: Home Meds lisinopriL [Prinivil] 2.5 mg PO DAILY 11/19/13 [History] Omeprazole Magnesium [Prilosec Otc] 20 mg PO DAILY 02/25/17 [History] Triamcinolone Acetonide [Triamcinolone Acetonide 0.5%] 1 applic TOP BID PRN [History] Cholecalciferol (Vitamin D3) [Vitamin D3] 2,000 unit PO DAILY 11/02/18 [History] Cyanocobalamin (Vitamin B-12) [Vitamin B-12] 1,000 mcg PO DAILY 11/03/18 [ History] Docusate Sodium [Colace] 100 mg PO DAILY PRN 01/27/19 [History] Donepezil HCl [Aricept] 10 mg PO DAILY 01/27/19 [History] predniSONE 4 mg PO DAILY 01/27/19 [History] Acetaminophen [Tylenol] 650 mg PO Q4H PRN tablet 01/30/19 [Rx] Melatonin 3 mg PO BEDTIME 04/25/19 [History] Tamsulosin HCl [Flomax] 0.4 mg PO DAILY 04/25/19 [History] clonazePAM [Clonazepam] 0.25 mg PO BID 04/27/19 [History] Albuterol/Ipratropium [DuoNeb 3.0-0.5 MG/3 ML] 3 ml NEB TID PRN #60 neb [Rx] Magnesium Chloride [Mag-64] 64 mg PO DAILY #30 tab.er 04/28/19 [Rx] Metoprolol Succinate [Toprol XL] 25 mg PO DAILY #30 tab.er 04/28/19 [Rx] Potassium Chloride [Klor-Con 10] 10 meq PO DAILY #30 tab.er 04/28/19 [Rx] Aspirin 81 mg PO DAILY 08/29/19 [History] Calcium Carbonate [Tums Extra Strength] 750 mg PO BID PRN 08/29/19 [History] Docusate Sodium 100 mg PO DAILY 08/29/19 [History] Hydroxychloroquine Sulfate [Plaquenil] 200 mg PO BID 08/29/19 [History] Levothyroxine [Synthroid] 50 mcg PO ACBREAKFAST 08/29/19 [History] Methyl Salicylate/Menthol [Bengay Greaseless Cream] 1 applic TP Q4HR PRN [History] Oxybutynin 5 mg PO DAILY 08/29/19 [History] Simvastatin 10 mg PO DAILY 08/29/19 [History] busPIRone [Buspar] 10 mg PO BID 08/29/19 [History] guaiFENesin/Dextromethorphan [Guaifenesin-Dm 100-10 mg/5 ml] 10 ml PO Q4HR PRN 08/29/19 [History] Furosemide [Lasix] 20 mg PO BIDDIURETIC #60 tablet 09/01/19 [Rx] Isosorbide Mononitrate [Imdur] 60 mg PO DAILY #30 tab.er 09/01/19 [Rx] Escitalopram Oxalate [Lexapro] 5 mg PO DAILY 11/10/19 [History] Loperamide HCl [Imodium A-D] 2 mg PO ASDIRECTED PRN 11/10/19 [History] Past Medical History - Past Health History Medical/Surgical History: Denies Medical/Surgical History HEENT History: Reports: Hard of Hearing Cardiovascular History: Reports: CAD, Heart Failure, High Cholesterol, Hypertension, [place], Other (See Below) Other Cardiovascular History: 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 vertebral artery aneurysm Respiratory History: Reports: Other (See Below) Other Respiratory History: lung nodule Gastrointestinal History: Reports: GERD, Hiatal Hernia Genitourinary History: Reports: None Musculoskeletal History: Reports: Osteoarthritis, RA, Other (See Below) Other Musculoskeletal History: bursitis of left shoulder, arthralgia of both hands, cervical disc disease, osteoarthritis of ankle Neurological History: Reports: Neuropathy, Peripheral, Vertigo, Other (See Below ) Other Neuro History: restless legs. cognitive impairment Psychiatric History: Reports: Anxiety Other Psychiatric History: mild cognitive disorder Endocrine/Metabolic History: Reports: Hypothyroidism, Other (See Below) Other Endocrine/Metabolic History: hyperglycemia Hematologic History: Reports: B12 Deficiency - Past Surgical History Cardiovascular Surgical History: Reports: Other (See Below) Other Cardiovascular Surgeries/Procedures: coronary balloon angioplasty GI Surgical History: Reports: Cholecystectomy, Hernia Repair/Other Social & Family History - Family History Family Medical History: Unobtainable - Caffeine Use Caffeine Use: Reports: Coffee - Living Situation & Occupation Living situation: Reports: , Extended Care Facility Occupation: Retired ED ROS GENERAL - Review of Systems Review Of Systems: See Below Constitutional: Reports: No Symptoms. Denies: Fever, Chills, Malaise, Weakness , Fatigue, Diaphoresis, Decreased Appetite HEENT: Reports: No Symptoms Respiratory: Reports: No Symptoms, Cough, Other (Per senior care staff patient had a cough after vomiting with questionable O2 sat). Denies: Shortness of Breath, Wheezing, Pleuritic Chest Pain Cardiovascular: Denies: No Symptoms Endocrine: Reports: No Symptoms GI/Abdominal: Reports: Diarrhea, Vomiting. Denies: Abdominal Pain, Anorexia, Black Stool, Bloody Stool, Constipation, Decreased Appetite, Difficulty Swallowing, Flatus, Hematemesis, Hematochezia, Melena, Nausea : Reports: No Symptoms Musculoskeletal: Reports: No Symptoms Skin: Reports: No Symptoms Neurological: Reports: No Symptoms Psychiatric: Reports: No Symptoms Hematologic/Lymphatic: Reports: No Symptoms Immunologic: Reports: No Symptoms ED EXAM, GENERAL - Physical Exam Exam: See Below Exam Limited By: No Limitations General Appearance: Alert, WD/WN, No Apparent Distress, Other (Patient is alert and oriented x4 with normal conversation logical thought process follows all commands answers all questions appropriately) Eye Exam: Bilateral Eye: EOMI, PERRL Ears: Normal External Exam, Normal Canal, Hearing Grossly Normal, Normal TMs Nose: Normal Inspection, Normal Mucosa, No Blood Throat/Mouth: Normal Inspection, Normal Lips, Normal Teeth, Normal Gums, Normal Oropharynx, Normal Voice, No Airway Compromise, Other (Moist mucous membranes) Head: Atraumatic, Normocephalic Neck: Normal Inspection, Supple, Non-Tender, Full Range of Motion Respiratory/Chest: No Respiratory Distress, Lungs Clear, Normal Breath Sounds, No Accessory Muscle Use, Chest Non-Tender Cardiovascular: Normal Peripheral Pulses, Regular Rate, Rhythm, No Edema, No Gallop, No JVD, No Murmur GI/Abdominal: Normal Bowel Sounds, Soft, Non-Tender, No Organomegaly, No Distention, Other (No tenderness to palpation can be elicited over the entire abdomen positive bowel sounds). No: Guarding, Rigid, Rebound, Tender Extremities: Normal Inspection, Normal Range of Motion, Non-Tender (Patient has equal ad writer and 5 out of 5 upper extremity with 4 out of 5 lower extremity bilateral), No Pedal Edema Neurological: Alert, Oriented, CN II-XII Intact, Normal Cognition, No Motor/ Sensory Deficits Psychiatric: Normal Affect, Normal Mood Lymphatic: No Adenopathy Course - Vital Signs Text/Narrative:: CBC BMP chest x-ray urine flu swab secondary to fever Spoke with primary care provider Steph Beltran start prophylactic Augmentin 875 twice a day for 5 days and discharged back to senior care Last Recorded V/S: Last Vital Signs Temp 37.9 C 11/10/19 13:15 Pulse 79 11/10/19 13:15 Resp 24 H 11/10/19 13:15 BP 139/67 11/10/19 13:15 Pulse Ox 90 L 11/10/19 13:15 - Orders/Labs/Meds Orders: Active Orders 24 hr Category Date Time Status Sodium Chloride 0.9% [Saline Flush] Med 11/10/19 13:31 Active 10 ml FLUSH ASDIRECTED PRN Saline Lock Insert [OM.PC] Routine Oth 11/10/19 13:31 Ordered Medication Orders Sodium Chloride (Saline Flush) 10 ml FLUSH ASDIRECTED PRN PRN Reason: Keep Vein Open Labs: Laboratory Tests 11/10/19 11/10/19 11/10/19 Range/Units 13:23 13:43 13:43 WBC 11.5 H (4.0-10.0) x10^3/uL RBC 4.37 L (4.5-6.0) x10^6/uL Hgb 13.0 L (14.0-18.0) g/dL Hct 38.6 L (40.0-52.0) % MCV 88.3 (78.0-93.0) fL MCH 29.7 (26.0-32.0) pg MCHC 33.7 (32.0-36.0) g/dL RDW Coeff of Phyllis 13.3 (10.0-15.0) % Plt Count 179 (130-400) x10^3/uL Neut % (Auto) 90.1 H (50.0-80.0) % Lymph % (Auto) 4.8 L (25.0-50.0) % [place] % (Auto) 4.7 (2.0-11.0) % Eos % (Auto) 0.1 (0.0-4.0) % Baso % (Auto) 0.3 (0.2-1.2) % Sodium 139 (136-145) mmol/L Potassium 4.4 (3.5-5.1) mmol/L Chloride 101 (98-107) mmol/L Carbon Dioxide 26 (21-32) mmol/L Anion Gap 16.4 (10-20) mmol/L BUN 17 (7-18) mg/dL Creatinine 1.2 (0.70-1.30) mg/dL Est Cr Clr Drug Dosing TNP Estimated GFR (MDRD) 58 Glucose 129 H (74-106) mg/dL Lactic Acid (0.4-2.0) mmol/L Calcium 8.2 L (8.5-10.1) mg/dL Urine Color Yellow (YELLOW) Urine Appearance Slightly cloudy H (CLEAR) Urine pH 7.0 (5.0-8.0) Ur Specific [place] >=1.030 Urine Protein Negative (NEGATIVE) mg/dL Urine Glucose (UA) Negative (NEGATIVE) mg/dL Urine Ketones Negative (NEGATIVE) mg/dL Urine Occult Blood Trace-intact H (NEGATIVE) Urine Nitrite Negative (NEGATIVE) Urine Bilirubin Negative (NEGATIVE) Urine Urobilinogen 0.2 (0.2) EU/dL Ur Leukocyte Esterase Negative (NEGATIVE) Urine RBC 5-10 H (NOT SEEN) /HPF Urine WBC 0-5 (NOT SEEN) /HPF Ur Squamous Epith Cells Not seen (NEGATIVE) /HPF Urine Bacteria Rare (NEGATIVE) /HPF Urine Mucus Few H (NEGATIVE) /LPF 11/10/19 Range/Units 13:43 WBC (4.0-10.0) x10^3/uL RBC (4.5-6.0) x10^6/uL Hgb (14.0-18.0) g/dL Hct (40.0-52.0) % MCV (78.0-93.0) fL MCH (26.0-32.0) pg MCHC (32.0-36.0) g/dL RDW Coeff of Phyllis (10.0-15.0) % Plt Count (130-400) x10^3/uL Neut % (Auto) (50.0-80.0) % Lymph % (Auto) (25.0-50.0) % [place] % (Auto) (2.0-11.0) % Eos % (Auto) (0.0-4.0) % Baso % (Auto) (0.2-1.2) % Sodium (136-145) mmol/L Potassium (3.5-5.1) mmol/L Chloride (98-107) mmol/L Carbon Dioxide (21-32) mmol/L Anion Gap (10-20) mmol/L BUN (7-18) mg/dL Creatinine (0.70-1.30) mg/dL Est Cr Clr Drug Dosing Estimated GFR (MDRD) Glucose (74-106) mg/dL Lactic Acid 2.1 H* (0.4-2.0) mmol/L Calcium (8.5-10.1) mg/dL Urine Color (YELLOW) Urine Appearance (CLEAR) Urine pH (5.0-8.0) Ur Specific [place] Urine Protein (NEGATIVE) mg/dL Urine Glucose (UA) (NEGATIVE) mg/dL Urine Ketones (NEGATIVE) mg/dL Urine Occult Blood (NEGATIVE) Urine Nitrite (NEGATIVE) Urine Bilirubin (NEGATIVE) Urine Urobilinogen (0.2) EU/dL Ur Leukocyte Esterase (NEGATIVE) Urine RBC (NOT SEEN) /HPF Urine WBC (NOT SEEN) /HPF Ur Squamous Epith Cells (NEGATIVE) /HPF Urine Bacteria (NEGATIVE) /HPF Urine Mucus (NEGATIVE) /LPF Meds: Medications Generic Name Dose Route Start Last Admin Trade Name Freq PRN Reason Stop Dose Admin Sodium Chloride 10 ml 11/10/19 13:31 Saline Flush FLUSH ASDIRECTED PRN Keep Vein Open Departure - Departure Time of Disposition: 14:35 Disposition: DC/Tfer to SNF 03 Condition: Good Clinical Impression: Acute vomiting, Cough - Discharge Information *PRESCRIPTION DRUG MONITORING PROGRAM REVIEWED*: No *COPY OF PRESCRIPTION DRUG MONITORING REPORT IN PATIENT ALLIE: No Referrals: Mirtha Madera MD [Primary Care Provider] - Forms: ED Department Discharge Additional Instructions: Return to the senior care start Augmentin 875 1 p.o. every 12 hours x5 days per primary care provider Dr. Steph Beltran Follow-up with primary care provider in the next 24 to 48 hours Return to the emergency room if anything changes or gets worse Sepsis Event Note - Focused Exam Vital Signs: Vital Signs Temp Pulse Resp BP Pulse Ox 11/10/19 13:15 37.9 C 79 24 H 139/67 90 L Date Exam was Performed: 11/10/19 Time Exam was Performed: 14:59 - Problem List & Annotations (1) Acute vomiting SNOMED Code(s): 50243941 Code(s): R11.10 - VOMITING, UNSPECIFIED Status: Acute Current Visit: Yes (2) Cough SNOMED Code(s): 24189696 Code(s): R05 - COUGH Status: Acute Current Visit: Yes - My Orders Last 24 Hours: My Active Orders 11/10/19 13:31 Sodium Chloride 0.9% [Saline Flush] 10 ml FLUSH ASDIRECTED PRN Saline Lock Insert [OM.PC] Routine - Assessment/Plan Last 24 Hours: My Active Orders 11/10/19 13:31 Sodium Chloride 0.9% [Saline Flush] 10 ml FLUSH ASDIRECTED PRN Saline Lock Insert [OM.PC] Routine
[2019-11-10 14:04] LABS: ANION GAP 16.4 mmol/L (10-20); CHLORIDE,CL 101 mmol/L (98-107); SODIUM,NA 139 mmol/L (136-145)
--- NOTE | 2019-11-10 14:19 | CR ---
[id number] RAD/RAD Chest PA or AP 1V EXAM: SINGLE VIEW CHEST. INDICATION: DYSPNEA COUGH COMPARISON: CORRELATION IS MADE WITH THE EXAM OF AUGUST 31, 2019 FINDINGS: The lungs are clear but hyperaerated The cardiomediastinal contour is stable IMPRESSION: AIRWAY DISEASE Timothy Fong MD 11/10/19 1555 Thank you for allowing us to participate in the care of your patient.
[2019-11-10 14:30] VITALS: BP 139/67; PULSE 79
== END 2019-11-10 15:25 ==
LOC: VM.ED 13:13
DX: R11.10 Vomiting, unspecified (principal); R05 Cough; I25.2 Old myocardial infarction; I11.0 Hypertensive heart disease with heart failure; I50.9 Heart failure, unspecified; I25.10 Atherosclerotic heart disease of native coronary artery without angina pectoris; K21.9 Gastro-esophageal reflux disease without esophagitis; F41.9 Anxiety disorder, unspecified; E03.9 Hypothyroidism, unspecified; Z79.82 Long term (current) use of aspirin; Z79.899 Other long term (current) drug therapy; Z91.048 Other nonmedicinal substance allergy status
CPT/HCPCS: 71045; 80048; 81001; 83605; 85025; 87804; 87804-59; 99283-GF; 99285-25

== ENCOUNTER 2020-01-20 17:20 | Emergency (ER) | payer MEDICARE, OTHER ==
[2020-01-20 17:28] VITALS: BP 129/71; PULSE 58
--- NOTE | 2020-01-20 17:43 | EDM.PDOC ---
ED HPI GENERAL MEDICAL PROBLEM - General Chief Complaint: General Stated Complaint: not sure why I am here, ? rib fracture. Time Seen by Provider: 01/20/20 17:25 Source of Information: Reports: Patient, EMS, Old Records, RN - History of Present Illness INITIAL COMMENTS - FREE TEXT/NARRATIVE: Patient comes to the emergency department today from the group home by ambulance with concerns of a rib fracture. This is really a complicated history to obtain as the patient really does not know why he is here. With speaking with the nursing at the group home the patient has complained of left rib pain for the past 2 months. Yesterday on a phone consultation with a sand cutting machine operator he complained of chest wall pain. This morning he was brought to the hospital and had a chest x-ray that showed that he had a left posterior rib fracture. Patient denies any difficulty breathing shortness of breath cough congestion fever or chills. The group home nurse that is taking care of him confirms that he has not complained of any difficulty breathing shortness of breath cough congestion fever or chills. The patient himself reports that he had fallen and broken a rib about a year or so ago. He is here in the emergency department without any complaints at this time. Back Pain Score (Numeric/FACES): 1 - Related Data Allergies Allergy/AdvReac Type Severity Reaction Status Date / Time metal Allergy Irritabilit Uncoded 11/10/19 14:10 y Home Meds: Home Meds lisinopriL [Prinivil] 2.5 mg PO DAILY 11/19/13 [History] Omeprazole Magnesium [Prilosec Otc] 20 mg PO DAILY 02/25/17 [History] Triamcinolone Acetonide [Triamcinolone Acetonide 0.5%] 1 applic TOP BID PRN [History] Cholecalciferol (Vitamin D3) [Vitamin D3] 2,000 unit PO DAILY 11/02/18 [History] Cyanocobalamin (Vitamin B-12) [Vitamin B-12] 1,000 mcg PO DAILY 11/03/18 [ History] Docusate Sodium [Colace] 100 mg PO DAILY PRN 01/27/19 [History] Donepezil HCl [Aricept] 10 mg PO DAILY 01/27/19 [History] predniSONE 4 mg PO DAILY 01/27/19 [History] Acetaminophen [Tylenol] 650 mg PO Q4H PRN tablet 01/30/19 [Rx] Melatonin 3 mg PO BEDTIME 04/25/19 [History] Tamsulosin HCl [Flomax] 0.4 mg PO DAILY 04/25/19 [History] clonazePAM [Clonazepam] 0.25 mg PO BID 04/27/19 [History] Albuterol/Ipratropium [DuoNeb 3.0-0.5 MG/3 ML] 3 ml NEB TID PRN #60 neb [Rx] Magnesium Chloride [Mag-64] 64 mg PO DAILY #30 tab.er 04/28/19 [Rx] Metoprolol Succinate [Toprol XL] 25 mg PO DAILY #30 tab.er 04/28/19 [Rx] Potassium Chloride [Klor-Con 10] 10 meq PO DAILY #30 tab.er 04/28/19 [Rx] Aspirin 81 mg PO DAILY 08/29/19 [History] Calcium Carbonate [Tums Extra Strength] 750 mg PO BID PRN 08/29/19 [History] Docusate Sodium 100 mg PO DAILY 08/29/19 [History] Hydroxychloroquine Sulfate [Plaquenil] 200 mg PO BID 08/29/19 [History] Levothyroxine [Synthroid] 50 mcg PO ACBREAKFAST 08/29/19 [History] Methyl Salicylate/Menthol [Bengay Greaseless Cream] 1 applic TP Q4HR PRN [History] Oxybutynin 5 mg PO DAILY 08/29/19 [History] Simvastatin 10 mg PO DAILY 08/29/19 [History] busPIRone [Buspar] 10 mg PO BID 08/29/19 [History] guaiFENesin/Dextromethorphan [Guaifenesin-Dm 100-10 mg/5 ml] 10 ml PO Q4HR PRN 08/29/19 [History] Furosemide [Lasix] 20 mg PO BIDDIURETIC #60 tablet 09/01/19 [Rx] Isosorbide Mononitrate [Imdur] 60 mg PO DAILY #30 tab.er 09/01/19 [Rx] Escitalopram Oxalate [Lexapro] 5 mg PO DAILY 11/10/19 [History] Loperamide HCl [Imodium A-D] 2 mg PO ASDIRECTED PRN 11/10/19 [History] Past Medical History - Past Health History Medical/Surgical History: Denies Medical/Surgical History HEENT History: Reports: Hard of Hearing Cardiovascular History: Reports: CAD, Heart Failure, High Cholesterol, Hypertension, [place], Other (See Below) Other Cardiovascular History: 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 vertebral artery aneurysm Respiratory History: Reports: Other (See Below) Other Respiratory History: lung nodule Gastrointestinal History: Reports: GERD, Hiatal Hernia Genitourinary History: Reports: None Musculoskeletal History: Reports: Osteoarthritis, RA, Other (See Below) Other Musculoskeletal History: bursitis of left shoulder, arthralgia of both hands, cervical disc disease, osteoarthritis of ankle Neurological History: Reports: Neuropathy, Peripheral, Vertigo, Other (See Below ) Other Neuro History: restless legs. cognitive impairment Psychiatric History: Reports: Anxiety Other Psychiatric History: mild cognitive disorder Endocrine/Metabolic History: Reports: Hypothyroidism, Other (See Below) Other Endocrine/Metabolic History: hyperglycemia Hematologic History: Reports: B12 Deficiency - Past Surgical History Cardiovascular Surgical History: Reports: Other (See Below) Other Cardiovascular Surgeries/Procedures: coronary balloon angioplasty GI Surgical History: Reports: Cholecystectomy, Hernia Repair/Other Social & Family History - Family History Family Medical History: Unobtainable - Caffeine Use Caffeine Use: Reports: Coffee - Living Situation & Occupation Living situation: Reports: , Extended Care Facility Occupation: Retired ED ROS GENERAL - Review of Systems Review Of Systems: Comprehensive ROS is negative, except as noted in HPI. ED EXAM, GENERAL - Physical Exam Exam: See Below Free Text/Narrative:: The vital signs initially are documented as a respiratory rate of 28 but he does have quite a bit of history of anxiety and ever since he has had the mask put on to prevent any transmission of disease due to the pandemic he has had increased respiratory rate. Even with talking with him he becomes more tachypneic but with calm and his respiratory rate is down into the mid 18. Exam Limited By: No Limitations General Appearance: Alert, WD/WN, No Apparent Distress, Anxious (Quite anxious) Eye Exam: Bilateral Eye: EOMI Ears: Normal External Exam, Normal TMs Nose: Normal Inspection Throat/Mouth: Normal Inspection, Normal Lips, Normal Teeth, Normal Oropharynx, Normal Voice Head: Atraumatic, Normocephalic Neck: Normal Inspection, Supple, Non-Tender Respiratory/Chest: No Respiratory Distress, Lungs Clear, Normal Breath Sounds, No Accessory Muscle Use, Chest Non-Tender (Examination of the anterior and posterior chest does not elicit any tenderness. There is no bony deformity. There is no bruising swelling ecchymosis bony deformity or other signs of trauma to the thorax anteriorly or posteriorly.). No: Decreased Breath Sounds, Crackles, Rales, Rhonchi, Wheezing Cardiovascular: Normal Peripheral Pulses, Regular Rate, Rhythm Peripheral Pulses: 2+: Radial (L), Radial (R), Posterior Tibial (L), Posterior Tibial (R), Dorsalis Pedis (L), Dorsalis Pedis (R) GI/Abdominal: Normal Bowel Sounds, Soft, Non-Tender, No Organomegaly (Male) Exam: Deferred Rectal (Males) Exam: Deferred Back Exam: Normal Inspection, Full Range of Motion, CVA Tenderness (L), Other ( Palpation on the posterior midline spine does not elicit any tenderness bony deformity step-offs. Examination of the entire to the back there is no bruising swelling ecchymosis bony deformities or other signs of trauma it is not tender. There is no subcutaneous emphysema.). No: CVA Tenderness (R), Paraspinal Tenderness, Vertebral Tenderness Extremities: Normal Inspection, Normal Range of Motion Neurological: Alert, Oriented (To person and time and place), No Motor/Sensory Deficits Psychiatric: Anxious Skin Exam: Warm, Dry, Intact, Normal Color, No Rash Course - Vital Signs Last Recorded V/S: Last Vital Signs Temp 36.6 C 01/20/20 17:20 Pulse 58 L 01/20/20 17:20 Resp 28 H 01/20/20 17:20 BP 129/71 01/20/20 17:20 Pulse Ox 99 01/20/20 17:20 - Radiology Interpretation Free Text/Narrative:: Chest x-ray per radiology shows new mild left base infiltrates and/or atelectasis. Age-indeterminate left posterior 10th rib fracture. - Re-Assessments/Exams Free Text/Narrative Re-Assessment/Exam: 01/20/20 17:43 Review the patient's chest x-ray that was completed earlier today shows a new mild left base infiltrate and/or atelectasis. Age-indeterminate left posterior rib fracture. The patient has no symptoms of increased shortness of breath difficulty breathing fever chills or cough. The patient himself reports to me that he had fallen in the group home and broken this left rib in the past. He really does not know why he is here. He is really unsure of why they did the chest x-ray at all. I spoke with the group home nurse who states that he has been complaining of this rib pain for the past 2 months. They are not sure why he was sent to the emergency department but was ordered by the Monotype Mechanic. Reviewed the note from the sand cutting machine operator who ordered the chest x-ray today. And they had concerns as the patient's hemoglobin had decreased for hemothorax. His hemoglobin 4 months ago was 13.7. His hemoglobin today is 13.1. His exam is unremarkable. He is in no respiratory distress and he has no complaints or pain of rib pain or musculoskeletal or chest pain at this time. I also recommend in the current time of the COVID pandemic that we are only using the ED for acute emergency situations and exposing this patient to the external aspect of the group home twice today without any patient complaints is putting this elderly person at risk. I did review the note from the sand cutting machine operator that was completed yesterday without a physical exam and only done by phone was documented that he had chest wall tenderness over the left inferior lateral chest wall they did a chest x-ray to assess for rib fracture. Reviewing the note from yesterday he had no current shortness of breath or exertional chest pain. Further document not to have any productive cough does complain of left lateral chest pain that is nonexertional not related to food intake and does not have temporal pattern. With the complaints that the patient doesn't have and nothing really reported and the patient relates this has been going on for months and a stable hgb I do not feel any intervention is needed at this time. The case was not discussed with his PCP prior to sending to the ED. We will discharge him back to the group home at this time I did attempt to contact his PCP DR. Madera to update her with the findings although I was unable to get a hold of her. WE will discharge back to the group home at this time and follow up with PCP if anything concerning develops. 01/20/20 17:52 Departure - Departure Time of Disposition: 17:40 Disposition: DC/Tfer to SNF 03 Clinical Impression: Rib fracture Qualifiers: Encounter type: initial encounter Rib fracture type: multiple ribs Fracture type: closed Laterality: left Qualified Code(s): S22.42XA - Multiple fractures of ribs, left side, initial encounter for closed fracture - Discharge Information Referrals: Mirtha Madera MD [Primary Care Provider] - Additional Instructions: Continue with previous therapies. Follow up with PCP if any development of Shortness of breath that is not anxiety related. Fever chills or new or emergency complaints. Sepsis Event Note - Evaluation Sepsis Screening Result: No Definite Risk - Focused Exam Vital Signs: Vital Signs Temp Pulse Resp BP Pulse Ox 01/20/20 17:20 36.6 C 58 L 28 H 129/71 99 Date Exam was Performed: 01/20/20 Time Exam was Performed: 17:36 - Assessment/Plan Assessment:: Left 10th rigb fracture age indeterminate. Plan: Continue with previous therapies. Follow up with PCP if any development of Shortness of breath that is not anxiety related. Fever chills or new or emergency complaints.
== END 2020-01-20 18:24 ==
LOC: VM.ED 17:20
DX: S22.42XA Multiple fractures of ribs, left side, initial encounter for closed fracture (principal); I25.10 Atherosclerotic heart disease of native coronary artery without angina pectoris; I11.0 Hypertensive heart disease with heart failure; I50.9 Heart failure, unspecified; I25.2 Old myocardial infarction; E78.00 Pure hypercholesterolemia, unspecified; K21.9 Gastro-esophageal reflux disease without esophagitis; M06.9 Rheumatoid arthritis, unspecified; E03.9 Hypothyroidism, unspecified; F41.9 Anxiety disorder, unspecified; G62.9 Polyneuropathy, unspecified; Z79.82 Long term (current) use of aspirin; X58.XXXA Exposure to other specified factors, initial encounter
CPT/HCPCS: 99283-GF; 99284

== ENCOUNTER 2020-02-16 09:44 | Emergency (ER) | payer MEDICARE, OTHER ==
[2020-02-16] MEDS ORDERED: Sodium Chloride 0.9% 10 ML Syringe FLUSH PRN (09:50)
--- NOTE | 2020-02-16 10:24 | EDM.PDOC ---
ED HPI GENERAL MEDICAL PROBLEM - General Chief Complaint: General Stated Complaint: ER Time Seen by Provider: 02/16/20 09:50 Source of Information: Reports: Patient History Limitations: Reports: No Limitations - History of Present Illness INITIAL COMMENTS - FREE TEXT/NARRATIVE: Pt. presents to ER this AM with syncope and fall. Pt. initially was placed in his wheelchair and was found lying in the floor, complaining of R hip pain. Pt. became responsive and complained that he needed to use the toilet. He was assisted to the toilet and had a large, malodorous stool, and subsequently became unresponsive a second time. Pt. was placed supine and he again regained consciousness. Vitals were checked and the patient was found to be hypotensive (BP in the 70 systolic range). EMS was summoned. They established IV access and gave the patient a 500ml bolus of NS. On arrival to ER, pt. BP was 100/62. Pt. is quite confused. His only complaint on arrival to ER was that of R hip pain. Pt. states that he has been experiencing diarrhea and loose stools for a " couple weeks". Pt. did have a video swallow study done yesterday. Denies any chest pain, shortness of breath, headache, nausea, or vomiting. Onset: Today Location: Reports: Lower Extremity, Right, Generalized - Related Data Allergies Allergy/AdvReac Type Severity Reaction Status Date / Time metal Allergy Irritabilit Uncoded 02/16/20 10:34 y Home Meds: Home Meds lisinopriL [Prinivil] 2.5 mg PO DAILY 11/19/13 [History] Omeprazole Magnesium [Prilosec Otc] 20 mg PO DAILY 02/25/17 [History] Triamcinolone Acetonide [Triamcinolone Acetonide 0.5%] 1 applic TOP BID PRN [History] Cholecalciferol (Vitamin D3) [Vitamin D3] 2,000 unit PO DAILY 11/02/18 [History] Cyanocobalamin (Vitamin B-12) [Vitamin B-12] 1,000 mcg PO DAILY 11/03/18 [ History] Donepezil HCl [Aricept] 10 mg PO DAILY 01/27/19 [History] predniSONE 4 mg PO DAILY 01/27/19 [History] Acetaminophen [Tylenol] 650 mg PO Q4H PRN tablet 01/30/19 [Rx] Melatonin 3 mg PO BEDTIME 04/25/19 [History] Tamsulosin HCl [Flomax] 0.4 mg PO DAILY 04/25/19 [History] clonazePAM [Clonazepam] 0.25 mg PO BID 04/27/19 [History] Albuterol/Ipratropium [DuoNeb 3.0-0.5 MG/3 ML] 3 ml NEB TID PRN #60 neb [Rx] Magnesium Chloride [Mag-64] 64 mg PO DAILY #30 tab.er 04/28/19 [Rx] Metoprolol Succinate [Toprol XL] 25 mg PO DAILY #30 tab.er 04/28/19 [Rx] Potassium Chloride [Klor-Con 10] 10 meq PO DAILY #30 tab.er 04/28/19 [Rx] Aspirin 81 mg PO DAILY 08/29/19 [History] Calcium Carbonate [Tums Extra Strength] 750 mg PO BID PRN 08/29/19 [History] Hydroxychloroquine Sulfate [Plaquenil] 200 mg PO BID 08/29/19 [History] Levothyroxine [Synthroid] 50 mcg PO ACBREAKFAST 08/29/19 [History] Methyl Salicylate/Menthol [Bengay Greaseless Cream] 1 applic TP Q4HR PRN [History] Oxybutynin 5 mg PO DAILY 08/29/19 [History] Simvastatin 10 mg PO DAILY 08/29/19 [History] busPIRone [Buspar] 10 mg PO BID 08/29/19 [History] Furosemide [Lasix] 20 mg PO BIDDIURETIC #60 tablet 09/01/19 [Rx] Isosorbide Mononitrate [Imdur] 60 mg PO DAILY #30 tab.er 09/01/19 [Rx] Escitalopram Oxalate [Lexapro] 5 mg PO DAILY 11/10/19 [History] Past Medical History - Past Health History Medical/Surgical History: Denies Medical/Surgical History HEENT History: Reports: Hard of Hearing Cardiovascular History: Reports: CAD, Heart Failure, High Cholesterol, Hypertension, [place], Other (See Below) Other Cardiovascular History: 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 vertebral artery aneurysm Respiratory History: Reports: Other (See Below) Other Respiratory History: lung nodule Gastrointestinal History: Reports: GERD, Hiatal Hernia Genitourinary History: Reports: None Musculoskeletal History: Reports: Osteoarthritis, RA, Other (See Below) Other Musculoskeletal History: bursitis of left shoulder, arthralgia of both hands, cervical disc disease, osteoarthritis of ankle Neurological History: Reports: Neuropathy, Peripheral, Vertigo, Other (See Below ) Other Neuro History: restless legs. cognitive impairment Psychiatric History: Reports: Anxiety Other Psychiatric History: mild cognitive disorder Endocrine/Metabolic History: Reports: Hypothyroidism, Other (See Below) Other Endocrine/Metabolic History: hyperglycemia Hematologic History: Reports: B12 Deficiency - Past Surgical History Cardiovascular Surgical History: Reports: Other (See Below) Other Cardiovascular Surgeries/Procedures: coronary balloon angioplasty GI Surgical History: Reports: Cholecystectomy, Hernia Repair/Other Social & Family History - Family History Family Medical History: Unobtainable - Caffeine Use Caffeine Use: Reports: Coffee - Living Situation & Occupation Living situation: Reports: , Extended Care Facility Occupation: Retired ED ROS GENERAL - Review of Systems Review Of Systems: See Below Constitutional: Reports: No Symptoms, Malaise, Weakness. Denies: Fever, Chills HEENT: Reports: No Symptoms Respiratory: Reports: No Symptoms Cardiovascular: Reports: No Symptoms Endocrine: Reports: No Symptoms GI/Abdominal: Reports: Diarrhea, Distension : Reports: No Symptoms Musculoskeletal: Reports: Joint Pain (R hip) Skin: Reports: Erythema, Other (area of erythema noted by staff to dorsum of L hand) Neurological: Reports: Confusion, Syncope Psychiatric: Reports: No Symptoms Hematologic/Lymphatic: Reports: No Symptoms Immunologic: Reports: No Symptoms ED EXAM, GENERAL - Physical Exam Exam: See Below Exam Limited By: No Limitations General Appearance: Alert, Cachetic Eye Exam: Bilateral Eye: EOMI, PERRL Nose: No Blood Throat/Mouth: Normal Inspection, Normal Lips, Normal Teeth, No Airway Compromise Head: Atraumatic, Normocephalic Neck: Normal Inspection, Supple, Non-Tender, Full Range of Motion Respiratory/Chest: No Respiratory Distress, Lungs Clear, Normal Breath Sounds, No Accessory Muscle Use, Chest Non-Tender Cardiovascular: Normal Peripheral Pulses, Regular Rate, Rhythm, No Murmur Peripheral Pulses: 4+: Radial (R) GI/Abdominal: Soft, No Mass, Distended, Other (bowel sounds hyperactive) (Male) Exam: Normal Inspection, Circumcised Rectal (Males) Exam: Deferred Back Exam: Other (abrasion/skin tear to R side of mid back, approx. 20 cm in length.) Extremities: Other (R lower extremity appears to be shortened. Area of erythema noted to L posterior hand. Small skin tear noted to L elbow.) Neurological: Alert, CN II-XII Intact, No Motor/Sensory Deficits, Confused Psychiatric: Normal Affect, Anxious Skin Exam: Warm, Dry, Pallor Lymphatic: No Adenopathy EKG INTERPRETATION Rhythm: NSR [place]: Normal P-Wave: Present QRS: Normal ST-T: Normal QT: Normal Course - Vital Signs Last Recorded V/S: Last Vital Signs Temp 36.3 C 02/16/20 09:46 Pulse 66 02/16/20 11:00 Resp 18 02/16/20 11:00 BP 116/65 02/16/20 11:00 Pulse Ox 96 02/16/20 11:00 - Orders/Labs/Meds Orders: Active Orders 24 hr Category Date Time Status EKG Documentation Completion [RC] STAT Care 02/16/20 09:51 Active COMPREHENSIVE METABOLIC PN,CMP [CHEM] Stat Lab 02/16/20 09:51 Ordered CRP [C-REACTIVE PROTEIN] [CHEM] Stat Lab 02/16/20 09:52 Ordered CULTURE BLOOD [BC] Stat Lab 02/16/20 09:52 Ordered CULTURE BLOOD [BC] Stat Lab 02/16/20 09:52 Ordered MAGNESIUM [CHEM] Stat Lab 02/16/20 09:51 Ordered TROPONIN I [CHEM] Stat Lab 02/16/20 09:51 Ordered Sodium Chloride 0.9% @ 125 MLS/HR (1000ml) Med 02/16/20 10:45 Ordered Sodium Chloride 0.9% [Normal Saline] 1,000 ml IV ASDIRECTED Sodium Chloride 0.9% [Saline Flush] Med 02/16/20 09:50 Active 10 ml FLUSH ASDIRECTED PRN Blood Culture x2 Reflex Set [OM.PC] Stat Oth 02/16/20 09:52 Ordered Peripheral IV Insertion Adult [OM.PC] Routine Oth 02/16/20 09:52 Ordered Medication Orders Sodium Chloride (Normal Saline) 1,000 mls @ 125 mls/hr IV ASDIRECTED MILAN Sodium Chloride (Saline Flush) 10 ml FLUSH ASDIRECTED PRN PRN Reason: Keep Vein Open Labs: Laboratory Tests 05/09/2502/16/20 02/16/20 Range/Units 10:28 10:28 10:28 WBC 10.8 H (4.0-10.0) x10^3/uL RBC 4.01 L (4.5-6.0) x10^6/uL Hgb 12.3 L (14.0-18.0) g/dL Hct 36.6 L (40.0-52.0) % MCV 91.3 D (78.0-93.0) fL MCH 30.7 (26.0-32.0) pg MCHC 33.6 (32.0-36.0) g/dL RDW Coeff of Phyllis 13.3 (10.0-15.0) % Plt Count 195 (130-400) x10^3/uL Neut % (Auto) 84.1 H (50.0-80.0) % Lymph % (Auto) 10.8 L (25.0-50.0) % Crawford % (Auto) 3.9 (2.0-11.0) % Eos % (Auto) 0.9 (0.0-4.0) % Baso % (Auto) 0.3 (0.2-1.2) % PT 11.0 (9.5-12.3) SEC INR 1.0 L (2.0-3.5) Sodium 142 (136-145) mmol/L Potassium 4.2 (3.5-5.1) mmol/L Chloride 105 (98-107) mmol/L Carbon Dioxide 29 (21-32) mmol/L Anion Gap 12.2 (10-20) mmol/L BUN 19 H (7-18) mg/dL Creatinine 1.0 (0.70-1.30) mg/dL Est Cr Clr Drug Dosing TNP Estimated GFR (MDRD) > 60 Glucose 105 (74-106) mg/dL Lactic Acid (0.4-2.0) mmol/L Calcium 8.4 L (8.5-10.1) mg/dL Corrected Calcium 9.60 (8.5-10.1) mg/dL Magnesium 1.7 L (1.8-2.4) mg/dL Total Bilirubin 0.5 (0.2-1.0) mg/dL AST 21 (15-37) U/L ALT 23 (16-63) U/L Alkaline Phosphatase 81 (46-116) U/L C-Reactive Protein 2.0 H (<=0.9) mg/dL Total Protein 6.2 L (6.4-8.2) g/dL Albumin 2.5 L (3.4-5.0) g/dL Globulin 3.7 Albumin/Globulin Ratio 0.68 Urine Color (YELLOW) Urine Appearance (CLEAR) Urine pH (5.0-8.0) Ur Specific [place] Urine Protein (NEGATIVE) mg/dL Urine Glucose (UA) (NEGATIVE) mg/dL Urine Ketones (NEGATIVE) mg/dL Urine Occult Blood (NEGATIVE) Urine Nitrite (NEGATIVE) Urine Bilirubin (NEGATIVE) Urine Urobilinogen (0.2) EU/dL Ur Leukocyte Esterase (NEGATIVE) Urine RBC (NOT SEEN) /HPF Urine WBC (NOT SEEN) /HPF Ur Squamous Epith Cells (NEGATIVE) /HPF Urine Bacteria (NEGATIVE) /HPF Urine Mucus (NEGATIVE) /LPF 02/16/20 02/16/20 Range/Units 10:28 10:55 WBC (4.0-10.0) x10^3/uL RBC (4.5-6.0) x10^6/uL Hgb (14.0-18.0) g/dL Hct (40.0-52.0) % MCV (78.0-93.0) fL MCH (26.0-32.0) pg MCHC (32.0-36.0) g/dL RDW Coeff of Phyllis (10.0-15.0) % Plt Count (130-400) x10^3/uL Neut % (Auto) (50.0-80.0) % Lymph % (Auto) (25.0-50.0) % Crawford % (Auto) (2.0-11.0) % Eos % (Auto) (0.0-4.0) % Baso % (Auto) (0.2-1.2) % PT (9.5-12.3) SEC INR (2.0-3.5) Sodium (136-145) mmol/L Potassium (3.5-5.1) mmol/L Chloride (98-107) mmol/L Carbon Dioxide (21-32) mmol/L Anion Gap (10-20) mmol/L BUN (7-18) mg/dL Creatinine (0.70-1.30) mg/dL Est Cr Clr Drug Dosing Estimated GFR (MDRD) Glucose (74-106) mg/dL Lactic Acid 1.6 (0.4-2.0) mmol/L Calcium (8.5-10.1) mg/dL Corrected Calcium (8.5-10.1) mg/dL Magnesium (1.8-2.4) mg/dL Total Bilirubin (0.2-1.0) mg/dL AST (15-37) U/L ALT (16-63) U/L Alkaline Phosphatase (46-116) U/L C-Reactive Protein (<=0.9) mg/dL Total Protein (6.4-8.2) g/dL Albumin (3.4-5.0) g/dL Globulin Albumin/Globulin Ratio Urine Color Dark yellow H (YELLOW) Urine Appearance Slightly cloudy H (CLEAR) Urine pH 5.5 (5.0-8.0) Ur Specific [place] >=1.030 Urine Protein Negative (NEGATIVE) mg/dL Urine Glucose (UA) Negative (NEGATIVE) mg/dL Urine Ketones Negative (NEGATIVE) mg/dL Urine Occult Blood Trace-intact H (NEGATIVE) Urine Nitrite Negative (NEGATIVE) Urine Bilirubin Negative (NEGATIVE) Urine Urobilinogen 0.2 (0.2) EU/dL Ur Leukocyte Esterase Negative (NEGATIVE) Urine RBC 0-5 (NOT SEEN) /HPF Urine WBC 0-5 (NOT SEEN) /HPF Ur Squamous Epith Cells Rare (NEGATIVE) /HPF Urine Bacteria Not seen (NEGATIVE) /HPF Urine Mucus Occasional H (NEGATIVE) /LPF Meds: Medications Generic Name Dose Route Start Last Admin Trade Name Freq PRN Reason Stop Dose Admin Sodium Chloride 1,000 mls @ 125 mls/hr 02/16/20 10:45 Normal Saline IV ASDIRECTED MILAN Sodium Chloride 10 ml 02/16/20 09:50 Saline Flush FLUSH ASDIRECTED PRN Keep Vein Open - Radiology Interpretation Free Text/Narrative:: R femoral neck fx noted on x-ray. CT brain negative for acute pathology. Chest x -ray negative for acute pathology. Departure - Departure Time of Disposition: 11:27 Disposition: DC/Tfer to Acute Hospital 02 Clinical Impression: Hip fracture, right - Discharge Information Referrals: Mirtha Madera MD [Primary Care Provider] - Forms: ED Department Discharge, Interfacility Transfer [facility] Sepsis Event Note - Evaluation Sepsis Screening Result: No Definite Risk - Focused Exam Vital Signs: Vital Signs Temp Pulse Resp BP Pulse Ox 02/16/20 11:00 66 18 116/65 96 02/16/20 09:46 36.3 C 67 24 H 100/62 93 L Date Exam was Performed: 02/16/20 Time Exam was Performed: 11:25 - Problem List Review Problem List Initiated/Reviewed/Updated: Yes - My Orders Last 24 Hours: My Active Orders 02/16/20 09:50 Sodium Chloride 0.9% [Saline Flush] 10 ml FLUSH ASDIRECTED PRN 02/16/20 09:51 EKG Documentation Completion [RC] STAT COMPREHENSIVE METABOLIC PN,CMP [CHEM] Stat MAGNESIUM [CHEM] Stat TROPONIN I [CHEM] Stat 02/16/20 09:52 CRP [C-REACTIVE PROTEIN] [CHEM] Stat CULTURE BLOOD [BC] Stat CULTURE BLOOD [BC] Stat Blood Culture x2 Reflex Set [OM.PC] Stat Peripheral IV Insertion Adult [OM.PC] Routine 02/16/20 10:45 Sodium Chloride 0.9% @ 125 MLS/HR (1000ml) Sodium Chloride 0.9% [Normal Saline] 1,000 ml IV ASDIRECTED - Assessment/Plan Last 24 Hours: My Active Orders 02/16/20 09:50 Sodium Chloride 0.9% [Saline Flush] 10 ml FLUSH ASDIRECTED PRN 02/16/20 09:51 EKG Documentation Completion [RC] STAT COMPREHENSIVE METABOLIC PN,CMP [CHEM] Stat MAGNESIUM [CHEM] Stat TROPONIN I [CHEM] Stat 02/16/20 09:52 CRP [C-REACTIVE PROTEIN] [CHEM] Stat CULTURE BLOOD [BC] Stat CULTURE BLOOD [BC] Stat Blood Culture x2 Reflex Set [OM.PC] Stat Peripheral IV Insertion Adult [OM.PC] Routine 02/16/20 10:45 Sodium Chloride 0.9% @ 125 MLS/HR (1000ml) Sodium Chloride 0.9% [Normal Saline] 1,000 ml IV ASDIRECTED Plan: Pt. will be transferred to [facility]. He is a code 1. I spoke with Dr. Burnett who accepts the patient in transfer. He will be transported via [facility] ground ambulance. Pt. blood pressure did improve to approx. 118/60 with approx. 600ml if IV fluid so far. He is on IV NS at 125ml/hr. Dyer catheter was placed for transport. Denies any pain when he is not moving, but pain will be treated with IV morphine as needed. All questions were answered.
[2020-02-16] MEDS ORDERED: Sodium Chloride 0.9% 1,000 ML IV SCH (10:45)
[2020-02-16 11:05] LABS: ANION GAP 12.2 mmol/L (10-20); CHLORIDE,CL 105 mmol/L (98-107); SODIUM,NA 142 mmol/L (136-145)
--- NOTE | 2020-02-16 11:05 | CT ---
[id number] CT/CT Head WO IV EXAM: NONCONTRAST HEAD CT INDICATION: CONFUSION. COMPARISON: August 29, 2019. DISCUSSION: Stable mild to moderate generalized atrophy. Moderate to advanced chronic small vessel ischemic changes, bilateral basal ganglia, bilateral thalamic and a left pontine lacunar infarcts have not appreciably changed. No acute territorial infarct, hemorrhage, extra-axial collection, hydrocephalus or midline shift. There are few opacified mastoid air cells bilaterally which are similar to the comparison study. IMPRESSION: 1. No acute findings. 2. Stable mild to moderate generalized atrophy and moderate to advanced chronic small vessel ischemic changes. Ajay Luna MD 02/16/20 1104 Thank you for allowing us to participate in the care of your patient.
--- NOTE | 2020-02-16 11:07 | CR ---
[id number] RAD/RAD Chest PA or AP 1V EXAM: FRONTAL CHEST INDICATION: SYNCOPE. COMPARISON: February 15, 2020. DISCUSSION: Hyperinflation is compatible with chronic obstructive pulmonary disease. The heart is at upper limits of normal for size with development of borderline central vascular congestion. No focal infiltrates are identified. IMPRESSION: 1. Borderline central vascular congestion. 2. Chronic obstructive pulmonary disease. Ajay Luna MD 02/16/20 [id number] Thank you for allowing us to participate in the care of your patient.
--- NOTE | 2020-02-16 11:08 | CR ---
[id number] RAD/RAD Pelvis 1V W 2V Right Hip Exam: RAD Pelvis 1V W 2V Right Hip Indication:FALL, RIGHT HIP PAIN. Comparison: No prior imaging for comparison. Discussion: Abnormal linear lucency in the proximal femur centered in the intertrochanteric region. Some of this lucency is consistent with artifact as extends beyond the cortex of the bone into the soft tissues. However, abduction view demonstrates lucency within the bone that is most consistent with a nondisplaced fracture. Consider noncontrast CT examination of the pelvis to better characterize the fracture, as this study is limited by patient body habitus. Impression: Abnormal appearance of the proximal right femur most consistent with an acute intertrochanteric fracture, described above with recommendation. Kyle Franco MD 02/16/20 [id number] Thank you for allowing us to participate in the care of your patient.
[2020-02-16 11:23] VITALS: BP 116/65; PULSE 66
== END 2020-02-16 12:05 | disposition short-term general hospital (02) ==
LOC: VM.ED 09:44
DX: S72.001A Fracture of unspecified part of neck of right femur, initial encounter for closed fracture (principal); I25.10 Atherosclerotic heart disease of native coronary artery without angina pectoris; I11.0 Hypertensive heart disease with heart failure; I50.9 Heart failure, unspecified; K21.9 Gastro-esophageal reflux disease without esophagitis; M19.90 Unspecified osteoarthritis, unspecified site; E78.00 Pure hypercholesterolemia, unspecified; G62.9 Polyneuropathy, unspecified; M10.9 Gout, unspecified; I25.2 Old myocardial infarction; F41.9 Anxiety disorder, unspecified; Z91.09 Other allergy status, other than to drugs and biological substances; Z79.82 Long term (current) use of aspirin; Z79.899 Other long term (current) drug therapy; W19.XXXA Unspecified fall, initial encounter
CPT/HCPCS: 36415; 51702; 70450; 71045; 80053; 81001; 83605; 83735; 84484; 85025; 85610; 86140; 87040; 93005; 93010; 96360; 99284-GF; 99285-25; J7030